=== PATIENT | female | born 1935 | race Caucasian/White ===

== ENCOUNTER 2019-12-13 12:06 | Inpatient (IN) | payer OTHER ==
--- OUTSIDE RECORDS SUMMARY | 2019-12-13 12:07 | XMS REPORT | Continuity of Care Document ---
:1935 Author Organization [facility] Care Team Providers Name Role Phone [facility] Unavailable Un available Problems Problem Status Onset Classification Date Comments Sour e Date Reported N28.89 - OTHER Active OP ID SPECIFIED DISORDERS OF 020 [place] K Atrial fibrillation Resolved Problem 10/23/2019 [facility] (disorder) Group, [facility] [place] Heart disease Resolved Problem 10/23/2019 Me dical (disorder) Group, [facility] [place] Hypercholesterolemia Resolved Problem 10/23/2019 Medical (disorder) Group, [facility] [place] Hypertensive disorder, Resolved Problem 10/23/2019 Medical systemic arterial Gr oup, (disorder) [facility] [place] Myocardial infarction Resolved Problem 10/23/2019 [facility] (disorder) Group, [facility] [place] Medications Medication Details Route Status Patient Ordering Order Source Instructions Provider Date Humira 40 mg, Active SUB-Q, ONCE, 020 Medical 0 Refill(s) Group dofetilide 0.25 250 Active MH MG Oral Capsule microgram = 020 Medi selvin [Tikosyn] 1 cap, PO, Group BID, 0 Refill(s) Furosemide 20 20 mg = 1 Active MH MG Oral Tablet tab, PO, 020 Medical [Lasix] Daily, 0 Group Refill(s) Fish Oil PO, 0 Active MH Refill(s) 020 Medical Group atorvastatin 10 10 mg = 1 Active MH mg oral tablet tab, PO, 020 Medical Daily, 0 Group Refill(s) Ocuvite PO, Daily, 0 Active MH Refill(s) 020 Medical Group Ferralet 90 PO, Daily, 0 Active MH Refill(s) 020 Medical Group Niacin 500 MG 500 mg = 1 Active MH Extended tab, PO, 020 Medical Release Tablet Bedtime, 0 Group [Slo-Niacin] Refill(s) Allergy Relief 10 mg, PO, Active Daily, 0 020 Medical Refill(s) Group Allergies, Adverse Reactions, Alerts Substance Category Reaction Severity Reaction Status Date Comments S ource type Reported sulfa drugs Assertion Drug Active allergy Medical Group Immunizations No Data Provided for This Section Results No Data Provided for This Section Pathology Reports No Data Provided for This Section Diagnostic Reports Report Value Date Source Abdomen wo IV Radiation Dose CTDIVOL = 0 (mGy): DLP = 297.6 (m Gy-cm) 10/15/[address] [facility] [place] [address] PROCEDURE INFORMATION: Exam: CT Abdomen Without Contrast Exam date and time: 10/15/2019 9:41 AM Age: 84 years old Clinical indication: Abnormal findings; Mass, lump, or swelling; Kidney, left; Additional info: Renal mass/renal mass TECHNIQUE: Imaging protocol: Computed tomography images of the abdomen without contrast. Radiation optimization: All CT scans at this facility use at least one of these dose optimization techniques: automated exposure control; mA and/or kV adjustment per patient size (includes targeted e xams where dose is matched to clinical indication); or iterative reconstructio n. COMPARISON: No relevant prior studies available. RADIATION DOSE METRICS: Total DLP (mGy-cm): 297.6 FINDINGS: Small pleural effusions, right larger than left, show associated passive atelectasis Liver: Normal. No mass. Gallbladder and bile ducts: Multiple small depen dent calcified stones. No ductal dilation. Pancreas: Normal. No ductal dilation. Spleen: Normal. No splenomegaly. Adrenals: Normal. No mass. Kidneys and ureters: Left renal cortex e xophytic 2.6 x 2.6 cm hypodense lesion shows 7 Hounsfield units average density, compat ible with fluid attenuation. Partially exophytic 1.6 x 2.3 cm right r enal cortical hypodense lesion shows 9 Hounsfield units average density, compatible wit h fluid attenuation. No hydronephrosis. Stomach and bowel: Stomach shows large h iatal hernia. No obstruction. Although incompletely distended, 2nd and 3rd portion duod enum show suspected wall thickening. A few diverticula arise from the col on. Pericolonic fat planes remain preserved. Intraperitoneal space: Nonspecific small ascites adjacent to the liver tracks inferiorly along the right pericolic gut ter. No free air. No significant fluid collection. Lymph nodes: Unremarkable. No enlarged lymph nod es. Vasculature: Normal caliber abdominal aorta cont ains atherosclerotic calcifications. No abdominal aortic aneurysm. Bones/joints: Intervertebral disc spaces show di ffuse narrowing with vacuum phenomenon and osteophytes. L3 vertebral body ly tic lesion shows coarsened trabecular compatible with hemangioma. No acute fracture. No dislocation. Soft tissues: Small umbilical hernia contains fa t. IMPRESSION: Bilateral renal cysts. Cholelithiasis Minimal ascites of indeterminate origin. Large hiatal hernia Although incompletely distended, 2nd and 3rd por tion duodenum show suspected wall thickening. Please correlate clinically for duodenitis. Imaging findings do not exclude underlying malignancy. Small bilateral pleural effusions, right larger than left Foster Johnson MD On 10/15/2019 14:30:03; -WHWAN [id number] Consultation Notes No Data Provided for This Section Discharge Summaries No Data Provided for This Section History and Physicals No Data Provided for This Section Vital Signs Vital Sign Value Date Comments Source Systolic (mm Hg) 175 05/27/2019 Medical Group Diastolic (mm Hg) 110 05/27/2019 Medical Group Heart Rate 96 05/27/2019 [facility] p Height 154.94 cm 05/27/2019 [facility] p Weight 72.273 05/27/2019 [facility] p BMI Calculated 30.11 05/27/2019 Medical Gr oup Encounters Location Location Encounter Encounter Reason Attending ADM CT Stat Source Details Type Number For Provider Date Date Visit Outpatient [id number] Ana05/[address] [facility] Outpatient [id number] Ana05/27 Specialty [facility] Phone [id number] 06/09 06/11 [facility] Outpatient [id number] 09/[address] [facility] Out[facility] Diag [id number] Ana 10/14 10/15 [facility] [id number] Christophe 10/20 10/20 Specialty Pre-Reg [place] /2019 [facility] Procedures Procedure Code Date Perfomer Comments Source Cataract surgery [id number] [facility], [facility] Knee replacement [id number] [facility] al [facility], [facility] Assessment and Plan No Data Provided for This Section Plan of Care No Data Provided for This Section Social History Social History Date Source Social History TypeResponse 05/27/2019 [facility] Smoking Status Never smoker; Ready to change: No; Katy rns about tobacco use in household: No; Exposure to Tobacco Smoke None; Cigarette Smoking Last 365 Days No; Reg Smoking Cessation Counseling No entered on: 05/27/19 Social History TypeResponse 05/27/2019 NICOLE armstrong Smoking Status Never smoker; Ready to change: No; Katy rns about tobacco use in household: No; Exposure to Tobacco Smoke None; Cigarette Smoking Last 365 Days No; Reg Smoking Cessation Counseling No entered on: 05/27/19 Family History No Data Provided for This Section Advance Directives No Data Provided for This Section Functional Status No Data Provided for This Section
--- OUTSIDE RECORDS SUMMARY | 2019-12-13 12:07 | XMS REPORT | Clinical Summary ---
:1935 Author Organization [facility] Address [address] [place] [address] Care Team Providers Name Role Phone MD Oneyda Primary Care Provider Allergies Active Allergy Reactions Severity Noted Date Comments Sulfa (Sulfonamide Antibiotics) 9 Rash Medications Medication Sig Dispensed Refills Start Date End Date Status atorvastatin (LIPITOR) Take 10 mg by 0 Active 10 MG tablet mouth nightly. pantoprazole (PROTONIX) Take 40 mg by 0 Active 40 MG EC tablet mouth daily. multivitamin Take 1 tablet by 0 Active (THERAGRAN) tablet mouth daily. niacin (SLO-NIACIN) 500 Take 500 mg by 0 Active mg CR tablet mouth 2 (two) times a day with meals. Active Problems Problem Noted Date Paroxysmal atrial fibrillation 04/17/2018 Social History Tobacco Use Types Packs/Day Years Used Date Never Assessed Sex Assigned at Date Recorded Not on file Job Start Date Occupation Industry Not on file Not on file Not on file Travel History Travel Start Travel End No recent travel history available. Last Filed Vital Signs Not on file Plan of Treatment Health Maintenance Due Date Last Done Comments SHINGLES VACCINES (#1) 07/05/1985 65+ PNEUMOCOCCAL VACCINE (1 of 2 - PCV13) 07/05/2000 INFLUENZA VACCINE 01/02/2020 Implants Implanted Type Area Chiller Technician Device Shelf Model / Identifier Expiration Serial / Date Lot System Reveal Linq W/Monitors - [id number] Cardiac N/A: MEDTRON IC 02/28/2019 LINQSYS / Implanted: Qty: 1 on 04/19/2018 by Adan Pope MD at [facility] Pacemakers and N/A CARDIAC RHYTHM / Related DISEASE MGMT [id number] Products Results Not on fileafter 12/12/2018 Advance Directives For more information, please contact: [phone] Type Date Recorded 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
[2019-12-13 13:17] LABS: Absolute Lymphocytes (CBC) 2.8 K/uL (0.7-4.9); Basophils % 1.2 % (0-1.3); Hematocrit 30.8 % (36.0-45.0); MPV 8.9 fL (7.6-11.3); RBC Red Blood Cell Count 3.46 M/uL (3.86-4.86)
[2019-12-13 13:22] LABS: Protime INR 0.95
[2019-12-13 13:43] LABS: ALT/SGPT 15 U/L (12-78); AST/SGOT 28 U/L (15-37); Albumin 1.3 g/dL (3.4-5.0); Alkaline Phosphatase 112 U/L (45-117); BUN Blood Urea Nitrogen 33 mg/dL (7-18); Bicarbonate 19 mmol/L (21-32); Bilirubin Direct < 0.1 mg/dL (0-0.2); Bilirubin Total 0.2 mg/dL (0.2-1.0); Glucose Level 143 mg/dL (74-106); Magnesium 2.3 mg/dL (1.8-2.4); NT PRO-BNP 9200 pg/mL (<450); Potassium 3.8 mmol/L (3.5-5.1); Protein, Total 5.2 g/dL (6.4-8.2); Sodium Level 144 mmol/L (136-145); Troponin (Emerg Dept Use Only) 0.07 ng/mL (0.0-0.045)
--- NOTE | 2019-12-13 13:56 | RAD REPORT ---
EXAM DESCRIPTION: Rebeka Single View12/13/2019 1:48 pm CLINICAL HISTORY: Syncope/AFib COMPARISON: May 2019 FINDINGS: Left base is opacified Right lung appears clear Heart is mildly enlarged. Hiatal hernia is seen. IMPRESSION: Left base is opacified which may represent pneumonia/atelectasis. Pleural effusion may b e present The should be followed until it has cleared with x-rays to help exclude a post obstructive process/ma ss
--- NOTE | 2019-12-13 14:59 | EDPHYS ---
Physician Documentation [facility] Name: Neetu Mendoza Age: 84 yrs Sex: Female : 1935 Arrival Date: 12/13/2019 Time: 12:13 Bed 2 Private MD: ED Physician Kathi Acosta HPI: 12/12 13:13 This 84 yrs old Female presents to ER via Ambulatory with complaints of Sent ma2 by Baradhi- AFIB Monitor. 13:13 The patient has shortness of breath at rest. Onset: The symptoms/episode began/occurred ma2 gradually. Associated signs and symptoms: Pertinent negatives: productive cough, dizziness, hemoptysis, loss of consciousness. Severity of symptoms: At their worst the symptoms were moderate in the emergency department the symptoms are unchanged. The patient has not experienced similar symptoms in the past. 13:16 aslo had syncope last night while sitting on her chair she did not hit her head . ma2 Historical: - Allergies: 12:25 Sulfa (Sulfonamide Antibiotics); jd3 - PSHx: 12:25 Heart stents; Hysterectomy; cataract; gloria knee; jd3 - Immunization history:: Adult Immunizations up to date. - Social history:: Smoking status: Patient denies any tobacco usage or history of. Patient/guardian denies using alcohol, street drugs, The patient lives with family. - Family history:: not pertinent. ROS: 13:13 Constitutional: Negative for fever, chills, and weight loss. ma2 13:13 All other systems are negative. Exam: 13:13 Constitutional: This is a well developed, well nourished patient who is awake, alert, ma2 and in no acute distress. Head/Face: Normocephalic, atraumatic. Eyes: Pupils equal round and reactive to light, extra-ocular motions intact. Lids and lashes normal. Conjunctiva and sclera are non-icteric and not injected. Cornea within normal limits. Periorbital areas with no swelling, redness, or edema. ENT: Nares patent. No nasal discharge, no septal abnormalities noted. Tympanic membranes are normal and external auditory canals are clear. Oropharynx with no redness, swelling, or masses, exudates, or evidence of obstruction, uvula midline. Mucous membranes moist. Neck: Trachea midline, no thyromegaly or masses palpated, and no cervical lymphadenopathy. Supple, full range of motion without nuchal rigidity, or vertebral point tenderness. No Meningismus. Chest/axilla: tachypnic yet Normal chest wall appearance and motion. Nontender with no deformity. No lesions are appreciated. Cardiovascular: Regular rate and rhythm with a normal S1 and S2. No gallops, murmurs, or rubs. Normal PMI, no JVD. No pulse deficits. Respiratory: tachypnic yet Lungs have equal breath sounds bilaterally, clear to auscultation and percussion. No rales, rhonchi or wheezes noted. no retractions or nasal flaring. Abdomen/GI: Soft, non-tender, with normal bowel sounds. No distension or tympany. No guarding or rebound. No evidence of tenderness throughout. Back: No spinal tenderness. No costovertebral tenderness. Full range of motion. Skin: Warm, dry with normal turgor. Normal color with no rashes, no lesions, and no evidence of cellulitis. MS/ Extremity: has bilateral LE edema 2+ equal bilat, pitting, Pulses equal, no cyanosis. Neurovascular intact. Full, normal range of motion. Neuro: Awake and alert, GCS 15, oriented to person, place, time, and situation. Cranial nerves II-XII grossly intact. Motor strength 5/5 in all extremities. Sensory grossly intact. Cerebellar exam normal. Normal gait. Vital Signs: 12:24 BP 158 / 72; Pulse 89; Resp 18 S; Temp 97.8(O); Pulse Ox 99% on R/A; Weight 72.57 kg jd3 (R); Height 5 ft. 1 in. (154.94 cm) (R); Pain 0/10; 14:00 BP 131 / 65; Pulse 82; Resp 16; Pulse Ox 99% on R/A; hb 15:00 BP 136 / 59; Pulse 83; Resp 18; Pulse Ox 99% on R/A; em 16:05 BP 128 / 59; Pulse 75; Resp 15; Pulse Ox 99% on R/A; hb 17:00 BP 155 / 95; Pulse 91; Resp 15; Pulse Ox 99% on R/A; hb 17:47 BP 104 / 64; Pulse 71; Resp 16; Pulse Ox 100% ; hb 18:30 BP 140 / 71; Pulse 87; Resp 18; Pulse Ox 98% on R/A; em 20:28 BP 152 / 73; Pulse 85; Resp 17; Pulse Ox 98% on R/A; rv 21:16 BP 142 / 71; Pulse 89; Resp 17; Pulse Ox 96% on R/A; rv 22:37 BP 152 / 82; Pulse 88; Resp 18; Temp 98.2; Pulse Ox 98% on R/A; rv 12:24 Body Mass Index 30.23 (72.57 kg, 154.94 cm) jd3 MDM: 12:36 Patient medically screened. [facility] 13:13 Differential diagnosis: Anemia Anxiety Reaction Bronchitis CHF exacerbation, Myocardial ma2 Infarction reactive airway disease, Unstable Angina. 14:55 Data reviewed: vital signs, nurses notes. Counseling: I had a detailed discussion with ma2 the patient and/or guardian regarding: the historical points, exam findings, and any diagnostic results supporting the discharge/admit diagnosis, the presence of at least one elevated blood pressure reading (>120/80) during this emergency department visit, the need for further work-up and treatment in the hospital. ED course: discussed with dr. soto who stated that monitor sent warning for vt during her syncope recommends admisison and hold off tikacin and discussed with jassi mcclure who also recommends rocephin only and half ns at 50 ml/hr. 12/12 12:37 Order name: Basic Metabolic Panel; Complete Time: 14:04 [facility] 12/12 14:12 Interpretation: Within normal limits. [facility] 12/12 12:37 Order name: CBC with Diff; Complete Time: 14:04 [facility] 12/12 12:37 Order name: LFT's; Complete Time: 14:04 [facility] 12/12 12:37 Order name: Magnesium; Complete Time: 14:04 [facility] 12/12 12:37 Order name: NT PRO-BNP; Complete Time: 14:04 [facility] 12/12 12:37 Order name: PT-INR; Complete Time: 14:04 [facility] 12/12 12:37 Order name: Troponin (emerg Dept Use Only); Complete Time: 14:04 [facility] 12/12 12:37 Order name: XRAY Chest (1 view); Complete Time: 14:04 [facility] 12/12 15:16 Order name: Extrem Venous W Compression Gloria US ss 12/12 17:13 Order name: Troponin I [facility] 12/12 19:42 Order name: COVID-19 lp1 12/12 20:52 Order name: CORONAVIRUS [facility] 12/12 21:03 Order name: Troponin I [facility] 12/12 21:55 Order name: SARS-COV-2 RT PCR [facility] 12/12 12:37 Order name: EKG; Complete Time: 12:38 [facility] 12/12 12:37 Order name: Cardiac monitoring; Complete Time: 14:05 [facility] 12/12 12:37 Order name: EKG - Nurse/Tech; Complete Time: 14:06 [facility] 12/12 12:37 Order name: IV Saline Lock; Complete Time: 13:09 [facility] 12/12 12:37 Order name: Labs collected and sent; Complete Time: 14:06 [facility] 12/12 12:37 Order name: O2 Per Protocol; Complete Time: 14:06 [facility] 12/12 12:37 Order name: O2 Sat Monitoring; Complete Time: 14:06 [facility] 12/12 17:35 Order name: US [facility] Administered Medications: 15:10 Drug: AZITHromycin 500 mg Route: IVPB; Infused Over: 1 hrs; Site: right antecubital; em 16:10 Follow up: Response: No adverse reaction; IV Status: Completed infusion; IV Intake: em 250ml Disposition: 12/13/19 14:59 Hospitalization ordered by Christophe Call for Inpatient Admission. Preliminary diagnosis are Pneumonia due to other specified bacteria, Syncope and collapse, Ventricular tachycardia - transient and resolved , Acute kidney failure, Dehydration. - Bed requested for Telemetry/MedSurg (Inpatient). - Status is Inpatient Admission. rv - Condition is Stable. - Problem is new. - Symptoms are unchanged. Signatures: Dispatcher [employer] [facility] Nisreen Ramos RN RN mw Woody, Diana, RN RN dw Munoz, Edgar, RN RN em Davies, Jonathon, RN RN jd3 Alzahri, Mohammad, MD MD ma2 Vicente, Ronaldo, RN RN rv Corrections: (The following items were deleted from the chart) 14:12 14:11 Abnormal. [facility] 14:12 14:11 OrderId: [id number] PrecursorText: InterpretationText: randal tee 18:22 14:59 Hospitalization Ordered by Christophe Call MD for Inpatient Admission. Preliminary dw diagnosis is Pneumonia due to other specified bacteria; Syncope and collapse; Ventricular tachycardia - transient and resolved ; Acute kidney failure; Dehydration. Bed requested for Telemetry/MedSurg (Inpatient). Status is Inpatient Admission. Condition is Stable. Problem is new. Symptoms are unchanged. ma2 19:43 18:22 12/13/2019 14:59 Hospitalization Ordered by Christophe Call MD for Inpatient dw Admission. Preliminary diagnosis is Pneumonia due to other specified bacteria; Syncope and collapse; Ventricular tachycardia - transient and resolved ; Acute kidney failure; Dehydration. Bed requested for Telemetry/MedSurg (Inpatient). Status is Inpatient Admission. Condition is Stable. Problem is new. Symptoms are unchanged. dw 22:14 19:43 12/13/2019 14:59 Hospitalization Ordered by Christophe Call MD for Inpatient mw Admission. Preliminary diagnosis is Pneumonia due to other specified bacteria; Syncope and collapse; Ventricular tachycardia - transient and resolved ; Acute kidney failure; Dehydration. Bed requested for Telemetry/MedSurg (Inpatient). Status is Inpatient Admission. Condition is Stable. Problem is new. Symptoms are unchanged. dw 22:38 22:14 12/13/2019 14:59 Hospitalization Ordered by Christophe Call MD for Inpatient rv Admission. Preliminary diagnosis is Pneumonia due to other specified bacteria; Syncope and collapse; Ventricular tachycardia - transient and resolved ; Acute kidney failure; Dehydration. Bed requested for Telemetry/MedSurg (Inpatient). Status is Inpatient Admission. Condition is Stable. Problem is new. Symptoms are unchanged.
--- NOTE | 2019-12-13 14:59 | ER ---
Nurse's Notes [facility] Name: Neetu Mendoza Age: 84 yrs Sex: Female : 1935 Arrival Date: 12/13/2019 Time: 12:13 Bed 2 Private MD: Diagnosis: Pneumonia due to other specified bacteria;Syncope and collapse;Ventricular tachycardia-transient and resolved ;Acute kidney failure;Dehydration Presentation: 12/12 12:22 Chief complaint: Patient states: "I had a passing out spell yesterday and My jd3 cardiovascular technologist said they captured it on the monitor I am wearing at they told me to come to the ER.". Coronavirus screen: At this time, the client does not indicate any symptoms associated with coronavirus-19. Ebola Screen: Patient negative for fever greater than or equal to 101.5 degrees Fahrenheit, and additional compatible Ebola Virus Disease symptoms. Initial Sepsis Screen: Does the patient meet any 2 criteria? No. Patient's initial sepsis screen is negative. Does the patient have a suspected source of infection? No. Patient's initial sepsis screen is negative. Risk Assessment: Do you want to hurt yourself or someone else? Patient reports no desire to harm self or others. Onset of symptoms was December 13, 2019. 12:22 [facility] 12:22 Acuity: HARLEY 3 jd3 12:42 Note Ramila Jackson- daughter: [phone]. ss Historical: - Allergies: 12:25 Sulfa (Sulfonamide Antibiotics); jd3 - PSHx: 12:25 Heart stents; Hysterectomy; cataract; gloria knee; jd3 - Immunization history:: Adult Immunizations up to date. - Social history:: Smoking status: Patient denies any tobacco usage or history of. Patient/guardian denies using alcohol, street drugs, The patient lives with family. - Family history:: not pertinent. Screenin:19 Abuse screen: Denies threats or abuse. Nutritional screening: No deficits noted. em Tuberculosis screening: No symptoms or risk factors identified. Fall Risk None identified. Assessment: 13:10 General: Appears in no apparent distress. comfortable, Behavior is calm, cooperative, em appropriate for age. Pain: Denies pain. Neuro: Level of Consciousness is awake, alert, obeys commands, Oriented to person, place, time, situation, Appropriate for age. Cardiovascular: Reports shortness of breath, Denies chest pain, Capillary refill < 3 seconds. Respiratory: Airway is patent Respiratory effort is even, unlabored, Respiratory pattern is regular, symmetrical. Derm: Skin is intact, is thin, Skin is pink, warm \\T\\ dry. Musculoskeletal: Capillary refill < 3 seconds, Range of motion: intact in all extremities. 14:05 Reassessment: Patient appears in no apparent distress at this time. Patient and/or hb family updated on plan of care and expected duration. Pain level reassessed. Patient is alert, oriented x 3, equal unlabored respirations, skin warm/dry/pink. 15:00 Reassessment: Patient appears in no apparent distress at this time. Patient and/or em family updated on plan of care and expected duration. Pain level reassessed. Patient is alert, oriented x 3, equal unlabored respirations, skin warm/dry/pink. 16:00 Reassessment: Patient appears in no apparent distress at this time. No changes from hb previously documented assessment. Patient and/or family updated on plan of care and expected duration. Pain level reassessed. Patient is alert, oriented x 3, equal unlabored respirations, skin warm/dry/pink. 17:00 Reassessment: Patient appears in no apparent distress at this time. Patient and/or hb family updated on plan of care and expected duration. Pain level reassessed. Patient is alert, oriented x 3, equal unlabored respirations, skin warm/dry/pink. 18:03 Reassessment: Patient appears in no apparent distress at this time. Patient and/or em family updated on plan of care and expected duration. Pain level reassessed. Patient is alert, oriented x 3, equal unlabored respirations, skin warm/dry/pink. 21:16 Reassessment: awaiting COVID result. rv Vital Signs: 12:24 BP 158 / 72; Pulse 89; Resp 18 S; Temp 97.8(O); Pulse Ox 99% on R/A; Weight 72.57 kg jd3 (R); Height 5 ft. 1 in. (154.94 cm) (R); Pain 0/10; 14:00 BP 131 / 65; Pulse 82; Resp 16; Pulse Ox 99% on R/A; hb 15:00 BP 136 / 59; Pulse 83; Resp 18; Pulse Ox 99% on R/A; em 16:05 BP 128 / 59; Pulse 75; Resp 15; Pulse Ox 99% on R/A; hb 17:00 BP 155 / 95; Pulse 91; Resp 15; Pulse Ox 99% on R/A; hb 17:47 BP 104 / 64; Pulse 71; Resp 16; Pulse Ox 100% ; hb 18:30 BP 140 / 71; Pulse 87; Resp 18; Pulse Ox 98% on R/A; em 20:28 BP 152 / 73; Pulse 85; Resp 17; Pulse Ox 98% on R/A; rv 21:16 BP 142 / 71; Pulse 89; Resp 17; Pulse Ox 96% on R/A; rv 22:37 BP 152 / 82; Pulse 88; Resp 18; Temp 98.2; Pulse Ox 98% on R/A; rv 12:24 Body Mass Index 30.23 (72.57 kg, 154.94 cm) jd3 ED Course: 12:13 Patient arrived in ED. ds1 12:24 Triage completed. jd3 12:25 Arm band placed on. jd3 12:36 Kathi Acosta MD is Attending Physician. ma2 12:39 Poncho Petersen, SANDRA is Primary Nurse. em 13:09 Inserted saline lock: 20 gauge in right antecubital area, using aseptic technique. hb Blood collected. 13:19 Patient has correct armband on for positive identification. Bed in low position. Call em light in reach. classroom monitor on. Pulse ox on. NIBP on. 13:48 XRAY Chest (1 view) In Process Unspecified. EDMS 14:58 Christophe Call MD is Hospitalizing Provider. ma2 19:23 No provider procedures requiring assistance completed. IV is patent, with fluids rv infusing freely, Patient admitted, IV remains in place. Administered Medications: 15:10 Drug: AZITHromycin 500 mg Route: IVPB; Infused Over: 1 hrs; Site: right antecubital; em 16:10 Follow up: Response: No adverse reaction; IV Status: Completed infusion; IV Intake: em 250ml Intake: 16:10 IV: 250ml; Total: 250ml. em Outcome: 14:59 Decision to Hospitalize by Provider. ma2 22:38 Admitted to Med/surg accompanied by tech, via wheelchair, room 202, with chart, Report rv called to FATIMAH FLORES 22:38 Condition: good 22:38 Instructed on the need for admit. 22:38 Patient left the ED. rv Signatures: Dispatcher [employer] Poncho Gamboa, RN RN Nicolette Maxwell ds1 Kimberlyn Sheldon RN RN ss Radha Zuniga RN RN hb Davies, Jonathon, RN RN jd3 Kathi Acosta MD MD ny2 Marlo Cordero RN RN rv
[2019-12-13] MEDS ORDERED: AZITHROMYCIN IV 500 MG in NA CHLORIDE 0.9% 250 ML IVPB ONE (15:00)
--- NOTE | 2019-12-13 17:34 | RAD REPORT ---
EXAM DESCRIPTION: USExtrem Venous W Compress Bil12/13/2019 5:14 pm CLINICAL HISTORY: Bilateral leg swelling COMPARISON: April 2019 FINDINGS: The common femoral, superficial femoral, popliteal and posterior tibial veins bilaterally are compressible and demonstrate augmentation. Doppler demonstrates good flow. IMPRESSION: No evidence of deep venous thrombosis involving either lower extremity.
[2019-12-13] MEDS ORDERED: ACETAMINOPHEN 500 MG TAB PO PRN (20:01)
[2019-12-13] MEDS ORDERED: CEFTRIAXONE 1,000 MG in WATER FOR INJ,STERILE 10 ML IVP SCH (21:00)
[2019-12-13] MEDS ORDERED: CEFTRIAXONE 1 GM/NS 50 ML 1 GM/50 ML BAG IV SCH (21:00)
[2019-12-13] MEDS ORDERED: NACHLORIDE 0.45% 1,000 ML IV SCH (21:00)
[2019-12-13] MEDS ORDERED: CEFTRIAXONE 1,000 MG in WATER FOR INJ,STERILE 10 ML IVP ONE (21:00)
--- NOTE | 2019-12-13 21:17 | P.HP ---
Certification for Inpatient Patient admitted to: Inpatient With expected LOS: >2 Midnights Practitioner: I am a practitioner with admitting privileges, knowledge of patient current condition, hospital course, and medical plan of care. Services: Services provided to patient in accordance with Admission requirements found in Title 42 Section 412.3 of the Code of Federal Regulations Patient History Date of Service: 12/13/19 Reason for admission: V TACH. ON HER MONITOR REPORTED BY DR. HERMOSILLO History of Present Illness: DR. NAVARRO CALLED HER TO ER DR. HERMOSILLO REPORTED SHE HAD V TACH ON MONITORING. HER ELECTROLYTES ARE OKAY BUT HER CREATININE HAS WORSENED. HER CXR SHOWS POSSIBLE INFILTERATE VS. ATELACTASIS. SHE IS FATIGUED AND TEHRE IS NO OTHER SYMPTOM. Allergies Sulfa (Sulfonamide Antibiotics) Allergy (Mild, Verified 03/31/13 10:05) Rash Home Medications: Atorvastatin Calcium [Lipitor*] 10 mg PO BEDTIME 03/31/13 Beta-Carotene(A) W-C & E/Min [Ocuvite Tablet] 1 each PO DAILY 03/31/13 Cetirizine HCl [Zyrtec*] 5 mg PO DAILY 03/31/13 Niacin Sr [Niaspan*] 1,000 mg PO BEDTIME 03/31/13 [place]-3 Fatty Acids/Fish Oil [Fish Oil 1,200 mg Softgel] 1 each PO BID 03/31/13 Adalimumab [Humira] 10 mg SQ WMP 03/14/17 - Past Medical/Surgical History Diabetic: No -: Anemia -: Hyperlipidemia -: NC with stent -: bilateral knee replacement -: cataracts - Family History Mother -: Lung disease, Cancer Sister -: Cancer - Social History Alcohol use: No CD- Drugs: No Caffeine use: No Review of Systems 10-point ROS is otherwise unremarkable General: Weakness, Malaise Physical Examination - Physical Exam General: Mild distress HEENT: Atraumatic, PERRLA, Mucous membr. moist/pink, EOMI, Sclerae nonicteric Neck: Supple, 2+ carotid pulse no bruit, No LAD, Without JVD or thyroid abnormality Respiratory: Clear to auscultation bilaterally, Normal air movement Cardiovascular: Regular rate/rhythm, Normal S1 S2 Gastrointestinal: Normal bowel sounds, No tenderness Musculoskeletal: No tenderness Integumentary: No rashes Neurological: Normal gait, Normal speech, Normal strength at 5/5 x4 extr, Normal tone, Normal affect Lymphatics: No axilla or inguinal lymphadenopathy - Studies Laboratory Data (last 24 hrs) 12/13/19 13:07: Troponin I 0.06 H 12/13/19 13:07: PT 11.2, INR 0.95 12/13/19 13:07: WBC 8.0, Hgb 10.3 L, Hct 30.8 L, Plt Count 226 12/13/19 13:07: Sodium 144, Potassium 3.8, BUN 33 H, Creatinine 3.01 H, Glucose 143 H, Magnesium 2.3, Total Bilirubin 0.2, AST 28, ALT 15, Alkaline Phosphatase 112 Assessment and Plan - Problems (Diagnosis) (1) Acute renal insufficiency Current Visit: Yes Status: Acute Plan: STOP GENTLE IV HYDRATION. THIS MAY HELP BUT AGAIN SHE IS THIRD SPACING BECAUSE OF LOW ALBUMIN. LASIX AND ALBUMIN INFUSION MAY HELP TEMPORARILILY I CALLED DR. VALLES, HER SHEARING SUPERVISOR AND HE WILL MANAGE FLUIDS AND LASIX. SHE MAY HAVE NEPHROTIC SYNDROME. (2) Hypoalbuminemia Current Visit: Yes Status: Acute Plan: ABVE. (3) Ventricular tachyarrhythmia Current Visit: Yes Status: Acute Plan: WILL DO MONITORING. K AND MAG ARE OKAY. (4) Atelectasis Current Visit: Yes Status: Acute Plan: NO SIGNS OF FEVER, OR COUGH. SHE MAY NOT HAVE PNEUMONIA WILL DO CT SCAN WHEN CREATININE IS LOWER TO NORMAL. - Advance Directives Does patient have a Living Will: No Does patient have a Durable POA for Healthcare: Yes
--- NOTE | 2019-12-13 22:23 | CON ---
Date of Consultation: 12/13/2019 Reason For Consultation: Ventricular tachycardia and atrial fibrillation. History Of Present Illness: Ms. Mendoza is an 84-year-old white woman. She is very well known to me from previous office visits and admissions. She basically has history of atrial fibrillation that shaw s been treated with Tikosyn by Dr. Ga, has been controlled, but apparently on her monitor that is r emotely monitored, she had an episode of syncope with ventricular tachycardia that lasted [address] Ga and Dr. Call and myself agreed to have her go to the emergency room for further evaluatio n and treatment. In the interim since I last saw her, she has seen Dr. Guerrero and has been placed on diuretics, Synthroid medication as well. Her kidney function has much worsened on her diuretic. Her last creatinine was 3.01. She took the thyroid medicine only for 3 days. She has been feeling f airly well until that episode of syncope that occurred while she was sitting in her chair. She did n ot have any chest pain, shortness of breath, nausea, vomiting, or diaphoresis. Denied PND, orthopnea , or pedal edema, but definitely was syncopal. The rhythm was sent to me and it was definitely ventr icular tachycardia. In the emergency room, her EKG showed atrial fibrillation, rate controlled, with slightly prolonged QT interval. She had normal potassium, normal magnesium. Troponin was 0.06. BN P was 9200. Chest x-ray showed pneumonia versus atelectasis in the left lower lobe and venous Dopple r was negative. She is asymptomatic right now. Past Medical History: Positive for rheumatoid arthritis and dyslipidemia. Allergies: SHE IS ALLERGIC TO SULFA. Medications: Listed by Dr. Call, but they do include Lipitor, Humira, Niaspan, diuretics, Tikosyn, and Synthroid, which she held herself. Physical Examination: General: She was in atrial fibrillation at rate of 60, afebrile. Vital Signs: Otherwise stable. HEENT: Negative. Neck: Supple with no bruit. Chest: Clear. Cardiac: Atrial fibrillation. Abdomen: Benign. Extremities: No clubbing, cyanosis, or edema. Diagnostic Data: As stated earlier. Impression And Plan: 1.Ventricular tachycardia, resolved, causing syncope. She had long QT. This may have been caused b y a combination of her Tikosyn and worsening renal failure. Her magnesium and potassium are normal. We need to hold her Tikosyn. We need to hold her Synthroid. We need to hold her diuretics. The ca se was discussed with Dr. Call. 2.Renal failure, acute on chronic. Diuretics need to be held. She may benefit from gentle hydratio n. She does have a normal ejection fraction. 3.Elevated troponin and BNP secondary to chronic atrial fibrillation. 4.Dyslipidemia, on Lipitor. 5.Rheumatoid arthritis, on Humira. 6.History of coronary artery disease, status post percutaneous coronary intervention that is stable. 7.History of allergy to sulfa. 8.New-onset pneumonia, for which she is on antibiotics. I think gentle hydration, holding the diuretics, Synthroid, Tikosyn, and antibiotics should be in ord er. It may be worth keeping her in the hospital for a day or 2. I will discuss the case further wit h Dr. Call and Dr. Ga. We may have to deal with atrial fibrillation later down the road. We may have to consider anticoagulation. LIBBY/MARIBEL Voice ID: [id number] Report ID: [id number]
[2019-12-13 22:45] VITALS: BMI 30.2
[2019-12-13] MEDS: CEFTRIAXONE/SWI 1gm 1 GM/10 ML SYR IV SCH (23:46)
[2019-12-14 00:05] LABS: Urine Appearance CLEAR; Urine Bilirubin NEGATIVE (NEG); Urine Blood 2+ (NEG); Urine Color YELLOW; Urine Glucose 1+ (NEG); Urine Protein 3+ (NEG); Urine Specific Gravity 1.025 (1.005-1.030); Urine Urobilinogen 0.2 mg/dL (0.2-1.0)
[2019-12-14 00:13] LABS: Urine Protein/Creatinine Ratio 7.66 ratio (<0.15)
[2019-12-14 00:24] LABS: Urine Bacteria LOADED /HPF (<20)
[2019-12-14 00:25] LABS: Urine Amorphous Sediment 2+ /HPF (NONE SEEN); Urine Culture Reflex Order NOT NEEDED; Urine Mucus 1+ /HPF (NONE SEEN)
[2019-12-14 07:19] LABS: Albumin 1.2 g/dL (3.4-5.0); Phosphorus 3.4 mg/dL (2.5-4.9); Potassium 3.4 mmol/L (3.5-5.1)
[2019-12-14 07:40] LABS: Potassium 3.4 mmol/L (3.5-5.1)
[2019-12-14 07:41] LABS: Absolute Lymphocytes (CBC) 4.2 K/uL (0.7-4.9); Lymphocytes % 43.9 % (15.3-44.8); MPV 9.1 fL (7.6-11.3); RBC Red Blood Cell Count 3.26 M/uL (3.86-4.86)
[2019-12-14] MEDS: ENOXAPARIN 30 MG/0.3 ML SQ SCH (09:00)
[2019-12-14] MEDS: ASPIRIN EC 81 MG TAB PO SCH (09:05)
[2019-12-14] MEDS: CEFTRIAXONE/SWI 1gm 1 GM/10 ML SYR IV SCH ×2 (09:05→20:15)
--- NOTE | 2019-12-14 10:12 | RAD REPORT ---
EXAM DESCRIPTION: CT - Stone Protocol - 12/14/2019 9:51 am CLINICAL HISTORY: Acute renal failure, abdominal pain COMPARISON: Abdomen Pelvis W Contrast dated 05/16/2019 TECHNIQUE: Axial [address] imaging of the abdomen and pelvis was performed without IV contrast. No IV contrast was given because of allergy, abnormal renal function, patient refusal or physician re quest. No oral contrast administered. All CT scans are performed using dose optimization technique as appropriate and may include automated exposure control or mA/KV adjustment according to patient size. FINDINGS: Moderate-sized bilateral pleural effusions present with partial atelectasis of each lower lobe. Pericardial effusion is present up to 11 mm in thickness. Large hiatal hernia is present with 5 0% of the stomach intrathoracic. The liver, spleen and pancreas show no suspicious findings on non-contrast imaging. Several small gal lstones are present. No active gallbladder process seen. No biliary tree dilatation. No hydronephrosis of either kidney. No obstructing or nonobstructing calculus. Partially exophytic 2. 4 centimeter cyst lateral right kidney unchanged. In the lateral upper pole left kidney there is a 3 centimeter exophytic cystic mass. This has a thickened rim. There is soft tissue nodularity present. The May CT study showed this to be a cystic mass with enhancing solid mass component. 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 No significant adrenal finding. Isodense renal masses and pyelonephritis cannot be excluded in the ab sence of IV contrast. Urinary bladder is mostly contracted. No uterine abnormality. Ovaries are not c learly defined. Ovaries are atrophic or absent. No adnexal mass. No wall thickening or mass of the partially herniated stomach. No acute large or small bowel finding. Prominent sigmoid diverticulosis without diverticulitis. Small amount of free intraperitoneal fluid present in the dependent portion of the pelvis. No free air or pneumatosis. No hernia, mass or bulky lymphadenopathy. Disc and bony degenerative changes are present. Hemangioma present in the L3 body. Dense arterial eriberto e calcifications. Fluid retention is seen throughout the subcutaneous fatty tissues. IMPRESSION: A 3 centimeter left renal cystic mass with soft tissue mass component again noted. 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 Cystic component may be slightly larger than Feb ruary. No hydronephrosis or obstructing calculus. No other acute finding seen. Cholelithiasis without active gallbladder finding identified. No biliary tree dilatation. Moderate bilateral pleural effusions and anasarca of the subcutaneous fat. Apparent asymmetric edema and thickening pattern of the left breast fatty tissues and skin relative t o the right. This may be due to incomplete visualization of the right breast tissues. Correlation is needed with physical exam of the breast tissues. Full assessment is limited is the absence of IV contrast.
[2019-12-14 10:13] LABS: MPV 9.6 fL (7.6-11.3)
[2019-12-14 11:28] LABS: Platelet Estimate ADEQ
--- NOTE | 2019-12-14 11:45 | RAD REPORT ---
EXAM DESCRIPTION: US - Renal Ultrasound-Complete - 12/14/2019 10:25 am CLINICAL HISTORY: MENDZOA COMPARISON: Stone Protocol dated 12/14/2019; Abdomen Pelvis W Contrast dated 05/16/2019 FINDINGS: The right kidney measures 10.5 x 4.1 x 4.6 cm. The left kidney measures 10.1 x 3.9 x 3.7 cm. Renal cortical thickness and echogenicity are normal. No hydronephrosis of either kidney. An exop hytic 2.3 centimeter thin-walled anechoic cyst is present lateral mid right kidney. This matches the CT finding. A 2.5 centimeter exophytic mass lateral mid upper pole left kidney is present. Low-level internal echoes are present. The enhancing soft tissue mass component seen on the May CT study i s difficult to identify sonographically. Partially filled urinary bladder shows no suspicious finding. IMPRESSION: A 2.5 centimeter exophytic left renal cystic mass is present. The enhancing soft tissue mural nodule component identifiable May 2019 is not clearly seen. 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 Benign exophytic 2.3 centimeter right renal cyst. No hydronephrosis of either kidney. No cortical thinning or measurable medical renal disease.
[2019-12-14] MEDS ORDERED: POTASSIUM 25 MEQ EFFERV TAB PO ONE (12:42)
[2019-12-14] MEDS ORDERED: ADALIMUMAB 40 MG SQ SCH (15:30)
--- NOTE | 2019-12-14 17:39 | PN ---
Date of Progress Note: 12/14/2019 Subjective: Ms. Mendoza had been admitted following an an episode of ventricular tachycardia as an ou tpatient. This was picked up on an outpatient monitor. She was brought to the emergency room, where she was found to have acute on chronic renal failure with a creatinine of 3.0. She had prolonged QT . She was in atrial fibrillation. Overnight, her diuretics were held. She was hydrated. She was t aking Synthroid, which was held. She was taking Tikosyn, which was held. The case has been discusse d with Dr. Call and with her specialties operator Dr. Pope at [facility]. Overnight, her cre atinine came down from 3.0 to 2.6. She is in sinus rhythm. Her QT interval has improved. She is as ymptomatic. Her heart rate is normal. I am comfortable for Ms. Mendoza to go home whenever it is oka y with Dr. Call. I think she should go home with a regimen that does not include Tikosyn, Synthroid , or diuretic. She should continue her Humira, Lipitor, her Cozaar, and her fish oil. I will see he r in the office in the next week or two. LIBBY/MARIBEL Voice ID: [id number] Report ID: [id number]
[2019-12-14] MEDS ORDERED: ATORVASTATIN 10 MG TAB PO SCH (21:00)
[2019-12-14 21:42] LABS: Urine Appearance CLOUDY; Urine Bilirubin NEGATIVE (NEG); Urine Blood 1+ (NEG); Urine Color YELLOW; Urine Glucose 1+ (NEG); Urine Protein 3+ (NEG); Urine Specific Gravity 1.025 (1.005-1.030); Urine Urobilinogen 0.2 mg/dL (0.2-1.0); Urine pH 6.5 (5.0-7.0)
[2019-12-14 22:06] LABS: Urine Microscopic Reflex ORDER UMIC
[2019-12-14 23:00] LABS: Urine Bacteria 20-50 /HPF (<20); Urine Mucus 1+ /HPF (NONE SEEN)
[2019-12-14 23:01] LABS: Urine Culture Reflex Order NOT NEEDED
--- NOTE | 2019-12-15 00:30 | CON ---
Date of Consultation: 12/14/2019 Chief Complaint: Acute kidney injury, severe, associated with renal hypoperfusion and nonoliguric ATN. History Of Present Illness: The patient was found to have ventricular tachycardia. The patient came to the emergency room because of generalized weakness, cardiac arrhythmia, palpitation. The patient has underlying chronic kidney disease stage 3. She was evaluated for proteinuria. She was found to have severe proteinuria during this admission and workup is initiated for monoclonal gammopathy of unknown significance. The patient was found to have renal function worsening with severe hyperazotemia. CT scan of the abdomen and pelvis was done without contrast per stone protocol, did not show obstructive uropathy, although there is a possibility of complex cyst versus kidney mass with growth. The patient denies history of hematuria. The patient is complaining of generalized fatigue, although she denies muscle aches or soreness. Denies syncope. Previously, baseline creatinine level was 1.3 to 1.5. Back in September, creatinine was up to 1.65, subsequently in November was 1.41. On arrival to the hospital, creatinine level was 2.78 and went up to 3.01. Today, creatinine level is 2.68. Urine output is well maintained and blood pressure is controlled. Cardiac arrhythmia is controlled. The patient has nonoliguric urine output. She denies hematuria, dysuria, or difficulty with urination. Urinalysis showed red blood cells and white blood cells, 3+ proteinuria. Urine protein-creatinine ratio is 7.66. Review of Systems: Constitutional: Denies fever or chills. Eyes: Denies vision changes. Ears, Nose, Mouth, and Throat: Denies sore throat or earache. Respiratory: She has shortness of breath with activities. Denies hemoptysis. Cardiovascular: Denies chest pain or palpitation. At this point, rate is controlled. The patient does not have palpitation. GI: Denies nausea or vomiting. : Denies dysuria or hematuria. Musculoskeletal: Denies muscle aches or joint swelling. All other systems reviewed and all are negative. Past Medical History: Hypertension, chronic kidney disease stage 3, hypertensive heart and kidney disease, hyperlipidemia, arrhythmia, hypothyroidism, kidney mass/complex renal cyst, pneumonia. Social History: Denies tobacco, alcohol, or illicit drugs. Family History: No kidney disease in the family. Physical Examination: General: The patient is awake, alert, follows commands. Eyes: Anicteric sclerae. EOMI. Ears, Nose, Mouth, and Throat: Oral mucosa moist. No pallor. Neck: Supple. No bruits. Lungs: Diminished breath sounds at bases. Heart: S1, S2. No pericardial friction rub. Abdomen: Soft, benign. No rebound. No guarding. Extremities: Minimal edema in both ankles. No clubbing. No cyanosis. Neurologic: Moving extremities. Cranial nerves intact. Psychiatric: Alert and oriented x3. Normal affect. 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 Impression And Plan: 1. The patient has acute kidney injury, severe. Renal function is declining, although over last 24 hours, there is a trend for plateau of the renal function. Electrolytes are stable. Potassium level is 3.4. Recommend to monitor magnesium level and replace potassium. 2. Severe proteinuria. The patient is undergoing workup for nephrotic syndrome and monoclonal gammopathy of unknown significance. Urinalysis showed red blood cells and white blood cells, and the patient will have workup for urinary tract infection. Previously, the patient was treated with antibiotics for urinary tract infection. She had Escherichia coli infection back in November. Recent urine culture is negative for growth. 3. Hypertensive heart and kidney disease. Monitor blood pressure. The patient developed hypotension when she had an atrial fibrillation and atrial flutter. The patient is evaluated by big data admin and she will continue beta- redd for rate control. GIO/MARIBEL Voice ID: [id number] Report ID: [id number] MTDD
[2019-12-15] MEDS ORDERED: METOPROLOL XL 50 MG TAB PO SCH ×2 (06:00→09:00)
[2019-12-15 06:21] LABS: Phosphorus 3.3 mg/dL (2.5-4.9); Potassium 3.5 mmol/L (3.5-5.1); Uric Acid 7.7 mg/dL (2.6-6.0)
[2019-12-15 06:23] LABS: Thyroid Stimulating Hormone 4.4 uIU/mL (0.360-3.740)
[2019-12-15] MEDS: ASPIRIN EC 81 MG TAB PO SCH (08:13)
[2019-12-15] MEDS: ENOXAPARIN 30 MG/0.3 ML SQ SCH (08:14)
[2019-12-15] MEDS ORDERED: FERRALET PO SCH (09:00)
[2019-12-15] MEDS ORDERED: LORATADINE 10 MG TAB PO SCH (09:00)
[2019-12-15 09:17] VITALS: O2SAT 95
--- NOTE | 2019-12-15 10:54 | P.DS ---
Admission Date: 12/13/19 Discharge Date: 12/15/19 Disposition: ROUTINE DISCHARGE Discharge Condition: FAIR Reason for Admission: V TACH. ON HER MONITOR REPORTED BY DR. HERMOSILLO - Problems (1) Acute renal insufficiency Current Visit: Yes Status: Acute (2) Hypoalbuminemia Current Visit: Yes Status: Acute (3) Ventricular tachyarrhythmia Current Visit: Yes Status: Acute (4) Atelectasis Current Visit: Yes Status: Acute Brief History of Present Illness: DR. NAVARRO CALLED HER TO ER DR. HERMOSILLO REPORTED SHE HAD V TACH ON MONITORING. HER ELECTROLYTES ARE OKAY BUT HER CREATININE HAS WORSENED. HER CXR SHOWS POSSIBLE INFILTERATE VS. ATELACTASIS. SHE IS FATIGUED AND TEHRE IS NO OTHER SYMPTOM. Hospital Course: PATIENT IS DOING GOOD. HER EDEMA WILL PERSIST UNTIL NEPHROTIC SYNDROME IS TAKEN CARE OFF. SHE WILL FU WITH DR. VALLES. I ADDED TOPROL XL BID FOR BP. I STOPPED LOSARTAN UNTIL RENAL FUNCTION IS STABILIZED. SHE WENT TO DR. ESCOBAR FOR RENAL CYST OR MASS. THEY DID FU AND CYST WAS THE SAME. SHE WILL FU WITH HER AGAIN CYST OR MASS IS SLIGHTLY BIGGER. SHE DOES NOT WANT RENAL BIOPSY OR SURGERY BUT WILL THINK ABOUT IT. SHE KNOWS IT CAN BE CANCER. Vital Signs/Physical Exam: Temp Pulse Resp BP Pulse Ox 97.3 F 84 16 188/79 H 97 12/15/19 08:00 12/15/19 08:13 12/15/19 08:00 12/15/19 08:13 12/15/19 08:00 Laboratory Data at Discharge: WBC 9.6 K/uL (4.3-10.9) D 12/14/19 05:43 Hgb 9.7 g/dL (12.0-15.0) L 12/14/19 05:43 Hct 29.0 % (36.0-45.0) L 12/14/19 05:43 Plt Count 238 K/uL (152-406) 12/14/19 09:33 PT 11.2 SECONDS (9.5-12.5) 12/13/19 13:07 INR 0.95 12/13/19 13:07 Sodium 144 mmol/L (136-145) 12/15/19 05:25 Potassium 3.5 mmol/L (3.5-5.1) 12/15/19 05:25 BUN 35 mg/dL (7-18) H 12/15/19 05:25 Creatinine 2.45 mg/dL (0.55-1.3) H 12/15/19 05:25 Glucose 101 mg/dL (74-106) 12/15/19 05:25 Uric Acid 7.7 mg/dL (2.6-6.0) H 12/15/19 05:25 Phosphorus 3.3 mg/dL (2.5-4.9) 12/15/19 05:25 Magnesium 2.3 mg/dL (1.8-2.4) 12/13/19 13:07 Total Bilirubin 0.2 mg/dL (0.2-1.0) 12/13/19 13:07 AST 28 U/L (15-37) 12/13/19 13:07 ALT 15 U/L (12-78) 12/13/19 13:07 Alkaline Phosphatase 112 U/L (45-117) 12/13/19 13:07 Troponin I 0.07 ng/mL (0.0-0.045) H 12/14/19 00:37 Home Medications: Adalimumab [Humira Pen] 40 mg SQ SEECOM 12/14/19 Atorvastatin Calcium [Lipitor*] 10 mg PO BEDTIME 12/14/19 Ferralet 90 90 mg PO DAILY 12/14/19 Loratadine [Claritin*] 10 mg PO DAILY 12/14/19 Niacinamide [Niacin] 2 tab PO DAILY 12/14/19 [place]-3/Dha/Epa/Lut/Zeaxanthin [[facility] Softgel] 10 mg PO DAILY 12/14/19 [place]-3S/Dha/Epa/Fish Oil [Fish Oil 1,200 mg Softgel] 1 tab PO DAILY 12/14/19 Metoprolol Succinate [Toprol Xl*] 50 mg PO BID #60 tab 12/15/19 New Medications: Metoprolol Succinate [Toprol Xl*] 50 mg PO BID #60 tab Patient Discharge Instructions: GO BACK TO DR. ESCOBAR FOR RENAL MASS. DR. VALLES FOR KIDNEYS. MY OFFICE IN TWO WEEKS. Diet: AHA
--- NOTE | 2019-12-15 10:55 | P.PN ---
Subjective Date of Service: 12/14/19 Chief Complaint: V TACH. ON HER MONITOR REPORTED BY DR. HERMOSILLO Subjective: Improving SHE HAS NO PAIN, NO FEVER, NO COUGH,NO DYSPNEA. SHE IS ABLE TO WALK WELL. SHE DOES HAVE EDEMA. Review of Systems 10-point ROS is otherwise unremarkable Physical Examination - Vital Signs Temperature: 97.3 F Blood Pressure: 188/79 Pulse: 84 Respirations: 16 Pulse Ox (%): 97 - Physical Exam General: Alert, In no apparent distress HEENT: Atraumatic, PERRLA, EOMI Neck: Supple, JVD not distended Respiratory: Clear to auscultation bilaterally, Normal air movement Cardiovascular: Edema Gastrointestinal: Normal bowel sounds, No tenderness Musculoskeletal: No tenderness Integumentary: No rashes Neurological: Normal speech, Normal tone, Normal affect Lymphatics: No axilla or inguinal lymphadenopathy - Studies Medications List Reviewed: Yes Assessment And Plan - Current Problems (Diagnosis) (1) Acute renal insufficiency Current Visit: Yes Status: Acute Plan: STOP GENTLE IV HYDRATION. THIS MAY HELP BUT AGAIN SHE IS THIRD SPACING BECAUSE OF LOW ALBUMIN. LASIX AND ALBUMIN INFUSION MAY HELP TEMPORARILILY I CALLED DR. 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 SHE MAY HAVE NEPHROTIC SYNDROME. CREAT CAME DOWN. WILL AVOID DIURETICS. (2) Hypoalbuminemia Current Visit: Yes Status: Acute Plan: ABVE. (3) Ventricular tachyarrhythmia Current Visit: Yes Status: Acute Plan: WILL DO MONITORING. K AND MAG ARE OKAY. STABLE , NO SIGN OF IT. (4) Atelectasis Current Visit: Yes Status: Acute Plan: NO SIGNS OF FEVER, OR COUGH. SHE MAY NOT HAVE PNEUMONIA WILL DO CT SCAN WHEN CREATININE IS LOWER TO NORMAL.
[2019-12-15 12:12] VITALS: TEMP 97.7
[2019-12-15 12:27] VITALS: BP 140/80
[2019-12-16 13:38] LABS: Rheumatoid Factor NEG (NEG)
--- NOTE | 2019-12-16 15:50 | PN ---
Date of Progress Note: 12/15/2019 Chief Complaint: Acute kidney injury severe associated with renal hypoperfusion with nonoliguric ATN. History Of Present Illness: Patient was found to have ventricular tachycardia. Patient came to emergency room because of generalized weakness. Cardiac arrhythmia was worked up. Patient has underlying chronic kidney disease stage 3. She was found to have severe proteinuria, worsening from the renal function, and she remains nonoliguric. Blood pressure has stabilized and arrhythmia is controlled. Electrolytes are within normal limits. CT scan of the abdomen and pelvis was done without contrast did not show obstructive uropathy. There is possibility of complex kidney cyst. Patient will need to follow up with Urology as outpatient. Renal function has not improved significantly since yesterday, although there is no fluid overload and electrolytes are stable. Previous creatinine baseline from 1.3 to 1.5. Yesterday, creatinine was 2.68. The patient was found to have severe proteinuria with protein creatinine ratio of 7.66 and 24 hours urine collection will be arranged to check for possible monoclonal gammopathy of unknown significance. Review of Systems: Denies fever or chills. Physical Examination: Lungs: Clear to auscultation bilaterally. Heart: S1, S2. Abdomen: Soft, benign. Extremities: Minimal ankle edema. Impression And Plan: 1. Acute kidney injury, severe. Renal function is declining over last 48 hours, plan is to monitor renal function. Potassium level was 3.4. Magnesium was within normal limits.Patient will have potassium replacement according to lab results. 2. Severe proteinuria. Re-evaluate her renal function. Monitor proteinuria panel and check for any evidence of monoclonal gammopathy of unknown significance. Workup for vasculitis was ordered and pending. 3. Hypertensive heart and kidney disease, arrhythmia dyspnea per primary team. Continue beta-redd. I spent total 36 min including 26 min to coordinate care plan. GIO/MARIBEL Voice ID: [id number] Report ID: [id number] DARWIN
[2019-12-18 03:58] LABS: HBsAG Nonreactive (Nonreactive)
[2019-12-18 19:52] LABS: Hepatitis C Virus RNA (PCR)log <1.18 log IU/mL
[2019-12-19 20:44] LABS: Albumin, (SPE) 1.4 g/dL (3.8-4.8); Alpha-1-Globulins 0.3 g/dL (0.2-0.3); Alpha-2-Globulins 0.9 g/dL (0.5-0.9); Gamma Globulins 0.5 g/dL (0.8-1.7); INTERPRETATION REPORT
== END 2019-12-15 13:23 | disposition home or self-care (01) | DRG 683 ==
LOC: ER 12:06 → ERHOLD 15:20 → 2ND 22:17
PROVIDERS: ADMIT Internal Medicine; ATTEND Internal Medicine
DX: N17.9 Acute kidney failure, unspecified (principal); I47.2 Ventricular tachycardia; J98.11 Atelectasis; I48.20 Chronic atrial fibrillation, unspecified; M06.9 Rheumatoid arthritis, unspecified; I13.10 Hypertensive heart and chronic kidney disease without heart failure, with stage 1 through stage 4 chronic kidney disease, or unspecified chronic kidney disease; N18.3 Chronic kidney disease, stage 3 (moderate); N28.1 Cyst of kidney, acquired; I25.10 Atherosclerotic heart disease of native coronary artery without angina pectoris; E88.09 Other disorders of plasma-protein metabolism, not elsewhere classified; I25.2 Old myocardial infarction; R79.89 Other specified abnormal findings of blood chemistry; Z88.1 Allergy status to other antibiotic agents; Z79.899 Other long term (current) drug therapy; Z90.710 Acquired absence of both cervix and uterus; Z96.653 Presence of artificial knee joint, bilateral; Z95.5 Presence of coronary angioplasty implant and graft; Z20.828 Contact with and (suspected) exposure to other viral communicable diseases
CPT/HCPCS: 36415; 71045; 74176; 76377; 76770; 80048; 80069; 80074; 80076; 81001; 81003; 81015; 82550; 82553; 82570; 83735; 83880; 83970; 84156; 84165; 84439; 84443; 84484; 84550; 85025; 85049; 85610; 86021; 86038; 86160; 86225; 86334; 86335; 86430; 86704; 86706; 87086; 87088; 87522; 93005; 93970; 96365; 99285; J0456; J0696; J1650; J7050; U0003

== ENCOUNTER 2020-02-09 14:43 | Emergency (ER) | payer OTHER ==
--- OUTSIDE RECORDS SUMMARY | 2020-02-09 14:45 | XMS REPORT | Clinical Summary ---
:1935 Author Organization [facility] Address [address] [place] [address] Care Team Providers Name Role Phone MD [...] 2 (two) times a day with meals. metoprolol succinate XL Take 50 mg by 0 Active (TOPROL-XL) 25 mg 24 hr mouth 2 (two) tablet times a day. BUMETanide (BUMEX) 0.5 Take 0.5 mg by 0 Active MG tablet mouth 2 (two) times a day. Active Problems Problem Noted Date Paroxysmal atrial fibrillation 04/17/2018 Encounters Date Type Specialty Care Team Description 01/23/2020 Hospital Encounter Radiology Homar Ayers, Nep hrotic syndrome with MD hinton and billme ntal glomerular lesi ons 01/23/2020 Travel 01/06/2020 Travel 01/03/2020 Transcribe Orders Radiology Homar Ayers Neph rotic syndrome with MD hinton and segme ntal glomerular lesi ons (Primary Dx) after 02/08/2019 Surgical History Surgery Date Site/Laterality Comments HYSTERECTOMY EYE SURGERY Cataract surgery CARDIAC ELECTROPHYSIOLOGY 04/19/2018 N/A Proced ure: SUBCUTNEOUS PROCEDURE CARDIAC RHYTHM M ONITOR INSERTION; Surg ben: Adan Pope MD ; Location: [facility]; Service: Cardiol ogy; Laterality: N/A; Medical devices from this surgery are in t he Implants section . Medical History Medical History Date Comments Arthritis rheumatoid arthritis Hypertension Social History Tobacco Use Types Packs/Day Years Used Date Never Smoker Smokeless Tobacco: Never Used Sex Assigned at Date Recorded Not on file COVID-19 Exposure Response Date Recorded In the last month, have you been in contact with No / Unsure 01/23/2020 8:44 AM CDT someone who was confirmed or suspected to have Coronavirus / COVID-19? Last Filed Vital Signs Vital Sign Reading Time Taken Comments Blood Pressure 134/60 01/23/2020 2:15 PM CDT Pulse 60 01/23/2020 2:15 PM CDT Temperature 36.3 C (97.3 F) 01/23/2020 9:28 AM CDT Respiratory Rate 20 01/23/2020 10:45 AM CDT Oxygen Saturation 97% 01/23/2020 2:15 PM CDT Inhaled Oxygen Concentration - - Weight 68.1 kg (150 lb 0.4 oz) 01/23/2020 9:28 AM CDT Height 154.9 cm (5' 1") 01/23/2020 9:28 AM CDT Body Mass Index 28.35 01/23/2020 9:28 AM CDT Plan of Treatment Health Maintenance Due Date Last Done Comments SHINGLES VACCINES (#1) 07/05/1985 65+ PNEUMOCOCCAL VACCINE (1 of 1 - PPSV23) 07/05/2000 INFLUENZA VACCINE 11/02/2019 Implants Implanted Type Area Paint Roller Covers Supervisor Device Shelf Model / Identifier Expiration Serial / Date Lot System Reveal Linq W/Monitors - [id number] Cardiac N/A: MEDTRON IC 02/28/2019 LINQSYS / Implanted: Qty: 1 on 04/19/2018 by Adan Pope MD at [facility] Pacemakers and N/A CARDIAC RHYTHM / Related DISEASE MGMT [id number] Products Procedures Procedure Name Priority Date/Time Associated Diagnosis Comme nts US NEEDLE BIOPSY Routine 01/23/2020 11:13 AM Nephrotic syndrom e Results for this CDT with focal and procedure are in segmental glomerular the res ults lesions section. SURGICAL PATHOLOGY Routine 01/23/2020 11:02 AM Re sults for this REQUEST CDT procedure are i n the results section. after 02/08/2019 Results US Needle Biopsy (01/23/2020 11:13 AM CDT) Specimen Narrative Performed At EXAMINATION: US NEEDLE BIOPSY [facility] CLINICAL HISTORY: N04.1 Nephrotic syndrome with foca l and segmental glomerular lesions, n04.1 TECHNIQUE: The risks, benefits, and alternatives were discussed w ith the patient and written informed consent was obtaine d. Preprocedural ultrasound of the left valerie burch was performed. A safe site for needle entry was selected targeting th e left lower pole and the skin was prepped and draped in the usual steri le fashion. After local administration of 1% buffered lidocaine, a tiny dermatotomy was made. Using ultrasound guidance,3 core biopsies were obtaine d with an 18-gauge Bard Bassfield device. The specimens were reviewed with pathology and were deemed adequate. The patient was discharged to the radiology recovery a l[facility] for monitoring prior to discharge. They have been instructed to follo w-up with requesting physician for the results of the biopsy. Conscious sedation: The patient was monitored throug hout the procedure and in the postprocedure recovery area. Moderate Sedation Intra-service Time: Under physician supervision, Versed and Fentanyl administered intravenously for mod erate sedation. Pulse oximetry, heart rate and BP are continuously m onitored by an independent trained observer present. The physician spent 24 minutes of face to fa ce time with the patient. EBL: Less than 5 mL Complications: None. Assistants: None. IMPRESSION: Ultrasound-guided core needle biopsy of hoh left kidney [id number] Procedure Note Hm Interface, Radiology Results Incoming - 01/23/2020 1:00 PM CDT EXAMINATION: US NEEDLE BIOPSY CLINICAL HISTORY: N04.1 Nephrotic syndr ome with focal and segmental glomerular lesions, n04.1 TECHNIQUE: The risks, benefits, and alternatives we re discussed with the patient and written informed consent was obtained. Preprocedural ultrasound of the left valerie burch was performed. A safe site for needle entry was selecte d targeting the left lower pole and the skin was prepped and draped in the usual sterile fashion. After local administration of 1% buffered lidocaine, a tiny dermatotomy was made. Using ultrasound guidance,3 core biopsie s were obtained with an 18-gauge Bard Bassfield device. The specimens were reviewed with pathology and were deemed adequate. The patient was discharged to the [facility] recovery area for monitoring prior to discharge. They have been instructed to follow-up with requesting physician for the results of the biopsy. Conscious sedation: The patient was mon itored throughout the procedure and in the postprocedure recovery area. Moderate Sedation Intra-service Time: Un betsy physician supervision, Versed and Fentanyl administered intravenously for moderate sedation. Pulse oximetry, heart rate and BP are continuously monitored by an independent trained observer present. The physician spent 24 minutes of face to fa ce time with the patient. EBL: Less than 5 mL Complications: None. Assistants: None. IMPRESSION: Ultrasound-guided core needle biopsy of hoh left kidney [id number] Performing Organization Address City/[facility]/ZIP Code Phon e Number [facility] [address] [place] [address] Surgical pathology request (01/23/2020 11:02 AM CDT) [facility] DEPARTMENT OF PATHOLOGY AND GENOMIC MEDICINE Surgical pathology See link below [facility] DEPARTMENT OF report for PDF Lab PATHOLOGY AND Report GENOMIC MEDICINE Result status This is Final [facility] DEPARTMENT OF Report for PATHOLOGY AND [id number] GENOMIC MEDICINE Specimen Performing Organization Address City/[facility]/ZIP [facility] [place] Phon e Number [facility] DEPARTMENT OF PATHOLOGY [address] [facility]. 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
--- OUTSIDE RECORDS SUMMARY | 2020-02-09 14:45 | XMS REPORT | Summary of Care ---
:1935 Author Organization [facility] Address [address], [place] [address]- Encounter HQ Encntr_tejas(FIN) [id number] Date(s): 01/01/20 - 01/01/20 [facility] [address], [place] [address]- Discharge Disposition: Home or Self Care Attending Physician: Ana Martinez MD Referring Physician: Christophe Call MD Vital Signs Most recent to oldest [Reference Range]: 1 Height 154.94 cm (01/01/20 10:16 AM) Weight 72.273 kg (01/01/20 10:16 AM) Body Mass Index 30.11 m2 (01/01/20 10:16 AM) Problem List Condition Effective Dates Status Health Status Informant Atrial fibrillation(Confirmed) Resolved Heart disease(Confirmed) Resolved High cholesterol(Confirmed) Resolved Hypertension(Confirmed) Resolved Heart attack(Confirmed) Resolved Allergies, Adverse Reactions, Alerts Substance Reaction Severity Status sulfa drugs Active Medications losartan 50 mg oral tablet 50 mg = 1 tab, PO, Daily, 0 Refill(s) Start Date: 01/01/20 Status: Orderedmetoprolol 50 mg oral tablet, extended release 50 mg = 1 tab, PO, Daily, 0 Refill(s) Start Date: 01/01/20 Status: Ordered Results No data available for this section Immunizations No data available for this section Procedures Procedure Date Related Diagnosis Body Site Status Cataract surgery Completed Knee replacement Completed Social History Social History Type Response Smoking Status Never smoker; Ready to tobin e: No; Concerns about tobacco use in household: No; Exposure to Tobacco Smoke None; Cigarette Smoking Last 365 Days No; Reg Smoking Cessation Counseling No entered on: 01/01/20 Assessment and Plan No data available for this section
--- OUTSIDE RECORDS SUMMARY | 2020-02-09 14:45 | XMS REPORT | Continuity of Care Document ---
:1935 Author Organization [employer] Care Team Providers Name Role Phone [employer] Unavailable Un available Problems Problem Status Onset Classification Date Comments Sourc e Date Reported N28.89 - OTHER Active OP ID SPECIFIED DISORDERS OF 020 [place] K N28.8 - OTHER Active OPI D SPECIFIED DISORDERS OF 020 [place] K Atrial fibrillation Resolved Problem 01/04/2020 Medical (disorder) Group, [facility] [place] Heart disease Resolved Problem 01/04/2020 Me dical (disorder) Group, [facility] [place] Hypercholesterolemia Resolved Problem 01/04/2020 Medical (disorder) Group, [facility] [place] Hypertensive disorder, Resolved Problem 01/04/2020 Medical systemic arterial Gr oup, (disorder) [facility] [place] Myocardial infarction Resolved Problem 01/04/2020 Medical (disorder) Group, [facility] [place] Medications Medication Details Route Status Patient Ordering Order Source Instructions Provider Date metoprolol 50 50 mg = 1 Active [facility] mg oral tablet, tab, PO, 020 Medical extended Daily, 0 Group release Refill(s) losartan 50 mg 50 mg = 1 Active MH oral tablet tab, PO, 020 Medical Daily, 0 Group Refill(s) Humira 40 mg, Active [facility] SUB-Q, ONCE, 020 Medical 0 Refill(s) Group [...] Refill(s) Allergy Relief 10 mg, PO, Active MH Daily, 0 020 Medical Refill(s) Group Allergies, Adverse Reactions, Alerts Substance Category Reaction Severity Reaction Status Date Comments S ource type Reported sulfa drugs Assertion Drug Active MH allergy Medical Group Immunizations No Data Provided for This Section Results No Data Provided for This Section Pathology Reports No Data Provided for This Section Diagnostic Reports Report Value Date Source Abdomen wo IV Radiation Dose CTDIVOL = 0 (mGy): DLP = 297.6 (m Gy-cm) 10/15/[address] [facility] [place] [address] PROCEDURE INFORMATION: Exam: CT Abdomen [...] left Foster Johnson MD On 10/15/2019 14:30:03; [id number] Consultation Notes No Data Provided for This Section Discharge Summaries No Data Provided for This Section History and Physicals No Data Provided for This Section Vital Signs Vital Sign Value Date Comments Source Height 154.94 cm 01/01/2020 [facility] p Weight 72.273 01/01/2020 Medical Grou p BMI Calculated 30.11 01/01/2020 Medical Gr oup Systolic (mm Hg) 175 05/27/2019 Medical Group Diastolic (mm Hg) 110 05/27/2019 Medical Group Heart Rate 96 05/27/2019 Medical Grou p Height 154.94 cm 05/27/2019 Medical Grou p Weight 72.273 05/27/2019 Medical Grou p BMI Calculated 30.11 05/27/2019 Medical Gr oup Encounters Location Location Encounter Encounter Reason Attending ADM [place] Stat Source Details Type Number For Provider Date Date Visit Outpatient [id number] Ana05/27 [facility] Outpatient [id number] Ana 05/27 05/28 Specialty [facility]ica [facility] Phone [phone] 06/09 06/11 [facility] [place] Outpatient [id number] Ana09/29 Active [facility] Outpt Diag [id number] Ana10/14 [facility] [place] [facility] Multi Ambulatory [id number] Christophe 10/20 10/20 Specialty Pre-Reg Medica l [facility] Outpatient [id number] 12/31 Active [facility] Multi Outpatient [id number] Christophe 12/31 01/01 Specialty [place] [facility] Procedures Procedure Code Date Perfomer Comments Source Cataract surgery [id number] Medic [facility], [facility] [place] Knee replacement [id number] Medic al Group, [facility] [place] Assessment and Plan No Data Provided for This Section Plan of Care No Data Provided for This Section Social History Social History Date Source Social History TypeResponse 01/01/2020 [facility] Smoking Status Never smoker; Ready to change: No; Katy rns about tobacco use in household: No; Exposure to Tobacco Smoke None; Cigarette Smoking Last 365 Days No; Reg Smoking Cessation Counseling No entered on: 01/01/20 Social History TypeResponse 05/27/2019 [facility] [place] Smoking Status Never smoker; Ready to change: [...]
--- OUTSIDE RECORDS SUMMARY | 2020-02-09 14:45 | XMS REPORT | Continuity of Care Document ---
:1935 Author Organization [facility] t Address [address] [place] [address] Care Team Providers Name Role Phone Oneyda BEAVER Primary Care Physician Andria BEAVER Attending Clinician Lucy Martinez Attending Clinician Payers Payer Name Policy Type Policy Effective Date Expiration Date Sour ce Number AETNA MEDICAREAETNA [id number] 2013 [place] MEDICARE HMO/PPO 00:00:00 Methodis t [id number] Problems Condition Condition Condition Status Onset Resolution Last Treating Co mments Source Name Details Category Date Date Treatment Clinician Date N28.89 - Diagnosis Active 2019-12-18 M emoria OTHER 3-12 13:23:00 l SPECIFIED N28.89 - 00:01: Her key DISORDERS OTHER 00 OF K SPECIFIED DISORDERS OF K Active 06/13/2019 NICOLE Selma N28.8 - Diagnosis Active 2019-12-18 Me moria OTHER 3-12 13:23:00 l SPECIFIED N28.8 - 00:01: Herm ney DISORDERS OTHER 00 OF K SPECIFIED DISORDERS OF K Active 06/13/2019 NICOLE [place] Paroxysmal Paroxysmal Disease [place] atrial atrial 1-15 [facility] fibrillati fibrillati 00:00: st on on 00 Atrial Problem Resolve 2020-01-04 Tomas mona fibrillati d 00:59:02 l on Atrial Taiwo (disorder) fibrillati on (disorder) Resolved Problem 01/04/2020 [facility], NICOLE Glendy Heart Problem Resolve 2020-01-04 Tomas mona disease d 00:59:02 l (disorder) Heart Monica nn disease (disorder) Resolved Problem 01/04/2020 [facility], NICOLE Pike Hyperchole Problem Resolve 2020-01-04 Memoria sterolemia d 00:59:02 l (disorder) Abhay n Hyperchole sterolemia (disorder) Resolved Problem 01/04/2020 [facility], NICOLE Meredith[place] Hypertensi Problem Resolve 2020-01-04 Memoria ve d 00:59:02 l disorder, [employer] [facility] systemic Hypertensi arterial ve (disorder) disorder, systemic arterial (disorder) Resolved Problem 01/04/2020 [facility], NICOLE Meredithland Myocardial Problem Resolve 2020-01-04 Memoria infarction d 00:59:02 l (disorder) Abhay n Myocardial infarction (disorder) Resolved Problem 01/04/2020 [facility], NICOLE Meredithland Allergies, Adverse Reactions, Alerts Allergy Allergy Status Severity Reaction(s) Onset Inactive Treating Comm ents Source Name Type Date Date Clinician Sulfa Propensi Active Rash [place] (Sulfona ty to 1-15 Method[facility] mide adverse 00:00: st Antibiot reaction 00 ics) s to drug sulfa sulfa Active Memoria drugs drugs [facility] Social History Social Habit Start Date Stop Date Quantity Comments Source Sex Assigned At [facility] ethodist Exposure to Not sure [place] Metho dist SARS-CoV-2 (event) Tobacco use and 2020-01-23 2020-01-23 Never used [facility] ethodist exposure 00:00:00 00:00:00 Smoking Status Start Date Stop Date Source Social History [facility] Medications Ordered Filled Start Stop Current Ordering Indication Dosage Frequency Signature Comments Components Source Medication Medication Date Date Medication? Clinician (SIG) Name Name metoprolol 2019-04 Yes 50mg Q.5D Take 50 mg [place] succinate 0-22 by mouth 2 Meth ricardo XL 09:31: (two) st (TOPROL-XL) 09 times a 25 mg 24 hr day. tablet atorvastati 2019-04 Yes 10mg QD Take 10 mg Levar n (LIPITOR) 0-22 by mouth Meth ricardo 10 MG 09:30: nightly. st tablet 23 pantoprazol 2019-04 Yes 40mg QD Take 40 mg Levar e 0-22 by mouth [facility] (PROTONIX) 09:30: daily. st 40 MG EC 23 tablet multivitami 2020-1 Yes 1{tbl} QD Take 1 [place] 0-22 tablet by [facility] (THERAGRAN) 09:30: mouth st tablet 23 daily. niacin 2020-1 Yes 500mg Q.5D Take 500 [place] (SLO-NIACIN 0-22 mg by [facility] ) 500 mg CR 09:30: mouth 2 st tablet 23 (two) times a day with meals. BUMETanide 2020-1 Yes .5mg Q.5D Take 0.5 Jean-Paul ston (BUMEX) 0.5 0-22 mg by [facility] MG tablet 09:30: mouth 2 st 23 (two) times a day. metoprolol 2020-0 Yes 50 mg = 1 Me moria 50 mg oral 9-30 tab, PO, l tablet, 15:20: Daily, 0 Abhay n extended 00 Refill(s) release losartan 50 2020-0 Yes 50 mg = 1 M emoria mg oral 9-30 tab, PO, l tablet 15:20: Daily, 0 Taiwo 00 Refill(s) Humira 2020-0 Yes 40 mg, Memoria 2-24 SUB-Q, l 15:06: ONCE, 0 [place] [facility] [facility] 00 Refill(s) dofetilide 2020-0 Yes 250 Memoria 0.25 MG 2-24 microgram l Oral 14:52: = 1 cap, [place] [facility] [facility] Capsule 00 PO, BID, 0 [Tikosyn] Refill(s) Furosemide 2020-0 Yes 20 mg = 1 Me moria 20 MG Oral 2-24 tab, PO, l Tablet 14:52: Daily, 0 [place] [Lasix] 00 Refill(s) Fish Oil 2020-0 Yes PO, 0 Memoria 2-24 Refill(s) l 14:52: [employer] [facility] [facility] 00 atorvastati 2020-0 Yes 10 mg = 1 M emoria n 10 mg 2-24 tab, PO, l oral tablet 14:52: Daily, 0 [place] 00 Refill(s) Ocuvite 2020-0 Yes PO, Daily, Tomas mona 2-24 0 l 14:52: Refill(s) [place] [facility] [facility] 00 Ferralet 90 2020-0 Yes PO, Daily, Memoria 2-24 0 l 14:52: Refill(s) Taiwo 00 Niacin 500 2020-0 Yes 500 mg = 1 M emoria MG Extended 2-24 tab, PO, l Release 14:52: Bedtime, 0 Herm ney Tablet 00 Refill(s) [Slo-Niacin ] Allergy Yes 10 mg, PO, Tomas mona Relief 2-24 Daily, 0 l 14:52: Refill(s) Taiwo 00 Vital Signs Vital Name Observation Time Observation Value Comments Source Systolic blood 2020-01-23 14:15:00 134 mm[Hg] Sugarto n [facility] pressure Diastolic blood 2020-01-23 14:15:00 60 mm[Hg] Poonam on [facility] pressure Heart rate 2020-01-23 14:15:00 60 /min [place] [facility] Oxygen saturation in 2020-01-23 14:15:00 97 /min [place] [facility] Arterial blood by Pulse oximetry Respiratory rate 2020-01-23 10:45:00 20 /min [place] [facility] Body temperature 2020-01-23 09:28:00 36.28 [facility] ton [facility] Body height 2020-01-23 09:28:00 154.9 cm [place] [facility] Body weight 2020-01-23 09:28:00 68.05 kg [place] [facility] BMI 2020-01-23 09:28:00 28.35 kg/m2 [place] [facility] Height 2020-01-01 15:16:00 154.94 [facility] 2020-01-01 15:16:00 [facility] [place] [facility] BMI Calculated 2020-01-01 15:16:00 Adolfo reza Tai[place] Systolic (mm Hg) 2019-05-27 14:50:00 Tomas rial Tai[place] Diastolic (mm Hg) 2019-05-27 14:50:00 Mem orial [facility] Heart Rate 2019-05-27 14:50:00 [facility] Height 2019-05-27 14:50:00 154.94 cm [facility] Weight 2019-05-27 14:50:00 [facility] Taiwo BMI Calculated 2019-05-27 14:50:00 Adolfo Lopez Procedures Procedure Date / Time Performed Performing Clinician [facility] melva US NEEDLE BIOPSY 2020-01-23 11:13:45 Homar Ayers ethodist SURGICAL PATHOLOGY 2020-01-23 11:02:00 Homar Ayers REQUEST Cataract surgery Keiry hidalgo Knee replacement Keiry hidalgo Plan of Care Planned Activity Planned Date Details Comments Source Future Scheduled 2019-11-02 INFLUENZA VACCINE Cathy hidalgo [facility] Test 00:00:00 [code = INFLUENZA VACCINE] Future Scheduled 2000-07-05 65+ PNEUMOCOCCAL Levar [facility] Test 00:00:00 VACCINE (1 of 1 - PPSV23) [code = 65+ PNEUMOCOCCAL VACCINE (1 of 1 - PPSV23)] Future Scheduled 1985-07-05 SHINGLES VACCINES (#1) H oudonovan [facility] Test 00:00:00 [code = SHINGLES VACCINES (#1)] Encounters Start End Encounter Admission Attending Care Care Encounter Source Date/Time Date/Time Type Type Clinicians Facility Department ID 2020-01-23 2020-01-23 [facility]patient [facility] [id number] [place] 00:00:00 00:00:[address] VINITHA [address] 2020-01-01 2020-01-01 [facility] [id number] 10:20:00 23:59:59 Ana L 02 2019-10-21 2019-10-21 [facility] [id number] 09:00:00 09:00:00 Ana L 01 2019-10-15 2019-10-15 Outpatient Juan, [facility] [id number] 08:49:00 23:59:00 Ana L 02 2019-06-10 2019-06-11 Outpatient [facility] [id number] 11:10:47 23:59:59 00 2019-05-27 2019-05-27 [facility] [id number] 09:00:00 23:59:59 Ana L 00 Results Test Description Test Time Test Comments Results Result Comments Source Surgical pathology request 2020-01-28 13:49:59 Test Item Value Reference Range Interpretation Comme nts Case number (test code = [id number]) [id number] Surgical pathology report (test code = See link below for PDF Lab R eport 4054) Result status (test code = [id number]) This is Final Report for [id number] Levar AceUS Needle [id number] 12:57:44Hm Interface, Radiology Results 01/23/2020 1:00 PM CDTEXAMINATION: US NEEDLE BIOPSYCLINICAL HISTORY: N04.1 Nephrotic syndrome with focal and segmental glomerular lesions, n04.1TECHNIQUE:The risks, benefits, and alternatives were discussed with the patient and written informed consent wasobtained.Preprocedural ultrasound of the left kidney was performed.A safe site for needle entry was selected targeting the left lower pole and the skin was prepped and draped in the usual sterile fashion. After local administration of 1% buffered lidocaine, a tiny dermatotomy was made. Using ultrasound guidance,3 core biopsies were obtained with an 18- gauge [employer] [place] device. The specimens were reviewed with pathology and were deemed adequate. The patient was discharged to the radiology recovery area for monitoring prior to discharge. They have been instructed to follow-up with requesting physician for the results of the biopsy.Conscious sedation: The patient was monitored throughout the procedure and in the postprocedure recovery area.Moderate Sedation Intra-service Time: Under physician supervision, Versed and Fentanyl administered intravenously for moderate sedation. Pulse oximetry, heartrate and BP are continuously monitored by an independent trained observer present. The physician spent 24 minutes of face to face time with the patient.EBL: Less than 5 mLComplications: None.Assistants: None.IMPRESSION:Ultrasound-guided core needle biopsy of [place] left [id number] [facility]
[2020-02-09] MEDS ORDERED: NA CHLORIDE 0.9% 500 ML ONE (16:05)
[2020-02-09 16:18] LABS: Absolute Lymphocytes (CBC) 1.1 K/uL (0.7-4.9); Basophils % 0.4 % (0-1.3); Hematocrit 33.4 % (36.0-45.0); Lymphocytes % 4.4 % (15.3-44.8); MPV 8.4 fL (7.6-11.3); RBC Red Blood Cell Count 3.81 M/uL (3.86-4.86)
[2020-02-09 16:20] LABS: Protime INR 1.44
[2020-02-09 16:33] LABS: ALT/SGPT 52 U/L (12-78); AST/SGOT 38 U/L (15-37); Albumin 0.9 g/dL (3.4-5.0); Alkaline Phosphatase 258 U/L (45-117); BUN Blood Urea Nitrogen 124 mg/dL (7-18); Bicarbonate 17 mmol/L (21-32); Bilirubin Direct 0.2 mg/dL (0-0.2); Bilirubin Total 0.4 mg/dL (0.2-1.0); Glucose Level 245 mg/dL (74-106); Lipase 200 U/L (73-393); Magnesium 2.4 mg/dL (1.8-2.4); NT PRO-BNP 14549 pg/mL (<450); Protein, Total 4.4 g/dL (6.4-8.2); Sodium Level 127 mmol/L (136-145); Troponin (Emerg Dept Use Only) 0.32 ng/mL (0.0-0.045)
[2020-02-09 16:34] LABS: Potassium 5.8 mmol/L (3.5-5.1)
--- NOTE | 2020-02-09 16:46 | RAD REPORT ---
EXAM DESCRIPTION: CT - Head C Spine Cap Wo Con - 02/09/2020 4:14 pm CLINICAL HISTORY: Trauma, head and neck injury. Chest, abdomen and pelvis pain. PAIN COMPARISON: <Comparisons> TECHNIQUE: CT head without contrast. CT cervical spine without contrast with coronal and sagittal reformatted images. CT chest, abdomen and pelvis without contrast with coronal and sagittal reformatted images of the [facility]. All CT scans are performed using dose optimization technique as appropriate and may include automated exposure control or mA/KV adjustment according to patient size. FINDINGS: CT HEAD WITHOUT CONTRAST: No intracranial hemorrhage, hydrocephalus or extra-axial fluid collection. No areas of brain edema o r midline shift. The paranasal sinuses and mastoids are clear. The calvarium is intact. CT CERVICAL SPINE WITHOUT CONTRAST: No fracture or subluxation. Mild lower cervical degenerative changes. The prevertebral soft tissues a re normal in thickness. CT CHEST, ABDOMEN, PELVIS WITHOUT CONTRAST: NOTE: Lack of contrast is a significant limitation in the assessment of trauma related findings. Spec ifically, solid organ, vascular and bowel evaluation is significantly limited. Bilateral pleural effusions are present greater on the left.Opacity in the left lung base is present suspicious for infiltrate/ pneumonia. Large hiatal hernia. Small gallstones are present. Moderate subcutaneous edema is seen compatible with anasarca. Sigmoid d iverticulosis coli is present without diverticulitis. No concerning pelvic findings. Moderate lumbar degenerative changes. IMPRESSION: Moderate bilateral pleural effusions, greater on the left. Left base infiltrate suspecte d probably representing pneumonia. Generalized anasarca. Cholelithiasis.
[2020-02-09] MEDS ORDERED: ALBUTEROL 2.5 MG/3 ML NEB SOL ONE (17:00)
[2020-02-09] MEDS ORDERED: FUROSEMIDE 100 MG/10 ML VIAL IV ONE (17:00)
[2020-02-09] MEDS ORDERED: D50W 25 GM/50 ML SYRINGE/VIAL IV ONE (17:01)
[2020-02-09] MEDS ORDERED: SODIUM BICARB 50 MEQ/50ML VIAL ONE (17:01)
[2020-02-09] MEDS ORDERED: INSULIN -REGULAR HUMAN 50 UNIT/0.5 ML ML ONE (17:01)
[2020-02-09] MEDS ORDERED: PIPER/TAZO/NS 3.375gm 3.375 GM/100 ML BAG ONE (17:02)
[2020-02-09] MEDS ORDERED: CALCIUM GLUCONATE 1 GM IVPB 1 GM/50 ML BAG IV ONE (17:02)
[2020-02-09] MEDS ORDERED: FAMOTIDINE 20 MG/2 ML VIAL IV ONE (17:02)
[2020-02-09] MEDS ORDERED: CEFTRIAXONE/SWI 1gm 1 GM/10 ML SYR ONE (17:02)
[2020-02-09 17:07] LABS: Arterial Blood Carboxyhemoglob 1.1 % (0-1.5); Blood Gas Oxyhemoglobin 93.7 % (94-97); Blood O2 Saturation 95.6 % (92-98.5)
--- NOTE | 2020-02-09 17:21 | RAD REPORT ---
EXAM DESCRIPTION: RAD - Chest Single View - 02/09/2020 4:46 pm CLINICAL HISTORY: COUGH Chest pain. COMPARISON: Chest Single View dated 12/13/2019; Chest Pa And Lat (2 Views) dated 03/09/2017; CHEST SIN GLE VIEW dated 03/31/2013; CHEST SINGLE VIEW dated 01/14/2008 FINDINGS: Portable technique limits examination quality. Mild interstitial pulmonary edema noted. Moderate left pleural effusion is seen. The heart is mildly enlarged in size. No displaced fractures.
[2020-02-09 17:25] LABS: Blood Morphology Comment NOT SEEN (NOT SEEN); Platelet Estimate ADEQ
[2020-02-09] MEDS ORDERED: ALBUMIN HUMAN 25% 100 ML IV ONE (17:55)
--- NOTE | 2020-02-09 19:27 | EDPHYS ---
Physician Documentation [facility] Name: Neetu Mendoza Age: 84 yrs Sex: Female : 1935 Arrival Date: 02/09/2020 Time: 14:49 Bed 3 Private MD: MUKUND Physician Dante Tay HPI: 02/08 19:03 This 84 yrs old Female presents to ER via EMS with complaints of General bird Weakness, sob, total body edema. 19:03 weak, sob, body is totally swollen. Severity of symptoms: At their worst the symptoms bird were moderate 5 day(s) ago. The patient has experienced similar episodes in the past, several times. 19:10 The patient presents with pain, swelling. The complaints affect the face, right arm, bird left arm, right leg and left leg. Context: The problem was sustained at an unknown site. Onset: The symptoms/episode began/occurred 7 day(s) ago. Modifying factors: The symptoms are alleviated by nothing. the symptoms are aggravated by movement. The patient has shortness of breath at rest. Onset: The symptoms/episode began/occurred 1 week(s) ago. The patient's shortness of breath is aggravated by exertion, talking, walking, is alleviated by rest, sitting up, application of supplemental oxygen. Historical: - Allergies: 14:56 Sulfa (Sulfonamide Antibiotics); em - PMHx: 15:11 Lupus; em - PSHx: 14:56 Heart stents; Hysterectomy; cataract; gloria knee; em - Immunization history:: Adult Immunizations up to date. - Social history:: Smoking status: Patient denies any tobacco usage or history of. - Family history:: not pertinent. ROS: 19:10 Constitutional: Negative for fever, chills, and weight loss, Eyes: Negative for injury, bird pain, redness, and discharge, ENT: Negative for injury, pain, and discharge, Neck: Negative for injury, pain, and swelling, Cardiovascular: Negative for chest pain, palpitations, and edema, Abdomen/GI: Negative for abdominal pain, nausea, vomiting, diarrhea, and constipation, Back: Negative for injury and pain, : Negative for injury, bleeding, discharge, and swelling, Skin: Negative for injury, rash, and discoloration, Psych: Negative for depression, anxiety, suicide ideation, homicidal ideation, and hallucinations, Allergy/Immunology: Negative for hives, rash, and allergies, Endocrine: Negative for neck swelling, polydipsia, polyuria, polyphagia, and marked weight changes, Hematologic/Lymphatic: Negative for swollen nodes, abnormal bleeding, and unusual bruising. 19:10 Respiratory: Positive for cough, shortness of breath, at rest. 19:10 MS/extremity: Positive for swelling, tenderness, of the right arm, left arm, right leg and left leg. Exam: 19:10 Constitutional: This is a well developed, well nourished patient who is awake, alert, bird and in no acute distress. Head/Face: Normocephalic, atraumatic. Eyes: Pupils equal round and reactive to light, extra-ocular motions intact. Lids and lashes normal. Conjunctiva and sclera are non-icteric and not injected. Cornea within normal limits. Periorbital areas with no swelling, redness, or edema. ENT: Nares patent. No nasal discharge, no septal abnormalities noted. Tympanic membranes are normal and external auditory canals are clear. Oropharynx with no redness, swelling, or masses, exudates, or evidence of obstruction, uvula midline. Mucous membranes moist. Neck: Trachea midline, no thyromegaly or masses palpated, and no cervical lymphadenopathy. Supple, full range of motion without nuchal rigidity, or vertebral point tenderness. No Meningismus. Abdomen/GI: Soft, non-tender, with normal bowel sounds. No distension or tympany. No guarding or rebound. No evidence of tenderness throughout. Back: No spinal tenderness. No costovertebral tenderness. Full range of motion. Female : Normal external genitalia. Psych: Awake, alert, with orientation to person, place and time. Behavior, mood, and affect are within normal limits. 19:10 Cardiovascular: Rate: normal, Rhythm: regular, Pulses: Pulses are 4+ in bilateral radial, brachial, femoral, popliteal, posterior tibial and and dorsalis pedis arteries.. Heart sounds: normal, Edema: 4+ edema to level of right forearm, left midcalf, left forearm and right midcalf, JVD: is noted bilaterally, to 2 cm. 19:10 Musculoskeletal/extremity: Extremities: diffuse total body edema. 19:10 Skin: Appearance: Color: pale. Vital Signs: 14:49 BP 133 / 79; Pulse 95; Resp 18; Temp 97.7; Pulse Ox 97% on R/A; em 16:54 BP 127 / 60; Pulse 83; Resp 18; Pulse Ox 98% on R/A; em 17:56 BP 140 / 49; Pulse 94; Resp 18; Pulse Ox 95% on R/A; em 18:33 BP 118 / 59; Pulse 91; Resp 18; Pulse Ox 94% on R/A; em 19:30 BP 136 / 55; Pulse 77; Resp 18; Pulse Ox 95% on R/A; wh 21:00 BP 126 / 56; Pulse 78; Resp 18; Pulse Ox 94% on R/A; wh 22:30 BP 137 / 55; Pulse 73; Resp 19; Pulse Ox 95% on R/A; wh Procedures: 19:57 Peripheral line: by aseptic technique a peripheral line was placed in the left external bird jugular vein. MDM: 14:55 Patient medically screened. [facility] 19:14 Differential diagnosis: Anemia Bronchitis CHF exacerbation, Chronic Obstructive bird Pulmonary Disease pneumonia, pulmonary edema, reactive airway disease, Sepsis Unstable Angina. Differential Diagnosis altered mental status, sepsis. The patient's Wells Deep Vein Thrombosis Score was calculated as follows: Imm/Surg in last 4 wks (1.5 Pts) Total Score: 0-2 Pts- Low Risk. The patient's pulmonary embolism risk score was calculated as follows: patient has experienced immobilization or surgery in the last four weeks (1.5 Pts) Total Score: 0-2 points. This patient was found to be at low risk for a pulmonary embolism by using the Well's assessment criteria. Immunization status: Pneumococcal vaccine: Influenza vaccine: Data reviewed: vital signs, nurses notes, old medical records, lab test result(s), cardiac enzymes, CBC, electrolytes, hepatic panel, urinalysis, EKG, radiologic studies, CT scan, plain films. Data interpreted: guest service manager: rate is 91 beats/min, rhythm is regular, Pulse oximetry: on room air is 94 %. Test interpretation: by ED physician or midlevel provider: ECG, plain radiologic studies. Counseling: I had a detailed discussion with the patient and/or guardian regarding: the historical points, exam findings, and any diagnostic results supporting the discharge/admit diagnosis, lab results, radiology results, the need to transfer to another facility, for higher level of care, [facility] does not immediately have the required specialist. 19:21 Antibiotic administration: Antibiotic administration: zosyn. [facility] 20:06 ED course: pt improved, no need for central, will save room for morning juan m , dr bird hernandez and maxine accepting at [facility]. hindu no beds, and ray cancelled. 02/08 15:00 Order name: Basic Metabolic Panel; Complete Time: 16:38 [facility] 02/08 15:00 Order name: CBC with Diff [facility] 02/08 15:00 Order name: LFT's; Complete Time: 16:38 [facility] 02/08 15:00 Order name: Magnesium; Complete Time: 16:38 [facility] 02/08 15:00 Order name: NT PRO-BNP; Complete Time: 16:38 [facility] 02/08 15:00 Order name: PT-INR; Complete Time: 16:38 [facility] 02/08 15:00 Order name: Troponin (emerg Dept Use Only); Complete Time: 16:38 [facility] 02/08 15:00 Order name: Lipase; Complete Time: 16:38 [facility] 02/08 15:00 Order name: Blood Culture Adult (2) [facility] 02/08 15:15 Order name: Type And Screen; Complete Time: 18:32 [facility] 02/08 15:15 Order name: Lactate; Complete Time: 16:38 [facility] 02/08 16:42 Order name: ABG; Complete Time: 18:32 [facility] 02/08 17:25 Order name: Manual Differential; Complete Time: 18:32 [facility] 02/08 15:00 Order name: XRAY Chest (1 view); Complete Time: 18:32 [facility] 02/08 15:15 Order name: CT Traumagram (Head C Spine CAP wo con); Complete Time: 16:48 [facility] 02/08 19:17 Order name: Glucose, Ancillary Testing; Complete Time: 19:49 EDMS 02/08 19:22 Order name: Urine Microscopic Only; Complete Time: 19:49 rv 02/08 19:27 Order name: Urine Dipstick--Ancillary (enter results); Complete Time: 19:49 tt3 02/08 19:41 Order name: Urine Culture [facility] 02/08 15:00 Order name: EKG; Complete Time: 15:00 [facility] 02/08 15:00 Order name: Cardiac monitoring; Complete Time: 15:11 [facility] 02/08 15:00 Order name: EKG - Nurse/Tech; Complete Time: 16:58 [facility] 02/08 15:00 Order name: IV Saline Lock; Complete Time: 16:05 [facility] 02/08 15:00 Order name: Labs collected and sent; Complete Time: 16:05 [facility] 02/08 15:00 Order name: O2 Per Protocol; Complete Time: 15:11 [facility] 02/08 15:00 Order name: O2 Sat Monitoring; Complete Time: 15:11 [facility] 02/08 15:00 Order name: Urine Dipstick-Ancillary (obtain specimen); Complete Time: 19:26 [facility] 02/08 15:15 Order name: IV Saline Lock - Large Bore; Complete Time: 16:05 [facility] 02/08 15:15 Order name: Flores; Complete Time: 17:40 [facility] Administered Medications: 16:27 Drug: NS 0.9% 500 ml Route: IV; Rate: bolus; Site: left jugular; em 17:00 Follow up: IV Status: Completed infusion; IV Intake: 500ml em 16:32 Not Given (Duplicate Order): NS 0.9% 1000 ml IV at 125 ml/hr continuous bird 16:54 Drug: Calcium Gluconate 1 grams Route: IVPB; Infused Over: 10 mins; Site: left jugular; em 17:29 Follow up: Response: No adverse reaction; IV Status: Completed infusion; IV Intake: em 100ml 17:00 Drug: Pepcid 20 mg Route: IVP; Site: left jugular; em 17:22 Follow up: Response: No adverse reaction em 17:13 Drug: D50W 25 ml Route: IVP; Site: left jugular; em 17:29 Follow up: Response: No adverse reaction em 17:17 Drug: Rocephin 1 grams Route: IV; Rate: per protocol; Site: left jugular; em 17:27 Follow up: Response: No adverse reaction; IV Status: Completed infusion; IV Intake: 10mlem 17:20 Drug: Sodium Bicarbonate 1 amp Route: IVP; Site: left jugular; em 17:29 Follow up: Response: No adverse reaction em 17:22 Drug: Insulin Regular Human 10 units {Co-Signature: [email or web address] (Raymond Newman RN).} Route: IVP; em Site: left jugular; 17:29 Follow up: Response: No adverse reaction em 17:27 Drug: Zosyn 3.375 grams Route: IVPB; Infused Over: 60 mins; Site: left jugular; em 18:44 Follow up: Response: No adverse reaction; IV Status: Completed infusion; IV Intake: em 100ml 17:29 Drug: Albuterol 5 mg Route: Inhalation; em 19:30 Follow up: Response: No adverse reaction em 18:34 Drug: Lasix 100 mg Route: IVP; Site: left jugular; em 19:30 Follow up: Response: No adverse reaction em 18:42 Drug: Albumin 25 grams Volume: 100 ml; Route: IVPB; Site: left jugular; em 21:09 Follow up: Response: No adverse reaction; IV Status: Completed infusion Disposition: 19:57 Critical Care:. [facility] Disposition: 02/09/20 19:[address] [facility]. Diagnosis are Pleural effusion in conditions classified elsewhere - bilateral, Hyperkalemia, Acute kidney failure, Edema, unspecified - diffuse anasarca, Pneumonia, unspecified organism - left base, Hypo-osmolality and hyponatremia, Severe sepsis without septic shock, Elevated white blood cell count, Congenital hiatus hernia. - Reason for transfer: Higher level of care. - Accepting physician is to [facility]. - Condition is Serious. - Problem is new. - Symptoms have improved. Critical care time excluding procedures: 19:57 Critical care time: Bedside Care: 30 minutes, Consultation: 20 minutes, Family [facility] Intervention: 10 minutes. Total time: 60 minutes Signatures: Dispatcher [employer] EDDante Alvarado MD MD cha Munoz, Edgar RN RN Es Padilla Raymond Newman RN [email or web address] Corrections: (The following items were deleted from the chart) 19:22 19:14 Antibiotic administration: bird singh [facility] 19:30 19:27 02/09/2020 19:[address] [facility]. [facility] Diagnosis is Pleural effusion in conditions classified elsewhere - bilateral; Hyperkalemia; Acute kidney failure; Edema, unspecified - diffuse anasarca; Pneumonia, unspecified organism - left base. Reason for transfer: Higher level of care. Accepting physician is to [facility]. Condition is Serious. Problem is new. Symptoms have improved. [facility] 19:38 15:00 Influenza Screen (A \T\ B)+BA.LAB.BRZ ordered. [facility]CO EDMS 19:52 19:30 02/09/2020 19:[address] [facility]. [facility] Diagnosis is Pleural effusion in conditions classified elsewhere - bilateral; Hyperkalemia; Acute kidney failure; Edema, unspecified - diffuse anasarca; Pneumonia, unspecified organism - left base; Hypo-osmolality and hyponatremia; Severe sepsis without septic shock; Elevated white blood cell count. Reason for transfer: Higher level of care. Accepting physician is to [facility]. Condition is Serious. Problem is new. Symptoms have improved. [facility] 22:36 19:52 02/09/2020 19:[address] [facility]. Diagnosis is Pleural effusion in conditions classified elsewhere - bilateral; Hyperkalemia; Acute kidney failure; Edema, unspecified - diffuse anasarca; Pneumonia, unspecified organism - left base; Hypo-osmolality and hyponatremia; Severe sepsis without septic shock; Elevated white blood cell count; Congenital hiatus hernia. Reason for transfer: Higher level of care. Accepting physician is to [facility]. Condition is Serious. Problem is new. Symptoms have improved. bird
--- NOTE | 2020-02-09 19:27 | ER ---
Nurse's Notes [facility] Name: Neetu Mendoza Age: 84 yrs Sex: Female : 1935 Arrival Date: 02/09/2020 Time: 14:49 Bed 3 Private MD: Diagnosis: Pleural effusion in conditions classified elsewhere-bilateral;Hyperkalemia;Acute kidney failure;Edema, unspecified-diffuse anasarca;Pneumonia, unspecified organism-left base;Hypo-osmolality and hyponatremia;Severe sepsis without septic shock;Elevated white blood cell count;Congenital hiatus hernia Presentation: 02/08 14:49 Chief complaint: EMS states: called out for generalized weakness that started about a em week ago, family is concerned that she might be dehydrated, pt reports a sore throat and family believes that it is thrush, gloria. upper and lower extremity swelling noted, pt reports mild shortness of breath. Coronavirus screen: Client denies travel out of the [place] in the last 14 days. Ebola Screen: Patient negative for fever greater than or equal to 101.5 degrees Fahrenheit, and additional compatible Ebola Virus Disease symptoms Patient denies exposure to infectious person. Patient denies travel to an Ebola-affected area in the 21 days before illness onset. No symptoms or risks identified at this time. Initial Sepsis Screen: Does the patient meet any 2 criteria? No. Patient's initial sepsis screen is negative. Does the patient have a suspected source of infection? No. Patient's initial sepsis screen is negative. Risk Assessment: Do you want to hurt yourself or someone else? Patient reports no desire to harm self or others. Onset of symptoms was February 02, 2020. 14:49 Method Of Arrival: EMS: [facility] em 14:49 Acuity: HARLEY 3 em 17:44 Acuity: HARLEY 2 iw Historical: - Allergies: 14:56 Sulfa (Sulfonamide Antibiotics); em - PMHx: 15:11 Lupus; em - PSHx: 14:56 Heart stents; Hysterectomy; cataract; gloria knee; em - Immunization history:: Adult Immunizations up to date. - Social history:: Smoking status: Patient denies any tobacco usage or history of. - Family history:: not pertinent. Screenin:49 Abuse screen: Denies threats or abuse. Nutritional screening: No deficits noted. em Tuberculosis screening: No symptoms or risk factors identified. Fall Risk None identified. Assessment: 14:51 General: Appears uncomfortable, ill, Behavior is calm, cooperative, Denies fever, em daughter states she has been getting worse over the past few days, has not been eating or drinking the past 3 days, more generalized weakness. Pain: Denies pain. Neuro: Level of Consciousness is awake, alert, obeys commands, Oriented to person, place, time, situation, Appropriate for age. Cardiovascular: Capillary refill < 3 seconds Patient's skin is warm and dry. Edema pitting to left ankle, left foot, right ankle and right foot. Respiratory: Reports shortness of breath at rest Airway is patent Respiratory effort is even, unlabored, Respiratory pattern is regular, symmetrical. GI: Patient currently denies nausea. Derm: Skin is intact, is fragile, is thin. Musculoskeletal: Swelling present in abdomen, pelvis, right arm, left arm, right leg and left leg. 15:30 Reassessment: delay for CT/XRAY due to trying to get IV access. em 16:05 Reassessment: wheeled to CT via wheelchair. em 16:54 Reassessment: Patient appears in no apparent distress at this time. Patient and/or em family updated on plan of care and expected duration. Pain level reassessed. Patient is alert, oriented x 3, equal unlabored respirations, skin warm/dry/pink. 17:30 Reassessment: Patient appears in no apparent distress at this time. Patient and/or em family updated on plan of care and expected duration. Pain level reassessed. Patient is alert, oriented x 3, equal unlabored respirations, skin warm/dry/pink. Patient denies pain at this time. 18:40 Reassessment: Patient appears in no apparent distress at this time. Patient and/or em family updated on plan of care and expected duration. Pain level reassessed. Patient is alert, oriented x 3, equal unlabored respirations, skin warm/dry/pink. 19:15 Reassessment:. General: Appears ill, Behavior is calm, cooperative. Pain: Denies pain. wh Neuro: Level of Consciousness is awake, alert, obeys commands, Oriented to person, place, time, situation, Appropriate for age. Cardiovascular: Capillary refill < 3 seconds Edema. Respiratory: Airway is patent Respiratory effort is even, unlabored, Respiratory pattern is regular, symmetrical. GI: Abdomen is round non-distended. : No signs and/or symptoms were reported regarding the genitourinary system. EENT: No signs and/or symptoms were reported regarding the EENT system. Derm: Skin is fragile, is thin. Musculoskeletal: Swelling present in BLE and BUE. 20:30 Reassessment: Patient appears in no apparent distress at this time. Patient and/or family updated on plan of care and expected duration. Pain level reassessed. Patient is alert, oriented x 3, equal unlabored respirations, skin warm/dry/pink. 21:08 Reassessment: Report given to Stacey Doe RN. 22:20 Reassessment: Patient appears in no apparent distress at this time. Patient and/or wh family updated on plan of care and expected duration. Pain level reassessed. Patient is alert, oriented x 3, equal unlabored respirations, skin warm/dry/pink. Vital Signs: 14:49 BP 133 / 79; Pulse 95; Resp 18; Temp 97.7; Pulse Ox 97% on R/A; em 16:54 BP 127 / 60; Pulse 83; Resp 18; Pulse Ox 98% on R/A; em 17:56 BP 140 / 49; Pulse 94; Resp 18; Pulse Ox 95% on R/A; em 18:33 BP 118 / 59; Pulse 91; Resp 18; Pulse Ox 94% on R/A; em 19:30 BP 136 / 55; Pulse 77; Resp 18; Pulse Ox 95% on R/A; 21:00 BP 126 / 56; Pulse 78; Resp 18; Pulse Ox 94% on R/A; 22:30 BP 137 / 55; Pulse 73; Resp 19; Pulse Ox 95% on R/A; ED Course: 14:49 Patient arrived in ED. em 14:49 Patient has correct armband on for positive identification. Placed in gown. Bed in low em position. Call light in reach. Side rails up X2. Adult w/ patient. monitor technician on. Pulse ox on. NIBP on. 14:55 Dante Tay MD is Attending Physician. [facility] 14:55 Triage completed. em 14:56 Poncho Petersen, SANDRA is Primary Nurse. em 14:56 Arm band placed on. em 15:50 Inserted saline lock: 18 gauge in left EJ, using aseptic technique. Blood collected. em 16:00 EKG done, by ED staff, reviewed by Dante Tay MD. dh3 16:14 CT Traumagram (Head C Spine CAP wo con) In Process Unspecified. EDMS 16:46 XRAY Chest (1 view) In Process Unspecified. EDMS 17:30 Flores cath inserted, using sterile technique, 16 Fr., by wv, balloon inflated, to dh3 gravity drainage, returned clear yellow urine. Patient tolerated well. 18:23 Initiated transfer at [facility] with Keerthi Hanson. Stated she would check for ICU bed eb and call back. 19:00 Dr. Tay initiated transfer at [facility] with Alison Hernandez. tt3 19:04 Keerthi called back and declined due to capacity. tt3 19:29 Initated transfer at [facility] with [place]. tt3 19:56 [place] called back [address] [facility] has no beds due to capacity. Stated she would tt3 check the [facility]. 20:[address] Dr[address] with [facility] accepted the pt. tt3 20:22 Alison Hernandez gave admin approval. Face sheet and MOT faxed to per tt3 Alison's request. Nurse to call report to . The pt is going to [facility] ICU room 214. 22:36 No provider procedures requiring assistance completed. Patient transferred, IV remains wh in place. Administered Medications: 16:27 Drug: NS 0.9% 500 ml Route: IV; Rate: bolus; Site: left jugular; em 17:00 Follow up: IV Status: Completed infusion; IV Intake: 500ml em 16:32 Not Given (Duplicate Order): NS 0.9% 1000 ml IV at 125 ml/hr continuous bird 16:54 Drug: Calcium Gluconate 1 grams Route: IVPB; Infused Over: 10 mins; Site: left jugular; em 17:29 Follow up: Response: No adverse reaction; IV Status: Completed infusion; IV Intake: em 100ml 17:00 Drug: Pepcid 20 mg Route: IVP; Site: left jugular; em 17:22 Follow up: Response: No adverse reaction em 17:13 Drug: D50W 25 ml Route: IVP; Site: left jugular; em 17:29 Follow up: Response: No adverse reaction em 17:17 Drug: Rocephin 1 grams Route: IV; Rate: per protocol; Site: left jugular; em 17:27 Follow up: Response: No adverse reaction; IV Status: Completed infusion; IV Intake: 10mlem 17:20 Drug: Sodium Bicarbonate 1 amp Route: IVP; Site: left jugular; em 17:29 Follow up: Response: No adverse reaction em 17:22 Drug: Insulin Regular Human 10 units {Co-Signature: [email or web address] (Raymond Newman RN).} Route: IVP; em Site: left jugular; 17:29 Follow up: Response: No adverse reaction em 17:27 Drug: Zosyn 3.375 grams Route: IVPB; Infused Over: 60 mins; Site: left jugular; em 18:44 Follow up: Response: No adverse reaction; IV Status: Completed infusion; IV Intake: em 100ml 17:29 Drug: Albuterol 5 mg Route: Inhalation; em 19:30 Follow up: Response: No adverse reaction em 18:34 Drug: Lasix 100 mg Route: IVP; Site: left jugular; em 19:30 Follow up: Response: No adverse reaction em 18:42 Drug: Albumin 25 grams Volume: 100 ml; Route: IVPB; Site: left jugular; em 21:09 Follow up: Response: No adverse reaction; IV Status: Completed infusion wh Intake: 17:00 IV: 500ml; Total: 500ml. em 17:27 IV: 10ml; Total: 510ml. em 17:29 IV: 100ml; Total: 610ml. em 18:44 IV: 100ml; Total: 710ml. em Outcome: 19:27 ER care complete, transfer ordered by . [facility] 22:36 Transferred by ground EMS to [facility], Transfer form completed. X-rays sent w/ patient. Note: Report given to [facility] 22:36 Condition: stable 22:36 Instructed on the need for transfer. 22:36 Patient left the ED. Signatures: Dispatcher [employer] Dante Peralta MD MD cha Munoz, Edgar, RN RN Blanca Ponce RN RN iw Herrera, Deanna 3 Es Padilla Olesya Fernandes Tyler tt3 Jahala Newman RN [email or web address] Corrections: (The following items were deleted from the chart) 16:41 15:50 Missed attempt(s): 18 gauge in right EJ performed by Dr. Tay . em em 18:47 15:[address]: delay for [address]/XRAY due to trying to get IC access em em
[2020-02-09 19:36] LABS: Urine Blood 2+ (NEG); Urine Glucose 2+ (NEG); Urine Protein 3+ (NEG); Urine pH 5.5 (5.0-7.0)
[2020-02-09 19:40] LABS: Urine Bacteria 20-50 /HPF (<20)
[2020-02-09 19:41] LABS: Urine Amorphous Sediment 2+ /HPF (NONE SEEN); Urine Culture Reflex Order REFLEXED
[2020-02-09 23:13] VITALS: TEMP 97.7
[2020-02-09 23:22] VITALS: BP 137/55; O2SAT 95
--- NOTE | 2020-02-10 07:24 | EKG ---
Test Date: 2020-02-09 Test Time: 15:56:25 Ends Down Checker: PATTI MEASUREMENT RESULTS: Intervals: Rate: 84 MA: 136 QRSD: 72 QT: 324 QTc: 382 Rawlings: P: 75 MA: 136 QRS: 37 T: 230 INTERPRETIVE STATEMENTS: Normal sinus rhythm Low voltage QRS T wave abnormality, consider inferolateral ischemia Abnormal ECG Compared to ECG 12/13/2019 12:37:43 Low QRS voltage now present T-wave abnormality now present Possible ischemia now present Atrial premature complex(es) no longer present Ventricular premature complex(es) no longer present Prolonged QT interval no longer present Electronically Signed On 02-10-20 07:23:08 TRAVEL ACCOMMODATIONS RATER by Peter Malloy
== END 2020-02-09 22:36 | disposition short-term general hospital (02) ==
LOC: ER 14:43
PROC: 05HQ33Z Insertion of Infusion Device into Left External Jugular Vein, Percutaneous Approach (ICD-10-PCS; principal; 2020-02-09)
DX: J18.9 Pneumonia, unspecified organism (principal); R65.20 Severe sepsis without septic shock; J91.8 Pleural effusion in other conditions classified elsewhere; N17.9 Acute kidney failure, unspecified; E87.5 Hyperkalemia; R60.1 Generalized edema; E87.1 Hypo-osmolality and hyponatremia; D72.829 Elevated white blood cell count, unspecified; Q40.1 Congenital hiatus hernia; Z88.2 Allergy status to sulfonamides; Z95.818 Presence of other cardiac implants and grafts
CPT/HCPCS: 96365; 96367; 93005; 87040 ×2; 87088; 85025; 87086; 80048; 36415; 86900; 83735; 86850; 85610; 86901; 82947; 80076; 83605; 84484; 83690; 83880; 70450; 71250; 72125; 71045; 82805; 51702; 96375; 99285; 96366; 36569; J2543; J0610; J0696; P9047; J7040; 81003; 81015

== ENCOUNTER 2020-03-08 10:39 | Observation (INO) | payer OTHER ==
--- OUTSIDE RECORDS SUMMARY | 2020-03-08 10:41 | XMS REPORT | Clinical Summary ---
:1935 Author Organization [facility] Address [address] [place] [address] Care Team Providers Name Role Phone MD [...] ntal glomerular lesi ons (Primary Dx) after 03/08/2019 Surgical History Surgery Date Site/Laterality Comments HYSTERECTOMY EYE SURGERY Cataract surgery CARDIAC ELECTROPHYSIOLOGY 04/19/2018 N/A Proced ure: SUBCUTNEOUS PROCEDURE CARDIAC RHYTHM M ONITOR INSERTION; Surg ben: Adan Pope MD ; Location: [facility] [employer] Technician Invasive Locatio n; Service: Cardiol ogy; Laterality: N/A; Medical devices from this surgery are in t he Implants section . Medical History Medical History Date Comments Arthritis rheumatoid arthritis Hypertension Social History Tobacco Use Types Packs/Day Years Used Date Never Smoker Smokeless Tobacco: Never Used Sex Assigned at Date Recorded Not on file Last Filed Vital Signs Vital Sign Reading [...] INFLUENZA VACCINE 11/02/2019 Implants Implanted Type Area Receptionist Scheduler Device Shelf Model / Identifier Expiration Serial / Date Lot System Reveal Linq W/Monitors - [id number] Cardiac N/A: MEDTRON IC 02/28/2019 LINQSYS / Implanted: Qty: 1 on 04/19/2018 by Adan Pope MD at [facility] Pacemakers and N/A CARDIAC RHYTHM / Related DISEASE [facility] [id number] Products Procedures Procedure Name Priority Date/Time Associated Diagnosis Comme nts US NEEDLE BIOPSY Routine 01/23/2020 11:13 AM Nephrotic syndrom e Results for this CDT with focal and procedure are in segmental glomerular the res ults lesions section. SURGICAL PATHOLOGY Routine 01/23/2020 11:02 AM Re sults for this REQUEST CDT procedure are i n the results section. after 03/08/2019 Results US Needle Biopsy (01/23/2020 11:13 AM CDT) Specimen Narrative Performed At EXAMINATION: US NEEDLE BIOPSY RADIANT CLINICAL HISTORY: N04.1 Nephrotic syndrome with [...] were obtaine d with an 18-gauge Bard Normanna device. The specimens were reviewed with pathology [...] None. IMPRESSION: Ultrasound-guided core needle biopsy of [place] left kidney [id number] Procedure Note Hm Interface, Radiology Results Incoming [...] s were obtained with an 18-gauge Bard Normanna device. The specimens were reviewed with pathology and were deemed adequate. The patient was discharged to the [facility] recovery area for monitoring prior to discharge. [...] None. IMPRESSION: Ultrasound-guided core needle biopsy of [place] left kidney [id number] Performing Organization Address City/[facility]/ZIP Code Phon e Number [facility] [address] [place] [address] Surgical pathology request (01/23/2020 11:02 AM CDT) [facility] DEPARTMENT OF PATHOLOGY AND GENOMIC MEDICINE Surgical pathology See link below [facility] DEPARTMENT OF report for PDF Lab PATHOLOGY AND Report GENOMIC MEDICINE Result status This is Final [facility] DEPARTMENT OF Report for PATHOLOGY AND [id number] GENOMIC MEDICINE Specimen Performing Organization Address [facility]/ZIP Code Phon e Number [facility] DEPARTMENT OF PATHOLOGY [address] [facility]. 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
--- OUTSIDE RECORDS SUMMARY | 2020-03-08 10:43 | XMS REPORT | Continuity of Care Document ---
:1935 Author Organization [employer] Care Team Providers Name Role Phone [employer] Unavailable Un available Problems Problem Status Onset Classification Date Comments Sourc e Date Reported N28.89 - OTHER Active OP ID SPECIFIED DISORDERS OF 020 [place] K N28.8 - OTHER Active OPI D SPECIFIED DISORDERS OF 020 [place] K Atrial fibrillation Resolved Problem 01/04/2020 Medical (disorder) Group, [facility] [place] Heart disease Resolved Problem 01/04/2020 Me dical (disorder) Group, [facility] [place] Hypercholesterolemia Resolved Problem 01/04/2020 Medical (disorder) Group, [facility] [place] Hypertensive disorder, Resolved Problem 01/04/2020 Medical systemic arterial Gr oup, (disorder) [facility] [place] Myocardial infarction Resolved Problem 01/04/2020 Medical (disorder) Group, [facility] [place] Medications Medication Details Route Status Patient Ordering [...] DLP = 297.6 (m Gy-cm) 10/15/[address] [facility] [place] [address] PROCEDURE INFORMATION: Exam: CT Abdomen [...] Foster Johnson MD On 10/15/2019 14:30:03; [id number] Consultation Notes No Data Provided for This [...] Location Location Encounter Encounter Reason Attending ADM [place] Stat Source Details Type Number For Provider Date Date Visit Outpatient [id number] Ana05/27 [facility] Outpatient [id number] Ana 05/27 05/28 [facility]ty Medica l [facility] Phone [id number] 06/09 06/11 [facility] Outpatient [id number] Ana09/29 Active [facility] Outpt Diag [id number] Ana10/14 [facility] [place] [facility] Ambulatory [id number] Christophe 10/20 10/20 Specialty Pre-Reg Medica l [facility] Outpatient [id number] 12/31 Active [facility] Multi Outpatient [id number] Christophe 12/31 01/01 [facility]ty [facility] Procedures Procedure Code Date Perfomer Comments Source Cataract surgery [id number] [facility], [facility] [place] Knee replacement [id number] [facility], [facility] [place] Assessment and Plan No Data Provided for [...]
--- OUTSIDE RECORDS SUMMARY | 2020-03-08 10:43 | XMS REPORT | Clinical Summary ---
:1935 Author Organization [facility] Address [address] [place] [address] Care Team Providers Name Role Phone Unavailable Primary Care Provider Unavailable Allergies Active Allergy Reactions Severity Noted Date Comments Sulfa (Sulfonamide Antibiotics) 0 Medications Medication Sig Dispensed Refills Start Date End Date Status atorvastatin Take 10 mg 0 Active (LIPITOR) 10 MG by mouth tablet nightly. niacin (SLO-NIACIN) Take 1,000 0 Active 500 mg tablet mg by mouth nightly. lactobacillus combo Take 1 0 Active no.13 (PROBIOTIC capsule by PEARLS COMPLETE mouth ORAL) nightly. predniSONE Take 1 30 tablet 0 02/27/2020 Active (DELTASONE) 50 MG tablet (50 0 tablet mg total) by mouth daily for 30 days. spironolactone Take 1 30 tablet 0 02/27/2020 Acti ve (ALDACTONE) 25 MG tablet (25 0 tablet mg total) by mouth daily for 30 days. aspirin 81 MG EC Take 1 30 tablet 0 02/27/2020 Ac tive tablet tablet (81 0 mg total) by mouth daily for 30 days. cholecalciferol Take 1 30 tablet 0 02/27/2020 Act lilly 2,000 unit Tab tablet 0 (2,000 Units total) by mouth daily for 30 days. furosemide (LASIX) Take 1 60 tablet 0 02/26/2020 Active 40 MG tablet tablet (40 0 mg total) by mouth 2 (two) times daily for 30 days. metoprolol tartrate Take 1 60 tablet 0 02/26/2020 Active (LOPRESSOR) 50 MG tablet (50 0 tablet mg total) by mouth 2 (two) times daily for 30 days. dapsone 100 MG Take 1 30 tablet 0 02/26/2020 Acti ve tablet tablet (100 0 mg total) by mouth daily for 30 days. predniSONE Take 20 mg 0 Disconti nued (DELTASONE) 20 MG by mouth 0 (S top Taking at tablet daily. Discharge) bumetanide (BUMEX) Take 0.5 mg 0 Discontinued 0.5 MG tablet by mouth 2 0 (Stop Taking at (two) times Discharg e) daily. metoprolol succinate Take 25 mg 0 02/26/20 2 Discontinued (TOPROL-XL) 25 MG 24 by mouth 2 0 (Stop Taking at hr tablet (two) times Discharg e) daily. mycophenolate Take 500 mg 0 Disc ontinued (CELLCEPT) 500 mg by mouth 2 0 ( Stop Taking at tablet (two) times Discharg e) daily. nystatin Take 500,000 0 Discont inued (MYCOSTATIN) 100,000 Units by 0 (Stop Taking at unit/mL suspension mouth 2 D ischarge) (two) times daily. spironolactone Take 25 mg 0 Disc ontinued (ALDACTONE) 25 MG by mouth 0 (S top Taking at tablet daily as Discharge) needed (not started yet). Active Problems Problem Noted Date Nephrotic syndrome 02/10/2020 Anasarca associated with disorder of kidney 02/10/2020 Community acquired pneumonia 02/10/2020 Encounters Date Type Specialty Care Team Description 02/10/2020 Travel 02/09/2020 - Hospital Encounter General Internal Ancelmo, Rosemary An asarca associated with disorder of kidney; 02/26/2020 Medicine MD Willian Community acquired pneumonia of left low er lobe of lung; Willie Kirby Nephrotic syn drome MD Bryce Shah Sophia, MD after 03/08/2019 Social History Tobacco Use Types Packs/Day Years Used Date Never Assessed Alcohol Use Drinks/Week oz/Week Comments Never Alcohol Habits Answer Date Recorded How often do you have a drink containing alcohol? Never 02/10/2020 How many drinks containing alcohol do you have on a typical Not asked day when you are drinking? How often do you have six or more drinks on one occasion? No t asked Sex Assigned at Date Recorded Not on file COVID-19 Exposure Response Date Recorded In the last month, have you been in contact with No / Unsure 02/10/2020 1:36 AM [employer]CHITECT[employer] INTERN someone who was confirmed or suspected to have Coronavirus / COVID-19? Last Filed Vital Signs Vital Sign Reading Time Taken Comments Blood Pressure 132/64 02/26/2020 12:00 PM [employer]ECT[employer]N Pulse 54 02/26/2020 12:00 PM [employer]ECT[employer]N Temperature 36.1 C (97 F) 02/26/2020 12:00 PM ARCHITECTURAL INTERN Respiratory Rate 18 02/26/2020 12:00 PM ARCHITECTURAL INTERN Oxygen Saturation 98% 02/26/2020 12:00 PM ARCHITECTURAL INTERN Inhaled Oxygen Concentration 21% 02/26/2020 8:14 AM ARCHITECTURAL INTERN Weight 62.2 kg (137 lb 2 oz) 02/19/2020 6:39 AM ARCHITECTURAL INTERN Height 167.6 cm (5' 6") 02/10/2020 1:25 AM ARCHITECTURAL INTERN Body Mass Index 22.13 02/10/2020 1:25 AM ARCHITECTURAL INTERN Plan of Treatment Health Maintenance Due Date Last Done Comments PNEUMOCOCCAL 65+ YRS (1 of 1 - [id number]) 07/05/2000 Medicare IPPE (WELCOME TO MEDICARE) 04/03/2019 INFLUENZA VACCINE (#1) 2019 Procedures Procedure Name Priority Date/Time Associated Comments Diagnosis TRANSFUSE LEUKO-REDUCED Routine 02/26/2020 5:56 PLATELETS PM [employer]CH[employer]ECT[employer] INTERN (MANUAL DIFFERENTIAL) Routine 02/26/2020 4:05 Re sults for this AM [employer]URAL INTERN procedure are i n the results section. CBC W/PLT COUNT & AUTO Routine 02/26/2020 4:05 R esults for this DIFFERENTIAL AM [employer]N procedure are i n the results section. MAGNESIUM Routine 02/26/2020 4:05 Results for this AM [employer]N procedure are i n the results section. CBC W/PLT COUNT & AUTO Routine 02/26/2020 4:05 R esults for this DIFFERENTIAL AM [employer]N procedure are i n the results section. COMPREHENSIVE METABOLIC Routine 02/26/2020 4:05 Results for this PANEL AM [employer]N procedure are i n the results section. PREPARE LEUKO-REDUCED Routine 02/25/2020 11:54 Re sults for this RBC PM [employer]N procedure are i n the results section. NM HEPATOBILIARY (HIDA) Routine 02/25/2020 11:39 Results for this SCAN AM [employer]N procedure are i n the results section. (MANUAL DIFFERENTIAL) Routine 02/25/2020 4:53 Re sults for this AM [employer]N procedure are i n the results section. CBC W/PLT COUNT & AUTO Routine 02/25/2020 4:53 R esults for this DIFFERENTIAL AM [employer]N procedure are i n the results section. MAGNESIUM Routine 02/25/2020 4:53 Results for this AM [employer]URAL [employer]N procedure are i n the results section. CBC W/PLT COUNT & AUTO Routine 02/25/2020 4:53 R esults for this DIFFERENTIAL AM [employer]N procedure are i n the results section. COMPREHENSIVE METABOLIC Routine 02/25/2020 4:53 Results for this PANEL AM [employer]N procedure are i n the results section. TRANSFUSE LEUKO-REDUCED Routine 02/24/2020 7:28 RED BLOOD CELLS PM [employer] INTERN PROTEIN, RANDOM URINE Routine 02/24/2020 7:05 Re sults for this AM [employer]N procedure are i n the results section. CREATININE, RANDOM Routine 02/24/2020 7:05 Resul ts for this URINE AM [employer]N procedure are i n the results section. MICROALBUMIN, RANDOM Routine 02/24/2020 7:05 Res ults for this URINE AM [employer]N procedure are i n the results section. URINALYSIS W/ Routine 02/24/2020 7:05 Results fo r this MICROSCOPIC AM [employer]N procedure are i n the results section. TYPE AND SCREEN, Routine 02/24/2020 6:50 Results for this AUTOMATED AM [employer]N procedure are i n the results section. SARS-COV2/RT-PCR ([facility] Routine 02/24/2020 4:14 R esults for this & REF LABS) AM [employer]ITECTURAL INTERN procedure are i n the results section. CBC W/PLT COUNT & AUTO Routine 02/24/2020 4:08 R esults for this DIFFERENTIAL AM [employer]N procedure are i n the results section. ALK ISOENZYMES Routine 02/24/2020 4:08 Results f or this AM [employer]N procedure are i n the results section. ALK PHOSPHATASE Routine 02/24/2020 4:08 Results for this AM [employer]N procedure are i n the results section. DOUBLE-STRANDED DNA Routine 02/24/2020 4:08 Resu lts for this (DSDNA) ANTIBODY AM [employer]ECT[employer]N procedure a re in the results section. COMPLEMENT COMPONENT C4 Routine 02/24/2020 4:08 Results for this AM [employer]N procedure are i n the results section. COMPLEMENT COMPONENT C3 Routine 02/24/2020 4:08 Results for this AM [employer]N procedure are i n the results section. PHOSPHORUS Routine 02/24/2020 4:08 Results for this AM [employer]N procedure are i n the results section. MAGNESIUM Routine 02/24/2020 4:08 Results for this AM [employer]N procedure are i n the results section. CBC W/PLT COUNT & AUTO Routine 02/24/2020 4:08 R esults for this DIFFERENTIAL AM [employer]N procedure are i n the results section. COMPREHENSIVE METABOLIC Routine 02/24/2020 4:08 Results for this PANEL AM [employer]N procedure are i n the results section. POCT-GLUCOSE METER Routine 02/23/2020 6:11 Resul ts for this AM [employer]N procedure are i n the results section. (MANUAL DIFFERENTIAL) Routine 02/23/2020 4:43 Re sults for this AM [employer]N procedure are i n the results section. CBC W/PLT COUNT & AUTO Routine 02/23/2020 4:43 R esults for this DIFFERENTIAL AM [employer]N procedure are i n the results section. MAGNESIUM Routine 02/23/2020 4:43 Results for this AM [employer] INTERN procedure are i n the results section. CBC W/PLT COUNT & AUTO Routine 02/23/2020 4:43 R esults for this DIFFERENTIAL AM [employer] INTERN procedure are i n the results section. COMPREHENSIVE METABOLIC Routine 02/23/2020 4:43 Results for this PANEL AM [employer]N procedure are i n the results section. (MANUAL DIFFERENTIAL) Routine 02/22/2020 4:22 Re sults for this AM [employer] INTERN procedure are i n the results section. CBC W/PLT COUNT & AUTO Routine 02/22/2020 4:22 R esults for this DIFFERENTIAL AM [employer] INTERN procedure are i n the results section. MAGNESIUM Routine 02/22/2020 4:22 Results for this AM [employer]IT[employer] INTERN procedure are i n the results section. CBC W/PLT COUNT & AUTO Routine 02/22/2020 4:22 R esults for this DIFFERENTIAL AM [employer]N procedure are i n the results section. COMPREHENSIVE METABOLIC Routine 02/22/2020 4:22 Results for this PANEL AM [employer]N procedure are i n the results section. POCT-GLUCOSE METER Routine 02/21/2020 7:16 Resul ts for this PM [employer] INTERN procedure are i n the results section. POCT-GLUCOSE METER Routine 02/21/2020 5:03 Resul ts for this PM [employer]N procedure are i n the results section. POCT-GLUCOSE METER Routine 02/21/2020 11:37 Resul ts for this AM [employer]N procedure are i n the results section. G6PD, QUANTITATIVE Routine 02/21/2020 10:08 Resul ts for this AM [employer]N procedure are i n the results section. COMPLEMENT COMPONENT C4 Routine 02/21/2020 10:08 Results for this AM [employer]N procedure are i n the results section. COMPLEMENT COMPONENT C3 Routine 02/21/2020 10:08 Results for this AM [employer]N procedure are i n the results section. POCT-GLUCOSE METER Routine 02/21/2020 7:42 Resul ts for this AM [employer]N procedure are i n the results section. (MANUAL DIFFERENTIAL) Routine 02/21/2020 4:01 Re sults for this AM [employer]N procedure are i n the results section. CBC W/PLT COUNT & AUTO Routine 02/21/2020 4:01 R esults for this DIFFERENTIAL AM [employer] INTERN procedure are i n the results section. MAGNESIUM Routine 02/21/2020 4:01 Results for this AM [employer]ITECT[employer] INTERN procedure are i n the results section. CBC W/PLT COUNT & AUTO Routine 02/21/2020 4:01 R esults for this DIFFERENTIAL AM [employer] INTERN procedure are i n the results section. COMPREHENSIVE METABOLIC Routine 02/21/2020 4:01 Results for this PANEL AM [employer]N procedure are i n the results section. POCT-GLUCOSE METER Routine 02/20/2020 7:23 Resul ts for this PM [employer] INTERN procedure are i n the results section. POCT-GLUCOSE METER Routine 02/20/2020 3:23 Resul ts for this PM [employer]N procedure are i n the results section. POCT-GLUCOSE METER Routine 02/20/2020 11:13 Resul ts for this AM [employer]IT[employer] INTERN procedure are i n the results section. POCT-GLUCOSE METER Routine 02/20/2020 7:13 Resul ts for this AM [employer]N procedure are i n the results section. (MANUAL DIFFERENTIAL) Routine 02/20/2020 3:47 Re sults for this AM [employer]N procedure are i n the results section. CBC W/PLT COUNT & AUTO Routine 02/20/2020 3:47 R esults for this DIFFERENTIAL AM [employer]N procedure are i n the results section. AMMONIA Routine 02/20/2020 3:47 Results for this AM [employer]N procedure are i n the results section. PROTHROMBIN TIME/INR Routine 02/20/2020 3:47 Res ults for this AM [employer]N procedure are i n the results section. MAGNESIUM Routine 02/20/2020 3:47 Results for this AM [employer]N procedure are i n the results section. CBC W/PLT COUNT & AUTO Routine 02/20/2020 3:47 R esults for this DIFFERENTIAL AM [employer]N procedure are i n the results section. COMPREHENSIVE METABOLIC Routine 02/20/2020 3:47 Results for this PANEL AM [employer]N procedure are i n the results section. FIBRIN SOLUBLE MONOMER Routine 02/19/2020 1:20 R esults for this PM [employer]N procedure are i n the results section. (MANUAL DIFFERENTIAL) Routine 02/19/2020 4:30 Re sults for this AM [employer] INTERN procedure are i n the results section. CBC W/PLT COUNT & AUTO Routine 02/19/2020 4:30 R esults for this DIFFERENTIAL AM [employer]N procedure are i n the results section. MAGNESIUM Routine 02/19/2020 4:30 Results for this AM [employer] INTERN procedure are i n the results section. CBC W/PLT COUNT & AUTO Routine 02/19/2020 4:30 R esults for this DIFFERENTIAL AM [employer]N procedure are i n the results section. COMPREHENSIVE METABOLIC Routine 02/19/2020 4:30 Results for this PANEL AM [employer]N procedure are i n the results section. OCCULT BLOOD, STOOL Routine 02/19/2020 4:30 Resu lts for this AM [employer]N procedure are i n the results section. DIRECT AHG (TRISTA)/DIRECT Routine 02/18/2020 8:22 Results for this VALDEZ PM [employer] INTERN procedure are i n the results section. FIBRINOGEN Routine 02/18/2020 8:22 Results for this PM [employer]N procedure are i n the results section. D-DIMER Routine 02/18/2020 8:22 Results for this PM [employer]N procedure are i n the results section. PT/APTT Routine 02/18/2020 8:22 Results for this PM [employer]N procedure are i n the results section. IMMUNOFIXATION AP Routine 02/18/2020 8:22 Results f or this ELECTROPHORESIS (JW) PM [employer]CHITECTURAL INTERN proced ure are in the results section. VITAMIN B12 AND FOLATE Routine 02/18/2020 8:22 R esults for this PM [employer]N procedure are i n the results section. RETICULOCYTE COUNT Routine 02/18/2020 8:22 Resul ts for this PM [employer]N procedure are i n the results section. PROTEIN AP Routine 02/18/2020 8:22 Results for this ELECTROPHORESIS, SERUM PM [employer]ECT[employer] INTERN proce dure are in the results section. LACTATE DEHYDROGENASE Routine 02/18/2020 8:22 Re sults for this (LDH) PM [employer]N procedure are i n the results section. IRON, TIBC, % SAT. Routine 02/18/2020 8:22 Resul ts for this (WITHOUT FERRITIN) PM [employer]N procedure are in the results section. HAPTOGLOBIN Routine 02/18/2020 8:22 Results for this PM [employer]N procedure are i n the results section. FERRITIN Routine 02/18/2020 8:22 Results for this PM [employer]N procedure are i n the results section. BILIRUBIN, TOTAL AND Routine 02/18/2020 8:22 Res ults for this DIRECT PM [employer]N procedure are i n the results section. US ABDOMEN COMPLETE Routine 02/18/2020 7:50 Resu lts for this PM [employer]N procedure are i n the results section. (MANUAL DIFFERENTIAL) Routine 02/18/2020 4:50 Re sults for this AM [employer]ECTURAL INTERN procedure are i n the results section. CBC W/PLT COUNT & AUTO Routine 02/18/2020 4:50 R esults for this DIFFERENTIAL AM [employer] INTERN procedure are i n the results section. PERIPHERAL BLOOD SMEAR Add-On 02/18/2020 4:50 R esults for this - PATHOLOGIST REVIEW AM [employer]CHITECTURAL INTERN procedu re are in the results section. COMPLEMENT COMPONENT C4 Routine 02/18/2020 4:50 Results for this AM [employer]N procedure are i n the results section. COMPLEMENT COMPONENT C3 Routine 02/18/2020 4:50 Results for this AM [employer] INTERN procedure are i n the results section. MAGNESIUM Routine 02/18/2020 4:50 Results for this AM [employer]ITECTURAL INTERN procedure are i n the results section. CBC W/PLT COUNT & AUTO Routine 02/18/2020 4:50 R esults for this DIFFERENTIAL AM [employer]ECT[employer] INTERN procedure are i n the results section. COMPREHENSIVE METABOLIC Routine 02/18/2020 4:50 Results for this PANEL AM [employer] INTERN procedure are i n the results section. SARS-COV2/RT-PCR ([facility] Routine 02/17/2020 4:53 R esults for this & REF LABS) AM [employer]IT[employer]URAL INTERN procedure are i n the results section. (MANUAL DIFFERENTIAL) Routine 02/17/2020 4:44 Re sults for this AM [employer]ITECTURAL INTERN procedure are i n the results section. CBC W/PLT COUNT & AUTO Routine 02/17/2020 4:44 R esults for this DIFFERENTIAL AM [employer]N procedure are i n the results section. MAGNESIUM Routine 02/17/2020 4:44 Results for this AM [employer] INTERN procedure are i n the results section. CBC W/PLT COUNT & AUTO Routine 02/17/2020 4:44 R esults for this DIFFERENTIAL AM [employer] INTERN procedure are i n the results section. COMPREHENSIVE METABOLIC Routine 02/17/2020 4:44 Results for this PANEL AM [employer]N procedure are i n the results section. COMPLEMENT COMPONENT C4 Routine 02/17/2020 4:44 Results for this AM [employer] INTERN procedure are i n the results section. COMPLEMENT COMPONENT C3 Routine 02/17/2020 4:44 Results for this AM [employer]N procedure are i n the results section. US ABDOMEN LIMITED STAT 02/16/2020 1:40 Resul ts for this PM [employer]N procedure are i n the results section. US DOPPLER STAT 02/16/2020 1:40 Results for this PM [employer]N procedure are i n the results section. ULTRAFILTRATION HD CRRT Routine 02/16/2020 12:22 PM [employer]CHITECTURAL INTERN (MANUAL DIFFERENTIAL) Routine 02/16/2020 5:32 Re sults for this AM [employer]ITECTURAL INTERN procedure are i n the results section. CBC W/PLT COUNT & AUTO Routine 02/16/2020 5:32 R esults for this DIFFERENTIAL AM [employer]ITECTURAL INTERN procedure are i n the results section. CBC W/PLT COUNT & AUTO Routine 02/16/2020 5:32 R esults for this DIFFERENTIAL AM [employer]N procedure are i n the results section. COMPREHENSIVE METABOLIC Routine 02/16/2020 5:32 Results for this PANEL AM [employer]N procedure are i n the results section. COMPLEMENT COMPONENT C4 Routine 02/16/2020 5:32 Results for this AM [employer] INTERN procedure are i n the results section. COMPLEMENT COMPONENT C3 Routine 02/16/2020 5:32 Results for this AM [employer] INTERN procedure are i n the results section. PREPARE LEUKO-REDUCED Routine 02/15/2020 11:54 Re sults for this RBC PM [employer]N procedure are i n the results section. MAGNESIUM Routine 02/15/2020 6:25 Results for this PM [employer]N procedure are i n the results section. BASIC METABOLIC PANEL Routine 02/15/2020 6:25 Re sults for this (7) PM [employer]N procedure are i n the results section. COMPLEMENT COMPONENT C4 Routine 02/15/2020 1:37 Results for this PM [employer]N procedure are i n the results section. COMPLEMENT COMPONENT C3 Routine 02/15/2020 1:37 Results for this PM [employer]N procedure are i n the results section. ULTRAFILTRATION HD CRRT Routine 02/15/2020 10:07 AM ARCHITECTURAL INTERN XR CHEST 1 VIEW Routine 02/15/2020 5:23 Results for this PORTABLE/BEDSIDE AM ARCHITECTURAL INTERN procedure a re in the results section. HEPATITIS B CORE Routine 02/15/2020 4:08 Results for this ANTIBODY, TOTAL AM [employer]N procedure ar e in the results section. COMPREHENSIVE METABOLIC Routine 02/15/2020 4:08 Results for this PANEL AM [employer]N procedure are i n the results section. PHOSPHORUS Routine 02/15/2020 4:08 Results for this AM [employer]ITECTURAL INTERN procedure are i n the results section. MAGNESIUM Routine 02/15/2020 4:08 Results for this AM [employer]IT[employer] INTERN procedure are i n the results section. CBC W/PLT COUNT & AUTO Routine 02/15/2020 4:07 R esults for this DIFFERENTIAL AM [employer]N procedure are i n the results section. CBC W/PLT COUNT & AUTO Routine 02/15/2020 4:07 R esults for this DIFFERENTIAL AM [employer]N procedure are i n the results section. TRANSFUSE LEUKO-REDUCED Routine 02/14/2020 1:35 RED BLOOD CELLS PM [employer]ECT[employer] INTERN COMPLEMENT COMPONENT C4 Routine 02/14/2020 11:00 Results for this AM [employer]ECT[employer] INTERN procedure are i n the results section. COMPLEMENT COMPONENT C3 Routine 02/14/2020 11:00 Results for this AM [employer] INTERN procedure are i n the results section. HEMODIALYSIS INPATIENT Routine 02/14/2020 8:07 AM ARCHITECTURAL INTERN CBC W/PLT COUNT & AUTO Routine 02/14/2020 5:13 R esults for this DIFFERENTIAL AM [employer]ITECTURAL INTERN procedure are i n the results section. COMPREHENSIVE METABOLIC Routine 02/14/2020 5:13 Results for this PANEL AM [employer]N procedure are i n the results section. PHOSPHORUS Routine 02/14/2020 5:13 Results for this AM [employer]ITECT[employer] INTERN procedure are i n the results section. MAGNESIUM Routine 02/14/2020 5:13 Results for this AM [employer]ITECT[employer] INTERN procedure are i n the results section. CBC W/PLT COUNT & AUTO Routine 02/14/2020 5:13 R esults for this DIFFERENTIAL AM [employer]ITECTURAL INTERN procedure are i n the results section. PREPARE LEUKO-REDUCED Routine 02/13/2020 11:54 Re sults for this PLATELETS PM [employer]CHITECTURAL INTERN procedure are i n the results section. XR CHEST 1 VIEW Routine 02/13/2020 11:24 Results for this PORTABLE/BEDSIDE AM [employer]ITECT[employer] INTERN procedure a re in the results section. HEPATITIS C ANTIBODY Routine 02/13/2020 9:14 Res ults for this AM [employer]N procedure are i n the results section. PHOSPHORUS Routine 02/13/2020 3:03 Results for this AM [employer]ITECT[employer] INTERN procedure are i n the results section. MAGNESIUM Routine 02/13/2020 3:03 Results for this AM [employer]IT[employer] INTERN procedure are i n the results section. BASIC METABOLIC PANEL Routine 02/13/2020 3:03 Re sults for this (7) AM [employer]N procedure are i n the results section. ALBUMIN Routine 02/13/2020 3:03 Results for this AM [employer] INTERN procedure are i n the results section. CBC W/PLT COUNT & AUTO Routine 02/13/2020 2:51 R esults for this DIFFERENTIAL AM [employer]IT[employer] INTERN procedure are i n the results section. CRYOGLOBULIN Routine 02/13/2020 2:51 Results for this AM [employer] INTERN procedure are i n the results section. CBC W/PLT COUNT & AUTO Routine 02/13/2020 2:51 R esults for this DIFFERENTIAL AM [employer] INTERN procedure are i n the results section. PREPARE LEUKO-REDUCED Routine 02/12/2020 11:54 Re sults for this RBC PM [employer] INTERN procedure are i n the results section. HEMODIALYSIS INPATIENT Routine 02/12/2020 7:39 AM ARCHITECTURAL INTERN CBC W/PLT COUNT & AUTO Routine 02/12/2020 4:44 R esults for this DIFFERENTIAL AM [employer]ITECTURAL INTERN procedure are i n the results section. ALBUMIN Routine 02/12/2020 4:44 Results for this AM [employer]ITECTURAL INTERN procedure are i n the results section. PHOSPHORUS Routine 02/12/2020 4:44 Results for this AM [employer]ITECT[employer] INTERN procedure are i n the results section. MAGNESIUM Routine 02/12/2020 4:44 Results for this AM [employer]IT[employer] INTERN procedure are i n the results section. BASIC METABOLIC PANEL Routine 02/12/2020 4:44 Re sults for this (7) AM [employer] INTERN procedure are i n the results section. CBC W/PLT COUNT & AUTO Routine 02/12/2020 4:44 R esults for this DIFFERENTIAL AM [employer]ITECT[employer] INTERN procedure are i n the results section. POCT-GLUCOSE METER Routine 02/11/2020 4:39 Resul ts for this PM [employer] INTERN procedure are i n the results section. CBC (HEMOGRAM ONLY) Routine 02/11/2020 4:17 Resu lts for this PM [employer]ITECT[employer] INTERN procedure are i n the results section. HEMODIALYSIS INPATIENT Routine 02/11/2020 3:18 PM [employer]CHITECTURAL INTERN TRANSFUSE LEUKO-REDUCED Routine 02/11/2020 2:48 RED BLOOD CELLS PM [employer]ITECTURAL INTERN POCT-GLUCOSE METER Routine 02/11/2020 12:15 Resul ts for this PM [employer]ITECTURAL INTERN procedure are i n the results section. COMPLEMENT COMPONENT C4 Routine 02/11/2020 10:57 Results for this AM ARCHITECTURAL INTERN procedure are i n the results section. COMPLEMENT COMPONENT C3 Routine 02/11/2020 10:57 Results for this AM ARCHITECTURAL INTERN procedure are i n the results section. TROPONIN I Routine 02/11/2020 9:56 Results for this AM ARCHITECTURAL INTERN procedure are i n the results section. POCT-GLUCOSE METER Routine 02/11/2020 8:42 Resul ts for this AM ARCHITECTURAL INTERN procedure are i n the results section. HEMOGLOBIN AND Routine 02/11/2020 8:24 Results f or this HEMATOCRIT AM ARCHITECTURAL INTERN procedure are i n the results section. 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 ABORH, MANUAL Routine 02/11/2020 7:57 Results fo r this AM ARCHITECTURAL INTERN procedure are i n the results section. TYPE AND SCREEN, Routine 02/11/2020 6:45 Results for this AUTOMATED AM ARCHITECTURAL INTERN procedure are i n the results section. CBC W/PLT COUNT & AUTO STAT 02/11/2020 5:36 R esults for this DIFFERENTIAL AM ARCHITECTURAL INTERN procedure are i n the results section. BASIC METABOLIC PANEL STAT 02/11/2020 5:36 Re sults for this (7) AM ARCHITECTURAL INTERN procedure are i n the results section. CBC W/PLT COUNT & AUTO STAT 02/11/2020 5:36 R esults for this DIFFERENTIAL AM ARCHITECTURAL INTERN procedure are i n the results section. TROPONIN I STAT 02/11/2020 5:36 Results for this AM ARCHITECTURAL INTERN procedure are i n the results section. PHOSPHORUS STAT 02/11/2020 5:36 Results for this AM ARCHITECTURAL INTERN procedure are i n the results section. MAGNESIUM STAT 02/11/2020 5:36 Results for this AM ARCHITECTURAL INTERN procedure are i n the results section. ALBUMIN Routine 02/11/2020 4:54 Results for this AM ARCHITECTURAL INTERN procedure are i n the results section. PHOSPHORUS Routine 02/11/2020 4:54 Results for this AM ARCHITECTURAL INTERN procedure are i n the results section. MAGNESIUM Routine 02/11/2020 4:54 Results for this AM ARCHITECTURAL INTERN procedure are i n the results section. BASIC METABOLIC PANEL Routine 02/11/2020 4:54 Re sults for this (7) AM ARCHITECTURAL INTERN procedure are i n the results section. ECG 12-LEAD Routine 02/11/2020 4:49 AM ARCHITECTURAL INTERN Procedure Note - Interface, External Ris In - 03/02/2020 8:50 AM ARCHITECTURAL INTERN Ventricular Rate 170 BPM Atrial Rate 150 BPM QRS Duration 72 ms Q-T Interval 216 ms QTC Calculation(Bazett) 363 ms R Woden 30 degrees T Woden 193 degrees Atrial fibrillation with rap id ventricular response Marked ST abnormality, possi ble inferolateral subendocardial injury Abnormal ECG ECG 12-LEAD Routine 02/11/2020 4:48 AM ARCHITECTURAL INTERN Procedure Note - Interface, External Ris In - 03/02/2020 8:50 AM ARCHITECTURAL INTERN Ventricular Rate 185 BPM Atrial Rate 192 BPM P-R Interval 92 ms QRS Duration 72 ms Q-T Interval 244 ms QTC Calculation(Bazett) 428 ms P Woden 4 degrees R Woden 28 degrees T Woden 190 degrees Undetermined rhythm Marked ST abnormality, possi ble inferolateral subendocardial injury Abnormal ECG HEPATITIS B SURFACE ANTIGEN Routine 02/10/2020 5:11 PM ARCHITECTURAL INTERN Results for this procedure are i n the results section . HEPATITIS B SURFACE Routine 02/10/2020 5:11 PM ARCHITECTURAL INTERN Results for this ANTIBODY procedure are i n the results section . POCT-GLUCOSE METER Routine 02/10/2020 4:41 PM ARCHITECTURAL INTERN Results for this procedure are i n the results section . DOUBLE-STRANDED DNA (DSDNA) Routine 02/10/2020 3:30 PM ARCHITECTURAL INTERN Results for this ANTIBODY procedure are i n the results section . COMPLEMENT COMPONENT C4 Routine 02/10/2020 3:30 PM ARCHITECTURAL INTERN Results for this procedure are i n the results section . COMPLEMENT COMPONENT C3 Routine 02/10/2020 3:30 PM ARCHITECTURAL INTERN Results for this procedure are i n the results section . IR NON-TUNNELED DIALYSIS Routine 02/10/2020 2:18 PM ARCHITECTURAL INTERN Results for this CATHETER (CENTRAL procedure are in the LINE/TODD) results sectio n. HEMODIALYSIS INPATIENT Routine 02/10/2020 1:41 PM ARCHITECTURAL INTERN 2D ECHO W/ DOPPLER Routine 02/10/2020 11:51 AM ARCHITECTURAL INTERN Results for this (CW/PW/COLOR) procedure are in the results section . POCT-GLUCOSE METER Routine 02/10/2020 11:40 AM ARCHITECTURAL INTERN Results for this procedure are i n the results section . US RENAL COMPLETE STAT 02/10/2020 10:26 AM ARCHITECTURAL INTERN Results for this procedure are i n the results section . POCT-GLUCOSE METER Routine 02/10/2020 8:33 AM ARCHITECTURAL INTERN Results for this procedure are i n the results section . XR CHEST 1 VIEW STAT 02/10/2020 8:12 AM ARCHITECTURAL INTERN R esults for this PORTABLE/BEDSIDE procedure a re in the results section . URINALYSIS W/ MICROSCOPIC Routine 02/10/2020 6:27 AM ARCHITECTURAL INTERN Results for this procedure are i n the results section . BLOOD CULTURE Routine 02/10/2020 6:27 AM ARCHITECTURAL INTERN Res ults for this procedure are i n the results section . B-TYPE NATRIURETIC FACTOR Routine 02/10/2020 6:05 AM ARCHITECTURAL INTERN Results for this (BNP) procedure are i n the results section . PROTHROMBIN TIME/INR Routine 02/10/2020 6:05 AM ARCHITECTURAL INTERN Results for this procedure are i n the results section . BLOOD CULTURE Routine 02/10/2020 6:05 AM ARCHITECTURAL INTERN Res ults for this procedure are i n the results section . CBC W/PLT COUNT & AUTO Routine 02/10/2020 4:09 AM ARCHITECTURAL INTERN Results for this DIFFERENTIAL procedure are i n the results section . HEPATIC FUNCTION PANEL Add-On 02/10/2020 4:09 AM ARCHITECTURAL INTERN Results for this procedure are i n the results section . CBC W/PLT COUNT & AUTO Routine 02/10/2020 4:09 AM ARCHITECTURAL INTERN Results for this DIFFERENTIAL procedure are i n the results section . BASIC METABOLIC PANEL (7) Routine 02/10/2020 4:09 AM ARCHITECTURAL INTERN Results for this procedure are i n the results section . PHOSPHORUS Routine 02/10/2020 4:09 AM ARCHITECTURAL INTERN Resu lts for this procedure are i n the results section . MAGNESIUM Routine 02/10/2020 4:09 AM ARCHITECTURAL INTERN Resu lts for this procedure are i n the results section . SARS-COV2/RT-PCR (HS & Routine 02/10/2020 2:12 AM ARCHITECTURAL INTERN Results for this REF LABS) procedure are i n the results section . REPORT OF PROCEDURE - 02/09/2020 Result s for this ENDOSCOPY SCAN procedure are in the results section . CARDIAC CATH REPORT - SCAN 02/09/2020 R esults for this procedure are i n the results section . after 03/08/2019 Results Transfuse Leuko-Red PLT (02/26/2020 5:56 PM ARCHITECTURAL INTERN)Manual Differential (02/26/2020 4:05 AM ARCHITECTURAL INTERN)Only the most recent of10 resultswithin the time period is included. Pathologist Sig nature % Neutros (manual) 78 % [facility] % Lymphs (manual) 16 % [facility] % Monos (manual) 6 % [facility] # Neutros (manual) 5.30 1.80 - 8.00 [facility] K/L [facility] # Lymphs (manual) 1.09 (L) 1.48 - 4.50 [facility] # Monos (manual) 0.41 0.00 - 1.30 [facility] Total Counted 100 [facility] nRBC (manual) 3 (H) 0 - 0 /100 WBC [facility] WBC Morphology Normal [facility] Platelet Morphology Normal [facility] Anisocytosis 1+ few [facility] Specimen Blood Performing Organization Address City/[facility] Phone Number [facility] [address] [place], [place] [address] CBC with platelet count + automated diff (02/26/2020 4:05 AM ARCHITECTURAL INTERN)Only the most recent of17 resultswithin the time period is included. Pathologist Sig nature WBC 6.8 4.0 - 10.0 K/L [facility] RBC 2.78 (L) 4.00 - 5.00 M/L [facility] Hemoglobin 8.0 (L) 12.0 - 15.5 GM/DL [facility] Hematocrit 24.9 (L) 36.0 - 46.0 % [facility] MCV 89.6 82.0 - 99.0 fL [facility] MCH 28.8 27.0 - 33.0 pg [facility] MCHC 32.1 32.0 - 36.0 GM/DL [facility] RDW 15.2 (H) 12.0 - 15.0 % [facility] Platelets 98 (L) 150 - 430 K/CU MM [facility] MPV 12.2 (H) 6.0 - 11.5 fL [facility] nRBC 16 (H) 0 - 0 /100 WBC [facility] Specimen Blood Performing Organization Address [facility] Centercone Phone Number [facility] [address] [place], [place] [address] Magnesium (02/26/2020 4:05 AM ARCHITECTURAL INTERN)Only the most recent of18 resultswithin the time period is included. [facility] Magnesium 1.8 1.5 - 3.0 mg/dL [facility] Specimen Blood Narrative Performed At Psychological Anthropologist ID - ADMIN [facility] Psychological Anthropologist ID - ADMIN Psychological Anthropologist ID - ADMIN Psychological Anthropologist ID - ADMIN Performing Organization Address City/[facility]/Zipcode Phone Number [facility] [address] [place], [place] [address] Comprehensive metabolic panel (02/26/2020 4:05 AM ARCHITECTURAL INTERN)Only the most recent of13 resultswithin the time period is included. Protein, Total 4.4 (L) 6.0 - 8.5 [facility] gm/dL [facility] Albumin 2.2 (L) 3.5 - 5.0 [facility] g/dL [facility] Alkaline 490 (H) 30 - 115 U/L [facility] Phosphatase [facility]OR[facility] Total Bilirubin 0.3 0.1 - 1.2 [facility] mg/dL [facility] Sodium 144 135 - 148 [facility] meq/L [facility] Potassium 3.9 3.6 - 5.5 [facility] meq/L [facility] Chloride 105 98 - 106 [facility] meq/L [facility] CO2 28 20 - 29 meq/L [facility] BUN 40 (H) 10 - 26 mg/dL [facility] Creatinine 1.18 0.50 - 1.20 [facility] mg/dL [facility] Glucose 110 70 - 110 [facility] mg/dL [facility] Calcium 8.6 8.5 - 10.5 [facility] mg/dL [facility] AST 136 (H) 5 - 40 U/L [facility] ALT 152 (H) 5 - 50 U/L [facility] EGFR 44Comment: mL/min/1.73 [facility] ESTIMATED GFR IS sq LABORATORY NOT ACCURATE CREATININE CLEARANCE IN PREDICTING GLOMERULAR FILTRATION RATE. ESTIMATED GFR IS NOT APPLICABLE FOR DIALYSIS PATIENTS. Specimen Blood Narrative Performed At Psychological Anthropologist ID - ADMIN [facility] Psychological Anthropologist ID - ADMIN Psychological Anthropologist ID - ADMIN Psychological Anthropologist ID - ADMIN Psychological Anthropologist ID - ADMIN Psychological Anthropologist ID - ADMIN Psychological Anthropologist ID - ADMIN Psychological Anthropologist ID - ADMIN Psychological Anthropologist ID - ADMIN Psychological Anthropologist ID - ADMIN Psychological Anthropologist ID - ADMIN Psychological Anthropologist ID - ADMIN Psychological Anthropologist ID - ADMIN Psychological Anthropologist ID - ADMIN Psychological Anthropologist ID - ADMIN Psychological Anthropologist ID - ADMIN Performing Organization Address City/State/Zipcode Phone Number [facility] [address] [place], [place] [address] Prepare Leuko-Red RBC (02/25/2020 11:54 PM ARCHITECTURAL INTERN)Only the most recent of3 results within the time period is included. Pathologist Sig nature CROSSMATCH COMPATIBLE [place] Unit ABO B Pos [place] UNIT NUMBER [id number] [place] Status TX_TIMEINCHART [place] Blood Bank Product RED BLOOD CELLS [place] PRODUCT CODE [id number] [place] Specimen Other Performing Organization Address City/State/Zipcode Phone Number [place] NM hepatobiliary (HIDA) scan (02/25/2020 11:39 AM ARCHITECTURAL INTERN) Specimen Narrative Performed At FINAL REPORT Agenus RIS PROCEDURE: HEPATOBILIARY SCAN CPT CODE: [id number] INDICATION: Elevated LFTs alkal ine phosphatase PROTOCOL: Six mCi of Tc-99m meb rofenin was injected intravenously. Images of the upper abdom en were obtained for approximately 75 minutes after tracer in jection. FINDINGS: Initial tracer u ptake into the liver is physiological. Subsequent tracer clearan ce from the liver proceeds normally. There is good visualization of the extrahepatic biliary duct and the gallbladder, and the tracer appears appropriately in the small bowel. IMPRESSION: Normal hepatobiliary scan. Signed: Kilo Posada MD Report Verified Date/Time: 02/25/2020 12:03:14 Reading Location: [address] [employer] Reading Room Procedure Note Interface, External Ris In - 02/25/2020 12:05 PM ARCHITECTURAL INTERN FINAL REPORT PROCEDURE: HEPATOBILIARY SCAN CPT CODE: [id number] INDICATION: Elevated LFTs alkaline phosphatase PROTOCOL: Six mCi of Tc-99m mebrof enin was injected intravenously. Images of the upper abdom en were obtained for approximately 75 minutes after tracer in jection. FINDINGS: Initial tracer uptake into the liver is physiological. Subsequent tracer clearan ce from the liver proceeds normally. There is good visualization of the extrahepatic biliary duct and the gallbladder, and the tracer appears appropriately in the small bowel. IMPRESSION: Normal hepatobiliary sc an. Signed: Kilo Posada MD Report Verified Date/Time: 02/25/2020 1 2:03:14 Reading Location: [address] [employer] Reading Room Performing Organization Address City/State/Zipcode Phone Number [facility] RIS Transfuse Leuko-Red RBC (02/24/2020 7:28 PM ARCHITECTURAL INTERN)Only the most recent of3 resultswithin the time period is included.Microalbumin, random urine (02/24/2020 7:05 AM ARCHITECTURAL INTERN) Pathologist Sig nature Microalbumin, Urine 155.3 mg/dL [facility] Specimen Urine Narrative Performed At Reference Range: No Normals [facility] Psychological Anthropologist ID - CASSANDRA C Psychological Anthropologist ID - CASSANDRA C Performing Organization Address City/State/Zipcode Phone Number [facility] [address] [place] [address] CENTER Protein, random urine (02/24/2020 7:05 AM ARCHITECTURAL INTERN) Pathologist Sig nature Protein, Urine 269 (H) 0 - 14 mg/dL [facility] Specimen Urine Narrative Performed At Psychological Anthropologist ID - ADMIN [facility] Performing Organization Address [facility] Centercode Phone Number [facility] [address] [place], [place] [address] Creatinine, random urine (02/24/2020 7:05 AM ARCHITECTURAL INTERN) Pathologist Sig nature Creatinine, Ur 51.8 mg/dL [facility] Specimen Urine Narrative Performed At Reference Range: No Normals [facility] Psychological Anthropologist ID - ADMIN Performing Organization Address [facility] Centercode Phone Number [facility] [address] [place], [place] [address] Urinalysis w/Microscopic (02/24/2020 7:05 AM ARCHITECTURAL INTERN)Only the most recent of2 resultswithin the time period is included. Color, UA Yellow [facility] Clarity, UA Clear [facility] Specific [place], 1.015 1.001 - 1.035 [facility] pH, UA 7.0 5.0 - 8.0 [facility] Protein, UA 100 mg/dL (A) Negative [facility] Glucose, UA 250 mg/dL (A) Negative [facility] Ketones, UA Negative Negative [facility] Bilirubin, UA Negative Negative [facility] Blood, UA Small (A) Negative [facility] Nitrite, UA Negative Negative [facility] Leukocytes, UA Negative Negative [facility] Urobilinogen, UA 0.2 0.2 - 1.0 mg/dL [facility] Bacteria, UA None Seen [facility] RBC, UA 5-10 /HPF [facility] WBC, UA 5-10 /HPF [facility] SQUAMOUS 5-10 /HPF [facility] Specimen Source [facility] Specimen Urine Performing Organization Address City/State/Zipcode Phone Number [facility] [address] [place], [place] [address] Type and screen, automated (02/24/2020 6:50 AM ARCHITECTURAL INTERN)Only the most recent of2 resultswithin the time period is included. Pathologist Sig nature ABO/RH AUTOMATED B [facility] ([facility]AK[facility] : ECHO Ab Scrn NEGATIVEComment [facility] : [facility] Specimen Blood Performing Organization Address City/State/Zipcode Phone Number [facility] [address] [place], [place] [id number] [facility] SARS-CoV2/RT-PCR (Asymptomatic ONLY) (02/24/2020 4:14 AM ARCHITECTURAL INTERN)Only the most recent of3 resultswithin the time period is included. SARS-COV2/RT-PCR Negative Not Detected, [facility] Negative, See [facility] external report CENTER for linked test SARS-COV-2 [facility] LIANA [facility] PERFORMING LAB [facility] EMERGENCY DEPARTMENT Specimen Other - Nasopharyngeal wall structure (b rainer structure) Narrative Performed At Negative result for this test determines that [facility] SARS-CoV-2 RNA was not present in the specimen above the Limit of Detection (LOD). However, Negative results do not preclude SARS-CoV-2 infection and should not be used as the sole basis for treatment or patient management decisions. Negative results must be combined with clinical observations, patient history, and epidemiological information. A false negative result may occur if a specimen is improperly collected, transported or handled. A false negative result should be considered if patient's recent exposures or clinical presentation indicate that COVID-19 (SARS-CoV-2) is likely and diagnostic tests for other causes of illness are negative. Re-testing should be considered in cases of suspected false negatives. The limit of detection for this assay is 800 copies/mL. This SARS CoV-2 test is a real-time RT-PCR test intended for the qualitative detection of nucleic acid from SARS-CoV-2 in a nasopharyngeal swab specimen collected from individuals suspected of COVID-19 by their healthcare provider. This test has not been Food and Drug Administration (FDA) cleared or approved. This is a modified version of an approved Emergency Use Authorization (EUA) and is in the process of review by the FDA. Once authorized by the FDA, the issued EUA will be effective until the declaration that circumstances exist justifying the authorization of the emergency use of in vitro diagnostic tests for detection and/or diagnosis of COVID-19 is terminated under Section 564(b)(2) of the Act or the EUA is revoked under Section 564(g) of the Act. Fact Sheet for Healthcare Providers: https://www.[employer]/sites/default/files/pro duct/documents/Fact_Sheet_HC_Providers_Lyra_SA RS-CoV-2.pdf Fact Sheet for Healthcare Patients: https://www.[employer]/sites/default/files/pro duct/documents/Fact_Sheet_Patients_Lyra_SARS-C oV-2.pdf Performing Laboratory: [place] [address] Performing Organization Address City/State/[place] [address] [place] ALK ISOENZYMES (02/24/2020 4:08 AM ARCHITECTURAL INTERN) Intestinal Isoenzyme 0 (L) 1 - 24 % [facility] Bone Isoenzyme 58 28 - 66 % [facility] Liver Isoenzyme 42 25 - 69 % [facility] Comment: INCORPORATED Increased intestinal alkaline phosphatase can be seen in blood group O and B secretors and after fatty meals. Placental Isoenzyme 0 0 % [facility] MACROHEPATIC DNR % [facility] ISOENZYMES [facility] Interpretation DNR [facility] Specimen Blood Narrative Performed At Performing Lab [facility] EZ [facility] [place] [facility] [place] [address] [place] [address] Chago Quezada MD, PhD, TIMMY Performing Organization Address City/State/Zipcode Phone Number [facility] [place] [address] INCORPORATED [address] [address] [facility] ALK PHOSPHATASE (02/24/2020 4:08 AM ARCHITECTURAL INTERN) Pathologist Sig nature Alkaline Phosphatase 439 (H) 37 - 153 U/L [facility] Specimen Blood Narrative Performed At Performing Lab [facility] E[facility] [place] [address] [place] [address] Chago Quezada MD, PhD, TIMMY Performing Organization Address City/[facility]/Zipcode Phone Number [facility] [place] [address] INCORPORATED [address] [facility] Double-Stranded DNA (dsDNA) Antibody (02/24/2020 4:08 AM ARCHITECTURAL INTERN)Only the most recent of2 resultswithin the time period is included. Pathologist Sig nature ds DNA Ab Negative Negative [facility] Specimen Blood Performing Organization Address [facility] Phone Number [address] [address] CENTER Complement Component C3 (02/24/2020 4:08 AM ARCHITECTURAL INTERN)Only the most recent of9 resultswithin the time period is included. Pathologist Sig nature C3 Complement 113 82 - 193 mg/dL [facility] Specimen Blood Narrative Performed At Psychological Anthropologist ID - CASSANDRA C [facility] Performing Organization Address [facility] Phone Number [address] [address] CENTER Complement Component C4 (02/24/2020 4:08 AM ARCHITECTURAL INTERN)Only the most recent of9 resultswithin the time period is included. Pathologist Sig nature C4 Complement 20 15 - 57 mg/dL [facility] Specimen Blood Narrative Performed At Psychological Anthropologist ID - CASSANDRA C [facility] Performing Organization Address [facility] Phone Number [address] [address] CENTER Phosphorus (02/24/2020 4:08 AM ARCHITECTURAL INTERN)Only the most recent of8 resultswithin the time period is included. Pathologist Sig nature Phosphorus 3.0 2.5 - 4.5 mg/dL [facility] Specimen Blood Narrative Performed At Psychological Anthropologist ID - ADMIN [facility] Performing Organization Address City/[facility]/Zipcode Phone Number [facility] [address] [phone] POC-Glucose meter (02/23/2020 6:11 AM ARCHITECTURAL INTERN)Only the most recent of15 results within the time period is included. POC-Glucose Meter 105 70 - 110 [facility] Comment: mg/dL [facility] : TESTED AT [facility] [address] [address] MEDICAL CENTER : Psychological Anthropologist/Corner Trimmer Operator ID = [id number] for Amanda Durán Specimen Blood Performing Organization Address [facility]/Zipcode Phone Number [address] [address] CENTER G6PD, quantitative (02/21/2020 10:08 AM ARCHITECTURAL INTERN) Pathologist Sig hugo G-6-Pd, Quant 17.2 7.0 - 20.5 U/g Hgb [facility] Specimen Blood Narrative Performed At Performing Lab [facility] EZ [facility] te [address] [place] [address] Chago Quezada MD, PhD, TIMMY Performing Organization Address City/[facility] Cent[facility]ode Phone Number [facility] [place] [address] INCORPORATED [address] [facility] Prothrombin time/INR (02/20/2020 3:47 AM ARCHITECTURAL INTERN)Only the most recent of2 results within the time period is included. Protime 9.4Comment: Final 9.3 - 12.0 [facility] [facility] Information (Auto seconds LABORATORY Output) INR 0.85Comment: Final <=5.90 [facility] Information (Auto LABORATORY Output) Specimen Blood Narrative Performed At RECOMMENDED COUMADIN/WARFARIN INR THERAP Y RANGES [facility] LABORATORY STANDARD DOSE: 2.0 - 3.0 Includes: PROPHYLAXIS for venous thrombosis, systemic embolization; TREATMENT for venou s thrombosis and/or pulmonary embolus. HIGH RISK: Target INR is 2.5-3.5 for patients with mec hanical heart valves. Performing Organization Address City/[facility]/Zipcode Phone Number [facility] [address] [phone] Ammonia (02/20/2020 3:47 AM ARCHITECTURAL INTERN) Pathologist Sig nature Ammonia 33 17 - 80 mol/L [facility] Specimen Blood Narrative Performed At Psychological Anthropologist ID - ADMIN [facility] Psychological Anthropologist ID - ADMIN Psychological Anthropologist ID - ADMIN Psychological Anthropologist ID - ADMIN Performing Organization Address [facility] Phone Number [facility] [address] [place], [place] [address] Fibrin soluble monomer (02/19/2020 1:20 PM ARCHITECTURAL INTERN) Pathologist Sig nature Fibrin Soluble Monomer Negative [facility] Specimen Blood Performing Organization Address City/[facility]/Zipcode Phone Number [address] [address] CENTER Occult blood, stool (02/19/2020 4:30 AM ARCHITECTURAL INTERN) Pathologist Sig nature Occult blood Positive (A) Negative [facility] Specimen Stool - Rectum structure (body structure ) Performing Organization Address [facility] Phone Number [facility] [address] [place], [place] [address] Vitamin B12 and Folate (02/18/2020 8:22 PM ARCHITECTURAL INTERN) Pathologist Sig nature Vitamin B12 1,137 (H) 211 - 911 pg/mL [facility] Folate 13.00 >=5.4 ng/mL [facility] Specimen Blood Narrative Performed At Psychological Anthropologist ID - ADMIN [facility] Psychological Anthropologist ID - ADMIN Psychological Anthropologist ID - ADMIN Psychological Anthropologist ID - ADMIN Psychological Anthropologist ID - ADMIN Performing Organization Address [facility] Phone Number [facility] [place], [place] [address] PT/aPTT (02/18/2020 8:22 PM ARCHITECTURAL INTERN) Protime 9.3Comment: Final 9.3 - 12.0 [place] Information (Auto seconds LABORATORY Output) INR 0.85Comment: Final <=5.90 [place] Information (Auto LABORATORY Output) PTT 27.1Comment: Final 23.0 - 35.0 [place] Information (Auto seconds LABORATORY Output) Specimen Blood Narrative Performed At RECOMMENDED COUMADIN/WARFARIN INR THERAP Y RANGES [facility]ORATORY STANDARD DOSE: 2.0 - 3.0 Includes: PROPHYLAXIS for venous thrombosis, systemic embolization; TREATMENT for venou s thrombosis and/or pulmonary embolus. HIGH RISK: Target INR is 2.5-3.5 for patients with mec hanical heart valves. Performing Organization Address [facility] Phone Number [facility] [address] [place] [phone] Iron, TIBC, % sat. (without ferritin) (02/18/2020 8:22 PM ARCHITECTURAL INTERN) Pathologist Sig nature Iron 33.0 (L) 45.0 - 170.0 [facility] ug/dL TIBC 89 (L) 250 - 550 ug/dL [facility] Iron % Saturation 37 20 - 55 % [facility] Specimen Blood Narrative Performed At Psychological Anthropologist ID - ADMIN [facility] Psychological Anthropologist ID - ADMIN Performing Organization Address [address] [address] Fibrinogen (02/18/2020 8:22 PM ARCHITECTURAL INTERN) Fibrinogen 799 (H)Comment: Final 200 - 400 [facility] Information (Auto mg/dl LABORATORY Output) Specimen Blood Performing Organization Address [facility] LABORATORY [address] [place] [address] D-dimer (02/18/2020 8:22 PM ARCHITECTURAL INTERN) D-Dimer, Quant 11.59 (H)Comment: <0.50 MG/L [facility] Final Information FEU LABORATORY (Auto Output) Specimen Blood Narrative Performed At REGARDING D-DIMER RESULTS: The 98% NPV (Negative Predi ctive [facility] Value) for DVT/PE exclusion is 0.50 mg/L [facility] as sugges kenneth by the dental surgeon and as approved by the FDA. Performing Organization Address [facility] Number [facility] [address] [place] [phone] Reticulocyte count (02/18/2020 8:22 PM ARCHITECTURAL INTERN) Pathologist Sig nature % Retic 1.0 0.4 - 2.9 % [facility] Specimen Blood Performing Organization Address [facility] [address] [facility], [place] [address] Direct [facility] (TRISTA)/Direct Valdez (02/18/2020 8:22 PM ARCHITECTURAL INTERN) Pathologist Sig nature Direct [facility]-IGG NEGATIVE [facility] Direct [facility]-C3B, C3D NEGATVIE [facility] Specimen Blood Performing Organization Address City/[facility]/Zipcode Phone Number [facility] [address] [place], [place] [phone] [facility] Immunofixation electrophoresis (JW) (02/18/2020 8:22 PM ARCHITECTURAL INTERN) IgG 202 (L) 540-1,822 [facility] mg/dL [facility] IgA 127 63 - 484 [facility] mg/dL [facility] IgM 69 22 - 293 [facility] mg/dL [facility] Serum JW No monoclonal [facility] Identification proteins [facility] detected. [facility]ENTER Decreased levels of polyclonal IgG. Pathologist: Olesya MO[facility]ER [facility] Barrientos MD [facility] (electronic [facility] signature) Specimen Blood Narrative Performed At Psychological Anthropologist ID - CASSANDRA Moon [facility] Psychological Anthropologist ID - CASSANDRA Moon Performing Organization Address City/[facility]/Zipcode Phone Number [facility] [address] [place] [address] CENTER Bilirubin, total and direct (02/18/2020 8:22 PM ARCHITECTURAL INTERN) Pathologist Sig nature Total Bilirubin 0.3 0.1 - 1.2 mg/dL [facility] Bilirubin, Direct 0.2 0.0 - 0.4 mg/dL [facility] Specimen Blood Narrative Performed At Psychological Anthropologist ID - ADMIN [facility] Psychological Anthropologist ID - ADMIN Performing Organization Address City/[facility]/Zipcode Phone Number [facility] [address] [place], [place] [address] Protein electrophoresis, serum (02/18/2020 8:22 PM ARCHITECTURAL INTERN) Albumin Fraction 1.6 (L) 3.5 - 5.5 [facility] gm/dL [facility] Alpha 1 Fraction 0.4 0.2 - 0.4 [facility] gm/dL [facility] Alpha 2 Fraction 1.6 (H) 0.5 - 0.9 [facility] gm/dL [facility] Beta Fraction 0.3 (L) 0.6 - 1.1 [facility] gm/dL [facility] Gamma Globulin [facility] Fraction [facility] Interpretation Alpha-1 and alpha-2 [facility] increased. Albumin, [facility] beta, and gamma MEDICAL CENTER decreased. This suggests a nephrotic pattern. Refer to serum immunofixation electrophoresis. Pathologist: Candace Campos MD [facility] (electronic [facility] Protein, Total 3.9 (L) 6.0 - 8.3 [facility] gm/dL [facility] Specimen Blood Narrative Performed At Psychological Anthropologist ID - [facility] Performing Organization Address City/[facility]/Zipcode Phone Number [address] [address] CENTER Lactate dehydrogenase (LDH) (02/18/2020 8:22 PM ARCHITECTURAL INTERN) Pathologist Sig nature LDH 465 (H) 107 - 206 U/L [facility] Specimen Blood Narrative Performed At Psychological Anthropologist ID - ADMIN [facility] Performing Organization Address City/[facility]/Zipcode Phone Number [facility] [address] [place], [place] [address] Haptoglobin (02/18/2020 8:22 PM ARCHITECTURAL INTERN) Pathologist Sig nature Haptoglobin 455 (H) 14 - 258 mg/dL [facility] Specimen Blood Narrative Performed At Psychological Anthropologist ID - CASSANDRA Sarai [facility] Psychological Anthropologist ID - CASSANDRA Moon Performing Organization Address City/[facility]/Zipcode Phone Number [address] [address] CENTER Ferritin (02/18/2020 8:22 PM ARCHITECTURAL INTERN) Pathologist Sig nature Ferritin 1,875.30 (H) 10.00 - 291.00 [employer] LABORATORY ng/mL Specimen Blood Narrative Performed At Psychological Anthropologist ID - ADMIN [employer] [facility] Psychological Anthropologist ID - ADMIN Performing Organization Address City/State/Zipcode Phone Number [facility] [address] [facility] TJ Teixeira [address] US abdomen complete (02/18/2020 7:50 PM ARCHITECTURAL INTERN) Specimen Narrative Performed At FINAL REPORT [employer] Ultrasound of the Abdomen, complete Clinical History: CHECK SPLEEN Comparison: Abdominal ultrasound with Do ppler 02/16/2020. Technique: Sonographic evaluation of t he abdomen was performed. Findings: Liver: 14.2 cm in length at the right midclavicular line. Normal echogenicity. No lesion is identified by ultrasound. Main portal vein diameter 1.0 cm. Main portal vein i s patent and demonstrates hepatopetal flow. Biliary tree: Common duct 5 mm. No i ntrahepatic biliary ductal dilatation. Gallbladder: Small shadowing stones. No wall thickening. No pericholecystic fluid. Negative sonograp hic Laurent's sign. Pancreas: Partially obscured by bowel ga s but the visualized portions are grossly unremarkable. Ascites: None seen Spleen: Normal size measuring 7.4 x 2.8 x 2.6 cm. Kidneys: Right kidney lung 0.2 x 4.1 x 4 cm with cortical thickness of 1.2 cm. Left kidney 9.8 x 4.2 x 4.4 cm with cortical thickness of 1. cm. Normal cortical echogenicity. 2 .5 x 2.2 x 2.2 cm simple right interpolar cyst. 2.4 x 2.1 x 2.2 cm simp le left upper to mid cyst and 2.4 x 2.1 x 2.2 cm thick-walled left int erpolar cystic lesion. No shadowing calculus or hydronephrosis. IVC/Aorta: Visualized segments are unrem arkable. Unremarkable. Miscellaneous: Bilateral pleural effusio ns. Impression: Cholelithiasis without sonographic evide nce of acute cholecystitis. Normal size spleen. 2.4 cm indeterminate cystic lesion in th e left kidney (Bosniak III) for which urological evaluation is recom mended. A renal protocol CT or MRI would be helpful for further eval uation. Signed: John Singleton MD Report Verified Date/Time: 02/19/2020 05:04:32 Procedure Note Interface, External Ris In - 02/19/2020 5:07 AM ARCHITECTURAL INTERN FINAL REPORT Ultrasound of the Abdomen, complete Clinical History: CHECK SPLEEN Comparison: Abdominal ultrasound with Do ppler 02/16/2020. Technique: Sonographic evaluation of e abdomen was performed. Findings: Liver: 14.2 cm in length at the right midclavicular line. Normal echogenicity. No lesion is identified b y ultrasound. Main portal vein diameter 1.0 cm. Main portal vein i s patent and demonstrates hepatopetal flow. Biliary tree: Common duct 5 mm. No int rahepatic biliary ductal dilatation. Gallbladder: Small shadowing stones. No wall thickening. No pericholecystic fluid. Negative sonograp hic Laurent's sign. Pancreas: Partially obscured by bowel ga s but the visualized portions are grossly unremarkable. Ascites: None seen Spleen: Normal size measuring 7.4 x 2. 8 x 2.6 cm. Kidneys: Right kidney lung 0.2 x 4.1 x 4 cm with cortical thickness of 1.2 cm. Left kidney 9.8 x 4.2 x 4.4 cm with cortical thickness of 1. cm. Normal cortical echogenicity. 2. 5 x 2.2 x 2.2 cm simple right interpolar cyst. 2.4 x 2.1 x 2.2 cm simp le left upper to mid cyst and 2.4 x 2.1 x 2.2 cm thick-walled left int erpolar cystic lesion. No shadowing calculus or hydronephrosis. IVC/Aorta: Visualized segments are unrem arkable. Unremarkable. Miscellaneous: Bilateral pleural effusio ns. Impression: Cholelithiasis without sonographic evide nce of acute cholecystitis. Normal size spleen. 2.4 cm indeterminate cystic lesion in e left kidney (Bosniak III) for which urological evaluation is recom mended. A renal protocol CT or MRI would be helpful for further eval uation. Signed: John Singleton MD Report Verified Date/Time: 02/19/2020 0 5:04:32 Performing Organization Address City/State/Zipcode Phone Number [employer] Peripheral Blood Smear - Path Review (02/18/2020 4:50 AM ARCHITECTURAL INTERN) Pathologist Review Normochromic normocytic [facility] anemia with slight LABORATORY poikilocytosis and rare schistocytes seen. WBCs normal in number with slight left shift. Thrombocytopenia with a few large forms. Pathologist: Beverly Hobson M.D. [facility] [employer] (electronic signature) LABORATORY Specimen Blood Performing Organization Address City/State/Zipcode Phone Number [employer] [facility] [address] [facility] [place], [place] [address] [place] abdomen limited (02/16/2020 1:40 PM ARCHITECTURAL INTERN) Specimen Narrative Performed At FINAL REPORT [employer] Abdominal ultrasound dated 02/16/2020 Clinical information: Elevated LFTs Comment: Real-time transabdominal ultr asound was performed. Liver is normal in size and measures 13 cm in length. The echogenicity of the liver is normal. N o focal lesion is noted in the liver. Gallbladder is contracted. A 4 mm small gallstone is present. No biliary dilatation is seen. Common bile duct measures 4 mm in diameter. Main portal vein measures 11 mm in diameter. Pancreas is incomplete visualized. Right kidney measures 10.9 x 4 x 4.9 cm. Echogenicity of the right renal parenchyma is normal. A 2.4 x 1.9 x 2.5 cm cyst is seen in the right kidney.. No ascites present in the abdomen. Abdominal aorta is normal in caliber. Th e IVC is patent. Real-time Color and Spectral doppler ult rasound of the abdomen was performed. Main portal vein measures 1.1 cm in diam eter. There is hepatopedal flow in the main portal vein with veloci ty 20 cm/sec. Right and left portal veins are patent. Proper hepatic artery is patent with res istive index of 0.76. IVC, Hepatic venous confluence, right HV , middle HV and left HV are patent. Impression: 1. Cholelithiasis without biliary dilata tion. 2. Patent hepatic artery and portal vein . 3. Right renal cyst. Signed: Johanna Pereyra MD Report Verified Date/Time: 02/16/2020 15:08:47 Reading Location: [facility] C013Y CT Body R eading Room Procedure Note Interface, External Ris In - 02/16/2020 3:11 PM ARCHITECTURAL INTERN FINAL REPORT Abdominal ultrasound dated 02/16/2020 Clinical information: Elevated LFTs Comment: Real-time transabdominal ultra sound was performed. Liver is normal in size and measures 13 cm in length. The echogenicity of the liver is normal. No focal lesion is noted in the liver. Gallbladder is contracted. A 4 mm small gallstone is present. No biliary dilatation is seen. Common bile duct measures 4 mm in diameter. Main portal vein measures 11 mm in diameter. Pancreas is incomplete visualized. Right kidney measures 10.9 x 4 x 4.9 cm. Echogenicity of the right renal parenchyma is normal. A 2.4 x 1.9 x 2.5 cm cyst is seen in the right kidney.. No ascites present in the abdomen. Abdominal aorta is normal in caliber. Th e IVC is patent. Real-time Color and Spectral doppler ult rasound of the abdomen was performed. Main portal vein measures 1.1 cm in diam eter. There is hepatopedal flow in the main portal vein with veloci ty 20 cm/sec. Right and left portal veins are patent. Proper hepatic artery is patent with res istive index of 0.76. IVC, Hepatic venous confluence, right HV , middle HV and left HV are patent. Impression: 1. Cholelithiasis without biliary dilata tion. 2. Patent hepatic artery and portal vein . 3. Right renal cyst. Signed: Johanna Pereyra MD Report Verified Date/Time: 02/16/2020 1 5:08:47 Reading Location: [facility] B1 C013Y CT Body R eading Room Performing Organization Address City/State/Zipcode Phone Number [employer] US doppler (02/16/2020 1:40 PM ARCHITECTURAL INTERN) Specimen Narrative Performed At FINAL REPORT [employer] Abdominal ultrasound dated 02/16/2020 Clinical information: Elevated LFTs Comment: Real-time transabdominal ultr asound was performed. Liver is normal in size and measures 13 cm in length. The echogenicity of the liver is normal. N o focal lesion is noted in the liver. Gallbladder is contracted. A 4 mm small gallstone is present. No biliary dilatation is seen. Common bile duct measures 4 mm in diameter. Main portal vein measures 11 mm in diameter. Pancreas is incomplete visualized. Right kidney measures 10.9 x 4 x 4.9 cm. Echogenicity of the right renal parenchyma is normal. A 2.4 x 1.9 x 2.5 cm cyst is seen in the right kidney.. No ascites present in the abdomen. Abdominal aorta is normal in caliber. Th e IVC is patent. Real-time Color and Spectral doppler ult rasound of the abdomen was performed. Main portal vein measures 1.1 cm in diam eter. There is hepatopedal flow in the main portal vein with veloci ty 20 cm/sec. Right and left portal veins are patent. Proper hepatic artery is patent with res istive index of 0.76. IVC, Hepatic venous confluence, right HV , middle HV and left HV are patent. Impression: 1. Cholelithiasis without biliary dilata tion. 2. Patent hepatic artery and portal vein . 3. Right renal cyst. Signed: Johanna Pereyra MD Report Verified Date/Time: 02/16/2020 15:08:47 Reading Location: [facility] C0Y CT Body [facility] Procedure Note Interface, External Ris In - 02/16/2020 3:11 PM ARCHITECTURAL INTERN FINAL REPORT Abdominal ultrasound dated 02/16/2020 Clinical information: Elevated LFTs Comment: Real-time transabdominal ultra sound was performed. Liver is normal in size and measures 13 cm in length. The echogenicity of the liver is normal. No focal lesion is noted in the liver. Gallbladder is contracted. A 4 mm small gallstone is present. No biliary dilatation is seen. Common bile duct measures 4 mm in diameter. Main portal vein measures 11 mm in diameter. Pancreas is incomplete visualized. Right kidney measures 10.9 x 4 x 4.9 cm. Echogenicity of the right renal parenchyma is normal. A 2.4 x 1.9 x 2.5 cm cyst is seen in the right kidney.. No ascites present in the abdomen. Abdominal aorta is normal in caliber. Th e IVC is patent. Real-time Color and Spectral doppler ult rasound of the abdomen was performed. Main portal vein measures 1.1 cm in diam eter. There is hepatopedal flow in the main portal vein with veloci ty 20 cm/sec. Right and left portal veins are patent. Proper hepatic artery is patent with res istive index of 0.76. IVC, Hepatic venous confluence, right HV , middle HV and left HV are patent. Impression: 1. Cholelithiasis without biliary dilata tion. 2. Patent hepatic artery and portal vein . 3. Right renal cyst. Signed: Johanna Pereyra MD Report Verified Date/Time: 02/16/2020 1 5:08:47 Reading Location: [facility] C013Y CT Body R eading Room Performing Organization Address City/State/Zipcode Phone Number [employer] Basic Metabolic Panel (02/15/2020 6:25 PM ARCHITECTURAL INTERN)Only the most recent of6 results within the time period is included. Sodium 142 135 - 148 meq/L [facility] Potassium 4.0 3.6 - 5.5 meq/L [facility] Chloride 107 (H) 98 - 106 meq/L [facility] CO2 26 20 - 29 meq/L [facility] BUN 38 (H) 10 - 26 mg/dL [facility] Creatinine 1.85 (H) 0.50 - 1.20 [place] mg/dL LABORATORY Glucose 190 (H) 70 - 110 mg/dL [facility] Calcium 9.0 8.5 - 10.5 [place] mg/dL LABORATORY EGFR 26Comment: ESTIMATED mL/min/1.73 sq [place] GFR IS NOT m LABORATORY ACCURATE CREATININE CLEARANCE IN PREDICTING GLOMERULAR FILTRATION RATE. ESTIMATED GFR IS NOT APPLICABLE FOR DIALYSIS PATIENTS. Specimen Blood Narrative Performed At Psychological Anthropologist ID - ADMIN [facility] Psychological Anthropologist ID - ADMIN Psychological Anthropologist ID - ADMIN Psychological Anthropologist ID - ADMIN Psychological Anthropologist ID - ADMIN Psychological Anthropologist ID - ADMIN Psychological Anthropologist ID - ADMIN Psychological Anthropologist ID - ADMIN Psychological Anthropologist ID - ADMIN Psychological Anthropologist ID - ADMIN Performing Organization Address City/State/Zipcode Phone Number [facility] [address] [place], [place] [address] XR chest 1 view portable / bedside (02/15/2020 5:23 AM ARCHITECTURAL INTERN)Only the most recent of3 resultswithin the time period is included. Specimen Narrative Performed At FINAL REPORT [facility] Chest one view. Clinical history: R/O TB. For new outp atient dialysis setup. Comparison: Chest radiograph 02/13/2020. Technique: A single frontal view of the chest was obtained. Findings: There is a right IJ central venous eli ter with tip in the right atrium. There is an implantable cardiac loop recorder overlying the left lower hemithorax. The cardiac silho uette is mildly enlarged. The aorta is atherosclerotic. There are diff use bilateral airspace opacities, increased compatible with wor sening pulmonary edema. There are small bilateral pleural effusions. T here is no pneumothorax. Signed: John Singleton MD Report Verified Date/Time: 02/15/2020 06:25:57 Procedure Note Interface, External Ris In - 02/15/2020 6:28 AM ARCHITECTURAL INTERN FINAL REPORT Chest one view. Clinical history: R/O TB. For new outpa tient dialysis setup. Comparison: Chest radiograph 02/13/2020. Technique: A single frontal view of the chest was obtained. Findings: There is a right IJ central venous eli ter with tip in the right atrium. There is an implantable cardiac loop recorder overlying the left lower hemithorax. The cardiac silho uette is mildly enlarged. The aorta is atherosclerotic. There are diff use bilateral airspace opacities, increased compatible with wor sening pulmonary edema. There are small bilateral pleural effusions. T here is no pneumothorax. Signed: John Singleton MD Report Verified Date/Time: 02/15/2020 0 6:25:57 Performing Organization Address City/State/Zipcode Phone Number [facility] Hepatitis B core antibody, total (02/15/2020 4:08 AM ARCHITECTURAL INTERN) Pathologist Sig nature Hep B Core Total Ab Nonreactive Nonreactive [facility] Specimen Blood Narrative Performed At Psychological Anthropologist ID - LULY Hsu [facility] Performing Organization Address City/State/Zipcode Phone Number [facility] [address] [place] [address] CENTER Prepare Leuko-Red PLT (02/13/2020 11:54 PM ARCHITECTURAL INTERN) Pathologist Sig nature Unit ABO O Pos [employer]AFETRACE TX UNIT NUMBER [id number] SAFETRACE TX Status TX_TIMEINCHART SAF[place]ACE [place] Blood Bank Product [employer] [place] PRODUCT CODE [id number] [place] Specimen Blood Performing Organization Address City/[facility] Phone Number [place] Hepatitis C antibody (02/13/2020 9:14 AM ARCHITECTURAL INTERN) Pathologist Sig nature Hepatitis C Ab Nonreactive Nonreactive [facility] Specimen Blood Narrative Performed At Psychological Anthropologist ID - DB [facility] Performing Organization Address [facility] Phone Number [address] [address] CENTER Albumin (02/13/2020 3:03 AM ARCHITECTURAL INTERN)Only the most recent of3 resultswithin the time period is included. Pathologist Sig nature Albumin 3.7 3.5 - 5.0 g/dL [facility] Specimen Blood Narrative Performed At Psychological Anthropologist ID - ADMIN [facility] Psychological Anthropologist ID - ADMIN Psychological Anthropologist ID - ADMIN Psychological Anthropologist ID - ADMIN Performing Organization Address [facility] Phone Number [facility] [address], [place] [address] Cryoglobulin (02/13/2020 2:51 AM ARCHITECTURAL INTERN) CRYOGLOBULIN(QU POSITIVE (A) NEGATIVE [facility] EST[facility] CRYOGLOBULIN/SE SEE BELOW NONE DETECTED [facility] RUM TOTAL Comment: % INCORPORATED A LOW cryoprecipitate was detected (Cryocrit = <1 %). The Cryocrit is primarily intended for following a pat ient with previously defined and quantitated cryoglobulins. The cryocrit ma y consist of cryoglobulins, fibrins, complement, or mixtures of the se. If not previously characterized, consider ordering test code 58893, Cryo globulin Screen with Reflex to Cryoglobulin Profile, Serum. Specimen Blood Narrative Performed At Performing Lab [facility] EZ [facility] te [address] [place] [address] Chago Quezada MD, PhD, TIMMY Performing Organization Address City/State/Zipcode Phone Number [facility] [place] [address] INCORPORATED [address] [facility] CBC (Hemogram only) (02/11/2020 4:17 PM ARCHITECTURAL INTERN) Pathologist Sig nature WBC 12.4 (H) 4.0 - 10.0 K/L [facility] RBC 3.07 (L) 4.00 - 5.00 M/L [facility] Hemoglobin 8.9 (L) 12.0 - 15.5 GM/DL [facility] Hematocrit 25.6 (L) 36.0 - 46.0 % [facility] MCV 83.4 82.0 - 99.0 fL [facility] MCH 29.0 27.0 - 33.0 pg [facility] MCHC 34.8 32.0 - 36.0 GM/DL [facility] RDW 15.9 (H) 12.0 - 15.0 % [facility] Platelets 63 (L) 150 - 430 K/CU MM [facility] MPV 11.0 6.0 - 11.5 fL [facility] nRBC 0 0 - 0 /100 WBC [facility] Specimen Blood Performing Organization Address City/State/Zipcode Phone Number [facility] [address], [place] [address] Troponin I (02/11/2020 9:56 AM ARCHITECTURAL INTERN)Only the most recent of2 resultswithin the time period is included. Pathologist Sig nature Troponin I 0.55 (HH) 0.00 - 0.15 ng/mL [facility] Specimen Blood Narrative Performed At Troponin I (TnI) levels must be interpreted in the con text of [facility] the presenting symptoms and the clinical findings. Lorena vated TnI levels indicate myocardial damage, but are not specifi c for ischemic heart disease. Elevated TnI levels are seen i n patients with other cardiac conditions (including myoc arditis and congestive heart failure), and slight TnI elevatio ns occur in patients with other conditions, including sepsis, r enal failure, acidosis, acute neurological disease, and per sistent tachyarrhythmia. Psychological Anthropologist ID - ADMIN Performing Organization Address City/[facility] Phone Number [facility] [address], [place] [address] Hemoglobin and hematocrit (02/11/2020 8:24 AM ARCHITECTURAL INTERN)Only the most recent of2 resultswithin the time period is included. Pathologist Sig nature Hemoglobin [facility] Comment: Ordered in wrong facility This is a corrected result. Previous result was 6.2 GM/DL on 02/11/2020 at 0836 ARCHITECTURAL INTERN Hematocrit [facility] Comment: Ordered in wrong facility This is a corrected result. Previous result was 17.7 % on 02/11/2020 at 0836 ARCHITECTURAL INTERN Specimen Blood Performing Organization Address [facility] Phone Number [facility] [address], [place] [address] ABORH, manual (02/11/2020 7:57 AM ARCHITECTURAL INTERN) Pathologist Sig [facility] ABO Grouping B [facility] Rh Factor Positive [facility] Specimen Blood Performing Organization Address [facility] Phone Number [address] [address] Hepatitis B surface antibody (02/10/2020 5:11 PM ARCHITECTURAL INTERN) Pathologist Sig hugo Hep B S Ab <8.0 <8.0 mIU/mL [facility] Specimen Blood Narrative Performed At Psychological Anthropologist ID - LULY F [facility] Performing Organization Address City/[facility] Phone Number [address] [address] CENTER Hepatitis B surface antigen (02/10/2020 5:11 PM ARCHITECTURAL INTERN) Pathologist Sig nature HBsAg Screen Nonreactive Nonreactive [facility] Specimen Blood - Central venous catheter, device (physical object) Narrative Performed At Psychological Anthropologist ID - ADMIN [facility] Performing Organization Address City/[facility]/Zipcode Phone Number [facility] [address], [place] [address] IR Non-tunneled Catheter - Central Line/Todd Temporary (02/10/2020 2:18 PM ARCHITECTURAL INTERN) Specimen Narrative Performed At FINAL REPORT [facility] History: Renal failure, need for hemodia lysis access Findings: Following informed written consent, the patient's right cervical region was prepped and draped in the usu al sterile manner and maximum sterile barrier techniques were utilized . 2% lidocaine was given locally for anesthesia. No conscious sed ation was administered. Using ultrasound guidance and micropuncture se t, access was gained to the right internal jugular vein. A J-wire wa s advanced through the micropuncture sheath and into the superi or vena cava. The tract was dilated and a 15 cm trial Trialysis nont unneled catheter was placed over the wire and into position under fl uoroscopic guidance. There were no immediate complications. Findings: Single sonographic image of the right in ternal jugular vein prior to catheter placement demonstrates a patent and compressible vein without evidence for thrombosis. This ul trasound image was obtained and archived on PACs. Spot radiograph of the chest following catheter placement demonstrates the right interna l jugular nontunneled catheter to lie in expected position wit h its tip over the superior right atrium. No pneumothorax. Impression: 1. Successful uncomplicated placement of a right internal jugular nontunneled catheter. Fluoroscopy time: 0.1 mins Estimated dose reported as (Ka,r): 1 mGy Signed: Maximino Mcknight MD Report Verified Date/Time: 02/10/2020 17:33:36 Reading Location: [facility] Procedure Note Interface, External Ris In - 02/10/2020 5:35 PM ARCHITECTURAL INTERN FINAL REPORT History: Renal failure, need for hemodia lysis access Findings: Following informed written consent, the patient's right cervical region was prepped and draped in the usu al sterile manner and maximum sterile barrier techniques were utilized . 2% lidocaine was given locally for anesthesia. No conscious sed ation was administered. Using ultrasound guidance and micropuncture se t, access was gained to the right internal jugular vein. A J-wire wa s advanced through the micropuncture sheath and into the superi or vena cava. The tract was dilated and a 15 cm trial Trialysis nont unneled catheter was placed over the wire and into position under fl uoroscopic guidance. There were no immediate complications. Findings: Single sonographic image of the right in ternal jugular vein prior to catheter placement demonstrates a patent and compressible vein without evidence for thrombosis. This ul trasound image was obtained and archived on PACs. Spot radiograph of the chest following catheter placement demonstrates the right interna l jugular nontunneled catheter to lie in expected position wit h its tip over the superior right atrium. No pneumothorax. Impression: 1. Successful uncomplicated placement of a right internal jugular nontunneled catheter. Fluoroscopy time: 0.1 mins Estimated dose reported as (Ka,r): 1 mGy Signed: Maximino Mcknight MD Report Verified Date/Time: 02/10/2020 1 7:33:36 Reading Location: [facility] Radiology [facility] Performing Organization Address City/State/Zipcode Phone Number [employer] 2D Echo W/Doppler(CW/PW/Color) (02/10/2020 11:51 AM ARCHITECTURAL INTERN) Pathologist Sig nature Ejection Fraction [facility] Specimen Narrative Performed At Transthoracic Echocardiography Report (T TE) [facility] Demographics Patient Name RICHLAND, Date of Study 02/10/2020 LAINEY Gender Female Visit Number [id number] Race Unknown Room Number I215 Number Date of 1935 Referring Physician Age 84 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 Physician Procedure Type of Study TTE procedure:2DECHO W DOPPLER(CW/PW/COLOR) (Routine) Indications:Dyspnea/SOB. Clinical History Lupus, HTN, CAD, A Fib, Arthritis Height: 66 inches Weight: 73.48 kg (162 lbs) BSA: 1.83 m^2 BMI: 26.15 kg/m^2 HR: 74 bpm BP: 137/62 mmHg Summary Technically difficult study with poor endocardial delineation. Grossly normal LV systolic function with an estimated LVEF of 55-59%. Grade 1 diastolic dysfunction. Normal RV size and systolic function. Cannot estimate PA systolic pressure due insufficient TR jet. No pericardial effusion. No previous study to compare from. Signature Findings Left Ventricle Difficult to assess segmental wall motion; overall LV systolic function appears normal based on available views. The visual ejection fraction was estimated 55-59 %. Grade 1 diastolic dysfunction (impaired relaxati on and low-normal LA pressure). Left Atrium The left atrium is not well visualized. The left atrium appears normal. Right Ventricle The right ventricle is not well visualized. The right ventricular chamber size and systolic function are within normal limits. Right Atrium RA size is probably normal based on available view s. Aortic Valve The aortic valve is not well visualized. Mitral Valve The mitral valve is not well visualized. Trace mitral regurgitation. Tricuspid Valve The tricuspid valve is not well visualized. No evidence of tricuspid regurgitation. Estimated peak systolic PA pressure is cannot be determined due to inadequate TR velocity signal . Pulmonic Valve PV is not well visualized. Aorta Aortic root size (SInus of Valsalva diameter) is indeterminate (not well seen) . Pericardium No pericardial effusion is visualized. IVC/SVC/PA/PV/Pleural The inferior vena cava size is normal . Chambers/Structures Left Atrium LA Dimension: 3.38 cm LA Area: 16.15 cm^2 LA Volume: 47.59 ml LA Vol. Index: 26 ml/m^2 Left Ventricle LVIDd: 4.13 cm LVEDV:75.67 ml LVIDs: 3.04 cm LVESV:36.09 ml LV Septum Diastolic: 1.3 cm LV Septum Systolic: 1.74 cm LV Length: 7.38 cm LV PW Diastolic: 1.23 cm LV FS: 26.4 % LV PW Systolic: 1.47 cm LVOT Diameter: 1.87 cm LVEF: 52.3 % Right Atrium RA Systolic Pressure: 10 mmHg Right Ventricle RV Systolic Pressure: 23. 41 mmHg Aorta Ao Root S of Billie.: 3.02 cm Doppler/Quantitative Measurements Mitral Valve MV Peak E-Wave: 0.59 m/s MV Peak A-Wave: 0.7 m/s P1/2t: 77.4 msec E/A Ratio: 0.85 Peak Velocity: 0.67 m/s Peak Gradient: 1.41 mmHg Mean Velocity: 0.4 m/s Deceleration Time: 283.3 msec Mean Gradient: 0.78 mmHg Area (continuity): 2.12 cm^2 MV Area (PHT): 2.84 cm^2 MV VTI: 29.11 cm MV Neel. Peak: Tissue Doppler E' Lateral Velocity: 0.07 m/s Aortic Valve Peak Velocity: 1.15 m/s Mean Velocity: 0.6 m/s Peak Gradient: 5.27 mmHg Mean Gradient: 1.93 mmHg AV Area (continuity): 2.53 cm^2 AV VTI: 24.36 cm Cusp Separation: 1.43 cm AV DVI: 0.92 LVOT Peak Velocity: 1.01 m/s Peak Gradient: 4.15 mmHg Mean Velocity: 0.55 m/s Mean Gradient: 1.51 mmHg LVOT Diameter: 1.87 cm LVOT VTI: 22.47 cm LVOT Area: 2.75 cm^2 LVOT SV:61.68 ml LVOT CO: 4.56 l/min LVOT CI: 2.49 l/min/m^2 Tricuspid Valve Estimated RVSP: 27.95 mmHg Estimated RAP: 10 mmHg TR Velocity: 1.83 m/s TR Gradient: 13.41 mmHg Pulmonic Valve Peak Velocity: 0.76 m/s Peak Gradient: 2.3 mmHg Estimated PASP: 23.41 mmHg Procedure Note Interface, External Ris In - 02/10/2020 4:04 PM ARCHITECTURAL INTERN Transthoracic Echocardiography Report (TTE) Demographics Patient Name RICHLAND, Date of Study 02/10/2020 LAINEY Gender Female Visit Number [id number] Race Unknown [facility] I215 Number Date of 1935 Referri Physician Age 84 year(s) Sonogra radha Whaley [employer] Interpr eting Skylar Echols MD. Physici an Procedure Type of Study TTE procedure:2DECHO W DOPPLE R(CW/PW/COLOR) (Routine) Indications:Dyspnea/SOB. Clinical History Lupus, HTN, CAD, A Fib, Arthritis Height: 66 inches Weight: 73.48 kg (162 lbs) BSA: 1.83 m^2 BMI: 26.15 kg/m^2 HR: 74 bpm BP: 137/62 mmHg Summary Technically difficult study with poor e ndocardial delineation. Grossly normal LV systolic function wit h an estimated LVEF of 55-59%. Grade 1 diastolic dysfunction. Normal RV size and systolic function. Cannot estimate PA systolic pressure du e insufficient TR jet. No pericardial effusion. No previous study to compare from. Signature Findings Left Ventricle Difficult to ass ess segmental wall motion; overall LV systolic func tion appears normal based on available views. The visual eject ion fraction was estimated 55-59 %. Grade 1 diastoli c dysfunction (impaired relaxation and low-normal L A pressure). Left Atrium The left atrium is not well visualized. The left atrium appears normal. Right Ventricle The right ventri ashish is not well visualized. The right ventri cular chamber size and systolic function are wit hin normal limits. Right Atrium RA size is proba sandoval normal based on available views. Aortic Valve The aortic valve is not well visualized. Mitral Valve The mitral valve is not well visualized. Trace mitral reg urgitation. Tricuspid Valve The tricuspid va lve is not well visualized. No evidence of t ricuspid regurgitation. Estimated peak s ystolic PA pressure is cannot be determined due t o inadequate TR velocity signal . Pulmonic Valve PV is not well v isualized. Aorta Aortic root size (SInus of Valsalva diameter) is indeterminate (n ot well seen) . Pericardium No pericardial e ffusion is visualized. IVC/SVC/PA/PV/Pleural The inferior amber a cava size is normal . Chambers/Structures Left Atrium LA Dimension: 3.38 cm LA Area: 16.15 cm^2 LA Volume: 47.59 ml LA Vol. Index: 26 ml/m^2 Left Ventricle LVIDd: 4.13 cm LVEDV:75.67 ml LVIDs: 3.04 cm LVESV:36.09 ml LV Septum Diastolic: 1.3 cm LV Septum Systolic: 1.74 cm LV Length: 7.38 cm LV PW Diastolic: 1.23 cm LV FS: 26.4 % LV PW Systolic: 1.47 cm LVOT Diameter: 1.87 cm LVEF: 52.3 % Right Atrium RA Systolic Pressure: 10 mmHg Right Ventricle RV Systolic Pressure: 23.41 mm Hg Aorta Ao Root S of Billie.: 3.02 cm Doppler/Quantitative Measurements Mitral Valve MV Peak E-Wave: 0.59 m/s M V Peak A-Wave: 0.7 m/s P1/2t: 77.4 msec E /A Ratio: 0.85 Peak Velocity: 0.67 m/s P eak Gradient: 1.41 mmHg Mean Velocity: 0.4 m/s D eceleration Time: 283.3 msec Mean Gradient: 0.78 mmHg A lorenzo (continuity): 2.12 cm^2 MV Area (PHT): 2.84 cm^2 M V VTI: 29.11 cm MV Neel. Peak: Tissue Doppler E' Lateral Velocity: 0.07 m/s Aortic Valve Peak Velocity: 1.15 m/s Mean Velocity: 0.6 m/s Peak Gradient: 5.27 mmHg Mean Gradient: 1.93 mmHg AV Area (continuity): 2.53 cm^2 AV VTI: 24.36 cm Cusp Separation: 1.43 cm AV DVI: 0.92 LVOT Peak Velocity: 1.01 m/s Pea k Gradient: 4.15 mmHg Mean Velocity: 0.55 m/s Faby n Gradient: 1.51 mmHg LVOT Diameter: 1.87 cm LVO T VTI: 22.47 cm LVOT Area: 2.75 cm^2 LVO T SV:61.68 ml LVOT CO: 4.56 l/min LVO T CI: 2.49 l/min/m^2 Tricuspid Valve Estimated RVSP: 27.95 mmHg Estimated RAP: 10 mmHg TR Velocity: 1.83 m/s TR Gradient: 13.41 mmHg Pulmonic Valve Peak Velocity: 0.76 m/s Peak Gradient: 2.3 mmHg Estim ated PASP: 23.41 mmHg Performing Organization Address City/State/Zipcode Phone Number [facility] US renal complete (02/10/2020 10:26 AM ARCHITECTURAL INTERN) Specimen Narrative Performed At FINAL REPORT [employer] History: Acute kidney injury. FINDINGS: No comparisons are available. Real-time sonographic examination reveal s normal size kidneys measuring up to 10.9 x 4.5 x 4.6 and 10. 0 x 4.2 x 4.9 cm in greatest dimensions on the right and left, respec tively. Renal echogenicity is normal on the right and moderately and d iffusely increased on the left. Renal cortical thickness measures 11 mm on the right and 22 mm on the left. There is a 2.3 x 1.9 x 2.2 cm anechoic thin-walled cystic lesion with enhanced or transmiss ion present in the lower pole of the right kidney. There is also a sim ilar size to 0.7 x 2.2 x 2.4 cm anechoic lesion in the midpole of the left kidney with enhanced or transmission, also likely a benign cyst. There are no visible solid masses, stones or evidence for obstructi on. Urinary bladder contains a Flores catheter balloon and is decompre ssed but otherwise unremarkable. Incidentally noted is a mo derate size left-sided pleural effusion. IMPRESSION: 1. Moderately and diffusely increased le ft renal echogenicity consistent with chronic disease. 2. No evidence for obstruction. 3. Approximately 2 cm benign-appearing c yst in the lower pole the right kidney and midpole of the left kid kiersten, as described in detail above. 4. Moderate size left pleural effusion. Signed: Maximino Mcknight MD Report Verified Date/Time: 02/10/2020 09:53:28 Reading Location: [facility] Radiology [facility] Procedure Note Interface, External Ris In - 02/10/2020 10:27 AM ARCHITECTURAL INTERN FINAL REPORT History: Acute kidney injury. FINDINGS: No comparisons are available. Real-time sonographic examination reveal s normal size kidneys measuring up to 10.9 x 4.5 x 4.6 and 10. 0 x 4.2 x 4.9 cm in greatest dimensions on the right and left, respec tively. Renal echogenicity is normal on the right and moderately and d iffusely increased on the left. Renal cortical thickness measures 11 mm on the right and 22 mm on the left. There is a 2.3 x 1.9 x 2.2 cm anechoic thin-walled cystic lesion with enhanced or transmiss ion present in the lower pole of the right kidney. There is also a sim ilar size to 0.7 x 2.2 x 2.4 cm anechoic lesion in the midpole of the left kidney with enhanced or transmission, also likely a benign cyst. There are no visible solid masses, stones or evidence for obstructi on. Urinary bladder contains a Flores catheter balloon and is decompre ssed but otherwise unremarkable. Incidentally noted is a mo derate size left-sided pleural effusion. IMPRESSION: 1. Moderately and diffusely increased le ft renal echogenicity consistent with chronic disease. 2. No evidence for obstruction. 3. Approximately 2 cm benign-appearing c yst in the lower pole the right kidney and midpole of the left kid kiersten, as described in detail above. 4. Moderate size left pleural effusion. Signed: Maximino Mcknight MD Report Verified Date/Time: 02/10/2020 0 9:53:28 Reading Location: [facility] Radiology Readin Room Performing Organization Address City/State/Zipcode Phone Number [facility] Blood Culture - Routine (Left Venipuncture) (02/10/2020 6:27 AM ARCHITECTURAL INTERN)Only the most recent of2 resultswithin the time period is included. Pathologist Sig nature Result No growth in 5 days [facility] Specimen Blood - Entire left upper arm (body stru cture) Performing Organization Address City/State/Zipcode Phone Number [facility] [facility] [address], [place] [address] B-type Natriuretic Factor (BNP) (02/10/2020 6:05 AM ARCHITECTURAL INTERN) Pathologist Sig nature BNP 860 (H) 0 - 100 pg/mL [facility] Specimen Blood Narrative Performed At Psychological Anthropologist ID - ADMIN [facility] Performing Organization Address [facility] Phone Number [facility] [address], [place] [address] Hepatic function panel (02/10/2020 4:09 AM ARCHITECTURAL INTERN) Pathologist Sig nature Protein, Total 4.2 (L) 6.0 - 8.5 gm/dL [facility] Albumin 2.1 (L) 3.5 - 5.0 g/dL [facility] Total Bilirubin 0.5 0.1 - 1.2 mg/dL [facility] Bilirubin, Direct 0.3 0.0 - 0.4 mg/dL [facility] Alkaline Phosphatase 182 (H) 30 - 115 U/L [facility] AST 37 5 - 40 U/L [facility] ALT 39 5 - 50 U/L [facility] Specimen Blood Narrative Performed At Psychological Anthropologist ID - ADMIN [facility] Psychological Anthropologist ID - ADMIN Psychological Anthropologist ID - ADMIN Psychological Anthropologist ID - ADMIN Psychological Anthropologist ID - ADMIN Psychological Anthropologist ID - ADMIN Psychological Anthropologist ID - ADMIN Performing Organization Address [facility] Phone Number [facility] [address], [place] [address] EKG-SCANNED (02/09/2020) Narrative Performed At This result has an attachment that is no t available. Ordered by an unspecified provider. CARDIAC CATH REPORT - SCAN (02/09/2020) Narrative Performed At This result has an attachment that is no t available. Ordered by an unspecified provider. after 03/08/2019 Insurance Payer Benefit Plan Subscriber ID Effective Phone Address Typ e / Group Dates [employer]ET[employer] - [employer] [id number] 2019-Pres [phone] [address] [employer] MEDICARE MGD MEDICARE HMO ent [id number] [place] [address] [place] [address] Advance Directives For more information, please contact: [phone] Code Status Date Activated Date Inactivated Comments DNAR 02/10/2020 1:54 AM 02/26/2020 3:56 PM I discuss ed with patent's daughter ms Claire Foster, who confirmed that patient is DNI/DNR they do not want any her oic measures but want patient to have all the necessary treatm ents. They have living will jose m rs at home which they will bring to the hospital later This code status was determined by: Child Has the consent form been signed? No Have you Written ACP Note: No Full Code 02/10/2020 1:14 AM 02/10/2020 1:54 AM This code status was determined by: Patient
--- OUTSIDE RECORDS SUMMARY | 2020-03-08 10:47 | XMS REPORT | Continuity of Care Document ---
:1935 Author Organization [facility] t Address [address] [place] [address] Care Team Providers Name Role Phone Oneyda BEAVER Primary Care Physician CAROLINA IZAGUIRRE Attending Clinician Unavailable Andria BEAVER Attending Clinician Lucy Martinez Attending Clinician CAROLINA IZAGUIRRE Admitting Clinician Unavailable Payers Payer Name Policy Type Policy Effective Date Expiration Date Sour ce Number AETNA MEDICAREAETNA [id number] 2013 [place] MEDICARE HMO/PPO 00:00:00 Methodis t [id number] Problems Condition Condition Condition Status Onset Resolution Last Treating Co mments Source Name Details Category Date Date Treatment Clinician Date N28.89 - Diagnosis Active 2019-12-18 M emoria OTHER 3-12 13:23:00 l SPECIFIED N28.89 - 00:01: Her key DISORDERS OTHER 00 OF K SPECIFIED DISORDERS OF K Active 06/13/2019 [facility] [place] N28.8 - Diagnosis Active 2019-12-18 Me moria OTHER 3-12 13:23:00 l SPECIFIED N28.8 - 00:01: Herm ney DISORDERS OTHER 00 OF K SPECIFIED DISORDERS OF K Active 06/13/2019 [facility] [place] Paroxysmal Paroxysmal Disease Active [place] atrial atrial 1-15 Methodi fibrillati fibrillati 00:00: st on on 00 Atrial Problem Resolve 2020-01-04 Tomas mona fibrillati d 00:59:02 l on Atrial Tai[place] (disorder) fibrillati on (disorder) Resolved Problem 01/04/2020 [facility] Heart Problem Resolve 2020-01-04 Tomas mona disease d 00:59:02 l (disorder) Heart Monica nn disease (disorder) Resolved Problem 01/04/2020 [facility], [facility] Hyperchole Problem Resolve 2020-01-04 Memoria sterolemia d 00:59:02 l (disorder) Abhay n Hyperchole sterolemia (disorder) Resolved Problem 01/04/2020 [facility] [place] Hypertensi Problem Resolve 2020-01-04 Memoria ve d 00:59:02 l disorder, [place] systemic Hypertensi arterial ve (disorder) disorder, systemic arterial (disorder) Resolved Problem 01/04/2020 [facility], [facility] Myocardial Problem Resolve 2020-01-04 Memoria infarction d 00:59:02 l (disorder) Abhay n Myocardial infarction (disorder) Resolved Problem 01/04/2020 [facility], [place] [place] Allergies, Adverse Reactions, Alerts Allergy Allergy Status Severity Reaction(s) Onset Inactive Treating Comm ents Source Name Type Date Date Clinician Sulfa Propensi Active Rash [place] (Sulfona ty to 1-15 Methodi mide adverse 00:00: st Antibiot reaction 00 ics) s to drug sulfa sulfa [facility] Social History Social Habit Start Date Stop Date Quantity Comments Source Sex Assigned At [facility] ethodist Tobacco use and 2020-01-23 2020-01-23 Never used [facility] exposure 00:00:00 00:00:00 Smoking Status Start Date Stop Date Source [facility] Medications Ordered Filled Start Stop Current [...] Memoria 2-24 SUB-Q, l 15:06: ONCE, 0 [place] 00 Refill(s) dofetilide 2020-0 Yes 250 Memoria 0.25 MG 2-24 microgram l Oral 14:52: = 1 cap, [place] Capsule 00 PO, BID, 0 [Tikosyn] Refill(s) Furosemide 2020-0 Yes 20 mg = 1 Me moria 20 MG Oral 2-24 tab, PO, l Tablet 14:52: Daily, 0 [place] [Lasix] 00 Refill(s) Fish Oil 2020-0 Yes PO, 0 Memoria 2-24 Refill(s) l 14:52: [place] 00 atorvastati 2020-0 Yes 10 mg = 1 M emoria n 10 mg 2-24 tab, PO, l oral tablet 14:52: Daily, 0 [place] 00 Refill(s) Ocuvite 2020-0 Yes PO, Daily, Tomas mona 2-24 0 l 14:52: Refill(s) [place] 00 Ferralet 90 2020-0 Yes PO, Daily, Memoria 2-24 0 l 14:52: Refill(s) [place] 00 Niacin 500 Yes 500 mg = 1 M emoria MG Extended 2-24 tab, PO, l Release 14:52: Bedtime, 0 Herm ney Tablet 00 Refill(s) [Slo-Niacin ] Allergy Yes 10 mg, PO, Tomas mona Relief 2-24 Daily, 0 l 14:52: Refill(s) [place] 00 Vital Signs Vital Name Observation Time Observation Value Comments Source Systolic blood 2020-01-23 14:15:00 134 mm[Hg] [place] [facility] pressure Diastolic blood 2020-01-23 14:15:00 60 mm[Hg] [place] [facility] pressure Heart rate 2020-01-23 14:15:00 60 /min [place] [facility] Oxygen saturation in 2020-01-23 14:15:00 97 /min [place] [facility] Arterial blood by Pulse oximetry Respiratory rate 2020-01-23 10:45:00 20 /min [place] [facility] Body temperature 2020-01-23 09:28:00 36.28 [facility] Body height 2020-01-23 09:28:00 154.9 cm [place] [facility] Body weight 2020-01-23 09:28:00 68.05 kg [place] [facility] BMI 2020-01-23 09:28:00 28.35 kg/m2 [place] [facility] Height 2020-01-01 15:16:00 [facility]94 [facility] 2020-01-01 15:16:00 [facility] BMI Calculated 2020-01-01 15:16:00 Adolfo al [place] Systolic (mm Hg) 2019-05-27 14:50:00 Tomas rial [place] Diastolic (mm Hg) 2019-05-27 14:50:00 Mem orial [place] Heart Rate 2019-05-27 14:50:00 [facility] Height 2019-05-27 14:50:00 154.94 cm [facility] [place] Weight 2019-05-27 14:50:00 [facility] BMI Calculated 2019-05-27 14:50:00 Adolfo Lopez Procedures Procedure Date / Time Performed Performing Clinician [facility] e US NEEDLE BIOPSY 2020-01-23 11:13:45 Homar Ayers ethodist SURGICAL PATHOLOGY 2020-01-23 11:02:00 Homar Ayers REQUEST Cataract surgery Keiry hidalgo Knee replacement Keiry Blank n Plan of Care Planned Activity Planned Date Details Comments Source Future Scheduled 2019-11-02 INFLUENZA VACCINE [place] [facility] Test 00:00:00 [code = INFLUENZA VACCINE] Future Scheduled 2000-07-05 65+ PNEUMOCOCCAL Crist[facility] Test 00:00:00 VACCINE (1 of 1 - PPSV23) [code = 65+ PNEUMOCOCCAL VACCINE (1 of 1 - PPSV23)] Future Scheduled 1985-07-05 SHINGLES VACCINES (#1) H joseline [facility] Test 00:00:00 [code = SHINGLES VACCINES (#1)] Encounters Start End Encounter Admission Attending Care Care Encounter Source Date/Time Date/Time Type Type Clinicians Facility Department ID 2020-01-23 2020-01-23 Outpatient [facility]OUMATA [facility] [id number] [place] 00:00:00 00:00:[address] VINITHA [address] 2020-01-01 2020-01-01 Outpatient Juan, [facility] [id number] 10:20:00 23:59:59 Ana L 02 2019-10-21 2019-10-21 Outpatient Juan, [facility] [id number] 09:00:00 09:00:00 Ana L 01 2019-10-15 2019-10-15 [facility] [id number] 08:49:00 23:59:00 Ana L 02 2019-06-10 2019-06-11 Outpatient [facility] [id number] 11:10:47 23:59:59 00 2019-05-27 2019-05-27 Outpatient Juan, [facility] [id number] 09:00:00 23:59:59 Ana L 00 Results Test Description Test Time Test Comments Results Result Comments Source IMMUNOFIXATION ELECTROPHORESIS (WJ) 2020-02-26 15:29:00 Test Item Value Reference Range Interpretation Comme nts IMMUNOGLOBULIN G (IGG) (BEAKER) (test 202 mg/dL 540-1,822 L code = 427) IMMUNOGLOBULIN A (IGA) (BEAKER) (test 127 mg/dL 63-484 code = 639) IMMUNOGLOBULIN M (IGM) (BEAKER) (test 69 mg/dL 22-293 code = 638) SERUM JW ID (t-ArtAKER) (test code = No monoclonal proteins detected. 1814) Decreased levels of polyclonal IgG. [id number] (BEAKER) (test Olesya Barrientos MD code = 2597) (electronic signature) Animated Cartoons Painter ID - CASSANDRA COperator ID - CASSANDRA CCBC W/PLT COUNT & AUTO DIFFERENTIAL 2020-02-26 06:03:00 Test Item Value Reference Range Interpretation Comments WHITE BLOOD CELL COUNT (BEAKER) 6.8 K/ L 4.0-10.0 (test code = 775) RED BLOOD CELL COUNT (BEAKER) 2.78 M/ L 4.00-5.00 L (test code = 761) HEMOGLOBIN (BEAKER) (test code = 8.0 GM/DL 12.0-15.5 L 410) HEMATOCRIT (BEAKER) (test code = 24.9 % 36.0-46.0 L 411) MEAN CORPUSCULAR VOLUME (BEAKER) 89.6 fL 82.0-99.0 (test code = 753) MEAN CORPUSCULAR HEMOGLOBIN 28.8 pg 27.0-33.0 (BEAKER) (test code = 751) MEAN CORPUSCULAR HEMOGLOBIN CONC 32.1 GM/DL 32.0-36.0 (BEAKER) (test code = 752) RED CELL DISTRIBUTION WIDTH 15.2 % 12.0-15.0 H (BEAKER) (test code = 412) PLATELET COUNT (BEAKER) (test 98 K/CU MM 150-430 L code = 756) MEAN PLATELET VOLUME (BEAKER) 12.2 fL 6.0-11.5 H (test code = 754) NUCLEATED RED BLOOD CELLS 16 /100 WBC 0-0 H (BEAKER) (test code = 413) (MANUAL DIFFERENTIAL)2020-02-26 06:03:00 Test Item Value Reference Range Interpretation Comments NEUTROPHILS - REL (DIFF) (BEAKER) 78 % (test code = 1359) LYMPHOCYTES - REL (DIFF) (BEAKER) 16 % (test code = 1360) MONOCYTES - REL (DIFF) (BEAKER) 6 % (test code = 1361) NEUTROPHILS - ABS (DIFF) (BEAKER) 5.30 K/ L 1.80-8.00 (test code = 1365) LYMPHOCYTES - ABS (DIFF) (BEAKER) 1.09 K/ L 1.48-4.50 L (test code = 1366) MONOCYTES - ABS (DIFF) (BEAKER) 0.41 K/ L 0.00-1.30 (test code = 1367) TOTAL COUNTED (BEAKER) (test code 100 = 1351) MANUAL NRBC PER 100 CELLS (BEAKER) 3 /100 WBC 0-0 H (test code = 1353) WBC MORPHOLOGY (BEAKER) (test code Normal = 487) PLT MORPHOLOGY (BEAKER) (test code Normal = 486) ANISOCYTOSIS (BEAKER) (test code = 1+ few 961) COMPREHENSIVE METABOLIC [id number] 04:54:00 Test Item Value Reference Range Interpretation Comments TOTAL PROTEIN 4.4 gm/dL 6.0-8.5 L (BEAKER) (test code = 770) ALBUMIN (BEAKER) 2.2 g/dL 3.5-5.0 L (test code = 1145) ALKALINE PHOSPHATASE 490 U/L 30-115 H (BEAKER) (test code = 346) BILIRUBIN TOTAL 0.3 mg/dL 0.1-1.2 (BEAKER) (test code = 377) SODIUM (BEAKER) (test 144 meq/L 135-148 code = 381) POTASSIUM (BEAKER) 3.9 meq/L 3.6-5.5 (test code = 379) CHLORIDE (BEAKER) 105 meq/L 98-106 (test code = 382) CO2 (BEAKER) (test 28 meq/L 20-29 code = 355) BLOOD UREA NITROGEN 40 mg/dL 10-26 H (BEAKER) (test code = 354) CREATININE (BEAKER) 1.18 mg/dL 0.50-1.20 (test code = 358) GLUCOSE RANDOM 110 mg/dL 70-110 (BEAKER) (test code = 652) CALCIUM (BEAKER) 8.6 mg/dL 8.5-10.5 (test code = 697) AST (SGOT) (BEAKER) 136 U/L 5-40 H (test code = 353) ALT (SGPT) (BEAKER) 152 U/L 5-50 H (test code = 347) EGFR (BEAKER) (test 44 mL/min/1.73 ESTIMA KELY GFR IS code = 1092) sq m NOT ACCURATE CREATININE CLEARANCE IN PREDICTING GLOMERULAR FILTRATION RATE . ESTIMATED GFR I S NOT APPLICABLE FOR DIALYSIS PATIEN TS. Animated Cartoons Painter ID - ADMINOperator ID - ADMINOperator ID - ADMINOperator ID - ADMINOperator ID - ADMINOperator ID - ADMINOperator ID - ADMINOperator ID - ADMINOperator ID - ADMINOperator ID - ADMINOperator ID- ADMINOperator ID - ADMINOperator ID - ADMINOperator ID - ADMINOperator ID - ADMINOperator ID - ADMI [id number] 04:52:00 Test Item Value Reference Range Interpretation Comments MAGNESIUM (BEAKER) (test code = 1.8 mg/dL 1.5-3.0 627) Animated Cartoons Painter ID - ADMINOperator ID - ADMINOperator ID - ADMINOperator ID - ADMIN HEPATOBILIARY [id number] 12:03:00Unlisted Reason for Exam - Click Yes and Enter Reason Below->YesUnlisted Reason for Exam->Unexplained elevated transaminases and alkaline phosphatase, RUQ US [facility] : 1935 Sex: FFINAL REPORT PROCEDURE: HEPATOBILIARY SCAN CPT CODE: [id number] INDICATION: Elevated LFTs alkaline phosphatase PROTOCOL: Six mCi of Tc-99m mebrofenin was injected intravenously. Images of the upper abdomen were obtained for approximately 75 minutes after tracer injection. FINDINGS: Initial tracer uptake into the liver is physiological. Subsequent tracer clearance from the liver proceeds normally. There is good visualization of the extrahepatic biliary duct and the gallbladder, and the tracer appears appropriately in the small bowel. IMPRESSION: Normal hepatobiliary scan. Signed: Court Posada MDReport Verified Date/Time: 02/25/2020 12:03:14 Reading Location: [address] Reading Room DOUBLE-STRANDED DNA (DSDNA) [id number] 11:59:00 Test Item Value Reference Range Interpretation Comments ANTI-DNA DS (BEAKER) (test code = Negative Negative 1055) CBC W/PLT COUNT & AUTO [id number] 07:12:00 Test Item Value Reference Range Interpretation Comments WHITE BLOOD CELL COUNT (BEAKER) 6.6 K/ L 4.0-10.0 (test code = 775) RED BLOOD CELL COUNT (BEAKER) 2.73 M/ L 4.00-5.00 L (test code = 761) HEMOGLOBIN (BEAKER) (test code = 7.8 GM/DL 12.0-15.5 L 410) HEMATOCRIT (BEAKER) (test code = 24.0 % 36.0-46.0 L 411) MEAN CORPUSCULAR VOLUME (BEAKER) 87.9 fL 82.0-99.0 (test code = 753) MEAN CORPUSCULAR HEMOGLOBIN 28.6 pg 27.0-33.0 (BEAKER) (test code = 751) MEAN CORPUSCULAR HEMOGLOBIN CONC 32.5 GM/DL 32.0-36.0 (BEAKER) (test code = 752) RED CELL DISTRIBUTION WIDTH 15.0 % 12.0-15.0 (BEAKER) (test code = 412) PLATELET COUNT (BEAKER) (test code 84 K/CU MM 150-430 L = 756) MEAN PLATELET VOLUME (BEAKER) 11.7 fL 6.0-11.5 H (test code = 754) NUCLEATED RED BLOOD CELLS (BEAKER) 8 /100 WBC 0-0 H (test code = 413) (MANUAL DIFFERENTIAL)2020-02-25 07:12:00 Test Item Value Reference Range Interpretation Comments NEUTROPHILS - REL (DIFF) (BEAKER) 87 % (test code = 1359) LYMPHOCYTES - REL (DIFF) (BEAKER) 8 % (test code = 1360) MONOCYTES - REL (DIFF) (BEAKER) 4 % (test code = 1361) PROMYELOCYTES-REL (DIFF) (BEAKER) 1 % 0-0 H (test code = 259) NEUTROPHILS - ABS (DIFF) (BEAKER) 5.74 K/ L 1.80-8.00 (test code = 1365) LYMPHOCYTES - ABS (DIFF) (BEAKER) 0.53 K/ L 1.48-4.50 L (test code = 1366) MONOCYTES - ABS (DIFF) (BEAKER) 0.26 K/ L 0.00-1.30 (test code = 1367) PROMYELOCYTES - ABS (DIFF) 0.07 K/ L 0.00-0.00 H (BEAKER) (test code = 262) TOTAL COUNTED (BEAKER) (test code 100 = 1351) MANUAL NRBC PER 100 CELLS (BEAKER) 7 /100 WBC 0-0 H (test code = 1353) WBC MORPHOLOGY (BEAKER) (test code Normal = 487) PLT MORPHOLOGY (BEAKER) (test code Normal = 486) RBC MORPHOLOGY (BEAKER) (test code Normal = 762) COMPREHENSIVE METABOLIC [id number] 06:09:00 Test Item Value Reference Range Interpretation Comments TOTAL PROTEIN 4.7 gm/dL 6.0-8.5 L (BEAKER) (test code = 770) ALBUMIN (BEAKER) 2.4 g/dL 3.5-5.0 L (test code = 1145) ALKALINE PHOSPHATASE 463 U/L 30-115 H (BEAKER) (test code = 346) BILIRUBIN TOTAL 0.3 mg/dL 0.1-1.2 (BEAKER) (test code = 377) SODIUM (BEAKER) (test 143 meq/L 135-148 code = 381) POTASSIUM (BEAKER) 4.2 meq/L 3.6-5.5 (test code = 379) CHLORIDE (BEAKER) 105 meq/L 98-106 (test code = 382) CO2 (BEAKER) (test 28 meq/L 20-29 code = 355) BLOOD UREA NITROGEN 49 mg/dL 10-26 H (BEAKER) (test code = 354) CREATININE (BEAKER) 1.40 mg/dL 0.50-1.20 H (test code = 358) GLUCOSE RANDOM 124 mg/dL 70-110 H (BEAKER) (test code = 652) CALCIUM (BEAKER) 8.8 mg/dL 8.5-10.5 (test code = 697) AST (SGOT) (BEAKER) 93 U/L 5-40 H (test code = 353) ALT (SGPT) (BEAKER) 113 U/L 5-50 H (test code = 347) EGFR (IVONNE) (test 36 mL/min/1.73 ESTIMA KELY GFR IS code = 1092) sq m NOT ACCURATE CREATININE CLEARANCE IN PREDICTING GLOMERULAR FILTRATION RATE . ESTIMATED GFR I S NOT APPLICABLE FOR DIALYSIS PATIEN TS. Animated Cartoons Painter ID - ADMINOperator ID - ADMINOperator ID - ADMINOperator ID - ADMINOperator ID - ADMINOperator ID - ADMINOperator ID - ADMINOperator ID - ADMINOperator ID - ADMINOperator ID - ADMINOperator ID- ADMINOperator ID - ADMINOperator ID - ADMINOperator ID - ADMINOperator ID - ADMINOperator ID - ADMI [id number] 06:04:00 Test Item Value Reference Range Interpretation Comments MAGNESIUM (IVONNE) (test code = 2.1 mg/dL 1.5-3.0 627) Animated Cartoons Painter ID - ADMINOperator ID - ADMINOperator ID - ADMINOperator ID - ADMIN SARS-COV2/RT-PCR ([facility])2020-02-24 17:15:00 Test Item Value Reference Range Interpretation Comments SARS-COV2/RT-PCR (test Negative Not Detected, Negative, code = 9871663) See external report for linked test SARS-COV-2 PERFORMING LAB [facility] (test code = 4876844) Negative result for this test determines that SARS-CoV-2 RNA was not present in the specimen above the Limit of Detection (LOD). However, Negative results do not preclude SARS-CoV-2 infection and should not be used as the sole basis for treatment or patient management decisions. Negative results mustbe combined with clinical observations, patient history, and epidemiological information. A false negative result may occur if a specimen is improperly collected, transported or handled. A false negative result should be considered if patient's recent exposures or clinical presentation indicate that COVID-19 (SARS-CoV-2) is likely and diagnostic tests for other causes of illness are negative. Re-testing should be considered in cases of suspected false negatives.The limit of detection for this assay is 800 copies/mL.This SARS CoV-2 test is a real-time RT-PCR test intended for the qualitative detection of nucleic acid from SARS-CoV-2 in a nasopharyngeal swab specimen collected from individuals susp ected of COVID-19 by their healthcare provider.This test has not been Food and Drug [...] is revoked under Section 564(g) of the Act.Fact Sheet for Healthcare Providers:https://www.[employer]/sites/default/files/product/documents/Fact_Shee v_SC_Apavylaqi_Sqpm_IFIU-WqO-2.pdfFact Sheet for Healthcare Patients:https://www.[employer]/sites/default/files/product/ documents/Rwls_Zcwsx_Bkhutqnd_Ebiq_TPBC-SgA-0.pdfPerforming Laboratory:[place] [address], [place] [address]KYJZVQJIVXQV, RANDOM [id number] 11:12:00 Test Item Value Reference Range Interpretation Comments MICROALBUMIN URINE (BEAKER) (test 155.3 mg/dL code = 1794) Reference Range: No NormalsOperator ID - CASSANDRA COperator ID - CASSANDRA CCOMPLEMENT COMPONENT [id number] 10:21:00 Test Item Value Reference Range Interpretation Comments C4 COMPLEMENT (BEAKER) (test code = 20 mg/dL 15-57 394) Animated Cartoons Painter ID - CASSANDRA CCOMPLEMENT COMPONENT [id number] 10:21:00 Test Item Value Reference Range Interpretation Comments C3 COMPLEMENT (BEAKER) (test code = 113 mg/dL 82-193 393) Animated Cartoons Painter ID - CASSANDRA CPROTEIN, RANDOM [id number] 08:27:00 Test Item Value Reference Range Interpretation Comments PROTEIN, URINE (BEAKER) (test code 269 mg/dL 0-14 H = 1569) Animated Cartoons Painter ID - ADMINCREATININE, RANDOM [id number] 07:58:00 Test Item Value Reference Range Interpretation Comments CREATININE URINE (BEAKER) (test 51.8 mg/dL code = 375) Reference Range: No NormalsOperator ID - ADMINURINALYSIS W/ MICROSCOPIC 2020-02-24 07:44:00 Test Item Value Reference Range Interpretation Comments COLOR (BEAKER) (test code = 470) Yellow CLARITY (BEAKER) (test code = 469) Clear SPECIFIC GRAVITY UA (BEAKER) (test 1.015 1.001-1.035 code = 468) PH UA (BEAKER) (test code = 467) 7.0 5.0-8.0 PROTEIN UA (BEAKER) (test code = 100 mg/dL Negative A 464) GLUCOSE UA (BEAKER) (test code = 250 mg/dL Negative A 365) KETONES UA (BEAKER) (test code = Negative Negative 371) BILIRUBIN UA (BEAKER) (test code = Negative Negative 462) BLOOD UA (BEAKER) (test code = 461) Small Negative A NITRITE UA (BEAKER) (test code = Negative Negative 465) LEUKOCYTE ESTERASE UA (BEAKER) Negative Negative (test code = 466) UROBILINOGEN UA (BEAKER) (test code 0.2 mg/dL 0.2-1.0 = 463) BACTERIA (BEAKER) (test code = 517) None Seen RBC UA-MANUAL (BEAKER) (test code = 5-10 /HPF 1659) WBC UA-MANUAL (BEAKER) (test code = 5-10 /HPF 1661) SQUAMOUS EPITHELIAL MANUAL (BEAKER) 5-10 /HPF (test code = 1663) SOURCE(BEAKER) (test code = 4495) COMPREHENSIVE METABOLIC [id number] 05:56:00 Test Item Value Reference Range Interpretation Comments TOTAL PROTEIN 4.9 gm/dL 6.0-8.5 L (BEAKER) (test code = 770) ALBUMIN (BEAKER) 2.5 g/dL 3.5-5.0 L (test code = 1145) ALKALINE PHOSPHATASE 490 U/L 30-115 H (BEAKER) (test code = 346) BILIRUBIN TOTAL 0.2 mg/dL 0.1-1.2 (BEAKER) (test code = 377) SODIUM (BEAKER) (test 144 meq/L 135-148 code = 381) POTASSIUM (BEAKER) 3.8 meq/L 3.6-5.5 (test code = 379) CHLORIDE (BEAKER) 105 meq/L 98-106 (test code = 382) CO2 (BEAKER) (test 29 meq/L 20-29 code = 355) BLOOD UREA NITROGEN 47 mg/dL 10-26 H (BEAKER) (test code = 354) CREATININE (BEAKER) 1.31 mg/dL 0.50-1.20 H (test code = 358) GLUCOSE RANDOM 116 mg/dL 70-110 H (BEAKER) (test code = 652) CALCIUM (BEAKER) 8.8 mg/dL 8.5-10.5 (test code = 697) AST (SGOT) (BEAKER) 119 U/L 5-40 H (test code = 353) ALT (SGPT) (BEAKER) 129 U/L 5-50 H (test code = 347) EGFR (BEAKER) (test 39 mL/min/1.73 ESTIMA KELY GFR IS code = 1092) sq m NOT ACCURATE CREATININE CLEARANCE IN PREDICTING GLOMERULAR FILTRATION RATE . ESTIMATED GFR I S NOT APPLICABLE FOR DIALYSIS PATIEN TS. Animated Cartoons Painter ID - ADMINOperator ID - ADMINOperator ID - ADMINOperator ID - ADMINOperator ID - ADMINOperator ID - ADMINOperator ID - ADMINOperator ID - ADMINOperator ID - ADMINOperator ID - ADMINOperator ID- ADMINOperator ID - ADMINOperator ID - ADMINOperator ID - ADMINOperator ID - ADMINOperator ID - ADMI [id number] 05:42:00 Test Item Value Reference Range Interpretation Comments MAGNESIUM (BEAKER) (test code = 1.9 mg/dL 1.5-3.0 627) Animated Cartoons Painter ID - ADMINOperator ID - ADMINOperator ID - ADMINOperator ID - ADMIN [id number] 05:38:00 Test Item Value Reference Range Interpretation Comments PHOSPHORUS (BEAKER) (test code = 3.0 mg/dL 2.5-4.5 604) Animated Cartoons Painter ID - ADMINCBC W/PLT COUNT & AUTO [id number] 05:19:00 Test Item Value Reference Range Interpretation Comments WHITE BLOOD CELL COUNT (BEAKER) 5.0 K/ L 4.0-10.0 (test code = 775) RED BLOOD CELL COUNT (BEAKER) 2.38 M/ L 4.00-5.00 L (test code = 761) HEMOGLOBIN (BEAKER) (test code = 6.8 GM/DL 12.0-15.5 L 410) HEMATOCRIT (BEAKER) (test code = 20.9 % 36.0-46.0 LL 411) MEAN CORPUSCULAR VOLUME (BEAKER) 87.8 fL 82.0-99.0 (test code = 753) MEAN CORPUSCULAR HEMOGLOBIN 28.6 pg 27.0-33.0 (BEAKER) (test code = 751) MEAN CORPUSCULAR HEMOGLOBIN CONC 32.5 GM/DL 32.0-36.0 (BEAKER) (test code = 752) RED CELL DISTRIBUTION WIDTH 15.7 % 12.0-15.0 H (BEAKER) (test code = 412) PLATELET COUNT (BEAKER) (test code 62 K/CU MM 150-430 L = 756) MEAN PLATELET VOLUME (BEAKER) 12.6 fL 6.0-11.5 H (test code = 754) NUCLEATED RED BLOOD CELLS (BEAKER) 3 /100 WBC 0-0 H (test code = 413) NEUTROPHILS RELATIVE PERCENT 78 % (BEAKER) (test code = 429) LYMPHOCYTES RELATIVE PERCENT 11 % (BEAKER) (test code = 430) MONOCYTES RELATIVE PERCENT 5 % (BEAKER) (test code = 431) EOSINOPHILS RELATIVE PERCENT 0 % (BEAKER) (test code = 432) BASOPHILS RELATIVE PERCENT 0 % (BEAKER) (test code = 437) NEUTROPHILS ABSOLUTE COUNT 3.86 K/ L 1.80-8.00 (BEAKER) (test code = 670) LYMPHOCYTES ABSOLUTE COUNT 0.53 K/ L 1.48-4.50 L (BEAKER) (test code = 414) MONOCYTES ABSOLUTE COUNT (BEAKER) 0.23 K/ L 0.00-1.30 (test code = 415) EOSINOPHILS ABSOLUTE COUNT 0.00 K/ L 0.00-0.50 (BEAKER) (test code = 416) BASOPHILS ABSOLUTE COUNT (BEAKER) 0.00 K/ L 0.00-0.20 (test code = 417) IMMATURE GRANULOCYTES-RELATIVE 7 % 0-0 H PERCENT (BEAKER) (test code = 2801) CBC W/PLT COUNT & AUTO [id number] 07:36:00 Test Item Value Reference Range Interpretation Comments WHITE BLOOD CELL COUNT (BEAKER) 6.1 K/ L 4.0-10.0 (test code = 775) RED BLOOD CELL COUNT (BEAKER) 2.45 M/ L 4.00-5.00 L (test code = 761) HEMOGLOBIN (BEAKER) (test code = 7.1 GM/DL 12.0-15.5 L 410) HEMATOCRIT (BEAKER) (test code = 21.4 % 36.0-46.0 L 411) MEAN CORPUSCULAR VOLUME (BEAKER) 87.3 fL 82.0-99.0 (test code = 753) MEAN CORPUSCULAR HEMOGLOBIN 29.0 pg 27.0-33.0 (BEAKER) (test code = 751) MEAN CORPUSCULAR HEMOGLOBIN CONC 33.2 GM/DL 32.0-36.0 (BEAKER) (test code = 752) RED CELL DISTRIBUTION WIDTH 15.5 % 12.0-15.0 H (BEAKER) (test code = 412) PLATELET COUNT (BEAKER) (test code 45 K/CU MM 150-430 L = 756) MEAN PLATELET VOLUME (BEAKER) 13.1 fL 6.0-11.5 H (test code = 754) NUCLEATED RED BLOOD CELLS (BEAKER) 1 /100 WBC 0-0 H (test code = 413) (MANUAL DIFFERENTIAL)2020-02-23 07:36:00 Test Item Value Reference Range Interpretation Comments NEUTROPHILS - REL (DIFF) (BEAKER) 88 % (test code = 1359) LYMPHOCYTES - REL (DIFF) (BEAKER) 10 % (test code = 1360) MONOCYTES - REL (DIFF) (BEAKER) 1 % (test code = 1361) METAMYELOCYTES-REL (DIFF) (BEAKER) 1 % 0-0 H (test code = 258) NEUTROPHILS - ABS (DIFF) (BEAKER) 5.37 K/ L 1.80-8.00 (test code = 1365) LYMPHOCYTES - ABS (DIFF) (BEAKER) 0.61 K/ L 1.48-4.50 L (test code = 1366) MONOCYTES - ABS (DIFF) (BEAKER) 0.06 K/ L 0.00-1.30 (test code = 1367) METAMYELOCTYES - ABS (DIFF) 0.06 K/ L 0.00-0.00 H (BEAKER) (test code = 261) TOTAL COUNTED (BEAKER) (test code = 100 1351) WBC MORPHOLOGY (BEAKER) (test code Normal = 487) PLT MORPHOLOGY (BEAKER) (test code Normal = 486) RBC MORPHOLOGY (BEAKER) (test code Normal = 762) POCT-GLUCOSE [id number] 06:23:00 Test Item Value Reference Range Interpretation Comments POC-GLUCOSE METER 105 mg/dL 70-110 : TESTED A T [facility] [address]17 (BEAKER) (test code [address], = 1538) [facility] 77 [address]: Animated Cartoons Painter/Techni ty ID = [id number] for Nwad iuSaloni goodwin COMPREHENSIVE METABOLIC [id number] 06:14:00 Test Item Value Reference Range Interpretation Comments TOTAL PROTEIN 4.6 gm/dL 6.0-8.5 L (BEAKER) (test code = 770) ALBUMIN (BEAKER) 2.3 g/dL 3.5-5.0 L (test code = 1145) ALKALINE PHOSPHATASE 445 U/L 30-115 H (BEAKER) (test code = 346) BILIRUBIN TOTAL 0.3 mg/dL 0.1-1.2 (BEAKER) (test code = 377) SODIUM (BEAKER) (test 143 meq/L 135-148 code = 381) POTASSIUM (BEAKER) 4.0 meq/L 3.6-5.5 (test code = 379) CHLORIDE (BEAKER) 107 meq/L 98-106 H (test code = 382) CO2 (BEAKER) (test 26 meq/L 20-29 code = 355) BLOOD UREA NITROGEN 45 mg/dL 10-26 H (BEAKER) (test code = 354) CREATININE (BEAKER) 1.27 mg/dL 0.50-1.20 H (test code = 358) GLUCOSE RANDOM 103 mg/dL 70-110 (BEAKER) (test code = 652) CALCIUM (BEAKER) 9.6 mg/dL 8.5-10.5 (test code = 697) AST (SGOT) (BEAKER) 80 U/L 5-40 H (test code = 353) ALT (SGPT) (BEAKER) 84 U/L 5-50 H (test code = 347) EGFR (BEAKER) (test 40 mL/min/1.73 ESTIMA KELY GFR IS code = 1092) sq m NOT ACCURATE CREATININE CLEARANCE IN PREDICTING GLOMERULAR FILTRATION RATE . ESTIMATED GFR I S NOT APPLICABLE FOR DIALYSIS PATIEN TS. Animated Cartoons Painter ID - ADMINOperator ID - ADMINOperator ID - ADMINOperator ID - ADMINOperator ID - ADMINOperator ID - ADMINOperator ID - ADMINOperator ID - ADMINOperator ID - ADMINOperator ID - ADMINOperator ID- ADMINOperator ID - ADMINOperator ID - ADMINOperator ID - ADMINOperator ID - ADMINOperator ID - ADMI [id number] 06:09:00 Test Item Value Reference Range Interpretation Comments MAGNESIUM (BEAKER) (test code = 1.7 mg/dL 1.5-3.0 627) Animated Cartoons Painter ID - ADMINOperator ID - ADMINOperator ID - ADMINOperator ID - ADMINCBC W/PLT COUNT & AUTO [id number] 05:15:00 Test Item Value Reference Range Interpretation Comments WHITE BLOOD CELL COUNT (BEAKER) 7.2 K/ L 4.0-10.0 (test code = 775) RED BLOOD CELL COUNT (BEAKER) 2.64 M/ L 4.00-5.00 L (test code = 761) HEMOGLOBIN (BEAKER) (test code = 7.6 GM/DL 12.0-15.5 L 410) HEMATOCRIT (BEAKER) (test code = 23.0 % 36.0-46.0 L 411) MEAN CORPUSCULAR VOLUME (BEAKER) 87.1 fL 82.0-99.0 (test code = 753) MEAN CORPUSCULAR HEMOGLOBIN 28.8 pg 27.0-33.0 (BEAKER) (test code = 751) MEAN CORPUSCULAR HEMOGLOBIN CONC 33.0 GM/DL 32.0-36.0 (BEAKER) (test code = 752) RED CELL DISTRIBUTION WIDTH 15.6 % 12.0-15.0 H (BEAKER) (test code = 412) PLATELET COUNT (BEAKER) (test code 53 K/CU MM 150-430 L = 756) MEAN PLATELET VOLUME (BEAKER) 13.2 fL 6.0-11.5 H (test code = 754) NUCLEATED RED BLOOD CELLS (BEAKER) 2 /100 WBC 0-0 H (test code = 413) NEUTROPHILS RELATIVE PERCENT 77 % (BEAKER) (test code = 429) LYMPHOCYTES RELATIVE PERCENT 11 % (BEAKER) (test code = 430) MONOCYTES RELATIVE PERCENT 3 % (BEAKER) (test code = 431) EOSINOPHILS RELATIVE PERCENT 0 % (BEAKER) (test code = 432) BASOPHILS RELATIVE PERCENT 0 % (BEAKER) (test code = 437) NEUTROPHILS ABSOLUTE COUNT 5.48 K/ L 1.80-8.00 (BEAKER) (test code = 670) LYMPHOCYTES ABSOLUTE COUNT 0.80 K/ L 1.48-4.50 L (BEAKER) (test code = 414) MONOCYTES ABSOLUTE COUNT (BEAKER) 0.24 K/ L 0.00-1.30 (test code = 415) EOSINOPHILS ABSOLUTE COUNT 0.00 K/ L 0.00-0.50 (BEAKER) (test code = 416) BASOPHILS ABSOLUTE COUNT (BEAKER) 0.01 K/ L 0.00-0.20 (test code = 417) IMMATURE GRANULOCYTES-RELATIVE 9 % 0-0 H PERCENT (BEAKER) (test code = 2801) (MANUAL DIFFERENTIAL)2020-02-22 05:15:00 Test Item Value Reference Range Interpretation Comments NEUTROPHILS - REL (DIFF) (BEAKER) 70 % (test code = 1359) LYMPHOCYTES - REL (DIFF) (BEAKER) 7 % (test code = 1360) MONOCYTES - REL (DIFF) (BEAKER) 3 % (test code = 1361) BANDS - REL (DIFF) (BEAKER) (test 20 % 0-10 H code = 1348) NEUTROPHILS - ABS (DIFF) (BEAKER) 5.04 K/ L 1.80-8.00 (test code = 1365) LYMPHOCYTES - ABS (DIFF) (BEAKER) 0.50 K/ L 1.48-4.50 L (test code = 1366) MONOCYTES - ABS (DIFF) (BEAKER) 0.22 K/ L 0.00-1.30 (test code = 1367) BANDS-ABS (DIFF) (BEAKER) (test 1.4 K/ L 0.0-0.8 H code = 1349) TOTAL COUNTED (BEAKER) (test code 100 = 1351) BANDS + SEGMENTED NEUTROPHILS 6.48 (BEAKER) (test code = 1352) MANUAL NRBC PER 100 CELLS (BEAKER) 2 /100 WBC 0-0 H (test code = 1353) WBC MORPHOLOGY (BEAKER) (test code Normal = 487) PLT MORPHOLOGY (BEAKER) (test code Normal = 486) ANISOCYTOSIS (BEAKER) (test code = 1+ few 961) HYPOCHROMIA (BEAKER) (test code = 1+ few 963) COMPREHENSIVE METABOLIC [id number] 04:58:00 Test Item Value Reference Range Interpretation Comments TOTAL PROTEIN 4.8 gm/dL 6.0-8.5 L (BEAKER) (test code = 770) ALBUMIN (BEAKER) 2.4 g/dL 3.5-5.0 L (test code = 1145) ALKALINE PHOSPHATASE 440 U/L 30-115 H (BEAKER) (test code = 346) BILIRUBIN TOTAL 0.3 mg/dL 0.1-1.2 (BEAKER) (test code = 377) SODIUM (BEAKER) (test 143 meq/L 135-148 code = 381) POTASSIUM (BEAKER) 4.1 meq/L 3.6-5.5 (test code = 379) CHLORIDE (BEAKER) 106 meq/L 98-106 (test code = 382) CO2 (BEAKER) (test 27 meq/L 20-29 code = 355) BLOOD UREA NITROGEN 50 mg/dL 10-26 H (BEAKER) (test code = 354) CREATININE (BEAKER) 1.43 mg/dL 0.50-1.20 H (test code = 358) GLUCOSE RANDOM 113 mg/dL 70-110 H (BEAKER) (test code = 652) CALCIUM (BEAKER) 9.5 mg/dL 8.5-10.5 (test code = 697) AST (SGOT) (BEAKER) 88 U/L 5-40 H (test code = 353) ALT (SGPT) (BEAKER) 88 U/L 5-50 H (test code = 347) EGFR (BEAKER) (test 35 mL/min/1.73 ESTIMA KELY GFR IS code = 1092) sq m NOT ACCURATE CREATININE CLEARANCE IN PREDICTING GLOMERULAR FILTRATION RATE . ESTIMATED GFR I S NOT APPLICABLE FOR DIALYSIS PATIEN TS. Animated Cartoons Painter ID - ADMINOperator ID - ADMINOperator ID - ADMINOperator ID - ADMINOperator ID - ADMINOperator ID - ADMINOperator ID - ADMINOperator ID - ADMINOperator ID - ADMINOperator ID - ADMINOperator ID- ADMINOperator ID - ADMINOperator ID - ADMINOperator ID - ADMINOperator ID - ADMINOperator ID - ADMI [id number] 04:54:00 Test Item Value Reference Range Interpretation Comments MAGNESIUM (BEAKER) (test code = 2.0 mg/dL 1.5-3.0 627) Animated Cartoons Painter ID - ADMINOperator ID - ADMINOperator ID - ADMINOperator ID - ADMIN POCT-GLUCOSE [id number] 19:28:00 Test Item Value Reference Range Interpretation Comments POC-GLUCOSE METER 253 mg/dL 70-110 H : TESTED A T [facility] 1317 (BEAKER) (test code [facility] [address], = 1538) [place] [address]: Animated Cartoons Painter/Techni ty ID = [id number] for Aspen Mayss COMPLEMENT COMPONENT [id number] 17:33:00 Test Item Value Reference Range Interpretation Comments C4 COMPLEMENT (BEAKER) (test code = 17 mg/dL 15-57 394) Animated Cartoons Painter ID - DBAdd onCOMPLEMENT COMPONENT [id number] 17:33:00 Test Item Value Reference Range Interpretation Comments C3 COMPLEMENT (BEAKER) (test code = 101 mg/dL 82-193 393) Animated Cartoons Painter ID - DBAdd onPOCT-GLUCOSE [id number] 17:16:00 Test Item Value Reference Range Interpretation Comments POC-GLUCOSE METER 180 mg/dL 70-110 H : TESTED A T [facility] 1317 (BEAKER) (test code [facility], = 1538) [place] [address]: Animated Cartoons Painter/Techni ty ID = [id number] for Virgil ananyaAngelicawa PROTEIN ELECTROPHORESIS, [id number] 15:28:00 Test Item Value Reference Range Interpretation Comments ALBUMIN FRACTION 1.6 gm/dL 3.5-5.5 L (BEAKER) (test code = 405) ALPHA 1 FRACTION 0.4 gm/dL 0.2-0.4 (BEAKER) (test code = 389) ALPHA 2 FRACTION 1.6 gm/dL 0.5-0.9 H (BEAKER) (test code = 390) BETA FRACTION 0.3 gm/dL 0.6-1.1 L (BEAKER) (test code = 392) GAMMA GLOBULIN FRACTION (BEAKER) (test code = 391) INTERPRETATION-119 Alpha-1 and alpha-2 (BEAKER) (test code increased. Albumin, beta, = 2615) and gamma decreased. This suggests a nephrotic pattern. Refer to serum immunofixation electrophoresis. [id number] Candace Campos MD (BEAKER) (test code (electronic signature) = 2616) PROTEIN TOTAL SERUM, 3.9 gm/dL 6.0-8.3 L SPEP (BEAKER) (test code = 9700) Animated Cartoons Painter ID - EDASIPOCT-GLUCOSE [id number] 11:49:00 Test Item Value Reference Range Interpretation Comments POC-GLUCOSE METER 140 mg/dL 70-110 H : TESTED A T [address] (BEAKER) (test code [address], = 1538) [place] [address]: Animated Cartoons Painter/Techni ty ID = [id number] for Obtruman ananya, Iffarhaninwa POCT-GLUCOSE [id number] 07:53:00 Test Item Value Reference Range Interpretation Comments POC-GLUCOSE METER 85 mg/dL 70-110 : TESTED A T [address]17 (BEAKER) (test code = [address], 1538) [place] [address]: Animated Cartoons Painter/Techni ty ID = [id number] for Obik ananya, Ifeyinwa CBC W/PLT COUNT & AUTO [id number] 05:20:00 Test Item Value Reference Range Interpretation Comments WHITE BLOOD CELL COUNT (BEAKER) 6.6 K/ L 4.0-10.0 (test code = 775) RED BLOOD CELL COUNT (BEAKER) 2.64 M/ L 4.00-5.00 L (test code = 761) HEMOGLOBIN (BEAKER) (test code = 7.4 GM/DL 12.0-15.5 L 410) HEMATOCRIT (BEAKER) (test code = 22.9 % 36.0-46.0 L 411) MEAN CORPUSCULAR VOLUME (BEAKER) 86.7 fL 82.0-99.0 (test code = 753) MEAN CORPUSCULAR HEMOGLOBIN 28.0 pg 27.0-33.0 (BEAKER) (test code = 751) MEAN CORPUSCULAR HEMOGLOBIN CONC 32.3 GM/DL 32.0-36.0 (BEAKER) (test code = 752) RED CELL DISTRIBUTION WIDTH 15.6 % 12.0-15.0 H (BEAKER) (test code = 412) PLATELET COUNT (BEAKER) (test code 38 K/CU MM 150-430 L = 756) MEAN PLATELET VOLUME (BEAKER) 12.7 fL 6.0-11.5 H (test code = 754) NUCLEATED RED BLOOD CELLS (BEAKER) 2 /100 WBC 0-0 H (test code = 413) NEUTROPHILS RELATIVE PERCENT 69 % (BEAKER) (test code = 429) LYMPHOCYTES RELATIVE PERCENT 12 % (BEAKER) (test code = 430) MONOCYTES RELATIVE PERCENT 5 % (BEAKER) (test code = 431) EOSINOPHILS RELATIVE PERCENT 0 % (BEAKER) (test code = 432) BASOPHILS RELATIVE PERCENT 0 % (BEAKER) (test code = 437) NEUTROPHILS ABSOLUTE COUNT 4.53 K/ L 1.80-8.00 (BEAKER) (test code = 670) LYMPHOCYTES ABSOLUTE COUNT 0.76 K/ L 1.48-4.50 L (BEAKER) (test code = 414) MONOCYTES ABSOLUTE COUNT (BEAKER) 0.32 K/ L 0.00-1.30 (test code = 415) EOSINOPHILS ABSOLUTE COUNT 0.00 K/ L 0.00-0.50 (BEAKER) (test code = 416) BASOPHILS ABSOLUTE COUNT (BEAKER) 0.01 K/ L 0.00-0.20 (test code = 417) IMMATURE GRANULOCYTES-RELATIVE 14 % 0-0 H PERCENT (BEAKER) (test code = 2801) (MANUAL DIFFERENTIAL)2020-02-21 05:20:00 Test Item Value Reference Range Interpretation Comments NEUTROPHILS - REL (DIFF) (BEAKER) 56 % (test code = 1359) LYMPHOCYTES - REL (DIFF) (BEAKER) 17 % (test code = 1360) MONOCYTES - REL (DIFF) (BEAKER) 4 % (test code = 1361) METAMYELOCYTES-REL (DIFF) (BEAKER) 3 % 0-0 H (test code = 258) MYELOCYTES-REL (DIFF) (BEAKER) 2 % 0-0 H (test code = 1594) PROMYELOCYTES-REL (DIFF) (BEAKER) 1 % 0-0 H (test code = 259) BANDS - REL (DIFF) (BEAKER) (test 13 % 0-10 H code = 1348) ATYPICAL LYMPHOCYTE - REL (DIFF) 4 % 0-0 H (BEAKER) (test code = 260) NEUTROPHILS - ABS (DIFF) (BEAKER) 3.70 K/ L 1.80-8.00 (test code = 1365) LYMPHOCYTES - ABS (DIFF) (BEAKER) 1.12 K/ L 1.48-4.50 L (test code = 1366) MONOCYTES - ABS (DIFF) (BEAKER) 0.26 K/ L 0.00-1.30 (test code = 1367) METAMYELOCTYES - ABS (DIFF) 0.20 K/ L 0.00-0.00 H (BEAKER) (test code = 261) PROMYELOCYTES - ABS (DIFF) 0.07 K/ L 0.00-0.00 H (BEAKER) (test code = 262) BANDS-ABS (DIFF) (BEAKER) (test 0.9 K/ L 0.0-0.8 H code = 1349) ATYPICAL LYMPHOCYTES - ABS (DIFF) 0.26 K/ L 0.00-0.00 H (BEAKER) (test code = 263) MYELOCYTES-ABS (DIFF) (BEAKER) 0.13 K/ L 0.00-0.00 H (test code = 1593) TOTAL COUNTED (BEAKER) (test code 100 = 1351) BANDS + SEGMENTED NEUTROPHILS 4.55 (BEAKER) (test code = 1352) MANUAL NRBC PER 100 CELLS (BEAKER) 2 /100 WBC 0-0 H (test code = 1353) TOXIC GRANULATION (BEAKER) (test Present code = 771) LARGE PLT(BEAKER) (test code = Present 2156) ANISOCYTOSIS (BEAKER) (test code = 1+ few 961) HYPOCHROMIA (BEAKER) (test code = 1+ few 963) COMPREHENSIVE METABOLIC [id number] 04:45:00 Test Item Value Reference Range Interpretation Comments TOTAL PROTEIN 4.2 gm/dL 6.0-8.5 L (BEAKER) (test code = 770) ALBUMIN (BEAKER) 2.3 g/dL 3.5-5.0 L (test code = 1145) ALKALINE PHOSPHATASE 453 U/L 30-115 H (BEAKER) (test code = 346) BILIRUBIN TOTAL 0.3 mg/dL 0.1-1.2 (BEAKER) (test code = 377) SODIUM (BEAKER) (test 143 meq/L 135-148 code = 381) POTASSIUM (BEAKER) 3.4 meq/L 3.6-5.5 L (test code = 379) CHLORIDE (BEAKER) 105 meq/L 98-106 (test code = 382) CO2 (BEAKER) (test 29 meq/L 20-29 code = 355) BLOOD UREA NITROGEN 46 mg/dL 10-26 H (BEAKER) (test code = 354) CREATININE (BEAKER) 1.40 mg/dL 0.50-1.20 H (test code = 358) GLUCOSE RANDOM 103 mg/dL 70-110 (BEAKER) (test code = 652) CALCIUM (BEAKER) 8.7 mg/dL 8.5-10.5 (test code = 697) AST (SGOT) (BEAKER) 91 U/L 5-40 H (test code = 353) ALT (SGPT) (BEAKER) 89 U/L 5-50 H (test code = 347) EGFR (BEAKER) (test 36 mL/min/1.73 ESTIMA KELY GFR IS code = 1092) sq m NOT ACCURATE CREATININE CLEARANCE IN PREDICTING GLOMERULAR FILTRATION RATE . ESTIMATED GFR I S NOT APPLICABLE FOR DIALYSIS PATIEN TS. Animated Cartoons Painter ID - ADMINOperator ID - ADMINOperator ID - ADMINOperator ID - ADMINOperator ID - ADMINOperator ID - ADMINOperator ID - ADMINOperator ID - ADMINOperator ID - ADMINOperator ID - ADMINOperator ID- ADMINOperator ID - ADMINOperator ID - ADMINOperator ID - ADMINOperator ID - ADMINOperator ID - ADMI [id number] 04:40:00 Test Item Value Reference Range Interpretation Comments MAGNESIUM (BEAKER) (test code = 1.8 mg/dL 1.5-3.0 627) Animated Cartoons Painter ID - ADMINOperator ID - ADMINOperator ID - ADMINOperator ID - ADMIN POCT-GLUCOSE [id number] 19:35:00 Test Item Value Reference Range Interpretation Comments POC-GLUCOSE METER 160 mg/dL 70-110 H : TESTED A T [address] (BEAKER) (test code [address], = 1538) [facility] [address]: Animated Cartoons Painter/Techni ty ID = [id number] for Will iams, [place] POCT-GLUCOSE [id number] 15:34:00 Test Item Value Reference Range Interpretation Comments POC-GLUCOSE METER 139 mg/dL 70-110 H : TESTED A T [address] (BEAKER) (test code [address], = 1538) [facility] [address]: Animated Cartoons Painter/Techni ty ID = [id number] for Magdalena Bailey POCT-GLUCOSE [id number] 11:25:00 Test Item Value Reference Range Interpretation Comments POC-GLUCOSE METER 147 mg/dL 70-110 H : TESTED A T [address] (BEAKER) (test code [address], = 1538) [place] [address]: Animated Cartoons Painter/Techni ty ID = [id number] for Magdalena Bailey POCT-GLUCOSE [id number] 07:25:00 Test Item Value Reference Range Interpretation Comments POC-GLUCOSE METER 95 mg/dL 70-110 : TESTED A T [address] (BEAKER) (test code = [address], 1538) [place] [address]: Animated Cartoons Painter/Techni ty ID = [id number] for Magdalena Bailey CBC W/PLT COUNT & AUTO [id number] 04:52:00 Test Item Value Reference Range Interpretation Comments WHITE BLOOD CELL COUNT (BEAKER) 6.3 K/ L 4.0-10.0 (test code = 775) RED BLOOD CELL COUNT (BEAKER) 2.78 M/ L 4.00-5.00 L (test code = 761) HEMOGLOBIN (BEAKER) (test code = 7.9 GM/DL 12.0-15.5 L 410) HEMATOCRIT (BEAKER) (test code = 24.2 % 36.0-46.0 L 411) MEAN CORPUSCULAR VOLUME (BEAKER) 87.1 fL 82.0-99.0 (test code = 753) MEAN CORPUSCULAR HEMOGLOBIN 28.4 pg 27.0-33.0 (BEAKER) (test code = 751) MEAN CORPUSCULAR HEMOGLOBIN CONC 32.6 GM/DL 32.0-36.0 (BEAKER) (test code = 752) RED CELL DISTRIBUTION WIDTH 15.9 % 12.0-15.0 H (BEAKER) (test code = 412) PLATELET COUNT (BEAKER) (test code 36 K/CU MM 150-430 L = 756) MEAN PLATELET VOLUME (BEAKER) 11.2 fL 6.0-11.5 (test code = 754) NUCLEATED RED BLOOD CELLS (BEAKER) 2 /100 WBC 0-0 H (test code = 413) NEUTROPHILS RELATIVE PERCENT 60 % (BEAKER) (test code = 429) LYMPHOCYTES RELATIVE PERCENT 11 % (BEAKER) (test code = 430) MONOCYTES RELATIVE PERCENT 5 % (BEAKER) (test code = 431) EOSINOPHILS RELATIVE PERCENT 0 % (BEAKER) (test code = 432) BASOPHILS RELATIVE PERCENT 0 % (BEAKER) (test code = 437) NEUTROPHILS ABSOLUTE COUNT 3.75 K/ L 1.80-8.00 (BEAKER) (test code = 670) LYMPHOCYTES ABSOLUTE COUNT 0.66 K/ L 1.48-4.50 L (BEAKER) (test code = 414) MONOCYTES ABSOLUTE COUNT (BEAKER) 0.32 K/ L 0.00-1.30 (test code = 415) EOSINOPHILS ABSOLUTE COUNT 0.00 K/ L 0.00-0.50 (BEAKER) (test code = 416) BASOPHILS ABSOLUTE COUNT (BEAKER) 0.02 K/ L 0.00-0.20 (test code = 417) IMMATURE GRANULOCYTES-RELATIVE 24 % 0-0 H PERCENT (BEAKER) (test code = 2801) (MANUAL DIFFERENTIAL)2020-02-20 04:52:00 Test Item Value Reference Range Interpretation Comments NEUTROPHILS - REL (DIFF) (BEAKER) 52 % (test code = 1359) LYMPHOCYTES - REL (DIFF) (BEAKER) 15 % (test code = 1360) MONOCYTES - REL (DIFF) (BEAKER) 7 % (test code = 1361) EOSINOPHILS - REL (DIFF) (BEAKER) 1 % (test code = 1362) METAMYELOCYTES-REL (DIFF) (BEAKER) 4 % 0-0 H (test code = 258) MYELOCYTES-REL (DIFF) (BEAKER) 1 % 0-0 H (test code = 1594) PROMYELOCYTES-REL (DIFF) (BEAKER) 2 % 0-0 H (test code = 259) BANDS - REL (DIFF) (BEAKER) (test 16 % 0-10 H code = 1348) ATYPICAL LYMPHOCYTE - REL (DIFF) 2 % 0-0 H (BEAKER) (test code = 260) NEUTROPHILS - ABS (DIFF) (BEAKER) 3.28 K/ L 1.80-8.00 (test code = 1365) LYMPHOCYTES - ABS (DIFF) (BEAKER) 0.95 K/ L 1.48-4.50 L (test code = 1366) MONOCYTES - ABS (DIFF) (BEAKER) 0.44 K/ L 0.00-1.30 (test code = 1367) EOSINOPHILS - ABS (DIFF) (BEAKER) 0.06 K/ L 0.00-0.50 (test code = 1368) METAMYELOCTYES - ABS (DIFF) 0.25 K/ L 0.00-0.00 H (BEAKER) (test code = 261) PROMYELOCYTES - ABS (DIFF) 0.13 K/ L 0.00-0.00 H (BEAKER) (test code = 262) BANDS-ABS (DIFF) (BEAKER) (test 1.0 K/ L 0.0-0.8 H code = 1349) ATYPICAL LYMPHOCYTES - ABS (DIFF) 0.13 K/ L 0.00-0.00 H (BEAKER) (test code = 263) MYELOCYTES-ABS (DIFF) (BEAKER) 0.06 K/ L 0.00-0.00 H (test code = 1593) TOTAL COUNTED (BEAKER) (test code 100 = 1351) BANDS + SEGMENTED NEUTROPHILS 4.28 (BEAKER) (test code = 1352) MANUAL NRBC PER 100 CELLS (BEAKER) 3 /100 WBC 0-0 H (test code = 1353) TOXIC GRANULATION (BEAKER) (test Present code = 771) LARGE PLT(BEAKER) (test code = Present 2156) ANISOCYTOSIS (BEAKER) (test code = 1+ few 961) HYPOCHROMIA (BEAKER) (test code = 1+ few 963) COMPREHENSIVE METABOLIC [id number] 04:20:00 Test Item Value Reference Range Interpretation Comments TOTAL PROTEIN 4.3 gm/dL 6.0-8.5 L (BEAKER) (test code = 770) ALBUMIN (BEAKER) 2.2 g/dL 3.5-5.0 L (test code = 1145) ALKALINE PHOSPHATASE 483 U/L 30-115 H (BEAKER) (test code = 346) BILIRUBIN TOTAL 0.3 mg/dL 0.1-1.2 (BEAKER) (test code = 377) SODIUM (BEAKER) (test 142 meq/L 135-148 code = 381) POTASSIUM (BEAKER) 3.5 meq/L 3.6-5.5 L (test code = 379) CHLORIDE (BEAKER) 105 meq/L 98-106 (test code = 382) CO2 (BEAKER) (test 28 meq/L 20-29 code = 355) BLOOD UREA NITROGEN 45 mg/dL 10-26 H (BEAKER) (test code = 354) CREATININE (BEAKER) 1.48 mg/dL 0.50-1.20 H (test code = 358) GLUCOSE RANDOM 107 mg/dL 70-110 (BEAKER) (test code = 652) CALCIUM (BEAKER) 8.9 mg/dL 8.5-10.5 (test code = 697) AST (SGOT) (BEAKER) 107 U/L 5-40 H (test code = 353) ALT (SGPT) (BEAKER) 100 U/L 5-50 H (test code = 347) EGFR (BEAKER) (test 34 mL/min/1.73 ESTIMA KELY GFR IS code = 1092) sq m NOT ACCURATE CREATININE CLEARANCE IN PREDICTING GLOMERULAR FILTRATION RATE . ESTIMATED GFR I S NOT APPLICABLE FOR DIALYSIS PATIEN TS. Animated Cartoons Painter ID - ADMINOperator ID - ADMINOperator ID - ADMINOperator ID - ADMINOperator ID - ADMINOperator ID - ADMINOperator ID - ADMINOperator ID - ADMINOperator ID - ADMINOperator ID - ADMINOperator ID- ADMINOperator ID - ADMINOperator ID - ADMINOperator ID - ADMINOperator ID - ADMINOperator ID - ADMI [id number] 04:18:00 Test Item Value Reference Range Interpretation Comments MAGNESIUM (BEAKER) (test code = 1.9 mg/dL 1.5-3.0 627) Animated Cartoons Painter ID - ADMINOperator ID - ADMINOperator ID - ADMINOperator ID - ADMIN PROTHROMBIN TIME/[id number] 04:15:00 Test Item Value Reference Range Interpretation Comments PROTIME (BEAKER) 9.4 seconds 9.3-12.0 Final Infor mation (Auto (test code = 759) Output) INR (BEAKER) (test 0.85 <=5.90 Final Inf ormation (Auto code = 370) Output) RECOMMENDED COUMADIN/WARFARIN INR THERAPY RANGESSTANDARD DOSE: 2.0 - 3.0 Includes: PROPHYLAXIS forvenous thrombosis, systemic embolization; TREATMENT for venous thrombosis and/or pulmonary embolus.HIGH RISK: Target INR is 2.5-3.5 for patients with mechanical heart valves.[id number] 04:07:00 Test Item Value Reference Range Interpretation Comments AMMONIA (BEAKER) (test code = 348) 33 mol/L 17-80 Animated Cartoons Painter ID - ADMINOperator ID - ADMINOperator ID - ADMINOperator ID - ADMIN FIBRIN SOLUBLE [id number] 16:10:00 Test Item Value Reference Range Interpretation Comments FIBRIN SOLUBLE MONOMER (BEAKER) Negative (test code = 1416) [id number] 10:47:00 Test Item Value Reference Range Interpretation Comments HAPTOGLOBIN (BEAKER) (test code = 455 mg/dL 14-258 H 366) Animated Cartoons Painter ID - CASSANDRA COperator ID - CASSANDRA COCCULT BLOOD, [id number] 06:33:00 Test Item Value Reference Range Interpretation Comments FECAL OCCULT BLOOD (BEAKER) (test Positive Negative A code = 618) CBC W/PLT COUNT & AUTO [id number] 05:58:00 Test Item Value Reference Range Interpretation Comments WHITE BLOOD CELL COUNT 7.1 K/ L 4.0-10.0 (BEAKER) (test code = 775) RED BLOOD CELL COUNT 3.01 M/ L 4.00-5.00 L (BEAKER) (test code = 761) HEMOGLOBIN (BEAKER) 8.6 GM/DL 12.0-15.5 L (test code = 410) HEMATOCRIT (BEAKER) 26.6 % 36.0-46.0 L (test code = 411) MEAN CORPUSCULAR VOLUME 88.4 fL 82.0-99.0 (BEAKER) (test code = 753) MEAN CORPUSCULAR 28.6 pg 27.0-33.0 HEMOGLOBIN (BEAKER) (test code = 751) MEAN CORPUSCULAR 32.3 GM/DL 32.0-36.0 HEMOGLOBIN CONC (BEAKER) (test code = 752) RED CELL DISTRIBUTION 16.1 % 12.0-15.0 H WIDTH (BEAKER) (test code = 412) PLATELET COUNT (BEAKER) 36 K/CU MM 150-430 L (test code = 756) MEAN PLATELET VOLUME UNABLE TO CALCULATE (BEAKER) (test code = MPV 754) NUCLEATED RED BLOOD 1 /100 WBC 0-0 H CELLS (BEAKER) (test code = 413) NEUTROPHILS RELATIVE 59 % PERCENT (BEAKER) (test code = 429) LYMPHOCYTES RELATIVE 13 % PERCENT (BEAKER) (test code = 430) MONOCYTES RELATIVE 7 % PERCENT (BEAKER) (test code = 431) EOSINOPHILS RELATIVE 0 % PERCENT (BEAKER) (test code = 432) BASOPHILS RELATIVE 1 % PERCENT (BEAKER) (test code = 437) NEUTROPHILS ABSOLUTE 4.20 K/ L 1.80-8.00 COUNT (BEAKER) (test code = 670) LYMPHOCYTES ABSOLUTE 0.91 K/ L 1.48-4.50 L COUNT (BEAKER) (test code = 414) MONOCYTES ABSOLUTE 0.46 K/ L 0.00-1.30 COUNT (BEAKER) (test code = 415) EOSINOPHILS ABSOLUTE 0.01 K/ L 0.00-0.50 COUNT (BEAKER) (test code = 416) BASOPHILS ABSOLUTE 0.04 K/ L 0.00-0.20 COUNT (BEAKER) (test code = 417) IMMATURE 21 % 0-0 H GRANULOCYTES-RELATIVE PERCENT (BEAKER) (test code = 2801) (MANUAL DIFFERENTIAL)2020-02-19 05:58:00 Test Item Value Reference Range Interpretation Comments NEUTROPHILS - REL (DIFF) (BEAKER) 55 % (test code = 1359) LYMPHOCYTES - REL (DIFF) (BEAKER) 8 % (test code = 1360) MONOCYTES - REL (DIFF) (BEAKER) 7 % (test code = 1361) METAMYELOCYTES-REL (DIFF) (BEAKER) 12 % 0-0 H (test code = 258) MYELOCYTES-REL (DIFF) (BEAKER) 2 % 0-0 H (test code = 1594) PROMYELOCYTES-REL (DIFF) (BEAKER) 5 % 0-0 H (test code = 259) BANDS - REL (DIFF) (BEAKER) (test 11 % 0-10 H code = 1348) NEUTROPHILS - ABS (DIFF) (BEAKER) 3.91 K/ L 1.80-8.00 (test code = 1365) LYMPHOCYTES - ABS (DIFF) (BEAKER) 0.57 K/ L 1.48-4.50 L (test code = 1366) MONOCYTES - ABS (DIFF) (BEAKER) 0.50 K/ L 0.00-1.30 (test code = 1367) METAMYELOCTYES - ABS (DIFF) 0.85 K/ L 0.00-0.00 H (BEAKER) (test code = 261) PROMYELOCYTES - ABS (DIFF) (BEAKER) 0.36 K/ L 0.00-0.00 H (test code = 262) BANDS-ABS (DIFF) (BEAKER) (test 0.8 K/ L 0.0-0.8 code = 1349) MYELOCYTES-ABS (DIFF) (BEAKER) 0.14 K/ L 0.00-0.00 H (test code = 1593) TOTAL COUNTED (BEAKER) (test code = 100 1351) BANDS + SEGMENTED NEUTROPHILS 4.69 (BEAKER) (test code = 1352) TOXIC GRANULATION (BEAKER) (test Present code = 771) LARGE PLT(BEAKER) (test code = Present 2156) ANISOCYTOSIS (BEAKER) (test code = 1+ few 961) [id number] 05:38:00 Test Item Value Reference Range Interpretation Comments MAGNESIUM (BEAKER) 1.8 mg/dL 1.5-3.0 Specimen slightly (test code = 627) hemolyzed Animated Cartoons Painter ID - ADMINOperator ID - ADMINOperator ID - ADMINOperator ID - ADMIN COMPREHENSIVE METABOLIC [id number] 05:38:00 Test Item Value Reference Range Interpretation Comments TOTAL PROTEIN 4.5 gm/dL 6.0-8.5 L Specimen sligh tly (BEAKER) (test code = hemoly zed 770) ALBUMIN (BEAKER) 2.2 g/dL 3.5-5.0 L Specimen sl ightly (test code = 1145) hemolyzed ALKALINE PHOSPHATASE 483 U/L 30-115 H (BEAKER) (test code = 346) BILIRUBIN TOTAL 0.3 mg/dL 0.1-1.2 Specimen sli ghtly (BEAKER) (test code = hemoly zed 377) SODIUM (BEAKER) (test 142 meq/L 135-148 code = 381) POTASSIUM (BEAKER) 3.8 meq/L 3.6-5.5 Specimen slightly (test code = 379) hemolyzed CHLORIDE (BEAKER) 106 meq/L 98-106 (test code = 382) CO2 (BEAKER) (test 24 meq/L 20-29 code = 355) BLOOD UREA NITROGEN 40 mg/dL 10-26 H (BEAKER) (test code = 354) CREATININE (BEAKER) 1.36 mg/dL 0.50-1.20 H Specimen slightly (test code = 358) hemolyzed GLUCOSE RANDOM 94 mg/dL 70-110 (BEAKER) (test code = 652) CALCIUM (BEAKER) 8.7 mg/dL 8.5-10.5 (test code = 697) AST (SGOT) (BEAKER) 113 U/L 5-40 H Specimen slightly (test code = 353) hemolyzed ALT (SGPT) (BEAKER) 101 U/L 5-50 H Specimen slightly (test code = 347) hemolyzed EGFR (BEAKER) (test 37 mL/min/1.73 ESTIMA KELY GFR IS code = 1092) sq m NOT ACCURATE CREATININE CLEARANCE IN PREDICTING GLOMERULAR FILTRATION RATE . ESTIMATED GFR I S NOT APPLICABLE FOR DIALYSIS PATIEN TS. Animated Cartoons Painter ID - ADMINOperator ID - ADMINOperator ID - ADMINOperator ID - ADMINOperator ID - ADMINOperator ID - ADMINOperator ID - ADMINOperator ID - ADMINOperator ID - ADMINOperator ID - ADMINOperator ID- ADMINOperator ID - ADMINOperator ID - ADMINOperator ID - ADMINOperator ID - ADMINOperator ID - ADMI NU/S, ABDOMINAL, [id number] 05:04:00Reason for exam:->CHECK SPLEEN [facility] : 1935 Sex: FFINAL REPORT Ultrasound of the Abdomen, complete Clinical History: CHECK SPLEEN Comparison: Abdominal ultrasound with Doppler 02/16/2020. Technique: Sonographic evaluation of the abdomen was performed. Findings: Liver: 14.2 cm in length at the right midclavicular line. Normal echogenicity. No lesion is identified by ultrasound. Main portal vein diameter 1.0 cm. Main portal vein is patent and demonstrates hepatopetal flow. Biliary tree: Common duct 5 mm. No intrahepatic biliary ductal dilatation. Gallbladder: Small shadowing stones. No wall thickening. No pericholecystic fluid. Negative sonographic Laurent's sign. Pancreas: Partially obscured by bowel gas but the visualized portions are grossly unremarkable. Ascites: None seen Spleen: Normal size measuring 7.4 x 2.8 x 2.6 cm. Kidneys: Right kidney lung 0.2 x 4.1 x 4 cm with cortical thickness of 1.2 cm. Left kidney 9.8 x 4.2 x 4.4 cm with cortical thickness of 1. cm. Normal cortical echogenicity. 2.5 x 2.2 x 2.2 cm simple right interpolar cyst. 2.4 x 2.1 x 2.2 cm simple left upper to mid cyst and 2.4 x 2.1 x 2.2 cm thick-walled left interpolar cystic lesion. No shadowing calculus or hydronephrosis. IVC/Aorta: Visualized segments are unremarkable. Unremarkable. Miscellaneous: Bilateral pleural effusions. Impression:Cholelithiasis without sonographic evidence of acute cholecystitis. Normal size spleen. 2.4 cm indeterminate cystic lesion in the left kidney (Bosniak III) for which urological evaluation is recommended. A renal protocol CT or MRI would be helpful for further evaluation. Signed: John Singleton MDReport Verified Date/Time: 02/19/2020 05:04:32 [id number] 22:12:00 Test Item Value Reference Range Interpretation Comments FERRITIN (BEAKER) (test code = 1875.30 ng/mL 10.00-291.00 H 361) Animated Cartoons Painter ID - ADMINOperator ID - ADMINVITAMIN B12 AND [id number] 21:52:00 Test Item Value Reference Range Interpretation Comments VITAMIN B12 (BEAKER) (test code = 1137 pg/mL 211-911 H 774) FOLATE (BEAKER) (test code = 362) 13.00 ng/mL >=5.4 Animated Cartoons Painter ID - ADMINOperator ID - ADMINOperator ID - ADMINOperator ID - ADMINOperator ID - [id number] 21:40:00 Test Item Value Reference Range Interpretation Comments D-DIMER QUANTITATIVE 11.59 MG/L FEU <0.50 H Final Information (BEAKER) (test code = (Auto Output) 671) REGARDING D-DIMER RESULTS: The 98% NPV (Negative Predictive Value) for DVT/PE exclusion is 0.50 mg/LFEU as suggested by the component lab tech and as approved by the FDA.[id number] 21:37:00 Test Item Value Reference Range Interpretation Comments FIBRINOGEN LEVEL 799 mg/dl 200-400 H Final Infor mation (BEAKER) (test code = (Auto Output) 658) [id number] 21:36:00 Test Item Value Reference Range Interpretation Comments PROTIME (BEAKER) (test 9.3 seconds 9.3-12.0 Final Information code = 759) (Auto Output) INR (BEAKER) (test 0.85 <=5.90 Final Inf ormation code = 370) (Auto Output) PARTIAL THROMBOPLASTIN 27.1 seconds 23.0-35.0 Final Information TIME (BEAKER) (test (Auto Ou tput) code = 760) RECOMMENDED COUMADIN/WARFARIN INR THERAPY RANGESSTANDARD DOSE: 2.0 - 3.0 Includes: PROPHYLAXIS forvenous thrombosis, systemic embolization; TREATMENT for venous thrombosis and/or pulmonary embolus.HIGH RISK: Target INR is 2.5-3.5 for patients with mechanical heart valves.IRON, TIBC, % SAT. (WITHOUT FERRITIN) 2020-02-18 21:20:00 Test Item Value Reference Range Interpretation Comments IRON (BEAKER) (test code = 547) 33.0 ug/dL 45.0-170.0 L TOTAL IRON BINDING CAPACITY 89 ug/dL 250-550 L (BEAKER) (test code = 769) IRON % SATURATION (2) (BEAKER) 37 % 20-55 (test code = 2590) Animated Cartoons Painter ID - ADMINOperator ID - ADMINBILIRUBIN, TOTAL AND [id number] 21:10:00 Test Item Value Reference Range Interpretation Comments BILIRUBIN TOTAL (BEAKER) (test code 0.3 mg/dL 0.1-1.2 = 377) BILIRUBIN DIRECT (BEAKER) (test 0.2 mg/dL 0.0-0.4 code = 706) Animated Cartoons Painter ID - ADMINOperator ID - ADMINLACTATE DEHYDROGENASE (LDH)2020-02-18 21:07:00 Test Item Value Reference Range Interpretation Comments LACTATE DEHYDROGENASE (BEAKER) (test 465 U/L 107-206 H code = 635) Animated Cartoons Painter ID - ADMINRETICULOCYTE [id number] 20:37:00 Test Item Value Reference Range Interpretation Comments RETICULOCYTE COUNT PCT (BEAKER) (test 1.0 % 0.4-2.9 code = 575) COMPLEMENT COMPONENT [id number] 10:21:00 Test Item Value Reference Range Interpretation Comments C4 COMPLEMENT (BEAKER) (test code = 20 mg/dL 15-57 394) Animated Cartoons Painter ID - LULY FCOMPLEMENT COMPONENT [id number] 10:21:00 Test Item Value Reference Range Interpretation Comments C3 COMPLEMENT (BEAKER) (test code = 88 mg/dL 82-193 393) Animated Cartoons Painter ID - LULY FPERIPHERAL BLOOD SMEAR - PATHOLOGIST [id number] 08:38:00 Test Item Value Reference Range Interpretation Comments PERIPHERAL SMR Normochromic normocytic REVIEW (BEAKER) anemia with slight (test code = 2640) poikilocytosis and rare schistocytes seen. WBCs normal in number with slight left shift. Thrombocytopenia with a few large forms. [id number] Hobson M.D. 2 (BEAKER) (test (electronic signature) code = 2849) CBC W/PLT COUNT & AUTO [id number] 05:45:00 Test Item Value Reference Range Interpretation Comments WHITE BLOOD CELL COUNT (BEAKER) 6.4 K/ L 4.0-10.0 (test code = 775) RED BLOOD CELL COUNT (BEAKER) 2.85 M/ L 4.00-5.00 L (test code = 761) HEMOGLOBIN (BEAKER) (test code = 8.1 GM/DL 12.0-15.5 L 410) HEMATOCRIT (BEAKER) (test code = 25.3 % 36.0-46.0 L 411) MEAN CORPUSCULAR VOLUME (BEAKER) 88.8 fL 82.0-99.0 (test code = 753) MEAN CORPUSCULAR HEMOGLOBIN 28.4 pg 27.0-33.0 (BEAKER) (test code = 751) MEAN CORPUSCULAR HEMOGLOBIN CONC 32.0 GM/DL 32.0-36.0 (BEAKER) (test code = 752) RED CELL DISTRIBUTION WIDTH 16.0 % 12.0-15.0 H (BEAKER) (test code = 412) PLATELET COUNT (BEAKER) (test code 37 K/CU MM 150-430 L = 756) MEAN PLATELET VOLUME (BEAKER) 10.9 fL 6.0-11.5 (test code = 754) NUCLEATED RED BLOOD CELLS (BEAKER) 1 /100 WBC 0-0 H (test code = 413) (MANUAL DIFFERENTIAL)2020-02-18 05:45:00 Test Item Value Reference Range Interpretation Comments NEUTROPHILS - REL (DIFF) (BEAKER) 82 % (test code = 1359) LYMPHOCYTES - REL (DIFF) (BEAKER) 12 % (test code = 1360) MONOCYTES - REL (DIFF) (BEAKER) 2 % (test code = 1361) BANDS - REL (DIFF) (BEAKER) (test 4 % 0-10 code = 1348) NEUTROPHILS - ABS (DIFF) (BEAKER) 5.25 K/ L 1.80-8.00 (test code = 1365) LYMPHOCYTES - ABS (DIFF) (BEAKER) 0.77 K/ L 1.48-4.50 L (test code = 1366) MONOCYTES - ABS (DIFF) (BEAKER) 0.13 K/ L 0.00-1.30 (test code = 1367) BANDS-ABS (DIFF) (BEAKER) (test 0.3 K/ L 0.0-0.8 code = 1349) TOTAL COUNTED (BEAKER) (test code = 100 1351) BANDS + SEGMENTED NEUTROPHILS 5.50 (BEAKER) (test code = 1352) WBC MORPHOLOGY (BEAKER) (test code Normal = 487) LARGE PLT(BEAKER) (test code = Present 2156) ANISOCYTOSIS (BEAKER) (test code = 1+ few 961) COMPREHENSIVE METABOLIC [id number] 05:30:00 Test Item Value Reference Range Interpretation Comments TOTAL PROTEIN 4.4 gm/dL 6.0-8.5 L (BEAKER) (test code = 770) ALBUMIN (BEAKER) 2.3 g/dL 3.5-5.0 L (test code = 1145) ALKALINE PHOSPHATASE 441 U/L 30-115 H (BEAKER) (test code = 346) BILIRUBIN TOTAL 0.3 mg/dL 0.1-1.2 (BEAKER) (test code = 377) SODIUM (BEAKER) (test 144 meq/L 135-148 code = 381) POTASSIUM (BEAKER) 3.5 meq/L 3.6-5.5 L (test code = 379) CHLORIDE (BEAKER) 108 meq/L 98-106 H (test code = 382) CO2 (BEAKER) (test 26 meq/L 20-29 code = 355) BLOOD UREA NITROGEN 39 mg/dL 10-26 H (BEAKER) (test code = 354) CREATININE (BEAKER) 1.46 mg/dL 0.50-1.20 H (test code = 358) GLUCOSE RANDOM 104 mg/dL 70-110 (BEAKER) (test code = 652) CALCIUM (BEAKER) 9.0 mg/dL 8.5-10.5 (test code = 697) AST (SGOT) (BEAKER) 86 U/L 5-40 H (test code = 353) ALT (SGPT) (BEAKER) 90 U/L 5-50 H (test code = 347) EGFR (BEAKER) (test 34 mL/min/1.73 ESTIMA KELY GFR IS code = 1092) sq m NOT ACCURATE CREATININE CLEARANCE IN PREDICTING GLOMERULAR FILTRATION RATE . ESTIMATED GFR I S NOT APPLICABLE FOR DIALYSIS PATIEN TS. Animated Cartoons Painter ID - ADMINOperator ID - ADMINOperator ID - ADMINOperator ID - ADMINOperator ID - ADMINOperator ID - ADMINOperator ID - ADMINOperator ID - ADMINOperator ID - ADMINOperator ID - ADMINOperator ID- ADMINOperator ID - ADMINOperator ID - ADMINOperator ID - ADMINOperator ID - ADMINOperator ID - ADMI [id number] 05:29:00 Test Item Value Reference Range Interpretation Comments MAGNESIUM (BEAKER) (test code = 1.5 mg/dL 1.5-3.0 627) Animated Cartoons Painter ID - ADMINOperator ID - ADMINOperator ID - ADMINOperator ID - ADMIN SARS-COV2/RT-PCR ([facility])2020-02-17 18:37:00 Test Item Value Reference Range Interpretation Comments SARS-COV2/RT-PCR (test Negative Not Detected, Negative, code = 8561186) See external report for linked test SARS-COV-2 PERFORMING LAB [facility] (test code = 8414655) Negative result for this test determines that SARS-CoV-2 RNA was not present in the specimen above the Limit of Detection (LOD). However, Negative results do not preclude SARS-CoV-2 infection and should not be used as the sole basis for treatment or patient management decisions. Negative results mustbe combined with clinical observations, patient history, and epidemiological information. A false negative result may occur if a specimen is improperly collected, transported or handled. A false negative result should be considered if patient's recent exposures or clinical presentation indicate that COVID-19 (SARS-CoV-2) is likely and diagnostic tests for other causes of illness are negative. Re-testing should be considered in cases of suspected false negatives.The limit of detection for this assay is 800 copies/mL.This SARS CoV-2 test is a real-time RT-PCR test intended for the qualitative detection of nucleic acid from SARS-CoV-2 in a nasopharyngeal swab specimen collected from individuals susp ected of COVID-19 by their healthcare provider.This test has not been Food and Drug [...] is revoked under Section 564(g) of the Act.Fact Sheet for Healthcare Providers:https://www.[employer]/sites/default/files/product/documents/Fact_Shee v_RV_Zpfbdjxcx_Dhmp_DYRI-KjS-9.pdfFact Sheet for Healthcare Patients:https://www.[employer]/sites/default/files/product/ documents/Mdpw_Fohnh_Rkqsidic_Tgae_ZILI-KrF-0.pdfPerforming Laboratory:[facility], [place] [address]SYNMYCRJGS COMPONENT [id number] 10:58:00 Test Item Value Reference Range Interpretation Comments C4 COMPLEMENT (BEAKER) (test code = 19 mg/dL 15-57 394) Animated Cartoons Painter ID - EDASICOMPLEMENT COMPONENT [id number] 10:58:00 Test Item Value Reference Range Interpretation Comments C3 COMPLEMENT (BEAKER) (test code = 77 mg/dL 82-193 L 393) Animated Cartoons Painter ID - EDASICBC W/PLT COUNT & AUTO [id number] 05:32:00 Test Item Value Reference Range Interpretation Comments WHITE BLOOD CELL COUNT (BEAKER) 7.4 K/ L 4.0-10.0 (test code = 775) RED BLOOD CELL COUNT (BEAKER) 2.75 M/ L 4.00-5.00 L (test code = 761) HEMOGLOBIN (BEAKER) (test code = 7.9 GM/DL 12.0-15.5 L 410) HEMATOCRIT (BEAKER) (test code = 24.3 % 36.0-46.0 L 411) MEAN CORPUSCULAR VOLUME (BEAKER) 88.4 fL 82.0-99.0 (test code = 753) MEAN CORPUSCULAR HEMOGLOBIN 28.7 pg 27.0-33.0 (BEAKER) (test code = 751) MEAN CORPUSCULAR HEMOGLOBIN CONC 32.5 GM/DL 32.0-36.0 (BEAKER) (test code = 752) RED CELL DISTRIBUTION WIDTH 16.0 % 12.0-15.0 H (BEAKER) (test code = 412) PLATELET COUNT (BEAKER) (test code 50 K/CU MM 150-430 L = 756) MEAN PLATELET VOLUME (BEAKER) 12.3 fL 6.0-11.5 H (test code = 754) NUCLEATED RED BLOOD CELLS (BEAKER) 0 /100 WBC 0-0 (test code = 413) NEUTROPHILS RELATIVE PERCENT 85 % (BEAKER) (test code = 429) LYMPHOCYTES RELATIVE PERCENT 8 % (BEAKER) (test code = 430) MONOCYTES RELATIVE PERCENT 2 % (BEAKER) (test code = 431) EOSINOPHILS RELATIVE PERCENT 0 % (BEAKER) (test code = 432) BASOPHILS RELATIVE PERCENT 0 % (BEAKER) (test code = 437) NEUTROPHILS ABSOLUTE COUNT 6.30 K/ L 1.80-8.00 (BEAKER) (test code = 670) LYMPHOCYTES ABSOLUTE COUNT 0.57 K/ L 1.48-4.50 L (BEAKER) (test code = 414) MONOCYTES ABSOLUTE COUNT (BEAKER) 0.14 K/ L 0.00-1.30 (test code = 415) EOSINOPHILS ABSOLUTE COUNT 0.02 K/ L 0.00-0.50 (BEAKER) (test code = 416) BASOPHILS ABSOLUTE COUNT (BEAKER) 0.01 K/ L 0.00-0.20 (test code = 417) IMMATURE GRANULOCYTES-RELATIVE 5 % 0-0 H PERCENT (BEAKER) (test code = 2801) (MANUAL DIFFERENTIAL)2020-02-17 05:32:00 Test Item Value Reference Range Interpretation Comments NEUTROPHILS - REL (DIFF) (BEAKER) 87 % (test code = 1359) LYMPHOCYTES - REL (DIFF) (BEAKER) 6 % (test code = 1360) MONOCYTES - REL (DIFF) (BEAKER) 1 % (test code = 1361) BANDS - REL (DIFF) (BEAKER) (test 6 % 0-10 code = 1348) NEUTROPHILS - ABS (DIFF) (BEAKER) 6.44 K/ L 1.80-8.00 (test code = 1365) LYMPHOCYTES - ABS (DIFF) (BEAKER) 0.44 K/ L 1.48-4.50 L (test code = 1366) MONOCYTES - ABS (DIFF) (BEAKER) 0.07 K/ L 0.00-1.30 (test code = 1367) BANDS-ABS (DIFF) (BEAKER) (test 0.4 K/ L 0.0-0.8 code = 1349) TOTAL COUNTED (BEAKER) (test code = 100 1351) BANDS + SEGMENTED NEUTROPHILS 6.88 (BEAKER) (test code = 1352) WBC MORPHOLOGY (BEAKER) (test code Normal = 487) LARGE PLT(BEAKER) (test code = Present 2156) ANISOCYTOSIS (BEAKER) (test code = 1+ few 961) HYPOCHROMIA (BEAKER) (test code = 1+ few 963) [id number] 05:12:00 Test Item Value Reference Range Interpretation Comments MAGNESIUM (BEAKER) (test code = 1.8 mg/dL 1.5-3.0 627) Animated Cartoons Painter ID - ADMINOperator ID - ADMINOperator ID - ADMINOperator ID - ADMIN COMPREHENSIVE METABOLIC [id number] 05:12:00 Test Item Value Reference Range Interpretation Comments TOTAL PROTEIN 4.2 gm/dL 6.0-8.5 L (BEAKER) (test code = 770) ALBUMIN (BEAKER) 2.4 g/dL 3.5-5.0 L (test code = 1145) ALKALINE PHOSPHATASE 400 U/L 30-115 H (BEAKER) (test code = 346) BILIRUBIN TOTAL 0.3 mg/dL 0.1-1.2 (BEAKER) (test code = 377) SODIUM (BEAKER) (test 143 meq/L 135-148 code = 381) POTASSIUM (BEAKER) 3.8 meq/L 3.6-5.5 (test code = 379) CHLORIDE (BEAKER) 110 meq/L 98-106 H (test code = 382) CO2 (BEAKER) (test 26 meq/L 20-29 code = 355) BLOOD UREA NITROGEN 42 mg/dL 10-26 H (BEAKER) (test code = 354) CREATININE (BEAKER) 1.69 mg/dL 0.50-1.20 H (test code = 358) GLUCOSE RANDOM 110 mg/dL 70-110 (BEAKER) (test code = 652) CALCIUM (BEAKER) 9.1 mg/dL 8.5-10.5 (test code = 697) AST (SGOT) (BEAKER) 47 U/L 5-40 H (test code = 353) ALT (SGPT) (BEAKER) 73 U/L 5-50 H (test code = 347) EGFR (BEAKER) (test 29 mL/min/1.73 ESTIMA KELY GFR IS code = 1092) sq m NOT ACCURATE CREATININE CLEARANCE IN PREDICTING GLOMERULAR FILTRATION RATE . ESTIMATED GFR I S NOT APPLICABLE FOR DIALYSIS PATIEN TS. Animated Cartoons Painter ID - ADMINOperator ID - ADMINOperator ID - ADMINOperator ID - ADMINOperator ID - ADMINOperator ID - ADMINOperator ID - ADMINOperator ID - ADMINOperator ID - ADMINOperator ID - ADMINOperator ID- ADMINOperator ID - ADMINOperator ID - ADMINOperator ID - ADMINOperator ID - ADMINOperator ID - ADMI NU/S, DUPLEX, [id number] 15:08:00Reason for exam:->r/o RUQ thrombusShould this be performed at the bedside?->Yes [facility] 1935 Sex: FFINAL REPORT Abdominal ultrasound dated 02/16/2020 Clinical information: Elevated LFTs Comment: Real-time transabdominal ultrasound was performed. Liver is normal in size and measures 13 cm in length. The echogenicity of the liver is normal. No focal lesion is noted inthe liver. Gallbladder is contracted. A 4 mm [...] abdomen. Abdominal aorta is normal in caliber. The IVC is patent. Real-time Color and Spectral doppler ultrasound of the abdomen was performed. Main portal vein measures 1.1 cm in diameter. There is hepatopedal flow in the main portal vein with velocity 20 cm/sec. Right and left portal veins are pat ent. Proper hepatic artery is patent with resistive index of 0.76. IVC, Hepatic venous confluence, right HV, middle HV and left HV are patent. Impression: 1. Cholelithiasis without biliary dilatation.2. Patent hepatic artery and portal vein.3. Right renal cyst. Signed: Johanna Pereyra MDReport Verified Date/Time: 02/16/2020 15:08:47 Reading Location: [facility] C013Y CT Body Reading Room U/S, ABDOMINAL, [id number] 15:08:00Abdomen limited area? Add comment if clarification is needed.->Right upper quadrantwith dopplerReason for exam:- >Elevated LFTsShould this be performed at the bedside?->Yes [facility] 1935 Sex: FFINAL REPORT Abdominal ultrasound dated 02/16/2020 Clinical information: Elevated LFTs Comment: Real-time transabdominal ultrasound was performed. Liver is normal in size and measures 13 cm in length. The echogenicity of the liver is normal. No focal lesion is noted inthe liver. Gallbladder is contracted. A 4 mm [...] abdomen. Abdominal aorta is normal in caliber. The IVC is patent. Real-time Color and Spectral doppler ultrasound of the abdomen was performed. Main portal vein measures 1.1 cm in diameter. There is hepatopedal flow in the main portal vein with velocity 20 cm/sec. Right and left portal veins are pat ent. Proper hepatic artery is patent with resistive index of 0.76. IVC, Hepatic venous confluence, right HV, middle HV and left HV are patent. Impression: 1. Cholelithiasis without biliary dilatation.2. Patent hepatic artery and portal vein.3. Right renal cyst. Signed: Johanna Pereyra MDReport Verified Date/Time: 02/16/2020 15:08:47 Reading Location: [facility] [address] C[address] Body Reading Room COMPLEMENT COMPONENT [id number] 12:12:00 Test Item Value Reference Range Interpretation Comments C4 COMPLEMENT (BEAKER) (test code = 17 mg/dL 15-57 394) Animated Cartoons Painter ID - EDASICOMPLEMENT COMPONENT [id number] 12:12:00 Test Item Value Reference Range Interpretation Comments C3 COMPLEMENT (BEAKER) (test code = 71 mg/dL 82-193 L 393) Animated Cartoons Painter ID - EDASICOMPLEMENT COMPONENT [id number] 12:12:00 Test Item Value Reference Range Interpretation Comments C4 COMPLEMENT (BEAKER) (test code = 17 mg/dL 15-57 394) Animated Cartoons Painter ID - EDASICOMPLEMENT COMPONENT [id number] 12:12:00 Test Item Value Reference Range Interpretation Comments C3 COMPLEMENT (BEAKER) (test code = 70 mg/dL 82-193 L 393) Animated Cartoons Painter ID - EDASICBC W/PLT COUNT & AUTO [id number] 06:39:00 Test Item Value Reference Range Interpretation Comments WHITE BLOOD CELL COUNT (BEAKER) 6.6 K/ L 4.0-10.0 (test code = 775) RED BLOOD CELL COUNT (BEAKER) 2.98 M/ L 4.00-5.00 L (test code = 761) HEMOGLOBIN (BEAKER) (test code = 8.5 GM/DL 12.0-15.5 L 410) HEMATOCRIT (BEAKER) (test code = 26.2 % 36.0-46.0 L 411) MEAN CORPUSCULAR VOLUME (BEAKER) 87.9 fL 82.0-99.0 (test code = 753) MEAN CORPUSCULAR HEMOGLOBIN 28.5 pg 27.0-33.0 (BEAKER) (test code = 751) MEAN CORPUSCULAR HEMOGLOBIN CONC 32.4 GM/DL 32.0-36.0 (BEAKER) (test code = 752) RED CELL DISTRIBUTION WIDTH 15.9 % 12.0-15.0 H (BEAKER) (test code = 412) PLATELET COUNT (BEAKER) (test code 55 K/CU MM 150-430 L = 756) MEAN PLATELET VOLUME (BEAKER) 11.0 fL 6.0-11.5 (test code = 754) NUCLEATED RED BLOOD CELLS (BEAKER) 0 /100 WBC 0-0 (test code = 413) NEUTROPHILS RELATIVE PERCENT 91 % (BEAKER) (test code = 429) LYMPHOCYTES RELATIVE PERCENT 6 % (BEAKER) (test code = 430) MONOCYTES RELATIVE PERCENT 2 % (BEAKER) (test code = 431) EOSINOPHILS RELATIVE PERCENT 0 % (BEAKER) (test code = 432) BASOPHILS RELATIVE PERCENT 0 % (BEAKER) (test code = 437) NEUTROPHILS ABSOLUTE COUNT 6.01 K/ L 1.80-8.00 (BEAKER) (test code = 670) LYMPHOCYTES ABSOLUTE COUNT 0.42 K/ L 1.48-4.50 L (BEAKER) (test code = 414) MONOCYTES ABSOLUTE COUNT (BEAKER) 0.16 K/ L 0.00-1.30 (test code = 415) EOSINOPHILS ABSOLUTE COUNT 0.01 K/ L 0.00-0.50 (BEAKER) (test code = 416) BASOPHILS ABSOLUTE COUNT (BEAKER) 0.00 K/ L 0.00-0.20 (test code = 417) IMMATURE GRANULOCYTES-RELATIVE 0 % 0-0 PERCENT (BEAKER) (test code = 2801) (MANUAL DIFFERENTIAL)2020-02-16 06:39:00 Test Item Value Reference Range Interpretation Comments NEUTROPHILS - REL (DIFF) (BEAKER) 75 % (test code = 1359) LYMPHOCYTES - REL (DIFF) (BEAKER) 10 % (test code = 1360) MONOCYTES - REL (DIFF) (BEAKER) 1 % (test code = 1361) BANDS - REL (DIFF) (BEAKER) (test 14 % 0-10 H code = 1348) NEUTROPHILS - ABS (DIFF) (BEAKER) 4.95 K/ L 1.80-8.00 (test code = 1365) LYMPHOCYTES - ABS (DIFF) (BEAKER) 0.66 K/ L 1.48-4.50 L (test code = 1366) MONOCYTES - ABS (DIFF) (BEAKER) 0.07 K/ L 0.00-1.30 (test code = 1367) BANDS-ABS (DIFF) (BEAKER) (test 0.9 K/ L 0.0-0.8 H code = 1349) TOTAL COUNTED (BEAKER) (test code = 100 1351) BANDS + SEGMENTED NEUTROPHILS 5.87 (BEAKER) (test code = 1352) WBC MORPHOLOGY (BEAKER) (test code Normal = 487) LARGE PLT(BEAKER) (test code = Present 2156) ANISOCYTOSIS (BEAKER) (test code = 1+ few 961) HYPOCHROMIA (BEAKER) (test code = 1+ few 963) COMPREHENSIVE METABOLIC [id number] 06:25:00 Test Item Value Reference Range Interpretation Comments TOTAL PROTEIN 4.4 gm/dL 6.0-8.5 L (BEAKER) (test code = 770) ALBUMIN (BEAKER) 2.6 g/dL 3.5-5.0 L (test code = 1145) ALKALINE PHOSPHATASE 520 U/L 30-115 H (BEAKER) (test code = 346) BILIRUBIN TOTAL 0.5 mg/dL 0.1-1.2 (BEAKER) (test code = 377) SODIUM (BEAKER) (test 144 meq/L 135-148 code = 381) POTASSIUM (BEAKER) 3.6 meq/L 3.6-5.5 (test code = 379) CHLORIDE (BEAKER) 109 meq/L 98-106 H (test code = 382) CO2 (BEAKER) (test 25 meq/L 20-29 code = 355) BLOOD UREA NITROGEN 41 mg/dL 10-26 H (BEAKER) (test code = 354) CREATININE (BEAKER) 1.76 mg/dL 0.50-1.20 H (test code = 358) GLUCOSE RANDOM 134 mg/dL 70-110 H (BEAKER) (test code = 652) CALCIUM (BEAKER) 9.2 mg/dL 8.5-10.5 (test code = 697) AST (SGOT) (BEAKER) 64 U/L 5-40 H (test code = 353) ALT (SGPT) (BEAKER) 102 U/L 5-50 H (test code = 347) EGFR (BEAKER) (test 28 mL/min/1.73 ESTIMA KELY GFR IS code = 1092) sq m NOT ACCURATE CREATININE CLEARANCE IN PREDICTING GLOMERULAR FILTRATION RATE . ESTIMATED GFR I S NOT APPLICABLE FOR DIALYSIS PATIEN TS. Animated Cartoons Painter ID - ADMINOperator ID - ADMINOperator ID - ADMINOperator ID - ADMINOperator ID - ADMINOperator ID - ADMINOperator ID - ADMINOperator ID - ADMINOperator ID - ADMINOperator ID - ADMINOperator ID- ADMINOperator ID - ADMINOperator ID - ADMINOperator ID - ADMINOperator ID - ADMINOperator ID - ADMI NOperator ID - ADMINOperator ID - ADMINOperator ID - [id number] 18:51:00 Test Item Value Reference Range Interpretation Comments MAGNESIUM (BEAKER) (test code = 2.1 mg/dL 1.5-3.0 627) Animated Cartoons Painter ID - ADMINOperator ID - ADMINOperator ID - ADMINOperator ID - ADMIN BASIC METABOLIC [id number] 18:50:00 Test Item Value Reference Range Interpretation Comments SODIUM (BEAKER) 142 meq/L 135-148 (test code = 381) POTASSIUM (BEAKER) 4.0 meq/L 3.6-5.5 (test code = 379) CHLORIDE (BEAKER) 107 meq/L 98-106 H (test code = 382) CO2 (BEAKER) (test 26 meq/L 20-29 code = 355) BLOOD UREA NITROGEN 38 mg/dL 10-26 H (BEAKER) (test code = 354) CREATININE (BEAKER) 1.85 mg/dL 0.50-1.20 H (test code = 358) GLUCOSE RANDOM 190 mg/dL 70-110 H (BEAKER) (test code = 652) CALCIUM (BEAKER) 9.0 mg/dL 8.5-10.5 (test code = 697) EGFR (BEAKER) (test 26 mL/min/1.73 ESTIMA KELY GFR IS code = 1092) sq m NOT ACCURATE CREATININE CLEARANCE IN PREDICTING GLOMERULAR FILTRATION RATE . ESTIMATED GFR I S NOT APPLICABLE FOR DIALYSIS PATIEN TS. Animated Cartoons Painter ID - ADMINOperator ID - ADMINOperator ID - ADMINOperator ID - ADMINOperator ID - ADMINOperator ID - ADMINOperator ID - ADMINOperator ID - ADMINOperator ID - ADMINOperator ID - ADMINHEPATITIS B CORE ANTIBODY, TOTAL 2020-02-15 13:14:00 Test Item Value Reference Range Interpretation Comments HEPATITIS B CORE TOTAL ANTIBODY Nonreactive Nonreactive (BEAKER) (test code = 497) Animated Cartoons Painter ID - LULY FBLOOD [id number] 13:00:00 Test Item Value Reference Range Interpretation Comments CULTURE (BEAKER) (test No growth in 5 days code = 1095) BLOOD [id number] 10:00:00 Test Item Value Reference Range Interpretation Comments CULTURE (BEAKER) (test No growth in 5 days code = 1095) RAD, CHEST, 1 VIEW, NON [id number] 06:25:00Reason for exam:->R/O TBReason for exam:->For new outpatient dialysis setup.Should this be performed at the bedside?[facility] : 1935 Sex: FFINAL REPORT Chest one view. Clinical history: R/O TB. For new outpatient dialysis setup. Comparison: Chest radiograph 02/13/2020. Technique: A single frontal view of the chest was obtained. Findings: There is a right IJ central venous catheter with tip in the right atrium. There is an implantable cardiac loop recorder overlying the left lower hemithorax. The cardiac s ilhouette is mildly enlarged. The aorta is atherosclerotic. There are diffuse bilateral airspace opacities, increased compatible with worsening pulmonary edema. There are small bilateral pleural effusions. There is no pneumothorax. Signed: John Singleton MDR[facility]ort Verified Date/Time: 02/15/2020 06:25:57 REHENSIVE METABOLIC [id number] 05:05:00 Test Item Value Reference Range Interpretation Comments TOTAL PROTEIN 4.5 gm/dL 6.0-8.5 L (BEAKER) (test code = 770) ALBUMIN (BEAKER) 2.8 g/dL 3.5-5.0 L (test code = 1145) ALKALINE PHOSPHATASE 480 U/L 30-115 H (BEAKER) (test code = 346) BILIRUBIN TOTAL 0.5 mg/dL 0.1-1.2 (BEAKER) (test code = 377) SODIUM (BEAKER) (test 144 meq/L 135-148 code = 381) POTASSIUM (BEAKER) 3.5 meq/L 3.6-5.5 L (test code = 379) CHLORIDE (BEAKER) 107 meq/L 98-106 H (test code = 382) CO2 (BEAKER) (test 28 meq/L 20-29 code = 355) BLOOD UREA NITROGEN 29 mg/dL 10-26 H (BEAKER) (test code = 354) CREATININE (BEAKER) 1.56 mg/dL 0.50-1.20 H (test code = 358) GLUCOSE RANDOM 147 mg/dL 70-110 H (BEAKER) (test code = 652) CALCIUM (BEAKER) 8.7 mg/dL 8.5-10.5 (test code = 697) AST (SGOT) (BEAKER) 97 U/L 5-40 H (test code = 353) ALT (SGPT) (BEAKER) 85 U/L 5-50 H (test code = 347) EGFR (BEAKER) (test 32 mL/min/1.73 ESTIMA KELY GFR IS code = 1092) sq m NOT ACCURATE CREATININE CLEARANCE IN PREDICTING GLOMERULAR FILTRATION RATE . ESTIMATED GFR I S NOT APPLICABLE FOR DIALYSIS PATIEN TS. Animated Cartoons Painter ID - ADMINOperator ID - ADMINOperator ID - ADMINOperator ID - ADMINOperator ID - ADMINOperator ID - ADMINOperator ID - ADMINOperator ID - ADMINOperator ID - ADMINOperator ID - ADMINOperator ID- ADMINOperator ID - ADMINOperator ID - ADMINOperator ID - ADMINOperator ID - ADMINOperator ID - ADMI [id number] 04:39:00 Test Item Value Reference Range Interpretation Comments MAGNESIUM (BEAKER) (test code = 1.9 mg/dL 1.5-3.0 627) Animated Cartoons Painter ID - ADMINOperator ID - ADMINOperator ID - ADMINOperator ID - ADMIN [id number] 04:36:00 Test Item Value Reference Range Interpretation Comments PHOSPHORUS (BEAKER) (test code = 2.8 mg/dL 2.5-4.5 604) Animated Cartoons Painter ID - ADMINCBC W/PLT COUNT & AUTO [id number] 04:23:00 Test Item Value Reference Range Interpretation Comments WHITE BLOOD CELL COUNT (BEAKER) 10.7 K/ L 4.0-10.0 H (test code = 775) RED BLOOD CELL COUNT (BEAKER) 3.01 M/ L 4.00-5.00 L (test code = 761) HEMOGLOBIN (BEAKER) (test code = 8.7 GM/DL 12.0-15.5 L 410) HEMATOCRIT (BEAKER) (test code = 26.4 % 36.0-46.0 L 411) MEAN CORPUSCULAR VOLUME (BEAKER) 87.7 fL 82.0-99.0 (test code = 753) MEAN CORPUSCULAR HEMOGLOBIN 28.9 pg 27.0-33.0 (BEAKER) (test code = 751) MEAN CORPUSCULAR HEMOGLOBIN CONC 33.0 GM/DL 32.0-36.0 (BEAKER) (test code = 752) RED CELL DISTRIBUTION WIDTH 16.0 % 12.0-15.0 H (BEAKER) (test code = 412) PLATELET COUNT (BEAKER) (test code 63 K/CU MM 150-430 L = 756) MEAN PLATELET VOLUME (BEAKER) 11.3 fL 6.0-11.5 (test code = 754) NUCLEATED RED BLOOD CELLS (BEAKER) 0 /100 WBC 0-0 (test code = 413) NEUTROPHILS RELATIVE PERCENT 90 % (BEAKER) (test code = 429) LYMPHOCYTES RELATIVE PERCENT 3 % (BEAKER) (test code = 430) MONOCYTES RELATIVE PERCENT 3 % (BEAKER) (test code = 431) EOSINOPHILS RELATIVE PERCENT 0 % (BEAKER) (test code = 432) BASOPHILS RELATIVE PERCENT 0 % (BEAKER) (test code = 437) NEUTROPHILS ABSOLUTE COUNT 9.62 K/ L 1.80-8.00 H (BEAKER) (test code = 670) LYMPHOCYTES ABSOLUTE COUNT 0.34 K/ L 1.48-4.50 L (BEAKER) (test code = 414) MONOCYTES ABSOLUTE COUNT (BEAKER) 0.32 K/ L 0.00-1.30 (test code = 415) EOSINOPHILS ABSOLUTE COUNT 0.00 K/ L 0.00-0.50 (BEAKER) (test code = 416) BASOPHILS ABSOLUTE COUNT (BEAKER) 0.01 K/ L 0.00-0.20 (test code = 417) IMMATURE GRANULOCYTES-RELATIVE 4 % 0-0 H PERCENT (BEAKER) (test code = 2801) COMPLEMENT COMPONENT [id number] 02:43:00 Test Item Value Reference Range Interpretation Comments C4 COMPLEMENT (BEAKER) (test code = 14 mg/dL 15-57 L 394) Animated Cartoons Painter ID - ADMINCOMPLEMENT COMPONENT [id number] 02:43:00 Test Item Value Reference Range Interpretation Comments C3 COMPLEMENT (BEAKER) (test code = 64 mg/dL 82-193 L 393) Animated Cartoons Painter ID - ADMINCOMPREHENSIVE METABOLIC [id number] 06:05:00 Test Item Value Reference Range Interpretation Comments TOTAL PROTEIN 4.6 gm/dL 6.0-8.5 L (BEAKER) (test code = 770) ALBUMIN (BEAKER) 3.1 g/dL 3.5-5.0 L (test code = 1145) ALKALINE PHOSPHATASE 538 U/L 30-115 H (BEAKER) (test code = 346) BILIRUBIN TOTAL 0.6 mg/dL 0.1-1.2 (BEAKER) (test code = 377) SODIUM (BEAKER) (test 142 meq/L 135-148 code = 381) POTASSIUM (BEAKER) 3.4 meq/L 3.6-5.5 L (test code = 379) CHLORIDE (BEAKER) 104 meq/L 98-106 (test code = 382) CO2 (BEAKER) (test 27 meq/L 20-29 code = 355) BLOOD UREA NITROGEN 38 mg/dL 10-26 H (BEAKER) (test code = 354) CREATININE (BEAKER) 2.28 mg/dL 0.50-1.20 H (test code = 358) GLUCOSE RANDOM 213 mg/dL 70-110 H (BEAKER) (test code = 652) CALCIUM (BEAKER) 8.9 mg/dL 8.5-10.5 (test code = 697) AST (SGOT) (BEAKER) 55 U/L 5-40 H (test code = 353) ALT (SGPT) (BEAKER) 46 U/L 5-50 (test code = 347) EGFR (BEAKER) (test 20 mL/min/1.73 ESTIMA KELY GFR IS code = 1092) sq m NOT ACCURATE CREATININE CLEARANCE IN PREDICTING GLOMERULAR FILTRATION RATE . ESTIMATED GFR I S NOT APPLICABLE FOR DIALYSIS PATIEN TS. Animated Cartoons Painter ID - ADMINOperator ID - ADMINOperator ID - ADMINOperator ID - ADMINOperator ID - ADMINOperator ID - ADMINOperator ID - ADMINOperator ID - ADMINOperator ID - ADMINOperator ID - ADMINOperator ID- ADMINOperator ID - ADMINOperator ID - ADMINOperator ID - ADMINOperator ID - ADMINOperator ID - ADMI [id number] 06:01:00 Test Item Value Reference Range Interpretation Comments MAGNESIUM (BEAKER) (test code = 2.2 mg/dL 1.5-3.0 627) Animated Cartoons Painter ID - ADMINOperator ID - ADMINOperator ID - ADMINOperator ID - ADMIN [id number] 05:59:00 Test Item Value Reference Range Interpretation Comments PHOSPHORUS (BEAKER) (test code = 3.7 mg/dL 2.5-4.5 604) Animated Cartoons Painter ID - ADMINCBC W/PLT COUNT & AUTO [id number] 05:45:00 Test Item Value Reference Range Interpretation Comments WHITE BLOOD CELL COUNT (BEAKER) 13.4 K/ L 4.0-10.0 H (test code = 775) RED BLOOD CELL COUNT (BEAKER) 2.64 M/ L 4.00-5.00 L (test code = 761) HEMOGLOBIN (BEAKER) (test code = 7.6 GM/DL 12.0-15.5 L 410) HEMATOCRIT (BEAKER) (test code = 23.1 % 36.0-46.0 L 411) MEAN CORPUSCULAR VOLUME (BEAKER) 87.5 fL 82.0-99.0 (test code = 753) MEAN CORPUSCULAR HEMOGLOBIN 28.8 pg 27.0-33.0 (BEAKER) (test code = 751) MEAN CORPUSCULAR HEMOGLOBIN CONC 32.9 GM/DL 32.0-36.0 (BEAKER) (test code = 752) RED CELL DISTRIBUTION WIDTH 16.1 % 12.0-15.0 H (BEAKER) (test code = 412) PLATELET COUNT (BEAKER) (test code 77 K/CU MM 150-430 L = 756) MEAN PLATELET VOLUME (BEAKER) 10.6 fL 6.0-11.5 (test code = 754) NUCLEATED RED BLOOD CELLS (BEAKER) 0 /100 WBC 0-0 (test code = 413) NEUTROPHILS RELATIVE PERCENT 94 % (BEAKER) (test code = 429) LYMPHOCYTES RELATIVE PERCENT 2 % (BEAKER) (test code = 430) MONOCYTES RELATIVE PERCENT 3 % (BEAKER) (test code = 431) EOSINOPHILS RELATIVE PERCENT 0 % (BEAKER) (test code = 432) BASOPHILS RELATIVE PERCENT 0 % (BEAKER) (test code = 437) NEUTROPHILS ABSOLUTE COUNT 12.66 K/ L 1.80-8.00 H (BEAKER) (test code = 670) LYMPHOCYTES ABSOLUTE COUNT 0.30 K/ L 1.48-4.50 L (BEAKER) (test code = 414) MONOCYTES ABSOLUTE COUNT (BEAKER) 0.33 K/ L 0.00-1.30 (test code = 415) EOSINOPHILS ABSOLUTE COUNT 0.00 K/ L 0.00-0.50 (BEAKER) (test code = 416) BASOPHILS ABSOLUTE COUNT (BEAKER) 0.02 K/ L 0.00-0.20 (test code = 417) IMMATURE GRANULOCYTES-RELATIVE 1 % 0-0 H PERCENT (BEAKER) (test code = 2801) HEPATITIS C [id number] 18:07:00 Test Item Value Reference Range Interpretation Comments HEPATITIS C ANTIBODY (BEAKER) Nonreactive Nonreactive (test code = 367) Animated Cartoons Painter ID - DBRAD, CHEST, 1 VIEW, NON [id number] 11:31:00Reason for exam:- >possible pneumoniaShould this be performed at the bedside?->Yes [facility] 1935 Sex: FFINAL REPORT CHEST AP PORTABLE History provided: Possible pneumonia COMPARISON STUDY: 02/10/2020 Marked worsening in the appearance of the chest with pulmonary edema pattern bilaterally. Small pleural effusions. Heart size within normal limits allowing for technique. Rightjugular temporary dialysis catheter tip overlies the right atrium. Signed: [facility] Verified Date/Time: 02/13/2020 11:31:18 Reading Location: [facility] Radiology Reading Room DOUBLE-STRANDED DNA (DSDNA) [id number] 10:57:00 Test Item Value Reference Range Interpretation Comments ANTI-DNA DS (BEAKER) (test code = Negative Negative 1055) BASIC METABOLIC [id number] 03:40:00 Test Item Value Reference Range Interpretation Comments SODIUM (BEAKER) 141 meq/L 135-148 (test code = 381) POTASSIUM (BEAKER) 3.4 meq/L 3.6-5.5 L (test code = 379) CHLORIDE (BEAKER) 101 meq/L 98-106 (test code = 382) CO2 (BEAKER) (test 25 meq/L 20-29 code = 355) BLOOD UREA NITROGEN 24 mg/dL 10-26 (BEAKER) (test code = 354) CREATININE (BEAKER) 1.87 mg/dL 0.50-1.20 H (test code = 358) GLUCOSE RANDOM 165 mg/dL 70-110 H (BEAKER) (test code = 652) CALCIUM (BEAKER) 8.9 mg/dL 8.5-10.5 (test code = 697) EGFR (BEAKER) (test 26 mL/min/1.73 ESTIMA KELY GFR IS code = 1092) sq m NOT ACCURATE CREATININE CLEARANCE IN PREDICTING GLOMERULAR FILTRATION RATE . ESTIMATED GFR I S NOT APPLICABLE FOR DIALYSIS PATIEN TS. Animated Cartoons Painter ID - ADMINOperator ID - ADMINOperator ID - ADMINOperator ID - ADMINOperator ID - ADMINOperator ID - ADMINOperator ID - ADMINOperator ID - ADMINOperator ID - ADMINOperator ID - [id number] 03:40:00 Test Item Value Reference Range Interpretation Comments MAGNESIUM (BEAKER) (test code = 1.8 mg/dL 1.5-3.0 627) Animated Cartoons Painter ID - [id number] 03:37:00 Test Item Value Reference Range Interpretation Comments PHOSPHORUS (BEAKER) (test code = 3.4 mg/dL 2.5-4.5 604) Animated Cartoons Painter ID - [id number] 03:32:00 Test Item Value Reference Range Interpretation Comments ALBUMIN (BEAKER) (test code = 1145) 3.7 g/dL 3.5-5.0 Animated Cartoons Painter ID - ADMINOperator ID - ADMINOperator ID - ADMINOperator ID - ADMINCBC W/PLT COUNT & AUTO [id number] 03:25:00 Test Item Value Reference Range Interpretation Comments WHITE BLOOD CELL COUNT (BEAKER) 14.1 K/ L 4.0-10.0 H (test code = 775) RED BLOOD CELL COUNT (BEAKER) 2.64 M/ L 4.00-5.00 L (test code = 761) HEMOGLOBIN (BEAKER) (test code = 7.7 GM/DL 12.0-15.5 L 410) HEMATOCRIT (BEAKER) (test code = 22.8 % 36.0-46.0 L 411) MEAN CORPUSCULAR VOLUME (BEAKER) 86.4 fL 82.0-99.0 (test code = 753) MEAN CORPUSCULAR HEMOGLOBIN 29.2 pg 27.0-33.0 (BEAKER) (test code = 751) MEAN CORPUSCULAR HEMOGLOBIN CONC 33.8 GM/DL 32.0-36.0 (BEAKER) (test code = 752) RED CELL DISTRIBUTION WIDTH 15.8 % 12.0-15.0 H (BEAKER) (test code = 412) PLATELET COUNT (BEAKER) (test code 87 K/CU MM 150-430 L = 756) MEAN PLATELET VOLUME (BEAKER) 10.8 fL 6.0-11.5 (test code = 754) NUCLEATED RED BLOOD CELLS (BEAKER) 0 /100 WBC 0-0 (test code = 413) NEUTROPHILS RELATIVE PERCENT 92 % (BEAKER) (test code = 429) LYMPHOCYTES RELATIVE PERCENT 3 % (BEAKER) (test code = 430) MONOCYTES RELATIVE PERCENT 4 % (BEAKER) (test code = 431) EOSINOPHILS RELATIVE PERCENT 0 % (BEAKER) (test code = 432) BASOPHILS RELATIVE PERCENT 0 % (BEAKER) (test code = 437) NEUTROPHILS ABSOLUTE COUNT 12.94 K/ L 1.80-8.00 H (BEAKER) (test code = 670) LYMPHOCYTES ABSOLUTE COUNT 0.42 K/ L 1.48-4.50 L (BEAKER) (test code = 414) MONOCYTES ABSOLUTE COUNT (BEAKER) 0.58 K/ L 0.00-1.30 (test code = 415) EOSINOPHILS ABSOLUTE COUNT 0.00 K/ L 0.00-0.50 (BEAKER) (test code = 416) BASOPHILS ABSOLUTE COUNT (BEAKER) 0.02 K/ L 0.00-0.20 (test code = 417) IMMATURE GRANULOCYTES-RELATIVE 1 % 0-0 H PERCENT (BEAKER) (test code = 2801) [id number] 05:24:00 Test Item Value Reference Range Interpretation Comments MAGNESIUM (BEAKER) (test code = 1.9 mg/dL 1.5-3.0 627) Animated Cartoons Painter ID - ADMINBASIC METABOLIC [id number] 05:22:00 Test Item Value Reference Range Interpretation Comments SODIUM (BEAKER) 137 meq/L 135-148 (test code = 381) POTASSIUM (BEAKER) 3.8 meq/L 3.6-5.5 (test code = 379) CHLORIDE (BEAKER) 100 meq/L 98-106 (test code = 382) CO2 (BEAKER) (test 24 meq/L 20-29 code = 355) BLOOD UREA NITROGEN 43 mg/dL 10-26 H (BEAKER) (test code = 354) CREATININE (BEAKER) 2.77 mg/dL 0.50-1.20 H (test code = 358) GLUCOSE RANDOM 134 mg/dL 70-110 H (BEAKER) (test code = 652) CALCIUM (BEAKER) 8.5 mg/dL 8.5-10.5 (test code = 697) EGFR (BEAKER) (test 16 mL/min/1.73 ESTIMA KELY GFR IS code = 1092) sq m NOT ACCURATE CREATININE CLEARANCE IN PREDICTING GLOMERULAR FILTRATION RATE . ESTIMATED GFR I S NOT APPLICABLE FOR DIALYSIS PATIEN TS. Animated Cartoons Painter ID - ADMINOperator ID - ADMINOperator ID - ADMINOperator ID - ADMINOperator ID - ADMINOperator ID - ADMINOperator ID - ADMINOperator ID - ADMINOperator ID - ADMINOperator ID - [id number] 05:21:00 Test Item Value Reference Range Interpretation Comments PHOSPHORUS (BEAKER) (test code = 4.8 mg/dL 2.5-4.5 H 604) Animated Cartoons Painter ID - [id number] 05:15:00 Test Item Value Reference Range Interpretation Comments ALBUMIN (BEAKER) (test code = 1145) 3.1 g/dL 3.5-5.0 L Animated Cartoons Painter ID - ADMINOperator ID - ADMINOperator ID - ADMINOperator ID - ADMINCBC W/PLT COUNT & AUTO [id number] 05:09:00 Test Item Value Reference Range Interpretation Comments WHITE BLOOD CELL COUNT (BEAKER) 6.6 K/ L 4.0-10.0 (test code = 775) RED BLOOD CELL COUNT (BEAKER) 2.75 M/ L 4.00-5.00 L (test code = 761) HEMOGLOBIN (BEAKER) (test code = 8.0 GM/DL 12.0-15.5 L 410) HEMATOCRIT (BEAKER) (test code = 23.2 % 36.0-46.0 L 411) MEAN CORPUSCULAR VOLUME (BEAKER) 84.4 fL 82.0-99.0 (test code = 753) MEAN CORPUSCULAR HEMOGLOBIN 29.1 pg 27.0-33.0 (BEAKER) (test code = 751) MEAN CORPUSCULAR HEMOGLOBIN CONC 34.5 GM/DL 32.0-36.0 (BEAKER) (test code = 752) RED CELL DISTRIBUTION WIDTH 15.8 % 12.0-15.0 H (BEAKER) (test code = 412) PLATELET COUNT (BEAKER) (test code 51 K/CU MM 150-430 L = 756) MEAN PLATELET VOLUME (BEAKER) 12.0 fL 6.0-11.5 H (test code = 754) NUCLEATED RED BLOOD CELLS (BEAKER) 0 /100 WBC 0-0 (test code = 413) NEUTROPHILS RELATIVE PERCENT 92 % (BEAKER) (test code = 429) LYMPHOCYTES RELATIVE PERCENT 5 % (BEAKER) (test code = 430) MONOCYTES RELATIVE PERCENT 2 % (BEAKER) (test code = 431) EOSINOPHILS RELATIVE PERCENT 0 % (BEAKER) (test code = 432) BASOPHILS RELATIVE PERCENT 0 % (BEAKER) (test code = 437) NEUTROPHILS ABSOLUTE COUNT 6.11 K/ L 1.80-8.00 (BEAKER) (test code = 670) LYMPHOCYTES ABSOLUTE COUNT 0.31 K/ L 1.48-4.50 L (BEAKER) (test code = 414) MONOCYTES ABSOLUTE COUNT (BEAKER) 0.13 K/ L 0.00-1.30 (test code = 415) EOSINOPHILS ABSOLUTE COUNT 0.00 K/ L 0.00-0.50 (BEAKER) (test code = 416) BASOPHILS ABSOLUTE COUNT (BEAKER) 0.00 K/ L 0.00-0.20 (test code = 417) IMMATURE GRANULOCYTES-RELATIVE 1 % 0-0 H PERCENT (BEAKER) (test code = 2801) POCT-GLUCOSE [id number] 16:51:00 Test Item Value Reference Range Interpretation Comments POC-GLUCOSE METER 123 mg/dL 70-110 H : Notified RN/MD: TESTED (BEAKER) (test code AT [address] = 1538) [facility] [address]: Animated Cartoons Painter/Techni ty ID = [id number] for Yfn h, Lorita COMPLEMENT COMPONENT [id number] 16:46:00 Test Item Value Reference Range Interpretation Comments C4 COMPLEMENT (BEAKER) (test code = 6 mg/dL 15-57 L 394) Animated Cartoons Painter ID - BSCOMPLEMENT COMPONENT [id number] 16:46:00 Test Item Value Reference Range Interpretation Comments C3 COMPLEMENT (BEAKER) (test code = 39 mg/dL 82-193 L 393) Animated Cartoons Painter ID - BSCBC (HEMOGRAM ONLY)[id number] 16:28:00 Test Item Value Reference Range Interpretation Comments WHITE BLOOD CELL COUNT (BEAKER) 12.4 K/ L 4.0-10.0 H (test code = 775) RED BLOOD CELL COUNT (BEAKER) 3.07 M/ L 4.00-5.00 L (test code = 761) HEMOGLOBIN (BEAKER) (test code = 8.9 GM/DL 12.0-15.5 L 410) HEMATOCRIT (BEAKER) (test code = 25.6 % 36.0-46.0 L 411) MEAN CORPUSCULAR VOLUME (BEAKER) 83.4 fL 82.0-99.0 (test code = 753) MEAN CORPUSCULAR HEMOGLOBIN 29.0 pg 27.0-33.0 (BEAKER) (test code = 751) MEAN CORPUSCULAR HEMOGLOBIN CONC 34.8 GM/DL 32.0-36.0 (BEAKER) (test code = 752) RED CELL DISTRIBUTION WIDTH 15.9 % 12.0-15.0 H (BEAKER) (test code = 412) PLATELET COUNT (BEAKER) (test code 63 K/CU MM 150-430 L = 756) MEAN PLATELET VOLUME (BEAKER) 11.0 fL 6.0-11.5 (test code = 754) NUCLEATED RED BLOOD CELLS (BEAKER) 0 /100 WBC 0-0 (test code = 413) POCT-GLUCOSE [id number] 12:27:00 Test Item Value Reference Range Interpretation Comments POC-GLUCOSE METER 98 mg/dL 70-110 : Notified RN/MD: TESTED (BEAKER) (test code = AT SLS L [address] [facility] [place] 1538) [facility] [address]: Animated Cartoons Painter/Techni ty ID = [id number] for Yfn Dinah maurer COMPLEMENT COMPONENT [id number] 10:52:00 Test Item Value Reference Range Interpretation Comments C4 COMPLEMENT (BEAKER) (test code = 6 mg/dL 15-57 L 394) Animated Cartoons Painter ID - LULY FCOMPLEMENT COMPONENT [id number] 10:52:00 Test Item Value Reference Range Interpretation Comments C3 COMPLEMENT (BEAKER) (test code = 41 mg/dL 82-193 L 393) Animated Cartoons Painter ID - LULY FHEPATITIS B SURFACE [id number] 10:40:00 Test Item Value Reference Range Interpretation Comments HEPATITIS B SURFACE ANTIBODY < mIU/mL <8.0 (BEAKER) (test code = 647) Animated Cartoons Painter ID - LULY WILIANANTONY [id number] 10:37:00 Test Item Value Reference Range Interpretation Comments TROPONIN I (BEAKER) (test code = 0.55 ng/mL 0.00-0.15 HH 397) Troponin I (TnI) levels must be interpreted in the context of the presenting symptoms and the clinical findings. Elevated TnI levels indicate myocardial damage, but are not specific for ischemic heart disease. Elevated TnI levels are seen in patients with other cardiac conditions (including myocarditis and congestive heart failure), and slight TnI elevations occur in patients with other conditions, including sepsis, renal failure, acidosis, acute neurological disease, and persistent tachyarrhythmia.Animated Cartoons Painter ID - ADMINHEMOGLOBIN AND [id number] 09:30:00 Test Item Value Reference Range Interpretation Comments HEMOGLOBIN (BEAKER) (test code = 6.2 GM/DL 12.0-15.5 L 410) HEMATOCRIT (BEAKER) (test code = 17.7 % 36.0-46.0 LL 411) POCT-GLUCOSE [id number] 08:54:00 Test Item Value Reference Range Interpretation Comments POC-GLUCOSE METER 106 mg/dL 70-110 : TESTED A T SLSL 1317 (BEAKER) (test code [address], = 1538) [facility] 77 478: Animated Cartoons Painter/Techni ty ID = [id number] for [facility] HEMOGLOBIN AND [id number] 08:42:00 Test Item Value Reference Range Interpretation Comments HEMOGLOBIN (BEAKER) 6.2 GM/DL 12.0-15.5 L Ordered in wrong (test code = 410) facilityTh is is a corrected resul t. Previous result was 6.2 GM/DL on 2019 at 0836 STOCK SUPER[employer]OR HEMATOCRIT (BEAKER) 17.7 % 36.0-46.0 LL Ordered in wrong (test code = 411) facilityTh is is a corrected resul t. Previous result was 17.7 % on 02/10 at 0836 STOCK SUPERVISOR TROPONIN [id number] 06:18:00 Test Item Value Reference Range Interpretation Comments TROPONIN I (BEAKER) (test code = 0.33 ng/mL 0.00-0.15 HH 397) Troponin I (TnI) levels must be interpreted in the context of the presenting symptoms and the clinical findings. Elevated TnI levels indicate myocardial damage, but are not specific for ischemic heart disease. Elevated TnI levels are seen in patients with other cardiac conditions (including myocarditis and congestive heart failure), and slight TnI elevations occur in patients with other conditions, including sepsis, renal failure, acidosis, acute neurological disease, and persistent tachyarrhythmia.Animated Cartoons Painter ID - ADMINBASIC METABOLIC PANEL 2020-02-11 06:14:00 Test Item Value Reference Range Interpretation Comments SODIUM (BEAKER) 134 meq/L 135-148 L (test code = 381) POTASSIUM (BEAKER) 4.2 meq/L 3.6-5.5 (test code = 379) CHLORIDE (BEAKER) 100 meq/L 98-106 (test code = 382) CO2 (BEAKER) (test 22 meq/L 20-29 code = 355) BLOOD UREA NITROGEN 76 mg/dL 10-26 H (BEAKER) (test code = 354) CREATININE (BEAKER) 3.97 mg/dL 0.50-1.20 H (test code = 358) GLUCOSE RANDOM 85 mg/dL 70-110 (BEAKER) (test code = 652) CALCIUM (BEAKER) 8.1 mg/dL 8.5-10.5 L (test code = 697) EGFR (BEAKER) (test 11 mL/min/1.73 ESTIMA KELY GFR IS code = 1092) sq m NOT ACCURATE CREATININE CLEARANCE IN PREDICTING GLOMERULAR FILTRATION RATE . ESTIMATED GFR I S NOT APPLICABLE FOR DIALYSIS PATIEN TS. Animated Cartoons Painter ID - ADMINAdd onOperator ID - ADMINAdd onOperator ID - ADMINAdd onOperator ID - ADMINAdd onOperator ID - ADMINAdd onOperator ID - ADMINAdd onOperator ID - ADMINAdd onOperator ID - ADMINAdd onOperator ID - ADMINAdd onOperator ID - ADMINAdd [id number] 06:10:00 Test Item Value Reference Range Interpretation Comments MAGNESIUM (BEAKER) (test code = 1.8 mg/dL 1.5-3.0 627) Animated Cartoons Painter ID - ADMINAdd onOperator ID - ADMINAdd onOperator ID - ADMINAdd onOperator ID - ADMINAdd [id number] 06:07:00 Test Item Value Reference Range Interpretation Comments PHOSPHORUS (BEAKER) (test code = 4.5 mg/dL 2.5-4.5 604) Animated Cartoons Painter ID - ADMINAdd onCBC W/PLT COUNT & AUTO [id number] 06:07:00 Test Item Value Reference Range Interpretation Comments WHITE BLOOD CELL COUNT (BEAKER) 13.1 K/ L 4.0-10.0 H (test code = 775) RED BLOOD CELL COUNT (BEAKER) 2.29 M/ L 4.00-5.00 L (test code = 761) HEMOGLOBIN (BEAKER) (test code = 6.6 GM/DL 12.0-15.5 L 410) HEMATOCRIT (BEAKER) (test code = 19.2 % 36.0-46.0 LL 411) MEAN CORPUSCULAR VOLUME (BEAKER) 83.8 fL 82.0-99.0 (test code = 753) MEAN CORPUSCULAR HEMOGLOBIN 28.8 pg 27.0-33.0 (BEAKER) (test code = 751) MEAN CORPUSCULAR HEMOGLOBIN CONC 34.4 GM/DL 32.0-36.0 (BEAKER) (test code = 752) RED CELL DISTRIBUTION WIDTH 16.4 % 12.0-15.0 H (BEAKER) (test code = 412) PLATELET COUNT (BEAKER) (test code 73 K/CU MM 150-430 L = 756) MEAN PLATELET VOLUME (BEAKER) 11.7 fL 6.0-11.5 H (test code = 754) NUCLEATED RED BLOOD CELLS (BEAKER) 0 /100 WBC 0-0 (test code = 413) NEUTROPHILS RELATIVE PERCENT 82 % (BEAKER) (test code = 429) LYMPHOCYTES RELATIVE PERCENT 9 % (BEAKER) (test code = 430) MONOCYTES RELATIVE PERCENT 7 % (BEAKER) (test code = 431) EOSINOPHILS RELATIVE PERCENT 0 % (BEAKER) (test code = 432) BASOPHILS RELATIVE PERCENT 0 % (BEAKER) (test code = 437) NEUTROPHILS ABSOLUTE COUNT 10.75 K/ L 1.80-8.00 H (BEAKER) (test code = 670) LYMPHOCYTES ABSOLUTE COUNT 1.17 K/ L 1.48-4.50 L (BEAKER) (test code = 414) MONOCYTES ABSOLUTE COUNT (BEAKER) 0.97 K/ L 0.00-1.30 (test code = 415) EOSINOPHILS ABSOLUTE COUNT 0.04 K/ L 0.00-0.50 (BEAKER) (test code = 416) BASOPHILS ABSOLUTE COUNT (BEAKER) 0.01 K/ L 0.00-0.20 (test code = 417) IMMATURE GRANULOCYTES-RELATIVE 1 % 0-0 H PERCENT (BEAKER) (test code = 2801) BASIC METABOLIC [id number] 05:45:00 Test Item Value Reference Range Interpretation Comments SODIUM (BEAKER) 134 meq/L 135-148 L (test code = 381) POTASSIUM (BEAKER) 4.3 meq/L 3.6-5.5 (test code = 379) CHLORIDE (BEAKER) 99 meq/L 98-106 (test code = 382) CO2 (BEAKER) (test 22 meq/L 20-29 code = 355) BLOOD UREA NITROGEN 75 mg/dL 10-26 H (BEAKER) (test code = 354) CREATININE (BEAKER) 4.20 mg/dL 0.50-1.20 H (test code = 358) GLUCOSE RANDOM 85 mg/dL 70-110 (BEAKER) (test code = 652) CALCIUM (BEAKER) 8.3 mg/dL 8.5-10.5 L (test code = 697) EGFR (BEAKER) (test 10 mL/min/1.73 ESTIMA KELY GFR IS code = 1092) sq m NOT ACCURATE CREATININE CLEARANCE IN PREDICTING GLOMERULAR FILTRATION RATE . ESTIMATED GFR I S NOT APPLICABLE FOR DIALYSIS PATIEN TS. Animated Cartoons Painter ID - ADMINOperator ID - ADMINOperator ID - ADMINOperator ID - ADMINOperator ID - ADMINOperator ID - ADMINOperator ID - ADMINOperator ID - ADMINOperator ID - ADMINOperator ID - [id number] 05:44:00 Test Item Value Reference Range Interpretation Comments ALBUMIN (BEAKER) (test code = 1145) 2.6 g/dL 3.5-5.0 L Animated Cartoons Painter ID - ADMINOperator ID - ADMINOperator ID - ADMINOperator ID - ADMIN [id number] 05:38:00 Test Item Value Reference Range Interpretation Comments MAGNESIUM (BEAKER) (test code = 1.9 mg/dL 1.5-3.0 627) Animated Cartoons Painter ID - [id number] 05:35:00 Test Item Value Reference Range Interpretation Comments JIM RIVERA) (test code = 4.7 mg/dL 2.5-4.5 H 604) Animated Cartoons Painter ID - ADMINSARS-COV2/RT-PCR ([facility])2020-02-10 21:32:00 Test Item Value Reference Range Interpretation Comments SARS-COV2/RT-PCR (test Negative Not Detected, Negative, code = 9112726) See external report for linked test SARS-COV-2 PERFORMING LAB [facility] (test code = 4982340) COMMENT:Negative result for this test determines that SARS-CoV-2 RNA was not present in the specimenabove the Limit of Detection (LOD). However, Negative [...] be considered in cases of suspected false negatives.The limit of detection for this assay is 100 copies/mL.This SARS CoV-2 test is a real-time RT-PCR test intended for the qualitative detection of nucleic acid from SARS-CoV-2 in a nasopharyngeal swab specimen collected from individuals suspected of COVID-19 by their healthcare provider.This test has not been Food and Drug [...] is revoked under Section 564(g) of the Act.Testing was performed using the Aguirre SARS-CoV-2 assay.Fact Sheet for Healthcare Providers:https://www.[employer] patricia/bety/OP_FCXS-CiQ-0_HLY_Selq_Ufrvx_83-105923.pdfFact Sheet for Healthcare Patients:https://www.[facility].[place]/bety/EK_WJBR-LrW-1_Lalyydk_Jjko_Koboc_PX_91-443870Y7.pdfPerforming Laboratory:[facility] [place] [address] HEPATITIS B SURFACE [id number] 17:56:00 Test Item Value Reference Range Interpretation Comments HEPATITIS B SURFACE ANTIGEN (2) Nonreactive Nonreactive (REYNOLDAKER) (test code = 2585) Animated Cartoons Painter ID - ADMINANG, NON-TUNNELED CATH >5 Y.O. [id number] 17:33:00 Reason for exam:->Trialysis [facility] : 1935 Sex: FFINAL REPORT History: Renal failure, need for hemodialysis access Findings: Following informed written consent, the patient's right cervical region was prepped and drapedin the usual sterile manner and maximum sterile barrier techniques were utilized. 2% lidocaine was given locally for anesthesia. No conscious sedation was administered. Using ultrasound guidance and mark ropuncture set, access was gained to the right internal jugular vein. A J-wire was advanced through the micropuncture sheath and into the superior vena cava. The tract was dilated and a 15 cm trial Trialysis nontunneled catheter was placed over the wire and into position under fluoroscopic guidance. There were no immediate complications. Findings: Single sonographic image of the right internal jugular vein prior to catheter placement demonstrates a patent and compressible vein without evidence for thrombosis. This ultrasound image was obtained and archived on PACs. Spot radiograph of the chest following catheter placement demonstrates the right internal jugular nontunneled catheter to lie in expected position with its tip over the superior right atrium. No pneumothorax. Impression: 1. Successful uncomplicated placement of a right internal jugular nontunneled catheter. Fluoroscopy time: 0.1 minsEstimated dose reported as (Ka,r): 1 mGy Signed: Maximino Mcknighteport Verified Date/Time: 02/10/2020 17:33:36 Reading Location: [facility] Radiology Reading Room POCT-GLUCOSE METER 2020-02-10 16:52:00 Test Item Value Reference Range Interpretation Comments POC-GLUCOSE METER 107 mg/dL 70-110 : Notified RN/MD: TESTED ([facility]) (test code AT [address] = 1538) [facility] [address]: Animated Cartoons Painter/Techni ty ID = [id number] for Yfn h, Lorita POCT-GLUCOSE [id number] 11:53:00 Test Item Value Reference Range Interpretation Comments POC-GLUCOSE METER 134 mg/dL 70-110 H : Notified RN/MD: TESTED ([facility]) (test code AT [address] = 1538) [place] [address]: Animated Cartoons Painter/Techni ty ID = [id number] for Yfn h, Lorita U/S, RENAL, [id number] 09:53:00Reason for exam:->[facility] : 1935 Sex: FFINAL REPORT History: Acute kidney injury. FINDINGS: No comparisons are available. Real-time sonographic examination reveals normal size kidneys measuring up to 10.9 x 4.5x 4.6 and 10.0 x 4.2 x 4.9 cm in greatest dimensions on the right and left, respectively. Renal echogenicity is normal on the right and moderately and diffusely increased on the left. Renal cortical thickness measures 11 mm on the right and 22 mm on the left. There is a 2.3 x 1.9 x 2.2 cm anechoic thin-walled cystic lesion with enhanced or transmission present in the lower pole of the right kidney. There is also a similar size to 0.7 x 2.2 x 2.4 cm anechoic lesion in the midpole of the left kidney with enhanced or transmission, also likely a benign cyst. There are no visible solid masses, stones orevidence for obstruction. Urinary bladder contains a Flores catheter balloon and is decompressed but otherwise unremarkable. Incidentally noted is a moderate size left-sided pleural effusion. IMPRESSION: 1. Moderately and diffusely increased left renal echogenicity consistent with chronic disease. 2. No evidence for obstruction. 3. Approximately 2 cm benign-appearing cyst in the lower pole the right kidney and midpole of the left kidney, as described in detail above. 4. Moderate size left pleural effusion. Signed: Maximino Mcknight MDReport Verified Date/Time: 02/10/2020 09:53:28 Reading Location: [facility] Radiology Reading Room RAD, CHEST, 1 VIEW, NON [id number] 08:50:00Reason for exam:->sobCOMFORT [facility] : 1935 Sex: FFINAL REPORT RAD, CHEST, 1 VIEW, NON DEPT INDICATION: sob COMPARISON: Prior day's exam FINDINGS: Portable frontal view of the chest. IMPRESSION: Support Lines: None Lungs and pleura: Left effusion and adjacent atelectasis No pneumothorax.Heart and mediastinum: Stable contours. Stable surgical changes.Additional findings: None. Signed: Aretha Lassiter MDReport Verified Date/Time: 02/10/2020 08:50:05 Reading Location: [facility] Radiology Reading Room POCT-GLUCOSE [id number] 08:44:00 Test Item Value Reference Range Interpretation Comments POC-GLUCOSE METER 133 mg/dL 70-110 H : Notified RN/MD: TESTED (BEAKER) (test code AT [facility] [address] [place] [address] = 1538) MIGDALIATelly [facility] [address]: Animated Cartoons Painter/Techni ty ID = [id number] for Yfn Dinah maurer HEPATIC FUNCTION [id number] 08:30:00 Test Item Value Reference Range Interpretation Comments TOTAL PROTEIN (BEAKER) (test code = 4.2 gm/dL 6.0-8.5 L 770) ALBUMIN (BEAKER) (test code = 1145) 2.1 g/dL 3.5-5.0 L BILIRUBIN TOTAL (BEAKER) (test code 0.5 mg/dL 0.1-1.2 = 377) BILIRUBIN DIRECT (BEAKER) (test 0.3 mg/dL 0.0-0.4 code = 706) ALKALINE PHOSPHATASE (BEAKER) (test 182 U/L 30-115 H code = 346) AST (SGOT) (BEAKER) (test code = 37 U/L 5-40 353) ALT (SGPT) (BEAKER) (test code = 39 U/L 5-50 347) Animated Cartoons Painter ID - ADMINOperator ID - ADMINOperator ID - ADMINOperator ID - ADMINOperator ID - ADMINOperator ID - ADMINOperator ID - ADMINURINALYSIS W/ [id number] 07:55:00 Test Item Value Reference Range Interpretation Comments COLOR (BEAKER) (test code = Yellow 470) CLARITY (BEAKER) (test code = Slightly Cloudy 469) SPECIFIC GRAVITY UA (BEAKER) 1.020 1.001-1.035 (test code = 468) PH UA (BEAKER) (test code = 5.5 5.0-8.0 467) PROTEIN UA (BEAKER) (test >=300 mg/dL Negative A code = 464) GLUCOSE UA (BEAKER) (test 100 mg/dL Negative A code = 365) KETONES UA (BEAKER) (test Negative Negative code = 371) BILIRUBIN UA (BEAKER) (test Negative Negative code = 462) BLOOD UA (BEAKER) (test code Small Negative A = 461) NITRITE UA (BEAKER) (test Negative Negative code = 465) LEUKOCYTE ESTERASE UA Negative Negative (BEAKER) (test code = 466) UROBILINOGEN UA (BEAKER) 0.2 mg/dL 0.2-1.0 (test code = 463) BACTERIA (BEAKER) (test code Few = 517) RBC UA-MANUAL (BEAKER) (test <5 /HPF code = 1659) WBC UA-MANUAL (BEAKER) (test 50-100 /HPF code = 1661) GRANULAR CASTS MANUAL 5-10 /LPF (BEAKER) (test code = 1669) RENAL EPITHELIAL MANUAL 5-10 /HPF (BEAKER) (test code = 1662) SOURCE(BEAKER) (test code = 2795) B-TYPE NATRIURETIC FACTOR (BNP)2020-02-10 06:58:00 Test Item Value Reference Range Interpretation Comments B-TYPE NATRIURETIC PEPTIDE (BEAKER) 860 pg/mL 0-100 H (test code = 700) Animated Cartoons Painter ID - ADMINPROTHROMBIN TIME/[id number] 06:32:00 Test Item Value Reference Range Interpretation Comments PROTIME (BEAKER) 19.3 seconds 9.3-12.0 H Final Infor mation (test code = 759) (Auto Outp ut) INR (BEAKER) (test 1.83 <=5.90 Final Inf ormation code = 370) (Auto Output) RECOMMENDED COUMADIN/WARFARIN INR THERAPY RANGESSTANDARD DOSE: 2.0 - 3.0 Includes: PROPHYLAXIS forvenous thrombosis, systemic embolization; TREATMENT for venous thrombosis and/or pulmonary embolus.HIGH RISK: Target INR is 2.5-3.5 for patients with mechanical heart valves.BASIC METABOLIC [id number] 05:14:00 Test Item Value Reference Range Interpretation Comments SODIUM (BEAKER) 128 meq/L 135-148 L (test code = 381) POTASSIUM (BEAKER) 5.5 meq/L 3.6-5.5 (test code = 379) CHLORIDE (BEAKER) 98 meq/L 98-106 (test code = 382) CO2 (BEAKER) (test 17 meq/L 20-29 L code = 355) BLOOD UREA NITROGEN 127 mg/dL 10-26 H (BEAKER) (test code = 354) CREATININE (BEAKER) 6.56 mg/dL 0.50-1.20 H (test code = 358) GLUCOSE RANDOM 166 mg/dL 70-110 H (BEAKER) (test code = 652) CALCIUM (BEAKER) 9.2 mg/dL 8.5-10.5 (test code = 697) EGFR (BEAKER) (test 6 mL/min/1.73 ESTIMAT ED GFR IS code = 1092) sq m NOT ACCURATE CREATININE CLEARANCE IN PREDICTING GLOMERULAR FILTRATION RATE . ESTIMATED GFR I S NOT APPLICABLE FOR DIALYSIS PATIEN TS. Animated Cartoons Painter ID - ADMINOperator ID - ADMINOperator ID - ADMINOperator ID - ADMINOperator ID - ADMINOperator ID - ADMINOperator ID - ADMINOperator ID - ADMINOperator ID - ADMINOperator ID - ADMINOperator ID- [id number] 05:03:00 Test Item Value Reference Range Interpretation Comments MAGNESIUM (BEAKER) (test code = 2.2 mg/dL 1.5-3.0 627) Animated Cartoons Painter ID - ADMINOperator ID - ADMINOperator ID - ADMINOperator ID - ADMIN [id number] 05:00:00 Test Item Value Reference Range Interpretation Comments PHOSPHORUS (BEAKER) (test code = 4.9 mg/dL 2.5-4.5 H 604) Animated Cartoons Painter ID - ADMINCBC W/PLT COUNT & AUTO [id number] 04:38:00 Test Item Value Reference Range Interpretation Comments WHITE BLOOD CELL COUNT (BEAKER) 22.8 K/ L 4.0-10.0 H (test code = 775) RED BLOOD CELL COUNT (BEAKER) 3.42 M/ L 4.00-5.00 L (test code = 761) HEMOGLOBIN (BEAKER) (test code = 10.1 GM/DL 12.0-15.5 L 410) HEMATOCRIT (BEAKER) (test code = 28.4 % 36.0-46.0 L 411) MEAN CORPUSCULAR VOLUME (BEAKER) 83.0 fL 82.0-99.0 (test code = 753) MEAN CORPUSCULAR HEMOGLOBIN 29.5 pg 27.0-33.0 (BEAKER) (test code = 751) MEAN CORPUSCULAR HEMOGLOBIN CONC 35.6 GM/DL 32.0-36.0 (BEAKER) (test code = 752) RED CELL DISTRIBUTION WIDTH 16.3 % 12.0-15.0 H (BEAKER) (test code = 412) PLATELET COUNT (BEAKER) (test 141 K/CU MM 150-430 L code = 756) MEAN PLATELET VOLUME (BEAKER) 11.9 fL 6.0-11.5 H (test code = 754) NUCLEATED RED BLOOD CELLS 0 /100 WBC 0-0 (BEAKER) (test code = 413) NEUTROPHILS RELATIVE PERCENT 87 % (BEAKER) (test code = 429) LYMPHOCYTES RELATIVE PERCENT 6 % (BEAKER) (test code = 430) MONOCYTES RELATIVE PERCENT 6 % (BEAKER) (test code = 431) EOSINOPHILS RELATIVE PERCENT 0 % (BEAKER) (test code = 432) BASOPHILS RELATIVE PERCENT 0 % (BEAKER) (test code = 437) NEUTROPHILS ABSOLUTE COUNT 19.87 K/ L 1.80-8.00 H (BEAKER) (test code = 670) LYMPHOCYTES ABSOLUTE COUNT 1.40 K/ L 1.48-4.50 L (BEAKER) (test code = 414) MONOCYTES ABSOLUTE COUNT (BEAKER) 1.43 K/ L 0.00-1.30 H (test code = 415) EOSINOPHILS ABSOLUTE COUNT 0.00 K/ L 0.00-0.50 (BEAKER) (test code = 416) BASOPHILS ABSOLUTE COUNT (BEAKER) 0.02 K/ L 0.00-0.20 (test code = 417) IMMATURE GRANULOCYTES-RELATIVE 0 % 0-0 PERCENT (BEAKER) (test code = 2801) Surgical pathology [id number] 13:49:59 Test Item Value Reference Range Interpretation Comments Case number (test code = [id number]) Surgical pathology See link below for report (test code = PDF Lab Report [id number]) Result status (test code This is Final Report = [id number]) for [id number] Levar Duran Needle [id number] 12:57:44Hm Interface, Radiology Results Incoming - 01/23/2020 1:00 PM CDTEXAMINATION: US NEEDLE BIOPSYCLINICAL [...] were obtained with an 18- gauge Bard Sycamore device. The specimens were reviewed with pathology [...] mLComplications: None.Assistants: None.IMPRESSION:Ultrasound-guided core needle biopsy of teller left [id number] Ace
[2020-03-08] MEDS ORDERED: NA CHLORIDE 0.9% 500 ML ONE (11:12)
--- NOTE | 2020-03-08 11:17 | ER ---
Nurse's Notes [facility] Name: Neetu Mendoza Age: 84 yrs Sex: Female : 1935 Arrival Date: 03/08/2020 Time: 10:43 Bed 4 Private MD: Diagnosis: Weakness;Dehydration;Malaise and fatigue Presentation: 03/08 10:43 Chief complaint: EMS states: called out for generalized weakness. BP sitting was SBP sv 105 and after the sat her in the stretcher and layed back her SBP was in the 90s. Coronavirus screen: Client denies travel out of the [place] in the last 14 days. At this time, the client does not indicate any symptoms associated with coronavirus-19. Ebola Screen: No symptoms or risks identified at this time. Risk Assessment: Do you want to hurt yourself or someone else? Patient reports no desire to harm self or others. Onset of symptoms was March 08, 2020. 10:43 Method Of Arrival: EMS: [facility] sv 10:43 Acuity: HARLEY 3 sv 10:43 Initial Sepsis Screen: Does the patient have a suspected source of infection? No. sv Patient's initial sepsis screen is negative. 10:52 Initial Sepsis Screen: Does the patient meet any 2 criteria?. sv Triage Assessment: 10:43 General: Appears in no apparent distress. comfortable, slender, Behavior is calm, sv cooperative, appropriate for age. General: Reports "I've just been trying to get this extra stuff off of me." Pt unable to tell me what the extra stuff is. Pain: Denies pain. Neuro: Level of Consciousness is awake, alert, obeys commands, Oriented to person, place, time, situation, Moves all extremities. Full function Speech is normal. Cardiovascular: Patient's skin is warm and dry. Pulses are palpable in right radial artery and left radial artery. Respiratory: Airway is patent Respiratory effort is even, unlabored, Respiratory pattern is regular, symmetrical. Derm: Skin is normal. Historical: - Allergies: 10:51 Sulfa (Sulfonamide Antibiotics); sv - Home Meds: 10:51 aspirin 81 mg Oral TbEC 1 tab once daily [Active]; Vitamin D3 2,000 unit oral cap daily sv [Active]; dapsone 100 mg Oral tab 1 tab once daily [Active]; Lasix 40 mg Oral tab 1 tab 2 times per day [Active]; metoprolol tartrate 50 mg Oral tab 1 tab 2 times per day [Active]; prednisone 50 mg Oral tab 1 tab once daily [Active]; Aldactone 25 mg Oral tab 1 tab once daily [Active]; mycophenolate mofetil 500 mg oral tab [Active]; atorvastatin 10 mg oral tab nightly [Active]; niacin 500 mg Oral tab nightly [Active]; Probiotic Pearls 15 mg (1 billion cell) oral cpDR nightly [Active]; - PMHx: 10:51 Lupus; sv - PSHx: 10:51 Heart stents; Hysterectomy; cataract; gloria knee; sv - Immunization history:: Adult Immunizations up to date. - Social history:: Smoking status: Patient denies any tobacco usage or history of. - Family history:: not pertinent. - Hospitalizations: : Patient was recently seen at. Screenin:53 Abuse screen: Denies threats or abuse. Denies injuries from another. Nutritional sv screening: No deficits noted. Tuberculosis screening: No symptoms or risk factors identified. Fall Risk None identified. Assessment: 10:48 Reassessment: Daughter reports that she was discharged from [facility] on 02/25/20 for weakness and nephritis. She has f/u with her assessment specialist as well. Daughter states that she has been constipated and is obsessed with her bowels. Daughter reports that she has also been confused at times. 12:00 Reassessment: Patient appears in no apparent distress at this time. No changes from sv previously documented assessment. Patient and/or family updated on plan of care and expected duration. Pain level reassessed. Patient is alert, oriented x 3, equal unlabored respirations, skin warm/dry/pink. 14:38 Reassessment: Patient appears in no apparent distress at this time. No changes from sv previously documented assessment. Patient and/or family updated on plan of care and expected duration. Pain level reassessed. Patient is alert, oriented x 3, equal unlabored respirations, skin warm/dry/pink. 16:30 Reassessment: Patient appears in no apparent distress at this time. No changes from sv previously documented assessment. Patient and/or family updated on plan of care and expected duration. Pain level reassessed. Patient is alert, oriented x 3, equal unlabored respirations, skin warm/dry/pink. Pt cleaned of urinary incontinence. 17:39 Reassessment: Patient appears in no apparent distress at this time. No changes from sv previously documented assessment. Patient and/or family updated on plan of care and expected duration. Pain level reassessed. Patient is alert, oriented x 3, equal unlabored respirations, skin warm/dry/pink. 17:47 Reassessment: Informed Dr Call of the CRP, TSH, and Vit B12 results. Order given to sv start Synthroid 25 mcg PO daily starting tomorrow. Vital Signs: 10:43 BP 114 / 67; Pulse 61; Resp 12; Temp 97; Pulse Ox 98% on R/A; Weight 62.14 kg; Height 5 sv ft. 6 in. (167.64 cm); 10:57 BP 115 / 66 RA Supine; Pulse 62; Resp 14; Pulse Ox 97% on R/A; dh3 10:59 BP 105 / 58 RA Sitting; Pulse 66; Resp 19; Pulse Ox 99% on R/A; dh3 11:01 BP 112 / 96 RA Standing; Pulse 69; Resp 21; Pulse Ox 100% on R/A; dh3 12:15 BP 110 / 66; Pulse 61 MON; Resp 12; Pulse Ox 96% on R/A; sv 13:00 BP 111 / 61; Pulse 58; Resp 14; Pulse Ox 96% on R/A; sv 14:30 BP 109 / 49; Pulse 77; Resp 14; Pulse Ox 97% on R/A; sv 15:15 BP 102 / 58; Pulse 81; Resp 15; Pulse Ox 96% on R/A; sv 16:00 BP 114 / 60; Pulse 82; Resp 17; Pulse Ox 96% on R/A; sv 16:45 BP 105 / 64; Pulse 80; Resp 14; Pulse Ox 96% on R/A; sv 18:00 BP 116 / 64; Pulse 83; Resp 14; Pulse Ox 96% on R/A; sv 10:43 Body Mass Index 22.11 (62.14 kg, 167.64 cm) sv 12:15 Sinus Rhythm sv ED Course: 10:43 Patient arrived in ED. ss 10:44 Danny Thompson MD is Attending Physician. rn 10:46 Deja Adair RN is Primary Nurse. sv 10:48 Triage completed. sv 10:48 Arm band placed on. sv 10:53 Patient has correct armband on for positive identification. Placed in gown. Bed in low sv position. Call light in reach. Side rails up X2. Adult w/ patient. election assistant on. Pulse ox on. NIBP on. Door closed. Warm blanket given. Head of bed elevated. 10:53 Maintain EMS IV. Dressing intact. Site clean \\T\\ dry. Gauge \\T\\ site: 20G L AC. sv 11:05 Initial lab(s) drawn, by me, sent to lab. sv 11:12 EKG done, by ED staff, reviewed by Danny Thompson MD. 3 11:16 Christophe Call MD is Hospitalizing Provider. rn 12:01 Lab(s) recollected, by me, sent to lab. sv 14:00 Awaiting bed assignment. sv 15:06 Lab(s) recollected, by me, sent to lab. 3 16:17 Awaiting bed assignment. sv 17:39 No provider procedures requiring assistance completed. Patient admitted, IV remains in sv place. intact. Administered Medications: 11:10 Drug: NS 0.9% 500 ml Route: IV; Rate: bolus; Site: left antecubital; sv 12:00 Follow up: Response: No adverse reaction; IV Status: Completed infusion; IV Intake: sv 500ml Intake: 12:00 IV: 500ml; Total: 500ml. sv Outcome: 11:16 Decision to Hospitalize by Provider. rn 17:59 Admitted to Tele accompanied by tech, via stretcher, with chart, Report called to Natalie luna RN 17:59 Condition: stable 17:59 Instructed on the need for admit. 18:11 Patient left the ED. Signatures: Deja Adair, RN Danny Correa MD MD rn Smirch, Shelby, RN RN ss Herrera, Deanna 3 Corrections: (The following items were deleted from the chart) 10:52 10:43 BP 114 / 67; Pulse 61bpm; Resp 12bpm; Pulse Ox 98% RA; sv sv 11:21 10:48 Reassessment: Daughter reports that she was discharged from [facility] in [facility] on 02/25/20 for weakness and nephritis. She has f/u with her assessment specialist as well. sv 12:46 12:15 BP 110 / 66; Pulse 61bpm; Monitor: Sinus RhythmResp 11bpm; Pulse Ox 96% RA; sv sv 14:38 10:43 BP 114 / 67; Pulse 61bpm; Resp 12bpm; Pulse Ox 98% RA; 62.14 kg; Height 5 ft. 6 sv in.; BMI: 22.1; sv
--- NOTE | 2020-03-08 11:17 | EDPHYS ---
Physician Documentation [facility] Name: Neetu Mendoza Age: 84 yrs Sex: Female : 1935 Arrival Date: 03/08/2020 Time: 10:43 Bed 4 Private MD: ED Physician Danny Thompson HPI: 03/08 11:01 This 84 yrs old Female presents to ER via EMS with complaints of General rn Weakness. 11:01 Reports generalized weakness, fatigue, decreased PO intake, and near syncope. Sent by rn Dr. Ayers for evaluation and observation to Dr. Call. . 11:03 Onset: The symptoms/episode began/occurred at an unknown time. Severity of symptoms: At rn their worst the symptoms were moderate in the emergency department the symptoms are unchanged. The patient has not experienced similar symptoms in the past. The patient has been recently seen by a physician:. Historical: - Allergies: 10:51 Sulfa (Sulfonamide Antibiotics); sv - Home Meds: 10:51 aspirin 81 mg Oral TbEC 1 tab once daily [Active]; Vitamin D3 2,000 unit oral cap daily sv [Active]; dapsone 100 mg Oral tab 1 tab once daily [Active]; Lasix 40 mg Oral tab 1 tab 2 times per day [Active]; metoprolol tartrate 50 mg Oral tab 1 tab 2 times per day [Active]; prednisone 50 mg Oral tab 1 tab once daily [Active]; Aldactone 25 mg Oral tab 1 tab once daily [Active]; mycophenolate mofetil 500 mg oral tab [Active]; atorvastatin 10 mg oral tab nightly [Active]; niacin 500 mg Oral tab nightly [Active]; Probiotic Pearls 15 mg (1 billion cell) oral cpDR nightly [Active]; - PMHx: 10:51 Lupus; sv - PSHx: 10:51 Heart stents; Hysterectomy; cataract; gloria knee; sv - Immunization history:: Adult Immunizations up to date. - Social history:: Smoking status: Patient denies any tobacco usage or history of. - Family history:: not pertinent. - Hospitalizations: : Patient was recently seen at. ROS: 11:03 Constitutional: Negative for fever, chills Eyes: Negative for injury, pain, redness, rn and discharge, Neck: Negative for injury, pain, and swelling, Cardiovascular: Negative for chest pain, palpitations, and edema, Respiratory: Negative for shortness of breath, cough, wheezing, and pleuritic chest pain, Abdomen/GI: Negative for abdominal pain, nausea, vomiting, diarrhea, and constipation, : Negative for injury, bleeding, discharge, and swelling, MS/Extremity: Negative for injury and deformity, Skin: Negative for injury, rash, and discoloration, Neuro: Negative for headache, numbness, tingling, and seizure. Exam: 11:03 Constitutional: Thin female, sitting upright, flat affect Head/Face: Normocephalic, rn atraumatic. ENT: dry MM Cardiovascular: Regular rate and rhythm. No pulse deficits. Respiratory: No increased work of breathing, no retractions or nasal flaring. Abdomen/GI: soft, non-tender Skin: Warm, dry MS/ Extremity: Pulses equal, no cyanosis. Neuro: Awake and alert, GCS 15 Vital Signs: 10:43 BP 114 / 67; Pulse 61; Resp 12; Temp 97; Pulse Ox 98% on R/A; Weight 62.14 kg; Height 5 sv ft. 6 in. (167.64 cm); 10:57 BP 115 / 66 RA Supine; Pulse 62; Resp 14; Pulse Ox 97% on R/A; dh3 10:59 BP 105 / 58 RA Sitting; Pulse 66; Resp 19; Pulse Ox 99% on R/A; dh3 11:01 BP 112 / 96 RA Standing; Pulse 69; Resp 21; Pulse Ox 100% on R/A; dh3 12:15 BP 110 / 66; Pulse 61 MON; Resp 12; Pulse Ox 96% on R/A; sv 13:00 BP 111 / 61; Pulse 58; Resp 14; Pulse Ox 96% on R/A; sv 14:30 BP 109 / 49; Pulse 77; Resp 14; Pulse Ox 97% on R/A; sv 15:15 BP 102 / 58; Pulse 81; Resp 15; Pulse Ox 96% on R/A; sv 16:00 BP 114 / 60; Pulse 82; Resp 17; Pulse Ox 96% on R/A; sv 16:45 BP 105 / 64; Pulse 80; Resp 14; Pulse Ox 96% on R/A; sv 18:00 BP 116 / 64; Pulse 83; Resp 14; Pulse Ox 96% on R/A; sv 10:43 Body Mass Index 22.11 (62.14 kg, 167.64 cm) sv 12:15 Sinus Rhythm sv MDM: 10:44 Patient medically screened. rn 11:15 Differential Diagnosis dehydration, Lupus, anemia, depression, deconditioning. Data rn reviewed: vital signs, nurses notes. 11:16 Counseling: I had a detailed discussion with the patient and/or guardian regarding: the rn historical points, exam findings, and any diagnostic results supporting the discharge/admit diagnosis, the need for further work-up and treatment in the hospital. Admission orders: after a detailed discussion of the patient's condition and case, the admit orders are written by me. 03/08 10:55 Order name: CBC with Diff; Complete Time: 12:08 rn 03/08 10:55 Order name: Basic Metabolic Panel; Complete Time: 17:09 rn 03/08 10:55 Order name: Urine Microscopic Only rn 03/08 11:52 Order name: CBC Smear Scan; Complete Time: 12:08 EDOR 03/08 14:26 Order name: Sedimentation Rate, Westergren; Complete Time: 17:09 EDMS 03/08 15:16 Order name: C-Reactive Protein; Complete Time: 17:09 EDMS 03/08 10:55 Order name: IV Start; Complete Time: 10:56 rn 03/08 10:55 Order name: EKG; Complete Time: 10:55 rn 03/08 10:55 Order name: EKG - Nurse/Tech; Complete Time: 11:10 rn 03/08 15:16 Order name: Thyroid Stimulating Hormone; Complete Time: 17:09 EDMS 03/08 15:16 Order name: Vitamin B12 Level; Complete Time: 17:09 EDMS 03/08 15:29 Order name: T4 Free; Complete Time: 17:09 EDMS 03/08 10:55 Order name: Orthostatics; Complete Time: 11:06 rn 03/08 11:35 Order name: Labs - recollect needed: chemistry; Complete Time: 12:01 eb Administered Medications: 11:10 Drug: NS 0.9% 500 ml Route: IV; Rate: bolus; Site: left antecubital; sv 12:00 Follow up: Response: No adverse reaction; IV Status: Completed infusion; IV Intake: sv 500ml Disposition: 03/08/20 11:16 Hospitalization ordered by Christophe Call for Observation. Preliminary diagnosis are Weakness, Dehydration, Malaise and fatigue. - Bed requested for Telemetry/MedSurg (observation). - Status is Observation. sv - Condition is Stable. - Problem is new. - Symptoms are unchanged. Signatures: Dispatcher [employer] EDDeja Booth, RN RN sv Danny Thompson MD MD rn Smirch, Shelby, SANDRA FLORES ss Evert Bernardo, RN RN jaOlesya Carter Corrections: (The following items were deleted from the chart) 11:07 11:01 Reports generalized weakness, fatigue, decreased PO intake, and near syncope. rn Sent by . rn 17:21 11:16 Hospitalization Ordered by Christophe Call MD for Observation. Preliminary diagnosis ss is Weakness; Dehydration; Malaise and fatigue. Bed requested for Telemetry/MedSurg (observation). Status is Observation. Condition is Stable. Problem is new. Symptoms are unchanged. rn 17:42 17:21 03/08/2020 11:16 Hospitalization Ordered by Christophe Call MD for Observation. ja1 Preliminary diagnosis is Weakness; Dehydration; Malaise and fatigue. Bed requested for [facility] ER HOLD. Status is Observation. Condition is Stable. Problem is new. Symptoms are unchanged. ss 18:11 17:42 03/08/2020 11:16 Hospitalization Ordered by Christophe Call MD for Observation. sv Preliminary diagnosis is Weakness; Dehydration; Malaise and fatigue. Bed requested for Telemetry/MedSurg (observation). Status is Observation. Condition is Stable. Problem is new. Symptoms are unchanged. ja1
[2020-03-08 11:26] LABS: Absolute Lymphocytes (CBC) 2.3 K/uL (0.7-4.9); Basophils % 0.8 % (0-1.3); Hematocrit 33.3 % (36.0-45.0); Lymphocytes % 19.1 % (15.3-44.8); MPV 8.6 fL (7.6-11.3); RBC Red Blood Cell Count 3.55 M/uL (3.86-4.86)
[2020-03-08 11:51] LABS: Anisocytosis 1+; Blood Morphology Comment NOTED (NOT SEEN); Platelet Estimate DECR; White Blood Cell Scan OK (OK)
[2020-03-08 12:31] LABS: Potassium 3.9 mmol/L (3.5-5.1)
[2020-03-08] MEDS: NA CHLORIDE 0.9% 1,000 ML IV SCH ×2 (13:10→18:28)
--- NOTE | 2020-03-08 13:16 | P.HP ---
Certification for Inpatient Patient admitted to: Inpatient With expected LOS: >2 Midnights Practitioner: I am a practitioner with admitting privileges, knowledge of patient current condition, hospital course, and medical plan of care. Services: Services provided to patient in accordance with Admission requirements found in Title 42 Section 412.3 of the Code of Federal Regulations Patient History Date of Service: 03/08/20 Reason for admission: WEAKNESS History of Present Illness: MS. DONAHUE HAS HAD RECENT EPISODE OF ACUTE LUPUS NEPHRITIS RELATED RENAL FAILURE. I WAS NOT AWARE OF THIS UNTIL I CALLED DR. KENT TODAY. SHE REPORTS TO ER WITH WEAKNESS THAT IS GENERAL PER DR VIERA'S ADVISE. FAMILY HAS BEEN IN CONTACT WITH HER. SHE DENIES ANY CHEST PAIN, HEADACHES. SHE SAYS SHE IS HERE TO GET RID OF WHAT IS BLOCKING HER. SHE IS NOT ABLE TO EXPLAIN THAT. FAMILY SAYS SHE IS OBSESSED WITH CONSTIPATION. IN THE AM SHE IS NOT ABLE TO HOLD HER WEIGHT AND LATER IN THE DAY SHE IS ABLE TO WALK WITH WALKER AND DO PT WITH HOME HEALTH. DR. VIERA HAD OFFERED INPATIENT REHAB BUT THAT WAS REJECTED BY INSURANCE COMPANY ON HER ADMISSION TO [facility]. SHE WAS IN THE [facility] FOR TWO WEEKS. SHE HAD DIALYSIS FOR A FEW DAYS AND CREATININE CAME DOWN TO 1.3. SINCE THEN SHE IS ON LASIX 40 MG BID AND PREDNISONE 40 MG DAILY, SPIRONOLACTONE 50 MG DAILY. SHE HAD EPISODE OF A FIB. WAS SEEN BY BUT STILL IS NOT ON ANY ANTICOAGULATION. SHE CAME OUT OF [facility] BUT SHE DID NOT MAKE APT AT MY OFFICE FOR FOLLOW UP YET. Allergies Sulfa (Sulfonamide Antibiotics) Allergy (Mild, Verified 03/31/13 10:05) Rash Home Medications: Adalimumab [Humira Pen] 40 mg SQ SEECOM 12/14/19 Atorvastatin Calcium [Lipitor*] 10 mg PO BEDTIME 12/14/19 Ferralet 90 90 mg PO DAILY 12/14/19 Loratadine [Claritin*] 10 mg PO DAILY 12/14/19 Niacinamide [Niacin] 2 tab PO DAILY 12/14/19 [place]-3/Dha/Epa/Lut/Zeaxanthin [[employer] Softgel] 10 mg PO DAILY 12/14/19 [place]-3S/Dha/Epa/Fish Oil [Fish Oil 1,200 mg Softgel] 1 tab PO DAILY 12/14/19 Metoprolol Succinate [Toprol Xl*] 50 mg PO BID #60 tab 12/15/19 - Past Medical/Surgical History Diabetic: No -: Anemia -: Hyperlipidemia -: [place] with stent -: bilateral knee replacement -: cataracts - Family History Mother -: Lung disease, Cancer Sister -: Cancer - Social History Alcohol use: No CD- Drugs: No Caffeine use: Yes Review of Systems 10-point ROS is otherwise unremarkable General: Weakness, Malaise Neurological: Weakness (GENERAL AND SOMEWHAT SLOW IN RESPONSES.), As per HPI Physical Examination - Physical Exam General: Alert, Cooperative, Mild distress, Confused (MILD, SLOWNESS. ORIENTED TO PLACE AND PERSON.) HEENT: Atraumatic, PERRLA, Mucous membr. moist/pink, EOMI, Sclerae nonicteric Neck: Supple, 2+ carotid pulse no bruit, No LAD, Without JVD or thyroid abnormality Respiratory: Clear to auscultation bilaterally, Normal air movement Cardiovascular: Regular rate/rhythm, Normal S1 S2 Gastrointestinal: Normal bowel sounds, No tenderness Musculoskeletal: No tenderness Integumentary: No rashes Neurological: Normal speech, Abnormal strength (MILD GEN WEAKNESS.), Abnormal affect (FATIGUED, SLIGHT CONFUSED LOOK.) Lymphatics: No axilla or inguinal lymphadenopathy - Studies Laboratory Data (last 24 hrs) 03/08/20 11:05: WBC 12.2 H, Hgb 11.0 L, Hct 33.3 L, Plt Count 99 L Assessment and Plan - Problems (Diagnosis) (1) General weakness Current Visit: Yes Status: Chronic Plan: SINCE [facility] ADMISSION SHE IS NOT ABLE TO GET UP AND WALK IN AM WITHOUT SUPPORT AND TENDS TO SLUMP AT TIMES PER FAMILY. DEHYDRATION IS MILD. THERE MAY BE OTHER REASONS. CHECK TSH, B12, SED RATE, CRP, MRI BRAIN STROKE PROTOCOL. SHE HAS HAD A FIB BEFORE AND HAS NOT BEEN ABLE TOLERATE ANTICOAGULATION. SHE HAS BEEN PATIENT AT [facility]. (2) Dehydration Current Visit: Yes Status: Acute Plan: MILD DEHYDRATION. NOT ENOUGH TO EXPLAIN THE GENERAL WEAKNESS. IV FLUIDS . DR. VIERA IS AWARE SHE IS HERE. (3) Lupus nephritis Current Visit: Yes Status: Acute Plan: ABOVE. I DON'T SEE HYDROXYCHOLOROQUIN YET. THIS DEPENDS ON HER RENAL DOCTORS. (4) Atrial fib/flutter, transient Current Visit: Yes Status: Chronic Plan: IF POSSIBLE SHE SHOULD BE ON ELIQUIS BUT IN THE PAST SHE HAD SEVERE ANEMIA A FEW TIMES AND COULD NOT TOLERATE IT. HER GI EVALUATION WAS DONE BY GI DOCTORS LOCALLY. HER PROGNOSIS REMAINS GUARDED. SHE HAS MANY PROBLEMS THAT ARE CHRONIC AND CAN GET ACUTELY WORSE. - Advance Directives Does patient have a Living Will: No Does patient have a Durable POA for Healthcare: No
[2020-03-08 15:04] LABS: C-Reactive Protein 7.45 mg/L (<3.00)
[2020-03-08 18:38] VITALS: BMI 23.6
[2020-03-08] MEDS ORDERED: NACHLORIDE 0.45% 1,000 ML IV SCH (20:00)
[2020-03-08 20:52] LABS: MPV 9.8 fL (7.6-11.3)
[2020-03-08 20:53] LABS: Platelet Estimate ND
[2020-03-08] MEDS: METOPROLOL TAR 50 MG TAB PO SCH (21:57)
[2020-03-08] MEDS: LACTOBACILLUS/ACIDOPHILUS TAB PO SCH (21:57)
[2020-03-08] MEDS: ATORVASTATIN 10 MG TAB PO SCH (21:57)
[2020-03-08] MEDS: NIACIN 500 MG SR TAB PO SCH (21:57)
[2020-03-09] MEDS: LEVOTHYROXINE SOD 0.025 MG TAB PO SCH ×3 (05:39→07:16)
[2020-03-09 08:23] LABS: Absolute Lymphocytes (CBC) 2.6 K/uL (0.7-4.9); Basophils % 0.9 % (0-1.3); Hematocrit 27.9 % (36.0-45.0); Lymphocytes % 25.5 % (15.3-44.8); MPV 8.8 fL (7.6-11.3); RBC Red Blood Cell Count 2.95 M/uL (3.86-4.86)
[2020-03-09 08:35] LABS: Potassium 3.5 mmol/L (3.5-5.1)
[2020-03-09] MEDS: predniSONE 20 MG TAB PO SCH (08:49)
[2020-03-09] MEDS: METOPROLOL TAR 50 MG TAB PO SCH ×2 (08:49→20:49)
[2020-03-09] MEDS: DAPSONE 100 MG TAB PO SCH (08:52)
--- NOTE | 2020-03-09 08:55 | RAD REPORT ---
EXAM DESCRIPTION: RAD - Chest Single View - 03/09/2020 7:08 am CLINICAL HISTORY: shortness of breath Chest pain. COMPARISON: Chest Single View dated 02/09/2020; Chest Single View dated 12/13/2019; Chest Pa And Lat ( 2 Views) dated 03/09/2017; CHEST SINGLE VIEW dated 03/31/2013; Stone Protocol dated 12/14/2019 FINDINGS: Portable technique limits examination quality. Small left pleural effusion is suspected. Moderate hiatal hernia is seen. The lungs are grossly clear . The heart is mildly enlarged in size. Aortic atherosclerosis.
[2020-03-09] MEDS ORDERED: ASPIRIN EC 81 MG TAB PO SCH (09:00)
[2020-03-09] MEDS ORDERED: DAPSONE 100 MG TAB PO SCH (09:00)
[2020-03-09] MEDS ORDERED: predniSONE 20 MG TAB PO SCH (09:00)
[2020-03-09] MEDS ORDERED: METOPROLOL TAR 50 MG TAB PO SCH (09:00)
[2020-03-09] MEDS ORDERED: ENOXAPARIN 30 MG/0.3 ML SQ SCH (09:00)
[2020-03-09] MEDS ORDERED: Mycophenolate Mofetil 500 MG PO SCH (09:00)
--- NOTE | 2020-03-09 13:04 | RAD REPORT ---
EXAM DESCRIPTION: CT - Head Brain Wo Cont - 03/09/2020 12:37 pm CLINICAL HISTORY: Alteration of awareness/confusion COMPARISON: None TECHNIQUE: Computed axial tomography of the head was obtained. IV contrast was not requested. All CT scans are performed using dose optimization technique as appropriate and may include automated exposure control or mA/KV adjustment according to patient size. FINDINGS: An intracranial bleed is not seen . The ventricles are normal in caliber. No extra-axial fluid collection is noted. Mild low-density areas within periventricular, deep and subcortical white matter likely represent isc hemic changes secondary to small vessel disease. Fluid within the sinuses/ mastoids is not seen. IMPRESSION: No acute intracranial abnormality is seen. If patient's symptoms persist MRI of the bra in would be recommended.
--- NOTE | 2020-03-09 14:09 | P.CNS ---
Date of Consult: 03/09/20 Reason for Consult: CKD Requesting Physician: Christophe Call V Primary Care Provider: Dr. Call Chief Complaint: WEAKNESS History of Present Illness: 84 yo WF CKD presents to the ER with several weeks of moderate, progressive weakness with a subsequent syncopal episode. Associated symptoms include AMS. Limited HPI/ ROS due to AMS. 11:01 This 84 yrs old Female presents to ER via EMS with complaints of General rn Weakness. 11:01 Reports generalized weakness, fatigue, decreased PO intake, and near syncope. Sent by rn Dr. Ayers for evaluation and observation to Dr. Call. . 11:03 Onset: The symptoms/episode began/occurred at an unknown time. Severity of symptoms: At rn their worst the symptoms were moderate in the emergency department the symptoms are unchanged. The patient has not experienced similar symptoms in the past. The patient has been recently seen by a physician Allergies Sulfa (Sulfonamide Antibiotics) Allergy (Mild, Verified 03/31/13 10:05) Rash Home medications list reviewed: Yes Home Medications: Aspirin [Aspirin EC 81 MG] 81 mg PO DAILY 03/08/20 Atorvastatin Calcium 10 mg PO BEDTIME 03/08/20 Cholecalciferol (Vitamin D3) [Vitamin D3] 2,000 unit PO BEDTIME 03/08/20 Dapsone [Dapsone*] 100 mg PO DAILY 03/08/20 Furosemide 40 mg PO BIDL 03/08/20 L.acidoph,Paracasei, B.lactis [Probiotic] 1 each PO BEDTIME 03/08/20 Metoprolol Tartrate 50 mg PO BID 03/08/20 Mycophenolate Mofetil [Cellcept] 500 mg PO DAILY 03/08/20 Niacin [Slo-Niacin] 2 tab PO BEDTIME 03/08/20 Spironolactone 25 mg PO DAILY 03/08/20 predniSONE [Prednisone] 40 mg PO DAILY 03/08/20 - Past Medical/Surgical History Diabetic: No -: Anemia -: Hyperlipidemia -: [place] with stent -: bilateral knee replacement -: cataracts - Family History Mother Medical History: Lung disease, Cancer Sister Medical History: Cancer - Social History Smoking Status: Never smoker Alcohol use: No CD- Drugs: No Caffeine use: No Place of Residence: Home Review of Systems 10-point ROS is otherwise unremarkable General: Weakness, Malaise Neurological: Confusion Physical Examination Temp Pulse Resp BP Pulse Ox 97.3 F 79 18 94/52 L 94 03/09/20 12:00 03/09/20 12:00 03/09/20 12:03/09/20 12:03/09/20 12:00 General: In no apparent distress, Cooperative HEENT: Normocephalic Neck: Supple Respiratory: Clear to auscultation bilaterally Cardiovascular: No edema, Regular rate/rhythm Gastrointestinal: Soft and benign, Non-distended Musculoskeletal: No clubbing, No contractures Integumentary: No rashes Neurological: Abnormal gait, Abnormal strength Blood work reviewed in the chart. Imagings Data: EXAM DESCRIPTION: RAD - Chest Single View - 03/09/2020 7:08 am CLINICAL HISTORY: shortness of breath Chest pain. COMPARISON: Chest Single View dated 02/09/2020; Chest Single View dated 02/2020; Chest Pa And Lat (2 Views) dated 03/09/2017; CHEST SINGLE VIEW dated 03/31/2013; Stone Protocol dated 12/14/2019 FINDINGS: Portable technique limits examination quality. Small left pleural effusion is suspected. Moderate hiatal hernia is seen. The lungs are grossly clear. The heart is mildly enlarged in size. Aortic atherosclerosis. 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 DM II with CKD LE Edema/ Hx anasarca. Anemia in chronic illness Toxic metabolic encephalopathy P/ Continue current POC and Medications. Give a liter of IVF. Replete lytes prn. Continue prednisone. Neurology to evaluate for AMS. Agree with thyroid supplementation. No NSAIDs. AM labs. Daily weight. Thank you kindly for the consultation. Plan for rehab placement due to progressive weakness.
--- NOTE | 2020-03-09 18:00 | P.PN ---
Subjective Date of Service: 03/09/20 Chief Complaint: WEAKNESS Subjective: No new changes, No C/O voiced DAUGHTER AT BEDSIDE. SHE HAS NO NEW COMPLAINTS. PER DAUGHTER SHE GAVE WRONG DATE OF OF 1942 AND 1936 TODAY. Review of Systems 10-point ROS is otherwise unremarkable General: Weakness, Malaise Physical Examination - Vital Signs Temperature: 97 F Blood Pressure: 101/50 Pulse: 64 Respirations: 16 Pulse Ox (%): 94 - Physical Exam General: Mild distress, Confused (AT TIMES.) HEENT: Atraumatic, PERRLA, EOMI Neck: Supple, JVD not distended Respiratory: Clear to auscultation bilaterally, Normal air movement Cardiovascular: Regular rate/rhythm, Normal S1 S2 Gastrointestinal: Normal bowel sounds, No tenderness Musculoskeletal: No tenderness Integumentary: No rashes Neurological: Normal speech, Other (GEN WEAK.) Lymphatics: No axilla or inguinal lymphadenopathy - Studies Medications List Reviewed: Yes Assessment And Plan - Current Problems (Diagnosis) (1) General weakness Current Visit: Yes Status: Chronic Plan: SINCE [facility] ADMISSION SHE IS NOT ABLE TO GET UP AND WALK IN AM WITHOUT SUPPORT AND TENDS TO SLUMP AT TIMES PER FAMILY. DEHYDRATION IS MILD. THERE MAY BE OTHER REASONS. CHECK TSH, B12, SED RATE, CRP, MRI BRAIN STROKE PROTOCOL. SHE HAS HAD A FIB BEFORE AND HAS NOT BEEN ABLE TOLERATE ANTICOAGULATION. SHE HAS BEEN PATIENT AT [facility]. CT BRAIN SHOWS NO STROKE. MRI CAN'T BE DONE SHE HAS LOOP MONITOR. MRI WILL BE BETTER TO DETECT STROKE. (2) Dehydration Current Visit: Yes Status: Acute Plan: MILD DEHYDRATION. NOT ENOUGH TO EXPLAIN THE GENERAL WEAKNESS. IV FLUIDS . DR. VIERA IS AWARE SHE IS HERE. SLIGHTLY BETTER IN NUMBERS. (3) Lupus nephritis Current Visit: Yes Status: Acute Plan: ABOVE. I DON'T SEE HYDROXYCHOLOROQUIN YET. THIS DEPENDS ON HER RENAL DOCTORS. (4) Atrial fib/flutter, transient Current Visit: Yes Status: Chronic Plan: IF POSSIBLE SHE SHOULD BE ON ELIQUIS BUT IN THE PAST SHE HAD SEVERE ANEMIA A FEW TIMES AND COULD NOT TOLERATE IT. HER GI EVALUATION WAS DONE BY GI DOCTORS LOCALLY. HER PROGNOSIS REMAINS GUARDED. SHE HAS MANY PROBLEMS THAT ARE CHRONIC AND CAN GET ACUTELY WORSE. (5) Altered mental state Current Visit: Yes Status: Acute Plan: ORIENTATION AND AFFECT ARE DIFFERENT. WHENEVER I SAW HE IN OFFICE SHE WAS COGNITIVELY INTACT BUT SINCE LAST FEW WEEKS SHE HAS A FLAT AFFECT AND GAZE. SHE IS MOVING ALL FOUR LIMBS BUT WEAK. DR. ALARCON CONSULT.
[2020-03-09] MEDS: NIACIN 500 MG SR TAB PO SCH (20:49)
[2020-03-09] MEDS: ATORVASTATIN 10 MG TAB PO SCH (20:49)
[2020-03-09] MEDS: VITAMIN D 1000 UNIT TAB PO SCH (20:49)
[2020-03-09] MEDS: LACTOBACILLUS/ACIDOPHILUS TAB PO SCH (20:49)
[2020-03-09] MEDS ORDERED: NACHLORIDE 0.45% 1,000 ML IV SCH (21:00)
[2020-03-09] MEDS ORDERED: ATORVASTATIN 10 MG TAB PO SCH (21:00)
[2020-03-09 22:35] LABS: Urine Appearance CLOUDY; Urine Bilirubin NEGATIVE (NEG); Urine Blood 1+ (NEG); Urine Color YELLOW; Urine Glucose 3+ (NEG); Urine Protein 2+ (NEG); Urine Specific Gravity 1.025 (1.005-1.030)
[2020-03-09 23:01] LABS: Urine Urothelial Cells <5 /HPF (NONE SEEN)
[2020-03-09 23:02] LABS: Urine Bacteria >50 /HPF (<20); Urine RBC <5 /HPF (NONE SEEN)
[2020-03-10 06:02] LABS: Absolute Lymphocytes (CBC) 1.8 K/uL (0.7-4.9); Basophils % 0.5 % (0-1.3); Hematocrit 25.6 % (36.0-45.0); Lymphocytes % 25.4 % (15.3-44.8); MPV 9.6 fL (7.6-11.3); RBC Red Blood Cell Count 2.67 M/uL (3.86-4.86)
[2020-03-10 06:09] LABS: Albumin 1.7 g/dL (3.4-5.0); Bilirubin Total 0.7 mg/dL (0.2-1.0); Magnesium 1.9 mg/dL (1.8-2.4); Phosphorus 2.7 mg/dL (2.5-4.9); Potassium 3.6 mmol/L (3.5-5.1); Protein, Total 4.5 g/dL (6.4-8.2); Uric Acid 8.6 mg/dL (2.6-6.0)
[2020-03-10] MEDS: LEVOTHYROXINE SOD 0.025 MG TAB PO SCH (06:10)
[2020-03-10] MEDS: FAMOTIDINE 20 MG/2 ML VIAL IV SCH ×2 (09:00→19:44)
[2020-03-10] MEDS: Mycophenolate Mofetil 500 MG PO SCH (09:18)
[2020-03-10] MEDS: METOPROLOL TAR 50 MG TAB PO SCH ×2 (09:18→19:52)
[2020-03-10] MEDS: predniSONE 20 MG TAB PO SCH (09:20)
[2020-03-10] MEDS: DAPSONE 100 MG TAB PO SCH (09:23)
[2020-03-10] MEDS: VITAMIN D 5,000 UNIT CAP PO SCH (09:23)
--- NOTE | 2020-03-10 13:08 | P.PN ---
Subjective Date of Service: 03/10/20 Primary Care Provider: Dr. Call Chief Complaint: WEAKNESS LITTLE BETTER TODAY. DAUGHTER AT BEDSIDE. SHE HAS NO NEW COMPLAINTS. PER DAUGHTER SHE GAVE WRONG DATE OF OF 1942 AND 1936 TODAY. SHE WALKED YESTERDAY WITH PT. SHE IS TALKING MORE TODAY. GENERALLY SHE IS STILL WEAK. Review of Systems 10-point ROS is otherwise unremarkable General: Weakness, Malaise Physical Examination - Vital Signs Temperature: 97.9 F Blood Pressure: 108/54 Pulse: 95 Respirations: 16 Pulse Ox (%): 97 - Physical Exam General: Mild distress, Moderate distress, Confused HEENT: Atraumatic, PERRLA, EOMI Neck: Supple, JVD not distended Respiratory: Clear to auscultation bilaterally, Normal air movement Cardiovascular: Regular rate/rhythm, Normal S1 S2 Gastrointestinal: Normal bowel sounds, No tenderness Musculoskeletal: No tenderness Integumentary: No rashes Neurological: Normal speech, Normal tone, Normal affect Lymphatics: No axilla or inguinal lymphadenopathy - Studies Medications List Reviewed: Yes Assessment And Plan - Current Problems (Diagnosis) (1) General weakness Current Visit: Yes Status: Chronic Plan: SINCE [facility] ADMISSION SHE IS NOT ABLE TO GET UP AND WALK IN AM WITHOUT SUPPORT AND TENDS TO SLUMP AT TIMES PER FAMILY. DEHYDRATION IS MILD. THERE MAY BE OTHER REASONS. CHECK TSH, B12, SED RATE, CRP, MRI BRAIN STROKE PROTOCOL. SHE HAS HAD A FIB BEFORE AND HAS NOT BEEN ABLE TOLERATE ANTICOAGULATION. SHE HAS BEEN PATIENT AT [facility]. CT BRAIN SHOWS NO STROKE. MRI CAN'T BE DONE SHE HAS LOOP MONITOR. MRI WILL BE BETTER TO DETECT STROKE. (2) Dehydration Current Visit: Yes Status: Acute Plan: MILD DEHYDRATION. NOT ENOUGH TO EXPLAIN THE GENERAL WEAKNESS. IV FLUIDS . DR. VIERA IS AWARE SHE IS HERE. SLIGHTLY BETTER IN NUMBERS. (3) Lupus nephritis Current Visit: Yes Status: Acute Plan: ABOVE. I DON'T SEE HYDROXYCHOLOROQUIN YET. THIS DEPENDS ON HER RENAL DOCTORS. (4) Atrial fib/flutter, transient Current Visit: Yes Status: Chronic Plan: IF POSSIBLE SHE SHOULD BE ON ELIQUIS BUT IN THE PAST SHE HAD SEVERE ANEMIA A FEW TIMES AND COULD NOT TOLERATE IT. HER GI EVALUATION WAS DONE BY GI DOCTORS LOCALLY. HER PROGNOSIS REMAINS GUARDED. SHE HAS MANY PROBLEMS THAT ARE CHRONIC AND CAN GET ACUTELY WORSE. (5) Altered mental state Current Visit: Yes Status: Acute Plan: ORIENTATION AND AFFECT ARE DIFFERENT. WHENEVER I SAW HE IN OFFICE SHE WAS COGNITIVELY INTACT BUT SINCE LAST FEW WEEKS SHE HAS A FLAT AFFECT AND GAZE. SHE IS MOVING ALL FOUR LIMBS BUT WEAK. DR. ALARCON CONSULT. AFTER MULTIPLE DISCUSSIONS WITH TWO DOCTORS AND DAUGHTER. THERE IS AGREEMENT DO MRI, KNOWING THAT LOOP MONITORS DATA WILL BE LOST AND SHE IS OKAY WITH IT. (6) Anemia Onset Date: 03/15/17 Current Visit: No Status: Acute Plan: HER HEMOGLOBIN HAS DROPPED. I ASKED WHAT GI DOCTOR SHE HAS SEEN BEFORE. DAUGHTER SAYS ALL TESTS HAVE BEEN JUST DONE AT [facility] AND THEY HAVE NO INTEREST IN DOING ANYTHING ABOUT ANEMIA.
--- NOTE | 2020-03-10 14:07 | RAD REPORT ---
EXAM DESCRIPTION: MRI - Brain Wo Cont - 03/10/2020 1:37 pm CLINICAL HISTORY: weakness, dehydration COMPARISON: Head Brain Wo Cont dated 03/09/2020 TECHNIQUE: Sagittal T1-weighted images were obtained along with axial PD, heavily T2-weighted and T2 -FLAIR images. Axial DWI and ADC mapping sequences were also obtained along with coronal heavily T2-w eighted images. FINDINGS: No intracranial hemorrhage, mass or acute infarction. There is no edema or shift of midlin e structures. No extra-axial fluid collections. Baltazar-matter/white matter junction is preserved. Signa l voids are seen as a normal finding in the major intracranial vessels. Patient has mild for age atrophy and chronic ischemic change. Ventricles are in proportion to the estrella unt of volume loss. No sella or supra sella abnormality. No globe or orbital content suspicious findi ng. No acute mastoid air cell or paranasal sinus finding. IMPRESSION: No infarction or acute intracranial finding. Mild atrophy and chronic ischemic change.
[2020-03-10] MEDS: ATORVASTATIN 10 MG TAB PO SCH (19:53)
[2020-03-10] MEDS: VITAMIN D 1000 UNIT TAB PO SCH (19:53)
[2020-03-10] MEDS: NIACIN 500 MG SR TAB PO SCH (19:53)
[2020-03-10] MEDS: LACTOBACILLUS/ACIDOPHILUS TAB PO SCH (19:53)
[2020-03-10] MEDS: JUVEN PACKET PO SCH (21:00)
[2020-03-10] MEDS ORDERED: ALBUMIN HUMAN 25% 200 ML IV ONE (22:21)
--- NOTE | 2020-03-10 22:26 | P.PN ---
Date of Service: 03/10/20 Vital Signs Temp Pulse Resp BP Pulse Ox 98.3 F 74 16 99/50 L 92 03/10/20 20:00 03/10/20 20:00 03/10/20 20:00 03/10/20 20:00 03/10/20 20:00 Medications Atorvastatin Calcium (Lipitor) 10 mg PO BEDTIME [facility] Stop: 04/07/20 21:01 Last Admin: 03/10/20 19:53 Dose: 10 mg Documented by: Cholecalciferol (Vitamin D 1000 Iu Tab) 2,000 unit PO BEDTIME [facility] Stop: 04/08/20 21:01 Last Admin: 03/10/20 19:53 Dose: 2,000 unit Documented by: Cholecalciferol (Vitamin D 5,000 Unit Cap) 5,000 unit PO DAILY [facility] Stop: 04/09/20 09:01 Last Admin: 03/10/20 09:23 Dose: 5,000 unit Documented by: Dapsone (Dapsone) 100 mg PO DAILY [facility]; Protocol Stop: 04/08/20 09:01 Last Admin: 03/10/20 09:23 Dose: 100 mg Documented by: Famotidine (Famotidine 20 Mg/2 Ml Vial) 20 mg IV BID [facility]; Protocol Stop: 04/09/20 09:01 Last Admin: 03/10/20 19:44 Dose: Not Given Documented by: Home Med (Mycophenolate Mofetil [Cellcept]) 500 mg PO DAILY [facility] Stop: 04/08/20 09:01 Last Admin: 03/10/20 09:18 Dose: 500 mg Documented by: Albumin Human (Albumin 25%) 200 mls @ 50 mls/hr IV 1X ONE Stop: 03/11/20 02:20 L-Arginine/L-Glutamine/HMB (Eugene Packet) 1 pkt PO BID [facility] Stop: 04/09/20 21:01 Lactobacillus Acidoph/Bulgaricus (Lactinex) 1 tab PO BEDTIME [facility] Stop: 04/07/20 21:01 Last Admin: 03/10/20 19:53 Dose: 1 tab Documented by: Levothyroxine Sodium (Synthroid) 0.025 mg PO DAILYAC [facility] Stop: 04/08/20 06:31 Last Admin: 03/10/20 06:10 Dose: 0.025 mg Documented by: Metoprolol Tartrate (Lopressor) 50 mg PO BID [facility] Stop: 04/07/20 21:01 Last Admin: 03/10/20 19:52 Dose: Not Given Documented by: Niacin (Niacin Sr) 1,000 mg PO BEDTIME [facility] Stop: 04/07/20 21:01 Last Admin: 03/10/20 19:53 Dose: 1,000 mg Documented by: Prednisone (Deltasone) 40 mg PO DAILY [facility] Stop: 04/08/20 09:01 Last Admin: 03/10/20 09:20 Dose: 40 mg Documented by: Sodium Chloride (Normal Saline Flush) 10 ml IV BID [facility] Stop: 04/07/20 21:01 Last Admin: 03/10/20 19:53 Dose: 10 ml Documented by: Assessment/ Plan: Nephrology CPS stable without CP or SOB. No acute events overnight. Limited IH/ ROS due to AMS. Vitals, medications, blood work and imaging reviewed in the chart. General: In no apparent distress, Cooperative HEENT: Normocephalic Neck: Supple Respiratory: Clear to auscultation bilaterally Cardiovascular: No edema, Regular rate/rhythm Gastrointestinal: Soft and benign, Non-distended Musculoskeletal: No clubbing, No contractures Integumentary: No rashes Neurological: Abnormal gait, Abnormal strength Blood work reviewed in the chart. Imagings Data: EXAM DESCRIPTION: RAD - Chest Single View - 03/09/2020 7:08 am CLINICAL HISTORY: shortness of breath Chest pain. COMPARISON: Chest Single View dated 02/09/2020; Chest Single View dated 12/13/2019; Chest Pa And Lat (2 Views) dated 03/09/2017; CHEST SINGLE VIEW dated 03/31/2013; [facility] Protocol dated 12/14/2019 FINDINGS: Portable technique limits examination quality. Small left pleural effusion is suspected. Moderate hiatal hernia is seen. The lungs are grossly clear. The heart is mildly enlarged in size. Aortic atherosclerosis. 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 DM II with CKD LE Edema/ Hx anasarca. Anemia in chronic illness Toxic metabolic encephalopathy P/ Continue current POC and Medications. IV Albumin X1 dose. Replete lytes prn. Continue prednisone. Neurology to evaluate for AMS. No NSAIDs. AM labs. Daily weight.
[2020-03-10] MEDS: ALBUMIN HUMAN 25% 50 ML IV SCH ×2 (23:07→23:49)
[2020-03-11] MEDS: ALBUMIN HUMAN 25% 50 ML IV SCH ×2 (01:10→02:04)
[2020-03-11] MEDS: LEVOTHYROXINE SOD 0.025 MG TAB PO SCH (06:04)
[2020-03-11 07:35] LABS: Protime INR 0.97
[2020-03-11 07:35] LABS: Ferritin 756.8 ng/mL (8-388)
[2020-03-11 07:44] LABS: RBC Red Blood Cell Count 2.2 M/uL (3.86-4.86)
[2020-03-11 07:45] LABS: Potassium 3.8 mmol/L (3.5-5.1)
[2020-03-11 08:05] LABS: Absolute Lymphocytes (CBC) 1.6 K/uL (0.7-4.9); Basophils % 0.2 % (0-1.3); Hematocrit 20.9 % (36.0-45.0); Lymphocytes % 23.1 % (15.3-44.8); MPV 9.5 fL (7.6-11.3); RBC Red Blood Cell Count 2.17 M/uL (3.86-4.86)
[2020-03-11] MEDS: FAMOTIDINE 20 MG/2 ML VIAL IV SCH ×2 (09:00→20:23)
[2020-03-11] MEDS: JUVEN PACKET PO SCH ×2 (09:00→20:24)
[2020-03-11] MEDS: Mycophenolate Mofetil 500 MG PO SCH (09:38)
[2020-03-11] MEDS: predniSONE 20 MG TAB PO SCH (09:41)
[2020-03-11] MEDS: VITAMIN D 5,000 UNIT CAP PO SCH (09:41)
[2020-03-11] MEDS: DAPSONE 100 MG TAB PO SCH (09:41)
[2020-03-11] MEDS: METOPROLOL TAR 50 MG TAB PO SCH ×2 (09:42→20:24)
[2020-03-11 10:05] LABS: Anisocytosis 2+; Blood Morphology Comment NOTED (NOT SEEN); Platelet Estimate DECR; Polychromasia 1+; White Blood Cell Scan OK (OK)
[2020-03-11 10:06] LABS: Burr Cells 2+
[2020-03-11] MEDS ORDERED: EPOETIN ALFA 10,000 UNIT/ML VIAL IV SCH (12:15)
[2020-03-11] MEDS ORDERED: EPOETIN ALFA 10,000 UNIT/ML VIAL IV ONE (13:00)
--- NOTE | 2020-03-11 13:34 | PN ---
Date of Progress Note: 03/11/2020 Subjective: The patient was seen and examined at bedside. She is doing well. She worked with physi selvin therapy. She is alert, awake, and oriented, however, she states that she is sometimes feel like she is disconnected from her body, but no other overnight events were noted. Objective: Vital signs: Showing temperature of 97.4, pulse rate of 85, respiratory rate of 19, and blood pressure 124/54. General: She appears in no acute distress. HEENT: Show atraumatic head. Lungs: Auscultation of the lungs revealed bilateral equal air entry. Heart: Auscultation of the heart revealed irregular rate and rhythm. Abdomen: Soft and nontender. Extremities: Showed no evidence of edema. Laboratory Data: At this time are showing creatinine of 1.5, BUN of 40. Electrolytes are otherwise stable. CBC showing hemoglobin of 6.8, hematocrit of 20.9, and platelet count of 54. WBC count of 6 .8. Her LFTs are continuing to be elevated. Her LFTs from March 10 are showing AST of 76, ALT of 132, and alkaline phosphatase of 539. Her ESR was within normal limits. Her complement levels and d ouble-stranded DNA levels are still pending at this time. Current Medications: Have been reviewed in detail. Impression: 1.Acute on chronic renal insufficiency, currently with overall stable renal function, secondary to u nderlying flare-up of lupus nephritis. The patient's renal function has overall remained stable and her anasarca is also stable. Her Lasix and spironolactone are currently on hold. We will continue t o monitor closely. 2.Altered mental status, likely secondary to confusion with some mild delirium also. The patient do es not have any evidence of any acute stroke or bleed on the MRI. There is a concern of this could b e lupus nephritis, however, her CRP levels are elevated, but ESR is overall stable, so I do not belie ve that this could be a flare of lupus nephritis. Family wants to defer lumbar puncture for right no w. 3.Anemia with drop in hemoglobin and hematocrit. The patient's hemoglobin is down to 6.7 today. Th e patient has 2 units of blood transfusion ordered. Her iron panel is consistent with anemia of capital markets specialist alex disease. We will give her a dose of Epogen. 4.Debility and weakness secondary to prolonged hospitalizations and underlying medical disease. The patient is doing better on the days that she gets physical therapy as opposed to the days that she i s not getting physical therapy. I have discussed with case management regarding placement at [facility], so she could benefit from inpatient rehab. I have also discussed the case with Dr. Oneyda delgado nd he is in agreement with the plan. 5.Hyperglycemia. The patient is mildly hyperglycemic. We will continue with the prednisone and mon itor her closely. 6.Mildly elevated TSH with concern for hypothyroidism. The patient has been started on levothyroxin e with some improvement. Plan: Overall, the patient is doing better at this time. Her confusion seems to be on and off. She will definitely benefit from physical therapy. Her renal function is overall stable. Diuretics are on hold. She is getting 2 units of blood transfusion and 1 dose of Epogen to be given and we will f ollow up closely with case management for discharge planning. Time spent, about 1 hour. KALEY/MARIBEL Voice ID: [id number] Report ID: [id number]
[2020-03-11] MEDS ORDERED: NA CHLORIDE 0.9% 250 ML ONE ×2 (13:39→17:30)
--- NOTE | 2020-03-11 20:10 | CON ---
Reason For Consultation: Consultation called because of altered mental status. History Of Present Illness: Ms. Mendoza is an 84-year-old right-handed patient, who has lup us nephritis and was admitted with increasing fatigue, generalized weakness, poor oral intake, and ne ar syncope. Primary care physician is Dr. Call and she is followed by Dr. Ayers in the Renal Ser vice as well. The patient was admitted on March 08 and was found to have elevated white count of a round 12, but slightly elevated neutrophils, and her chronic renal insufficiency was documented; carranza hattie, she had an elevated thyroid-stimulating hormone of 10.5 with elevated liver function studies, al kaline phosphatase was 539, ALT 132, and AST 76. Her lactate dehydrogenase was elevated to 509. She had a urinalysis showing greater than 50 bacteria, 1+ esterase, 15 to 20 white blood cells, and her urine cultures showed 4+ exe-twhx-kttibwowa strep. Her head CT scan did not show any acute ischemic or hemorrhagic change. After discussion with Dr. Call, there was a consideration for lupus nephriti s. The patient had a brain MRI, but it was done without contrast. This study was actually unremarka ble. She is on aspirin and did not get a lumbar puncture to look for oligoclonal bands with CSF elec trophoresis and white count to help rule out to see as involvement of lupus. With regard to the omari ent's cognitive status, when I saw the patient today, which is 3 days after admission, she was orient ed to person, place, situation, but not the exact date. She knew the month, the year, and follows al l commands appropriately. Past Medical History: As indicated. Allergies: SULFA DRUGS. Surgical History: Cardiac stents, hysterectomy, cataract surgery, bilateral knee surgery. Medications At Home: Aspirin 81 mg daily, vitamin D3 2000 international units daily, dapsone 100 mg daily, Lasix 40 mg twice daily, metoprolol 50 mg daily, prednisone 50 mg daily, Aldactone 25 mg daily , mycophenolate 500 mg daily, atorvastatin 10 mg nightly, and probiotics daily. It should be noted t hat she did receive a 3 day course of Solu-Medrol 1 g daily about a month ago for lupus nephritis and has been put on mycophenolate. Family History: Noncontributory. Review of Systems: She has had the recent diffuse weakness, some generalized fatigue and poor food intake, but no focal findings in the face, arm, or leg in terms of weakness or numbness or loss of coordination and balanc e. Physical Examination: Vital Signs: Blood pressure 125/58, pulse 56, respiratory rate 18, temperature 97.2, oxygen saturati on 95% weight 106 pounds, height 5 feet 1 inch, BMI 21.1. General: Ms. Mendoza is resting in bed. Her grandson is at the bedside. She is in no acute distress . HEENT: She is normocephalic, atraumatic. Sclerae are anicteric. Oropharynx is pink and moist. Neck: Supple. Chest: Clear. Heart: Regular. Extremities: Show no edema or cyanosis. Neurologic: She is alert and oriented again to person, situation, place. She follows all commands a ppropriately. On the mini-mental status examination, she missed 1 for delayed verbal recall. She mi ssed 4 for spelling world backwards and serial subtraction and had a total of 20/30 on the MMSE. In terms of cranial nerves, she had no focal deficits there. Motor examination, diffuse weakness 4/5 pr oximally and distally in the upper and lower extremities. Sensation, she has a stocking-glove loss t o light touch temperature, depressed. Reflexes are trace in the upper and lower extremities. Coordi nation is slow but intact in the upper and lower extremities. Gait, she was able to ambulate at leas t around 250 feet with the physical therapist. However, today because of severe anemia and actually receiving 2 units of blood. She has not ambulated. Laboratory Data: Her hemoglobin earlier today was 6.8, and she is currently getting the blood. It s hould be noted that reticulocyte count is elevated to 6.46, absolute reticulocyte count elevated to 0 .14. Assessment: Ms. Mendoza is an 84-year-old patient with multiple reasons for confusion or encephalopat hy. She does have severe anemia and had a possible urinary tract infection on admission. She does h ave chronic renal insufficiency and lupus. 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 Her noncontrast brain MRI is unremarkable for any infection, although it is limited be cause of no contrast being used. She did not have a lumbar puncture as she is on aspirin and it is n ot felt that is with contributory diagnosis at this point. Plan: 1.Continue with current course of treatment. 2.She may be discharged home and follow up with Dr. Villegas as indicated. 3.She should continue the aspirin at least 81 mg daily, Lipitor 10 mg at bedtime, high dose vitamin D, and vitamin B12 at least 2500 mcg sublingual daily. MAYCOL/MARIBEL Voice ID: [id number] Report ID: [id number]
[2020-03-11] MEDS: NIACIN 500 MG SR TAB PO SCH (20:24)
[2020-03-11] MEDS: VITAMIN D 1000 UNIT TAB PO SCH (20:24)
[2020-03-11] MEDS: LACTOBACILLUS/ACIDOPHILUS TAB PO SCH (20:24)
[2020-03-11] MEDS: ATORVASTATIN 10 MG TAB PO SCH (20:24)
[2020-03-11] MEDS ORDERED: RANITIDINE 150 MG TABLET PO SCH (21:00)
[2020-03-11 22:33] LABS: Hematocrit 33.4 % (36.0-45.0); Platelet Estimate ND
[2020-03-12] MEDS: LEVOTHYROXINE SOD 0.025 MG TAB PO SCH (05:37)
[2020-03-12 06:20] LABS: Absolute Lymphocytes (CBC) 2.9 K/uL (0.7-4.9); Basophils % 0.9 % (0-1.3); Hematocrit 40.2 % (36.0-45.0); Lymphocytes % 26.1 % (15.3-44.8); MPV 9.3 fL (7.6-11.3); RBC Red Blood Cell Count 4.23 M/uL (3.86-4.86)
[2020-03-12] MEDS: JUVEN PACKET PO SCH ×2 (09:00→21:00)
[2020-03-12 09:43] LABS: Blood Morphology Comment NOTED (NOT SEEN); Platelet Estimate DECR; Polychromasia 1+
[2020-03-12] MEDS: FAMOTIDINE 20 MG/2 ML VIAL IV SCH ×2 (10:04→21:43)
[2020-03-12] MEDS: predniSONE 20 MG TAB PO SCH (10:04)
[2020-03-12] MEDS: METOPROLOL TAR 50 MG TAB PO SCH ×2 (10:05→21:42)
[2020-03-12] MEDS: ASPIRIN EC 81 MG TAB PO SCH (10:05)
[2020-03-12] MEDS: VITAMIN D 5,000 UNIT CAP PO SCH (10:05)
[2020-03-12] MEDS: Mycophenolate Mofetil 500 MG PO SCH (10:06)
[2020-03-12] MEDS: DAPSONE 100 MG TAB PO SCH (10:06)
--- NOTE | 2020-03-12 14:11 | PN ---
Subjective: Ms. Mendoza is feeling a little better. Denies any chest pain, nausea, vomiting. She is starting to do some walking with a therapist. Objective: Vital Signs: Blood pressure 140/65, temperature 97.8. HEENT: No JVD. No carotid bruits. Chest: Clear. Heart: Regular. Abdomen: No guarding. No rebound. No rigidity. Laboratory Data: On investigations hemoglobin is 13, hematocrit 40[place] [address], and platelets of 41,000 which are dropping over last 4 days. Reticulocyte count is 6.4. LDH of 509. Ferritin level is 756 which is high. Iron and TIBC are low. Assessment/plan: 1. Active lupus. The patient may have lupus related hemolysis. Needs to be in the hospital for close supervision, possible aggressive therapy for lupus. We have consulted Hematology today. I had one more phone call from some doctor somewhere in the [place] about her approval status. She is still approved for observation only. I have advised to them that she might have active lupus, which is why she should qualify for inpatient and hopefully they approved. They are waiting for today's notes. Again we have been documenting about this activity of lupus on a daily basis. 2. Renal failure. Currently stable 1.5 creatinine. 3. Generalized debilitation. Under physical therapy at this point. 4. Hypoalbuminemia. Mild nutrition. 5. Hypothyroidism. Currently being treated. CHAPO/MARIBEL Voice ID: [id number] Report ID: [id number] DARWIN
[2020-03-12] MEDS: NIACIN 500 MG SR TAB PO SCH (21:42)
[2020-03-12] MEDS: ATORVASTATIN 10 MG TAB PO SCH (21:43)
[2020-03-12] MEDS: LACTOBACILLUS/ACIDOPHILUS TAB PO SCH (21:43)
--- NOTE | 2020-03-12 22:24 | P.PN ---
Date of Service: 03/12/20 Vital Signs Temp Pulse Resp BP Pulse Ox 97.6 F 57 16 144/65 H 91 03/12/20 20:00 03/12/20 21:42 03/12/20 20:00 03/12/20 21:42 03/12/20 20:00 Medications Aspirin (Aspirin Ec 81 Mg Tab) 81 mg PO DAILY [facility] Stop: 04/11/20 09:01 Last Admin: 03/12/20 10:05 Dose: 81 mg Documented by: Atorvastatin Calcium (Lipitor) 10 mg PO BEDTIME [facility] Stop: 04/07/20 21:01 Last Admin: 03/12/20 21:43 Dose: 10 mg Documented by: Cholecalciferol (Vitamin D 5,000 Unit Cap) 5,000 unit PO DAILY [facility] Stop: 04/09/20 09:01 Last Admin: 03/12/20 10:05 Dose: 5,000 unit Documented by: Dapsone (Dapsone) 100 mg PO DAILY [facility]; Protocol Stop: 04/08/20 09:01 Last Admin: 03/12/20 10:06 Dose: 100 mg Documented by: Famotidine (Famotidine 20 Mg/2 Ml Vial) 20 mg IV BID [facility]; Protocol Stop: 04/09/20 09:01 Last Admin: 03/12/20 21:43 Dose: 20 mg Documented by: Home Med (Mycophenolate Mofetil [Cellcept]) 500 mg PO DAILY [facility] Stop: 04/08/20 09:01 Last Admin: 03/12/20 10:06 Dose: 500 mg Documented by: L-Arginine/L-Glutamine/HMB (Eugene Packet) 1 pkt PO BID [facility] Stop: 04/09/20 21:01 Last Admin: 03/12/20 21:00 Dose: Not Given Documented by: Lactobacillus Acidoph/Bulgaricus (Lactinex) 1 tab PO BEDTIME [facility] Stop: 04/07/20 21:01 Last Admin: 03/12/20 21:43 Dose: 1 tab Documented by: Levothyroxine Sodium (Synthroid) 0.025 mg PO DAILYAC [facility] Stop: 04/08/20 06:31 Last Admin: 03/12/20 05:37 Dose: 0.025 mg Documented by: Metoprolol Tartrate (Lopressor) 50 mg PO BID [facility] Stop: 01/05/21 21:01 Last Admin: 03/12/20 21:42 Dose: 50 mg Documented by: Niacin (Niacin Sr) 1,000 mg PO BEDTIME [facility] Stop: 04/07/20 21:01 Last Admin: 03/12/20 21:42 Dose: 1,000 mg Documented by: Prednisone (Deltasone) 40 mg PO DAILY [facility] Stop: 04/08/20 09:01 Last Admin: 03/12/20 10:04 Dose: 40 mg Documented by: Sodium Chloride (Normal Saline Flush) 10 ml IV BID [facility] Stop: 04/07/20 21:01 Last Admin: 03/12/20 21:43 Dose: 10 ml Documented by: Assessment/ Plan: Nephrology CPS stable without CP or SOB. No acute events overnight. Malaise and weakness. Vitals, medications, blood work and imaging reviewed in the chart. General: In no apparent distress, Cooperative HEENT: Normocephalic Neck: Supple Respiratory: Clear to auscultation bilaterally Cardiovascular: No edema, Regular rate/rhythm Gastrointestinal: Soft and benign, Non-distended Musculoskeletal: No clubbing, No contractures Integumentary: No rashes Neurological: Abnormal gait, Abnormal strength Blood work reviewed in the chart. Imagings Data: EXAM DESCRIPTION: RAD - Chest Single View - 03/09/2020 7:08 am CLINICAL HISTORY: shortness of breath Chest pain. COMPARISON: Chest Single View dated 02/09/2020; Chest Single View dated 12/13/2019; Chest Pa And Lat (2 Views) dated 03/09/2017; CHEST SINGLE VIEW dated 03/31/2013; [facility] Protocol dated 12/14/2019 FINDINGS: Portable technique limits examination quality. Small left pleural effusion is suspected. Moderate hiatal hernia is seen. The lungs are grossly clear. The heart is mildly enlarged in size. Aortic atherosclerosis. 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 DM II with CKD LE Edema/ Hx anasarca. Anemia in chronic illness Toxic metabolic encephalopathy P/ Continue current POC and Medications. Replete lytes prn. Continue prednisone. Hematology to evaluate thrombocytopenia. No NSAIDs. AM labs. Daily weight. Possible rehab placement.
[2020-03-13] MEDS: LEVOTHYROXINE SOD 0.025 MG TAB PO SCH (05:19)
[2020-03-13 06:35] LABS: Absolute Lymphocytes (CBC) 1.5 K/uL (0.7-4.9); Basophils % 0.4 % (0-1.3); Hematocrit 36.7 % (36.0-45.0); Lymphocytes % 18.9 % (15.3-44.8); MPV 8.7 fL (7.6-11.3); RBC Red Blood Cell Count 3.88 M/uL (3.86-4.86)
[2020-03-13 06:48] LABS: Potassium 3.7 mmol/L (3.5-5.1)
[2020-03-13] MEDS: VITAMIN D 5,000 UNIT CAP PO SCH (08:58)
[2020-03-13] MEDS: predniSONE 20 MG TAB PO SCH (08:58)
[2020-03-13] MEDS: ASPIRIN EC 81 MG TAB PO SCH (08:58)
[2020-03-13] MEDS: METOPROLOL TAR 50 MG TAB PO SCH ×2 (08:58→21:44)
[2020-03-13] MEDS: JUVEN PACKET PO SCH ×2 (08:59→21:45)
[2020-03-13] MEDS: FAMOTIDINE 20 MG/2 ML VIAL IV SCH (08:59)
[2020-03-13] MEDS: DAPSONE 100 MG TAB PO SCH (08:59)
[2020-03-13] MEDS: Mycophenolate Mofetil 500 MG PO SCH (09:03)
--- NOTE | 2020-03-13 19:21 | P.PN ---
Date of Service: 03/13/20 Vital Signs Temp Pulse Resp BP Pulse Ox 97.0 F 63 15 133/63 95 03/13/20 11:54 03/13/20 11:54 03/13/20 11:54 03/13/20 11:54 03/13/20 11:54 Medications Aspirin (Aspirin Ec 81 Mg Tab) 81 mg PO DAILY [facility] Stop: 04/11/20 09:01 Last Admin: 03/13/20 08:58 Dose: 81 mg Documented by: Atorvastatin Calcium (Lipitor) 10 mg PO BEDTIME [facility] Stop: 04/07/20 21:01 Last Admin: 03/12/20 21:43 Dose: 10 mg Documented by: Cholecalciferol (Vitamin D 5,000 Unit Cap) 5,000 unit PO DAILY [facility] Stop: 04/09/20 09:01 Last Admin: 03/13/20 08:58 Dose: 5,000 unit Documented by: Dapsone (Dapsone) 100 mg PO DAILY [facility]; Protocol Stop: 04/08/20 09:01 Last Admin: 03/13/20 08:59 Dose: 100 mg Documented by: Home Med (Mycophenolate Mofetil [Cellcept]) 500 mg PO DAILY [facility] Stop: 04/08/20 09:01 Last Admin: 03/13/20 09:03 Dose: 500 mg Documented by: L-Arginine/L-Glutamine/HMB (Eugene Packet) 1 pkt PO BID [facility] Stop: 04/09/20 21:01 Last Admin: 03/13/20 08:59 Dose: Not Given Documented by: Metoprolol Tartrate (Lopressor) 50 mg PO BID [facility] Stop: 04/07/20 21:01 Last Admin: 03/13/20 08:58 Dose: 50 mg Documented by: Niacin (Niacin Sr) 1,000 mg PO BEDTIME [facility] Stop: 04/07/20 21:01 Last Admin: 03/12/20 21:42 Dose: 1,000 mg Documented by: Prednisone (Deltasone) 40 mg PO DAILY [facility] Stop: 04/08/20 09:01 Last Admin: 03/13/20 08:58 Dose: 40 mg Documented by: Sodium Chloride (Normal Saline Flush) 10 ml IV BID [facility] Stop: 04/07/20 21:01 Last Admin: 03/13/20 08:59 Dose: 10 ml Documented by: Assessment/ Plan: Nephrology CPS stable without CP or SOB. No acute events overnight. Waxing and waning mental status. Malaise and weakness. Case reviewed with the daughter at the bedside. Vitals, medications, blood work and imaging reviewed in the chart. General: In no apparent distress, Cooperative HEENT: Normocephalic Neck: Supple Respiratory: Clear to auscultation bilaterally Cardiovascular: No edema, Regular rate/rhythm Gastrointestinal: Soft and benign, Non-distended Musculoskeletal: No clubbing, No contractures Integumentary: No rashes Neurological: Abnormal gait, Abnormal strength Blood work reviewed in the chart. Imagings Data: EXAM DESCRIPTION: RAD - Chest Single View - 03/09/2020 7:08 am CLINICAL HISTORY: shortness of breath Chest pain. COMPARISON: Chest Single View dated 02/09/2020; Chest Single View dated 12/13/2019; Chest Pa And Lat (2 Views) dated 03/09/2017; CHEST SINGLE VIEW dated 03/31/2013; [facility] Protocol dated 12/14/2019 FINDINGS: Portable technique limits examination quality. Small left pleural effusion is suspected. Moderate hiatal hernia is seen. The lungs are grossly clear. The heart is mildly enlarged in size. Aortic atherosclerosis. 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 Anemia in chronic illness Thrombocytopenia Moderate malnutrition Toxic metabolic encephalopathy P/ Continue current POC and Medications. Continue prednisone. Change pepcid to PO. Start MVI. Start CoEQ10. Continue PT as tolerated. No NSAIDs. AM labs. Daily weight. SNF placement pending.
--- NOTE | 2020-03-13 19:38 | PN ---
Subjective: Ms. Mendoza claims to feel not good today. She does not have any obvious complaints, why I asked her if she has pain. She has no headache, double vision, blurred vision, chest pain, nausea , vomiting, abdominal pain, leg pain, or any other symptoms like diarrhea, nausea, vomiting, burning urination, none of these are present except for she said that I do not feel good today. Later on the daughter talked to Dr. Ayers and she started to feel better later balance weigher. Physical Examination: Vital Signs: Blood pressure 133/63, pulse 63, temperature 97.0. HEENT: No JVD. No carotid bruits. Chest: Clear. Heart: Regular. Abdomen: No guarding, no rebound. No rigidity. Laboratory Data: On investigations, patient's creatinine is down to 1.42. Her platelets have come u p to 58,000 from 42,000. Assessment And Plannin.Active lupus causing nephritis, treated by steroids and chemo agents. 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 Consulted Dr. Eid. So, I called her today. She will be see ing the patient today. The patient is already on steroids and I see the sign of improvement of plate lets, which is encouraging that she will not need IV steroids. 3.Mentation. The altered mental status she had seemed to have stabilized. She has improved. Nicolette y is not able to take care of her, but again she is on observation here. Since admission, her [employer] has not approved inpatient stay even though I have talked to them 2 times in the last 1 w [place]. These [facility] doctors [place]. I explained to them that we are watching h er platelets and her mentation, which may get worse rapidly with lupus. They said she may be approve d for inpatient stay. One of the doctors said that but they have not approved yet. I have explained to them that platelets are dropping rapidly every day and this is concerning to us. We cannot send her home with worsening lab work, but now that she has improved in the last 24 hours, she may be able to go home tomorrow if she feels good. Even though she does not, she should be still going home. Kevyn zuniga's family is not going to take her home. They want her an assisted living or [facility] faci lity, but [employer] again in their wisdom, they are not approving anything yet either inpatie nt stay, [facility] stay, correction stay or rehab stay. So, we are stuck between a rock and a hard place between this family and the insurance company. CHAPO/MARIBEL Voice ID: [id number] Report ID: [id number]
[2020-03-13] MEDS ORDERED: FAMOTIDINE 20 MG TAB PO SCH (21:00)
--- NOTE | 2020-03-13 21:05 | CON ---
Date of Consultation: 03/13/2020 Reason For Consultation: Thrombocytopenia. History Of Present Illness: Ms. Mendoza is an 84-year-old who presented to the emergency room a few days ago with generalized weakness, failure to thrive, and weakness. A CBC done in the emergency room on admission on the 08 of March revealed a platelet count of 99,000, which has steadily declined and was down to 41,000 on 03/12/2020. I was consulted for this worsening thrombocytopenia. She was hospitalized recently at [facility] by Dr. Ayers, her county coroner, for acute renal failure. History obtained from Dr. Ayers reveals that Ms. 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 Dr. Ayers informed me that the patient was thrombocytopenic even during her previous hospitalization with platelet count in the 40,000 to 50,000 range. During her previous hospitalization, she was evaluated by the marine engineering teacher, Dr. 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 There is no current or previous history of significant or major bleeding. There is no history of previous platelet transfusion. Her renal failure did improve with steroids and mycophenolate therapy and short-term dialysis. During her previous hospitalization, Ms. Mendoza had episode of atrial fibrillation, but was not put on anticoagulation because of previous thrombocytopenia and concerns regarding bleeding. Ms. Mendoza was resting comfortably when I saw her. She denies any history of pain. Denies any chest pain, cough, or shortness of breath. Denies history of fever, joint pain, or joint swelling. Denies any headache, blurred vision, or double vision. There is no history of abdominal pain, nausea, vomiting, or diarrhea. She has been concerned about constipation. Review of Systems: As noted above and is limited by her short-term memory deficit. Past Medical History: Significant for: 1. Coronary artery disease. 2. Hyperlipidemia. 3. Rheumatoid arthritis, was on Humira. 4. Osteoarthritis of the knees. 5. Lupus nephritis. 6. Acute renal failure. Past Surgical History: Significant for placement of a cardiac stent and bilateral knee replacement. Medications: Current medications are as follows: Baby aspirin 81 mg p.o. daily, atorvastatin 10 mg p.o. at bedtime, vitamin D 5000 units p.o. daily, dapsone 100 mg p.o. daily, famotidine 20 mg p.o. at night, levothyroxine 0.05 mg q.a.m., metoprolol 50 mg p.o. b.i.d., prednisone [address] daily. Per Dr. Ayers, Mycophenolate 500 mg p.o. b.i.d. from her home medications. Allergies: SHE IS ALLERGIC TO SULFA DRUGS. Social And Family History: Ms. Mendoza has never smoked and does not drink alcohol. She is a , has 2 daughters and a son, who in his 50s. Her mother was a smoker and from lung cancer at 72. Her father at the age of 93. Physical Examination: General: Today, Ms. Mendoza appeared comfortable. General physical examination revealed pallor. No cyanosis or icterus was noted. Vital Signs: Temperature of 97 Fahrenheit around noon today, pulse 63, respirations 15 per minute, blood pressure 133/63, saturating around 95% on room air. HEENT: Revealed a dry mouth with no petechiae or bleeding and no thrush. Skin: Revealed extensive purpura over both forearm and dorsum of the hand as well as both shins. Lymph Node Survey: Revealed no palpable lymphadenopathy in the neck, axilla, or groin. Chest: Clear to auscultation. No rales or rhonchi were heard. Heart: Sounds reveal normal S1, S2. No gallops or murmurs heard. Abdomen: Soft, nontender. Liver and spleen were not palpable. Bowel sounds were present. Neurologic: Ms. Mendoza appeared to be alert, partly oriented to time and place. Short-term memory and recall was impaired. Extremities: No significant edema. Laboratory Data: Lab data from this morning revealed a white count of 7.7; hemoglobin was 12.3gm/dl; platelet count was 58,000, which is up from 41,000 yesterday; reticulocyte count done on the 11 of March was elevated at 6.46% as was the absolute reticulocyte count. PT, PTT were not elevated, done on 03/11/2020. Chemistries revealed normal sodium 144, potassium 3.7, BUN was 33, creatinine 1.42, which is trending downwards. Iron profile revealed an elevated ferritin as was the CRP, LDH was also elevated at 509. Bilirubin was normal. B12 and folic acid done already was normal. Assessment And Plan: 1. Thrombocytopenia. Possible etiologies include an immune thrombocytopenia secondary to systemic lupus erythematosus, a microangiopathic hemolytic anemia (MAHA; TTP, HUS) or Felty syndrome given her history of rheumatoid arthritis. On talking to Dr. Ayers it appears that her thrombocytopenia has been pretty much stable and unchanged for the past 6 weeks and may even be improving, which wound not favor a diagnosis of TTP or HUS. I will send a slide review to rule out significant schistocytes. We will also get an ultrasound of the abdomen to rule out splenomegaly and Felty's disease. 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 She is currently on prednisone and mycophenolate for lupus nephritis, which should also help with the ITP. There is no evidence of significant bleeding, hence no intervention is warranted at this time. I would suggest you transfuse platelets if her platelet count drops to below 10,000 or she has significant bleeding and her platelet count is less than 50,000. I will be happy to see through the clinic and follow her platelet count or it can be followed by her county coroner, Dr. Ayers, who is managing her immunosuppressants at this time or her PCP and I will be available as needed. 2. Anemia. Her hemoglobin was 11 g/dL on admission on the 08 of March and dropped to 6.8 g/dL on the 11 of March when she was transfused 2 units of packed red blood cells. Her hemoglobin is up around 12 g/dL today and seems to be stable for the past 48 hours. I suspect some chronic GI blood loss. Iron profile is normal as is the B12 and folic acid. There is no evidence of hemolysis at this time. We would suggest we just follow the hemoglobin for now. Thank you for asking me to see Ms. Mendoza. Please do not hesitate to call me if you have any other questions. AP/MODL Voice ID: [id number] Report ID: [id number] DARWIN
[2020-03-13 21:21] VITALS: O2SAT 97
[2020-03-13] MEDS: ATORVASTATIN 10 MG TAB PO SCH (21:44)
[2020-03-13] MEDS: NIACIN 500 MG SR TAB PO SCH (21:44)
[2020-03-14 06:23] LABS: Absolute Lymphocytes (CBC) 1.8 K/uL (0.7-4.9); Basophils % 1.1 % (0-1.3); Hematocrit 39.6 % (36.0-45.0); Lymphocytes % 20.4 % (15.3-44.8); MPV 9.2 fL (7.6-11.3); RBC Red Blood Cell Count 4.12 M/uL (3.86-4.86)
[2020-03-14] MEDS ORDERED: LEVOTHYROXINE SOD 0.05 MG TABLET PO SCH (06:30)
[2020-03-14 06:41] LABS: C-Reactive Protein 6.96 mg/L (<3.00)
[2020-03-14] MEDS ORDERED: LACTOBACILLUS/ACIDOPHILUS TAB PO SCH (08:00)
[2020-03-14] MEDS ORDERED: COENZYME Q10- 200 MG CAP PO SCH (09:00)
[2020-03-14] MEDS ORDERED: EPOETIN ALFA-EPBX 10,000 UNIT/ML VIAL SQ SCH (09:00)
[2020-03-14] MEDS ORDERED: MULTIVITAMIN TAB PO SCH (09:00)
[2020-03-14] MEDS ORDERED: FAMOTIDINE 20 MG/2 ML VIAL IV SCH (09:00)
[2020-03-14] MEDS: predniSONE 20 MG TAB PO SCH (10:22)
[2020-03-14] MEDS: VITAMIN D 5,000 UNIT CAP PO SCH (10:22)
[2020-03-14] MEDS: METOPROLOL TAR 50 MG TAB PO SCH (10:23)
[2020-03-14] MEDS: ASPIRIN EC 81 MG TAB PO SCH (10:23)
[2020-03-14] MEDS: DAPSONE 100 MG TAB PO SCH (10:24)
[2020-03-14] MEDS: JUVEN PACKET PO SCH (10:24)
[2020-03-14] MEDS: Mycophenolate Mofetil 500 MG PO SCH (10:24)
[2020-03-14 10:44] VITALS: TEMP 97.9
--- NOTE | 2020-03-14 12:39 | P.DS ---
Admission Date: 03/08/20 Discharge Date: 03/14/20 Primary Care Provider: Dr. Call Disposition: TRANSFER TO [facility] Discharge Condition: FAIR Reason for Admission: WEAKNESS LITTLE BETTER TODAY. - Problems (1) General weakness Current Visit: Yes Status: Chronic (2) Dehydration Current Visit: Yes Status: Acute (3) Lupus nephritis Current Visit: Yes Status: Acute (4) Atrial fib/flutter, transient Current Visit: Yes Status: Chronic (5) Altered mental state Current Visit: Yes Status: Acute (6) Anemia Onset Date: 03/15/17 Current Visit: No Status: Acute Brief History of Present Illness: MS. DONAHUE HAS HAD RECENT EPISODE OF ACUTE LUPUS NEPHRITIS RELATED RENAL FAILURE. I WAS NOT AWARE OF THIS UNTIL I CALLED DR. KENT TODAY. SHE REPORTS TO ER WITH WEAKNESS THAT IS GENERAL PER DR VEIRA'S ADVISE. FAMILY HAS BEEN IN CONTACT WITH HER. SHE DENIES ANY CHEST PAIN, HEADACHES. SHE SAYS SHE IS HERE TO GET RID OF WHAT IS BLOCKING HER. SHE IS NOT ABLE TO EXPLAIN THAT. FAMILY SAYS SHE IS OBSESSED WITH CONSTIPATION. IN THE AM SHE IS NOT ABLE TO HOLD HER WEIGHT AND LATER IN THE DAY SHE IS ABLE TO WALK WITH WALKER AND DO PT WITH HOME HEALTH. DR. VIERA HAD OFFERED INPATIENT REHAB BUT THAT WAS REJECTED BY INSURANCE COMPANY ON HER ADMISSION TO [facility]. SHE WAS IN THE [facility] FOR TWO WEEKS. SHE HAD DIALYSIS FOR A FEW DAYS AND CREATININE CAME DOWN TO 1.3. SINCE THEN SHE IS ON LASIX 40 MG BID AND PREDNISONE 40 MG DAILY, SPIRONOLACTONE 50 MG DAILY. SHE HAD EPISODE OF A FIB. WAS SEEN BY BUT STILL IS NOT ON ANY ANTICOAGULATION. SHE CAME OUT OF [facility] BUT SHE DID NOT MAKE APT AT MY OFFICE FOR FOLLOW UP YET. Hospital Course: MS DONAHUE CAME WITH WEAKNESS AND FALLS. HER CREATININE WAS HIGH AT 1.5. THIS WAS DOWN FROM 6.97 AFTER WHICH SHE WAS DIAGNOSED WITH LUPUS NEPHRITIS IN [facility]. SHE WAS SLOW TO RESPOND AND SOMEWHAT CONFUSED. MRI BRAIN WAS NEGATIVE. THERE IS A SUSPICION OF LUPUS CEREBRITIS BUT MRI DID NOT SHOW ANY CHANGES. WE COULD NOT DO CONTRAST CREAT WAS MILD HIGH. THERE WAS A SPINAL TAP ENTERTAINED BUT BEING LOW SUSPICION WAS CANCELED AND ALSO CLINICALLY SHE IMPROVED. SHE LATER DROPPED HER PLATELETS DOWN TO 42K. I CALLED DR. HERBERT AND BEFORE SHE WAS SEEN I CAME UP ON ITS OWN TO 52K AND LATER 60K. SHE IS ON MEDS FOR LUPUS. SHE WILL CONTINEU FU WITH NEUROLOGICAL SURGERY TEACHER AND RESPIRATORY SUPPORT TECHNICIAN. DAUGHTER HAD REFUSED TO DO [facility]OW BIOPSY IN [place] AND ALSO HERE. [place] IS STABLE TO [place]. I TALKED DOCTORS FROM [employer] BUT THEY ALL KEPT HER ON OBSERVATION EVEN THOUGH SHE HAD DROPPING PLATELETS, SHE NEEDED CLOSE SUPERVISION FOR ACUTE LUPUS COMPLICATIONS. SHE IS STABLE TO GO HO [place] TODAY IF NOT SHE WILL GO HOME WITH FAMILY. DAUGHTER APRYL WAS KEPT AWARE OF CHANGES ON DAILY BASIS. Vital Signs/Physical Exam: Temp Pulse Resp BP Pulse Ox 97.9 F 79 17 144/71 H 93 03/14/20 08:00 03/14/20 10:23 03/14/20 08:00 03/14/20 10:23 03/14/20 08:00 Laboratory Data at Discharge: WBC 9.0 K/uL (4.3-10.9) D 03/14/20 05:49 Hgb 13.0 g/dL (12.0-15.0) 03/14/20 05:49 Hct 39.6 % (36.0-45.0) 03/14/20 05:49 Plt Count 60 K/uL (152-406) L 03/14/20 05:49 PT 11.5 SECONDS (9.5-12.5) 03/11/20 07:03 INR 0.97 03/11/20 07:03 APTT 21.3 SECONDS (24.3-36.9) L 03/11/20 07:03 Sodium 143 mmol/L (136-145) 03/14/20 05:49 Potassium 4.0 mmol/L (3.5-5.1) 03/14/20 05:49 BUN 32 mg/dL (7-18) H 03/14/20 05:49 Creatinine 1.19 mg/dL (0.55-1.3) 03/14/20 05:49 Glucose 128 mg/dL (74-106) H 03/14/20 05:49 Uric Acid 8.6 mg/dL (2.6-6.0) H 03/10/20 05:02 Phosphorus 2.7 mg/dL (2.5-4.9) 03/10/20 05:02 Magnesium 1.9 mg/dL (1.8-2.4) D 03/10/20 05:02 Total Bilirubin 0.7 mg/dL (0.2-1.0) 03/10/20 05:02 AST 76 U/L (15-37) H 03/10/20 05:02 ALT 132 U/L (12-78) H 03/10/20 05:02 Alkaline Phosphatase 539 U/L (45-117) H 03/10/20 05:02 Home Medications: Aspirin [Aspirin EC 81 MG] 81 mg PO DAILY 03/08/20 Atorvastatin Calcium 10 mg PO BEDTIME 03/08/20 Cholecalciferol (Vitamin D3) [Vitamin D3] 2,000 unit PO BEDTIME 03/08/20 Dapsone [Dapsone*] 100 mg PO DAILY 03/08/20 L.acidoph,Paracasei, B.lactis [Probiotic] 1 each PO BEDTIME 03/08/20 Metoprolol Tartrate 50 mg PO BID 03/08/20 Mycophenolate Mofetil [Cellcept] 500 mg PO DAILY 03/08/20 Niacin [Slo-Niacin] 2 tab PO BEDTIME 03/08/20 predniSONE [Prednisone] 40 mg PO DAILY 03/08/20 Atorvastatin Calcium [Lipitor*] 10 mg PO BEDTIME tab 03/14/20 Cholecalciferol (Vitamin D3) [Vitamin D 5,000 IU Cap*] 5,000 unit PO DAILY cap 03/14/20 Dapsone [Dapsone*] 100 mg PO DAILY tab 03/14/20 Famotidine [Pepcid*] 20 mg PO BEDTIME tab 03/14/20 Eugene [Eugene*] 1 pkt PO BID powd.pack 03/14/20 Levothyroxine [Synthroid*] 0.05 mg PO DAILYAC tablet 03/14/20 Metoprolol Tartrate [Lopressor*] 50 mg PO BID tab 03/14/20 Multivit,Ther Iron,Ca,FA & Min [Centrum Tablet*] 1 tab PO DAILY tab 03/14/20 Niacin Sr [Niaspan*] 1,000 mg PO BEDTIME tab 03/14/20 Ubidecarenone [Coenzyme Q10*] 200 mg PO DAILY cap 03/14/20 predniSONE [Prednisone*] 40 mg PO DAILY tab 03/14/20 Followup: NONE,NONE [Primary Care Provider] -
[2020-03-14 15:16] VITALS: BP 129/60
--- NOTE | 2020-03-14 19:10 | P.PN ---
Date of Service: 03/14/20 Vital Signs Temp Pulse Resp BP Pulse Ox 97.9 F 63 17 129/60 93 03/14/20 12:00 03/14/20 12:00 03/14/20 12:00 03/14/20 12:00 03/14/20 12:00 Assessment/ Plan: Nephrology CPS stable without CP or SOB. No acute events overnight. Waxing and waning mental status. Malaise and weakness. Case reviewed with the son at the bedside. Vitals, medications, blood work and imaging reviewed in the chart. General: In no apparent distress, Cooperative HEENT: Normocephalic Neck: Supple Respiratory: Clear to auscultation bilaterally Cardiovascular: No edema, Regular rate/rhythm Gastrointestinal: Soft and benign, Non-distended Musculoskeletal: No clubbing, No contractures Integumentary: No rashes Neurological: Abnormal gait, Abnormal strength Blood work reviewed in the chart. Imagings Data: EXAM DESCRIPTION: RAD - Chest Single View - 03/09/2020 7:08 am CLINICAL HISTORY: shortness of breath Chest pain. COMPARISON: Chest Single View dated 02/09/2020; Chest Single View dated 12/13/2019; Chest Pa And Lat (2 Views) dated 03/09/2017; CHEST SINGLE VIEW dated 03/31/2013; Stone Protocol dated 12/14/2019 FINDINGS: Portable technique limits examination quality. Small left pleural effusion is suspected. Moderate hiatal hernia is seen. The lungs are grossly clear. The heart is mildly enlarged in size. Aortic atherosclerosis. 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 Anemia in chronic illness Thrombocytopenia Moderate malnutrition Toxic metabolic encephalopathy P/ Continue current POC and Medications. Continue prednisone. No change in steroids at this time. Continue PT as tolerated. No NSAIDs. AM labs prn. Daily weight. Possible placement at [place] today.
[2020-03-15 22:15] LABS: Albumin, (SPE) 2.9 g/dL (3.8-4.8); Alpha-1-Globulins 0.3 g/dL (0.2-0.3); Alpha-2-Globulins 0.3 g/dL (0.5-0.9); Gamma Globulins 0.6 g/dL (0.8-1.7); INTERPRETATION REPORT
[2020-03-18 11:32] LABS: Immunoglobulin A 154 mg/dL (70-320); Tissue Transglutaminase IgA Ab 1 U/mL (<4)
--- NOTE | 2020-03-24 14:00 | EEG ---
CHART: [id number] TEST ID#: [id number] DATE OF STUDY: 03/10/2020 THE EEG WAS RECORDED PORTABLE IN THE PATIENT'S ROOM ON A 17 CHANNEL MACHINE. ELECTRODES WERE APPLIED IN THE USUAL MANNER USING THE INTERNATIONAL 10-20 SYSTEM. THE WAKING BACKGROUND RHYTHM IN THIS RECORD CONSISTS OF FAIRLY WELL DEVELOPED AND FAIRLY WELL ORGANIZED WAVES OF 7 HZ., MAXIMAL IN THE POSTERIOR HEAD REGIONS WHICH ATTENUATE NORMALLY WITH EYE OPENING. LOW-VOLTAGE 15-18 HZ IS EXPRESSED IN THE FRONTAL REGIONS. THERE ARE NO FOCAL OR LATERALIZING FEATURES. NO EPILEPTIFORM ACTIVITY APPEARS. SLEEP OCCURRED NATURALLY. IN ADDITION NORMAL SLEEP PATTERNS ARE PRESENT. HYPERVENTILATION WAS NOT PERFORMED. PHOTIC STIMULATION PRODUCED GOOD DRIVING BILATERALLY. IMPRESSION: THIS IS A MILDLY ABNORMAL EEG DUE TO A MILDLY SLOW BACKGROUND. THIS IS A NON-SPECIFIC FINDING INDICATING THE PRESENCE OF A MILD DIFFUSE DISTURBANCE IN CEREBRAL FUNCTION.
== END 2020-03-14 15:05 ==
LOC: ER 10:39 → ERHOLD 11:35 → 2ND 18:02
PROVIDERS: ADMIT Internal Medicine; ATTEND Internal Medicine
DX: M32.14 Glomerular disease in systemic lupus erythematosus (principal); E86.0 Dehydration; G92 Toxic encephalopathy; I48.91 Unspecified atrial fibrillation; I12.9 Hypertensive chronic kidney disease with stage 1 through stage 4 chronic kidney disease, or unspecified chronic kidney disease; N18.30 Chronic kidney disease, stage 3 unspecified; Z20.828 Contact with and (suspected) exposure to other viral communicable diseases; E11.22 Type 2 diabetes mellitus with diabetic chronic kidney disease; D69.59 Other secondary thrombocytopenia; E87.6 Hypokalemia; R22.40 Localized swelling, mass and lump, unspecified lower limb; D63.1 Anemia in chronic kidney disease; I48.92 Unspecified atrial flutter; E44.0 Moderate protein-calorie malnutrition; R94.31 Abnormal electrocardiogram [ECG] [EKG]; I25.10 Atherosclerotic heart disease of native coronary artery without angina pectoris; M06.9 Rheumatoid arthritis, unspecified; E78.5 Hyperlipidemia, unspecified; N17.9 Acute kidney failure, unspecified; Z96.653 Presence of artificial knee joint, bilateral; Z95.5 Presence of coronary angioplasty implant and graft; E03.9 Hypothyroidism, unspecified; R53.81 Other malaise; E11.65 Type 2 diabetes mellitus with hyperglycemia
CPT/HCPCS: 36430; 93005; 95819; 87088; 87070; 85025 ×7; 81001; 87086; 80048 ×5; 36415 ×6; 86900; 83735; 86850; 87205; 83615 ×2; 84100; 85049 ×2; 85610; 85044; 86901; 84550; 85730; 83516; 85652 ×4; 84443; 87077; 87186; 85018; 85014; 84439; 82728; 82607; 83540; 86162; 80053; 86225; 86160 ×2; 82784; 84466; 86140 ×2; 84165; 70450; 71045; 70551; 97110 ×3; 97112; 97116 ×5; 97161; 97530 ×5; 96360; 99285; U0002; Q5106; Q5105; P9016 ×2; P9047 ×2; J7050 ×2; J7040; J7030; G0378; J1650; J7512